=== PATIENT | male | born 1935 | race Caucasian/White ===

== ENCOUNTER → 2016-05-18 | Outpatient (CLI) | payer OTHER ==
[~2016-05-18] MED LIST: AMLO-110 PO; AMLO5TAB2 PO; ASPI81TA28 PO; ATOR-26 PO; CHOL100010 PO; CHOL100027 PO; CIPR-255 PO; CLOP1TAB15 PO; CRD4 PO; DOXA4TAB2 PO; EZET10TA63 PO; FINA5TAB PO; FURO-85 PO; ISOS60TA25 PO; METF-384 PO; MISCCAP80 PO; NTRGSL/4 UT; OMEG10007 PO; PANT40TA PO; PLV75 PO; SENNTAB23 PO; SILO8CAP PO; TPRSR/25 PO
--- NOTE | 2016-05-18 13:56 | DIAGNOSTIC IMAGING REPORT ---
ULTRASOUND LEFT VENOUS DOPP LOWER EXT UNILAT CLINICAL HISTORY: Left leg edema COMPARISON STUDY: No previous studies for comparison. FINDINGS: Real-time and color flow Doppler imaging were performed. Flow was seen within the femoral, popliteal and calf veins with no intraluminal thrombus demonstrated. The saphenous vein is patent. IMPRESSION: No evidence of left lower extremity DVT. Electronically signed by: Russell Ellis M.D. 05/18/2016 1:54 PM
== END | disposition home or self-care (01) ==
LOC: C.ULTRBC 13:09
PROVIDERS: ATTEND Internal Medicine Geriatric Medicine
DX: R60.0 Localized edema (principal)

== ENCOUNTER → 2016-07-15 | Outpatient (CLI) | payer OTHER ==
--- NOTE | 2016-07-15 16:07 | DIAGNOSTIC IMAGING REPORT ---
KUB CLINICAL HISTORY: Hematuria. COMPARISON STUDY: CT of the abdomen and pelvis May 10, 2016. FINDINGS: Bowel gas pattern is normal. Pelvic calcifications are unchanged and represent phleboliths. Calcifications projecting over each renal shadow are similar to prior exam and likely reflect vascular calcifications. Small renal calculi would be difficult to exclude. IMPRESSION: Calcifications projecting over each renal shadow which likely reflect vascular calcifications. Renal calcifications would be difficult to exclude. No ureteral calculi identified. Electronically signed by: Kieran Melo M.D. 07/15/2016 4:05 PM Dictated Date/Time: 07/15/2016 4:02 PM
== END | disposition home or self-care (01) ==
LOC: C.RAD 15:25
PROVIDERS: ATTEND Nurse Practitioner Adult Health
DX: R31.9 Hematuria, unspecified (principal)

== ENCOUNTER → 2016-08-10 | Outpatient (CLI) | payer OTHER ==
[2016-08-10 13:18] LABS: BASO % 0.8 %; BASO ABS # 0.05 K/uL (0-0.2); COMPLETE YES; EOS % 3.3 %; HEMATOCRIT 40.9 % (42-52); IG% 0.2 %; LYMPH % 25.8 %; LYMPH ABS # 1.63 K/uL (1.2-3.4); MEAN CELL VOLUME 94.2 fL (80-100); MEAN CORPUSCULAR HEMOGLOBIN 32.3 pg (25-34); MEAN CORPUSCULAR HGB CONC 34.2 g/dl (32-36); MEAN PLATELET VOLUME 11.4 fL (7.4-10.4); MONO % 9.8 %; NEUT % 60.1 %; PLATELET COUNT 150 K/uL (130-400); RED BLOOD COUNT 4.34 M/uL (4.7-6.1); WHITE BLOOD COUNT 6.31 K/uL (4.8-10.8)
[2016-08-10 13:49] LABS: ALT/SGPT 31 U/L (12-78); AST/SGOT 16 U/L (15-37); BLOOD UREA NITROGEN 19 mg/dl (7-18); BUN/CREATININE RATIO 16.9 (10-20); CALCIUM 10.1 mg/dl (8.5-10.1); CARBON DIOXIDE 28 mmol/L (21-32); CHLORIDE 108 mmol/L (98-107); GLUCOSE 108 mg/dl (70-99); POTASSIUM 4.3 mmol/L (3.5-5.1); SODIUM 142 mmol/L (136-145)
[2016-08-10 13:52] LABS: ALB/GLOB RATIO 1.5 (0.9-2); ALKALINE PHOSPHATASE 46 U/L (45-117); CHOLESTEROL 107 mg/dl (0-200); CHOLESTEROL/HDL RATIO 2.1; HDL CHOLESTEROL 52 mg/dl; LDL CHOLESTEROL CALCULATED 35 mg/dl; TRIGLYCERIDES 100 mg/dl (0-150); VERY LOW DENSITY LIPOPROT CALC 20 mg/dl
[2016-08-10 14:05] LABS: ESTIMATED AVERAGE GLUCOSE 157 mg/dl; HA1C FLAG Normal (Normal)
== END | disposition home or self-care (01) ==
LOC: C.LABBC 12:06
PROVIDERS: ATTEND Internal Medicine Geriatric Medicine
DX: E11.9 Type 2 diabetes mellitus without complications (principal); I10 Essential (primary) hypertension; K76.0 Fatty (change of) liver, not elsewhere classified; E21.3 Hyperparathyroidism, unspecified; R10.9 Unspecified abdominal pain; E55.9 Vitamin D deficiency, unspecified

== ENCOUNTER 2016-08-28 01:43 | Emergency (ER) | payer OTHER ==
[~2016-08-28] VITALS: Ht 177.8 cm; Wt 94.0 kg
[~2016-08-28 01:43] MED LIST changes: -AMLO-110 PO; -CHOL100027 PO; -CIPR-255 PO; -CLOP1TAB15 PO; -DOXA4TAB2 PO; -FURO-85 PO; -SENNTAB23 PO
[2016-08-28 01:53] VITALS: TEMP 36.8; O2SAT 98; Ht 177.8 cm; Wt 94.0 kg
[2016-08-28 02:11] LABS: BASO % 0.2 %; BASO ABS # 0.01 K/uL (0-0.2); COMPLETE YES; EOS % 4.9 %; HEMATOCRIT 40.6 % (42-52); IG% 0.2 %; LYMPH % 36.9 %; LYMPH ABS # 2.41 K/uL (1.2-3.4); MEAN CELL VOLUME 94.6 fL (80-100); MEAN CORPUSCULAR HEMOGLOBIN 31.9 pg (25-34); MEAN CORPUSCULAR HGB CONC 33.7 g/dl (32-36); MEAN PLATELET VOLUME 11.1 fL (7.4-10.4); MONO % 9.8 %; PLATELET COUNT 140 K/uL (130-400); RED BLOOD COUNT 4.29 M/uL (4.7-6.1); WHITE BLOOD COUNT 6.54 K/uL (4.8-10.8)
[2016-08-28] MEDS ORDERED: NITROGLYCERIN OINT 2% 1GM PACKET EXT ONE (02:15)
--- NOTE | 2016-08-28 02:19 | EMERGENCY ROOM VISIT NOTE ---
History Report prepared by Archana: Lincoln Victor Under the Supervision of: Dr. Dana Joel M.D. First contact with patient: 02:00 Chief Complaint: CHEST PAIN Stated Complaint: CHEST PAIN Nursing Triage Summary: Patient arrived via EMS. EMS reports patient at home awoken by 4/10 chest pressure. Patient took adult aspirin at home. Patient reports reduced chest pain at this time. History of Present Illness The patient is a 81 year old male who presents to the Emergency Room via EMS with complaints of chest pressure starting about an hour and a half ago. He was asleep but kept waking up every 5 minutes from his alarm. He had been dealing with the situation for about 20 minutes, was angry, and had the onset of his symptoms. He took 1 nitro at home with some relief. He took 1 aspirin at home and was giving 3 more aspirin in route to the Emergency Room. He reports the pain has improved since its initial onset. The patient denies fevers, chills, shortness of breath, bilateral lower extremity pain/swelling, or any other complaints. He has a history of 4-way bypass occurring about 15 years ago. His last cardiac catheterization was many years ago. Source of History: patient Onset: about an hour and a half ago Position: chest Quality: pressure Timing: other (improved) Modifying Factors (Relieving): other (1 nitro at home with some relief) Associated Symptoms: No SOB, No chills, No fevers Review of Systems See HPI for pertinent positives & negatives. A total of 10 systems reviewed and were otherwise negative. Past Medical & Surgical Medical Problems: (1) Abdom Aortic Aneurysm (2) Abdominal pain (3) Benign hypertension (4) C. difficile diarrhea (5) Chest pain (6) Congestive Heart Failure Nos (7) Diabetes mellitus (8) Enteritis (9) Heart disease (10) Hyperlipidemia (11) Hyperparathyroidism, Unspecified (12) Kidney stone (13) Thrombocytopenia Nos Surgical Problems: (1) cardiac bypass (2) Cardiac catheterization (3) cardiac stent placement (4) History of herniorrhaphy (5) Hx of shoulder surgery Family History Diabetes mellitus FHx: cancer FHx: heart disease FHx: lung disease Hypertension Social History Smoking Status: Former Smoker Alcohol Use: none Drug Use: none Marital Status: Housing Status: lives with significant other Occupation Status: retired Current/Historical Medications Scheduled Amlodipine Besylate (Norvasc), 1 TAB PO DAILY Aspirin (Aspirin Ec), 81 MG PO DAILY Atorvastatin (Lipitor), 80 MG PO HS Cholecalciferol (Vitamin D 1000 Unit), 2,000 INTER.UNIT PO DAILY Clopidogrel (Plavix), 75 MG PO DAILY Clopidogrel Bisulfate (Clopidogrel), 75 MG PO DAILY Doxazosin Mesylate (Cardura), 4 MG PO DAILY Ezetimibe (Zetia), 10 MG PO QPM Finasteride (Proscar), 5 MG PO DAILY Fish Oil ([place]-3), 300 MG PO QAM Isosorbide Mononitrate Ext Rel (Imdur Ext Rel), 60 MG PO QAM Metformin Hcl (Glucophage), 1,500 MG PO DAILY Metoprolol Succinate (Metoprolol Succinate ER), 25 MG PO QPM Nitroglycerin (Nitrostat), 0.4 MG UT UD Pantoprazole (Protonix), 40 MG PO QAM Probiotic Product (Probiotic), 1 CAP PO DAILY Silodosin (Rapaflo), 1 CAP PO Q2D Scheduled PRN Furosemide (Lasix), 20 MG PO DAILY PRN for fluid Allergies Coded Allergies: Cinnamon Flavor (Unverified Allergy, Severe, THROAT SWELLING, 08/28/16) Linaclotide (Verified Adverse Reaction, Unknown, DIARRHEA, 08/28/16) Lisinopril (Unverified Adverse Reaction, Unknown, DIZZINESS, 08/28/16) Physical Exam Vital Signs Date Time Temp Pulse Resp B/P Pulse Ox O2 Delivery O2 Flow Rate FiO2 08/28/16 05:02 60 16 174/86 98 Room Air 08/28/16 03:05 52 18 154/69 90 Room Air 08/28/16 01:56 55 08/28/16 01:53 96 Room Air 08/28/16 01:53 36.8 68 18 174/68 94 Room Air 08/28/16 01:53 98 Room Air Physical Exam Vital signs reviewed. General: Elderly, well-appearing, in no significant distress. HEENT: No scleral icterus, PERRLA, neck supple. Atraumatic. Cardiovascular: Regular rate and rhythm, occasional ectopy, no extra sounds. Pulmonary: Clear to auscultation bilaterally, normal work of breathing. Abdomen: Soft, nontender, nondistended, positive bowel sounds. Musculoskeletal: Atraumatic, no significant peripheral edema. Neurologic: Patient awake alert and oriented x 3, full strength in all 4 extremities. Cranial nerves 2 through 12 grossly intact. Skin: Warm, dry, no rash Medical Decision & Procedures ER Provider Diagnostic Interpretation: X-ray results as stated below per interpretation by me: CHEST X-RAY Post op changes, mild cardiomegaly, no acute failure or lung consolidation appreciated. Laboratory Results 08/28/16 01:29 Red Blood Count 4.29, Mean Corpuscular Volume 94.6, Mean Corpuscular Hemoglobin 31.9, Mean Corpuscular Hemoglobin Concent 33.7, Mean Platelet Volume 11.1, Neutrophils (%) (Auto) 48.0, Lymphocytes (%) (Auto) 36.9, Monocytes (%) (Auto) 9.8, Eosinophils (%) (Auto) 4.9, Basophils (%) (Auto) 0.2, Neutrophils # (Auto) 3.15, Lymphocytes # (Auto) 2.41, Monocytes # (Auto) 0.64, Eosinophils # (Auto) 0.32, Basophils # (Auto) 0.01 08/28/16 01:29 Test 08/28/16 01:29 08/28/16 04:26 White Blood Count 6.54 K/uL (4.8-10.8) Red Blood Count 4.29 M/uL (4.7-6.1) Hemoglobin 13.7 g/dL (14.0-18.0) Hematocrit 40.6 % (42-52) Mean Corpuscular Volume 94.6 fL (80-100) Mean Corpuscular Hemoglobin 31.9 pg (25-34) Mean Corpuscular Hemoglobin Concent 33.7 g/dl (32-36) Platelet Count 140 K/uL (130-400) Mean Platelet Volume 11.1 fL (7.4-10.4) Neutrophils (%) (Auto) 48.0 % Lymphocytes (%) (Auto) 36.9 % Monocytes (%) (Auto) 9.8 % Eosinophils (%) (Auto) 4.9 % Basophils (%) (Auto) 0.2 % Neutrophils # (Auto) 3.15 K/uL (1.4-6.5) Lymphocytes # (Auto) 2.41 K/uL (1.2-3.4) Monocytes # (Auto) 0.64 K/uL (0.11-0.59) Eosinophils # (Auto) 0.32 K/uL (0-0.5) Basophils # (Auto) 0.01 K/uL (0-0.2) RDW Standard Deviation 46.6 fL (36.4-46.3) RDW Coefficient of Variation 13.5 % (11.5-14.5) Immature Granulocyte % (Auto) 0.2 % Immature Granulocyte # (Auto) 0.01 K/uL (0.00-0.02) Prothrombin Time 11.4 SECONDS (9.0-12.0) Prothromb Time International Ratio 1.1 (0.9-1.1) Activated Partial Thromboplast Time 26.1 SECONDS (21.0-31.0) Partial Thromboplastin Ratio 1.0 Anion Gap 7.0 mmol/L (3-11) Est Creatinine Clear Calc Drug Dose 61.7 ml/min Estimated GFR () 73.1 Estimated GFR (Non- 63.1 BUN/Creatinine Ratio 18.9 (10-20) Calcium Level 9.8 mg/dl (8.5-10.1) Magnesium Level 1.9 mg/dl (1.8-2.4) Total Bilirubin 1.3 mg/dl (0.2-1) Direct Bilirubin 0.3 mg/dl (0-0.2) Aspartate Amino Transf (AST/SGOT) 22 U/L (15-37) Alanine Aminotransferase (ALT/SGPT) 34 U/L (12-78) Alkaline Phosphatase 48 U/L (45-117) Total Creatine Kinase 226 U/L (39-308) Creatine Kinase MB 4.2 ng/ml (0.5-3.6) Creatine Kinase MB Ratio 1.9 (0-3.0) Total Protein 6.6 gm/dl (6.4-8.2) Albumin 3.9 gm/dl (3.4-5.0) Bedside Troponin I 0.000 ng/ml (0-0.045) Laboratory results per my review. Medications Administered Medications (Trade) Dose Ordered Sig/Joan Route Start Time Stop Time Status Last Admin Dose Admin Nitroglycerin (Nitroglycerin 2% Oint) 1 inch NOW ONCE EXT 08/28/16 02:15 08/28/16 02:16 DC 4/14/17 02:13 1 INCH ECG Indication: chest pain Rate (beats per minute): 56 Rhythm: sinus bradycardia Findings: PVC (occasional), RBBB, no acute ischemic change, other (previous inferior infarct, repolarization abnormality in inferior and anterior leads) ED Course 0200: Past medical records reviewed. The patient was evaluated in room A11B. A complete history and physical examination was performed. 0215: Nitroglycerin 1 inch EXT 0445: Upon reevaluation, the patient appeared to have improvement of his symptoms. I discussed findings with him. He verbalized agreement of the treatment plan. He was discharged home. Medical Decision Chest pain: Acute coronary syndrome, pulmonary embolus, aortic dissection, musculoskeletal pain, pneumonia, pleural effusion, pneumothorax This patient was evaluated and appeared to be in no significant distress. The patient's chest pain had significant resolution after the nitroglycerin that was administered. The patient complained of a mild discomfort and was given topical nitroglycerin. EKG reveals no evidence of acute ischemic change. He does have a right bundle-branch block and PVC. Cardiac enzymes are negative 2. Chest x-ray reveals chronic changes without evidence of acute focal lung consolidation or failure. I suspect the patient had a bit of an anxiety reaction related to his cell phone and his alarm. 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 He will return to the ER for worsening of symptoms or any medical concerns. Impression Primary Impression: Precordial chest pain Scribe Attestation The scribe's documentation has been prepared under my direction and personally reviewed by me in its entirety. I confirm that the note above accurately reflects all work, treatment, procedures, and medical decision making performed by me. Departure Information Dispostion Home / Self-Care Referrals Nestor Moss M.D. (PCP) Forms HOME CARE DOCUMENTATION FORM, IMPORTANT VISIT INFORMATION Patient Instructions My [facility] Additional Instructions Diagnosis: Precordial chest pain Continue your medications as prescribed. Follow-up with your physician this week for reevaluation and consideration of further cardiac testing. Return to the ER for worsening of symptoms or any medical concerns.
[2016-08-28 02:21] LABS: BUN/CREATININE RATIO 18.9 (10-20); CALCIUM 9.8 mg/dl (8.5-10.1); CREATININE 1.1 mg/dl (0.60-1.40); MAGNESIUM 1.9 mg/dl (1.8-2.4)
[2016-08-28 02:24] LABS: INR 1.1 (0.9-1.1); PROTHROMBIN TIME (PATIENT) 11.4 SECONDS (9.0-12.0)
[2016-08-28 02:26] LABS: CKMB/CK RATIO 1.9 (0-3.0)
[2016-08-28] MEDS ORDERED: CLOP1TAB15 PO (02:39)
[2016-08-28] MEDS ORDERED: DOXA4TAB2 PO (02:40)
[2016-08-28] MEDS ORDERED: FURO-85 PO (02:41)
[2016-08-28] MEDS ORDERED: CHOL100027 PO (02:42)
[2016-08-28 05:02] VITALS: BP 174/86; PULSE 60; O2SAT 98
--- NOTE | 2016-08-28 07:15 | DIAGNOSTIC IMAGING REPORT ---
CHEST ONE VIEW PORTABLE CLINICAL HISTORY: chest pain dyspnea COMPARISON STUDY: 05/10/2016 FINDINGS: Mild stable cardiomegaly. Prior median sternotomy. Prominent bronchovascular markings unchanged. Mid and upper lungs are clear. IMPRESSION: Mild cardia megaly. Mild chronic prominence of basilar parenchymal markings. Electronically signed by: Julius Alegria M.D. 08/28/2016 7:13 AM Dictated Date/Time: 08/28/2016 7:12 AM
== END 2016-08-28 05:28 | disposition home or self-care (01) ==
LOC: EDBD 01:43 → C.EDA 01:44
DX: R07.2 Precordial pain (principal); I71.4 Abdominal aortic aneurysm, without rupture; I45.10 Unspecified right bundle-branch block; I49.3 Ventricular premature depolarization; I10 Essential (primary) hypertension; I50.9 Heart failure, unspecified; E11.9 Type 2 diabetes mellitus without complications; E78.5 Hyperlipidemia, unspecified; E21.3 Hyperparathyroidism, unspecified; D69.6 Thrombocytopenia, unspecified; Z95.1 Presence of aortocoronary bypass graft; Z87.891 Personal history of nicotine dependence; Z79.82 Long term (current) use of aspirin; Z79.84 Long term (current) use of oral hypoglycemic drugs; Z83.3 Family history of diabetes mellitus; Z82.49 Family history of ischemic heart disease and other diseases of the circulatory system

== ENCOUNTER 2016-09-09 20:32 | Emergency (ER) | payer OTHER ==
[~2016-09-09] VITALS: Ht 177.8 cm; Wt 91.0 kg
[~2016-09-09 20:32] MED LIST changes: -CHOL100010 PO; +CHOL100027 PO; +CLOP1TAB15 PO; -CRD4 PO; +DOXA4TAB2 PO; +FURO-85 PO
[2016-09-09 20:37] VITALS: TEMP 36.7; O2SAT 96; Ht 177.8 cm; Wt 91.0 kg
[2016-09-09] MEDS ORDERED: AMLO-110 PO (21:15)
--- NOTE | 2016-09-09 21:41 | EMERGENCY ROOM VISIT NOTE ---
History Report prepared by Robertibneptali: Delfino Cooper Under the Supervision of: Dr. Jose Gardiner D.O. First contact with patient: 21:31 Chief Complaint: BRADYCARDIA Stated Complaint: LOW HEART RATE Nursing Triage Summary: Patient states "I've been keeping track of my heart rate and last wednesday they cut my metoprolol medicine. It's been running in the 50's. Tonight I sat down to watch TV and it was 40. I called the doctor and they sent me here." Patient reports shaking and nausea. History of Present Illness The patient is an 81 year old male who presents to the Emergency Room with complaints of persistent bradycardia for the past five days. The patient has been bradycardic since his Metoprolol dose was decreased from 25 mg to 12.5 mg. The patient's heart rate dipped into the 40s tonight. He sometimes feels lightheaded but denies any chest pain, shortness of breath, or abnormal abdominal pain. The patient was referred to the ED by his PCP's office. Source of History: patient Onset: five days ago Position: other (heart) Symptom Intensity: HR 40s Quality: other (bradycardic) Timing: other (persistent) Associated Symptoms: No SOB, No abdominal pain, No chest pain Review of Systems See HPI for pertinent positives and negatives. A total of ten systems were reviewed and were otherwise negative. Past Medical & Surgical Medical Problems: (1) Abdom Aortic Aneurysm (2) Abdominal pain (3) Benign hypertension (4) C. difficile diarrhea (5) Chest pain (6) Congestive Heart Failure Nos (7) Diabetes mellitus (8) Enteritis (9) Heart disease (10) Hyperlipidemia (11) Hyperparathyroidism, Unspecified (12) Kidney stone (13) Thrombocytopenia Nos Surgical Problems: (1) cardiac bypass (2) Cardiac catheterization (3) cardiac stent placement (4) History of herniorrhaphy (5) Hx of shoulder surgery Family History Diabetes mellitus FHx: cancer FHx: heart disease FHx: lung disease Hypertension Social History Smoking Status: Never Smoker Alcohol Use: none Drug Use: none Marital Status: Housing Status: lives with significant other Occupation Status: retired Current/Historical Medications Scheduled Amlodipine (Norvasc), 5 MG PO DAILY Aspirin (Aspirin Ec), 81 MG PO DAILY Atorvastatin (Lipitor), 80 MG PO HS Cholecalciferol (Vitamin D 1000 Unit), 2,000 INTER.UNIT PO DAILY Clopidogrel (Plavix), 75 MG PO DAILY Doxazosin Mesylate (Cardura), 4 MG PO DAILY Ezetimibe (Zetia), 10 MG PO QPM Finasteride (Proscar), 5 MG PO DAILY Fish Oil ([place]-3), 300 MG PO QAM Isosorbide Mononitrate Ext Rel (Imdur Ext Rel), 60 MG PO QAM Metformin Hcl (Glucophage), 1,500 MG PO DAILY Metoprolol Succinate (Metoprolol Succinate ER), 12.5 MG PO QPM Nitroglycerin (Nitrostat), 0.4 MG UT UD Pantoprazole (Protonix), 40 MG PO QAM Probiotic Product (Probiotic), 1 CAP PO DAILY Silodosin (Rapaflo), 1 CAP PO Q2D Scheduled PRN Furosemide (Lasix), 20 MG PO DAILY PRN for fluid Allergies Coded Allergies: Cinnamon Flavor (Verified Allergy, Severe, THROAT SWELLING, 09/09/16) Linaclotide (Verified Adverse Reaction, Unknown, DIARRHEA, 09/09/16) Lisinopril (Verified Adverse Reaction, Unknown, DIZZINESS, 09/09/16) Physical Exam Vital Signs Date Time Temp Pulse Resp B/P Pulse Ox O2 Delivery O2 Flow Rate FiO2 09/09/16 21:15 60 09/09/16 20:49 Room Air 09/09/16 20:37 36.7 62 24 172/77 96 Room Air Physical Exam GENERAL: Awake, alert, well-appearing, in no distress HENT: Normocephalic, atraumatic. Oropharynx unremarkable. EYES: Normal conjunctiva. Sclera non-icteric. NECK: Supple. No nuchal rigidity. FROM. No JVD. RESPIRATORY: Clear to auscultation. CARDIAC: Regular rate, normal rhythm. Extremities warm and well perfused. Pulses equal. ABDOMEN: Soft, non-distended. No tenderness to palpation. No rebound or guarding. No masses. RECTAL: Deferred. MUSCULOSKELETAL: Chest examination reveals no tenderness. The back is symmetrical on inspection without obvious abnormality. There is no CVA tenderness to palpation. No joint edema. LOWER EXTREMITIES: Calves are equal size bilaterally and non-tender. No edema. No discoloration. NEURO: Normal sensorium. No sensory or motor deficits noted. SKIN: No rash or jaundice noted. Medical Decision & Procedures ED Course 2129: The patient was evaluated in room A2. A complete history and physical exam was performed. Medical Decision Differential diagnosis includes sinus bradycardia, medication reaction, anxiety. Patient is resting in no distress patient has a heart rate greater than 60. Patient has been taking his heart rate after he takes metoprolol. Patient had his metoprolol cut in half by his primary care physician. Patient has no symptoms currently of bradycardia and is not hypotensive. Patient will need to continue to monitor his heart rate and there may be a need for continued changes in his metoprolol. Impression Primary Impression: Bradycardia Scribe Attestation The scribe's documentation has been prepared under my direction and personally reviewed by me in its entirety. I confirm that the note above accurately reflects all work, treatment, procedures, and medical decision making performed by me. Departure Information Dispostion Home / Self-Care Referrals Nestor Moss M.D. (PCP) Patient Instructions ED Bradycardia, My [facility] Additional Instructions Take your pulse prior to taking her metoprolol. Follow-up with her primary care physician for continued instructions on how to continue to take her metoprolol.
[2016-09-09 22:30] VITALS: BP 163/84; PULSE 57
== END 2016-09-09 22:30 | disposition home or self-care (01) ==
LOC: C.EDB 20:33 → C.EDA 22:30
DX: R00.1 Bradycardia, unspecified (principal); R42 Dizziness and giddiness; I71.4 Abdominal aortic aneurysm, without rupture; I10 Essential (primary) hypertension; I50.9 Heart failure, unspecified; E11.9 Type 2 diabetes mellitus without complications; E78.5 Hyperlipidemia, unspecified; E21.3 Hyperparathyroidism, unspecified; D69.6 Thrombocytopenia, unspecified; Z87.442 Personal history of urinary calculi; Z95.1 Presence of aortocoronary bypass graft; Z98.61 Coronary angioplasty status; Z79.82 Long term (current) use of aspirin; Z79.84 Long term (current) use of oral hypoglycemic drugs; Z83.3 Family history of diabetes mellitus; Z82.49 Family history of ischemic heart disease and other diseases of the circulatory system

== ENCOUNTER → 2016-09-23 | Day surgery (SDC) | payer OTHER ==
[2016-09-17 13:46] VITALS: BMI 27.0
[~2016-09-23] VITALS: Ht 180.3 cm; Wt 88.6 kg
[~2016-09-23] MED LIST changes: +AMLO-110 PO; -AMLO5TAB2 PO; +CIPR-255 PO; +LIDOCAINE HCL 2% 2 ML VIAL (20MG/ML) ONE; -PLV75 PO; +PROPOFOL IV EMULSION 10 MG/ML 20 ML VIAL IV ONE; +SENNTAB23 PO; -TPRSR/25 PO
[2016-09-23 13:37] VITALS: Ht 180.3 cm; Wt 88.6 kg
--- NOTE | 2016-09-23 14:15 | Endo History and Physical ---
History & Physical Date of Service: September 23, 2016. Chief Complaint: abd pain, reflux Referring Physician: Dr. Jacques Moss History of Present Illness 81 yo CM who presents for EGD secondary to abdominal pain and GERD. Past Medical History Diabetes, Angioplasty/Stent, Osteoporosis, Male Genitourinary Prob., Gastrointestinal Disorder, CABG, CHF, Kidney Disease Past Surgical History Hx Cardiac Surgery: Yes (CABG x4, HEART CATH-2 STENTS PLACED) Hx Internal Defibrillator: No Hx Pacemaker: No Hx Abdominal Surgery: Yes (AAA REPAIR, INGUINAL HERNIA REPAIR X 3) Hx of Implantable Prosthesis: No Hx Post-Op Nausea and Vomiting: No Hx Cancer Surgery: No Hx Thoracic Surgery: No Hx Orthopedic: Yes (LEFT RCR, LEFT PARTIAL KNEE REPLACEMENT) Hx Urinary Tract Surgery: No Family History Colon CA Social History Smoking Status: Former Smoker Hx Substance Use: No Hx Alcohol Use: No Allergies Coded Allergies: Cinnamon Flavor (Verified Allergy, Severe, THROAT SWELLING, 09/17/16) Linaclotide (Verified Adverse Reaction, Unknown, DIARRHEA, 09/17/16) Lisinopril (Verified Adverse Reaction, Unknown, DIZZINESS, 09/17/16) Current Medications Reported Home Medications Medications Dose Route/Sig Max Daily Dose Days Date Category Dose Instructions Norvasc (Amlodipine Besylate) 5 Mg Tab 5 Mg PO QAM 09/09/16 Reported Vitamin D 1000 Unit (Cholecalciferol) 1,000 Unit Cap 2,000 Inter.unit PO QAM 08/28/16 Reported Lasix (Furosemide) 20 Mg Tab 20 Mg PO DAILY PRN 08/28/16 Reported Cardura (Doxazosin Mesylate) 4 Mg Tab 4 Mg PO QAM 08/28/16 Reported Plavix (Clopidogrel Bisulfate) 75 Mg Tab 75 Mg PO QAM 08/28/16 Reported Lipitor (Atorvastatin Calcium) 80 Mg Tab 80 Mg PO HS 05/10/16 Reported Glucophage (Metformin Hcl) 1,000 Mg Tab 1 Dose PO BID 04/08/16 Reported TAKES 0.5TAB IN AM TAKES 1 TAB IN PM Proscar (Finasteride) 5 Mg Tab 5 Mg PO QAM 03/16/16 Reported Probiotic (Probiotic Product) 1 Cap Cap 1 Cap PO QAM 03/16/16 Reported Aspirin Ec (Aspirin) 81 Mg Tab 81 Mg PO QAM 03/16/16 Reported Rapaflo (Silodosin) 8 Mg Cap 1 Cap PO Q2D 02/21/15 Reported TAKE EVERY OTHER AM [place]-3 (Fish Oil) 1 Ea Cap 300 Mg PO QAM 08/07/11 Reported Nitrostat (Nitroglycerin) 0.4 Mg Tab 0.4 Mg UT UD 08/31/08 Reported NEEDED FOR CHEST PAIN : ONE TABLET UNDER THE TONGUE EVERY 5 MINUTES UP TO 3 DOSES. Imdur Ext Rel (Isosorbide Mononitrate) 60 Mg Ertab 60 Mg PO QAM 08/23/08 Reported Protonix (Pantoprazole Sodium) 40 Mg Tab 40 Mg PO QAM 08/23/08 Reported Zetia (Ezetimibe) 10 Mg Tab 10 Mg PO QPM 08/23/08 Reported Vital Signs Weight (Kilograms): 88.64 Height (Feet): 5 Height (Inches): 11 Date Time Temp Pulse Resp B/P Pulse Ox O2 Delivery O2 Flow Rate FiO2 09/23/16 13:42 36.6 54 20 172/78 95 Room Air Physical Exam General Appearance: WD/WN, no apparent distress Respiratory/Chest: Auscultation: breath sounds normal Cardiovascular: Heart Auscultation: RRR Abdomen: Bowel Sounds: normal Inspection & Palpation: soft, non-distended, no tenderness, guarding & rebound Assessment and Plan Assessment: 81 yo CM who presents for EGD secondary to abdominal pain and GERD. Plan: Proceed with EGD.
--- NOTE | 2016-09-23 14:34 | Discharge Instructions ---
Endoscopy Patient Instructions Date / Procedure(s) Performed September 23, 2016. EGD Allergy Information Coded Allergies: Cinnamon Flavor (Verified Allergy, Severe, THROAT SWELLING, 09/23/16) Linaclotide (Verified Adverse Reaction, Unknown, DIARRHEA, 09/23/16) Lisinopril (Verified Adverse Reaction, Unknown, DIZZINESS, 09/23/16) Discharge Date / Findings September 23, 2016. Gastritis s/p biopsies Hiatal hernia Medication Instructions Stopped Medication(s): PLavix for 5 days OK to resume all medications today as prescribed Reported Home Medications Medications Dose Route/Sig Max Daily Dose Days Date Category Dose Instructions Norvasc (Amlodipine Besylate) 5 Mg Tab 5 Mg PO QAM 09/09/16 Reported Vitamin D 1000 Unit (Cholecalciferol) 1,000 Unit Cap 2,000 Inter.unit PO QAM 08/28/16 Reported Lasix (Furosemide) 20 Mg Tab 20 Mg PO DAILY PRN 08/28/16 Reported Cardura (Doxazosin Mesylate) 4 Mg Tab 4 Mg PO QAM 08/28/16 Reported Plavix (Clopidogrel Bisulfate) 75 Mg Tab 75 Mg PO QAM 08/28/16 Reported Lipitor (Atorvastatin Calcium) 80 Mg Tab 80 Mg PO HS 05/10/16 Reported Glucophage (Metformin Hcl) 1,000 Mg Tab 1 Dose PO BID 04/08/16 Reported TAKES 0.5TAB IN AM TAKES 1 TAB IN PM Proscar (Finasteride) 5 Mg Tab 5 Mg PO QAM 03/16/16 Reported Probiotic (Probiotic Product) 1 Cap Cap 1 Cap PO QAM 03/16/16 Reported Aspirin Ec (Aspirin) 81 Mg Tab 81 Mg PO QAM 03/16/16 Reported Rapaflo (Silodosin) 8 Mg Cap 1 Cap PO Q2D 02/21/15 Reported TAKE EVERY OTHER AM [place]-3 (Fish Oil) 1 Ea Cap 300 Mg PO QAM 08/07/11 Reported Nitrostat (Nitroglycerin) 0.4 Mg Tab 0.4 Mg UT UD 08/31/08 Reported NEEDED FOR CHEST PAIN : ONE TABLET UNDER THE TONGUE EVERY 5 MINUTES UP TO 3 DOSES. Imdur Ext Rel (Isosorbide Mononitrate) 60 Mg Ertab 60 Mg PO QAM 08/23/08 Reported Protonix (Pantoprazole Sodium) 40 Mg Tab 40 Mg PO QAM 08/23/08 Reported Zetia (Ezetimibe) 10 Mg Tab 10 Mg PO QPM 08/23/08 Reported Provider Instructions Activity Restrictions - No exercising or heavy lifting for 24 hours. - Do not drink alcohol the day of the procedure. - Do not drive a car or operate machinery until the day after the procedure. - Do not make any important decisions or sign important papers in 24 hours after the procedure. Following Day: - Return to full activity which may include returning to work/school. Diet Start your diet with liquids and light foods (jello, soup, juice, toast). Then eat your usual diet if not nauseated. Treatment For Common After Affects For mild abdominal pain, bloating, or excessive gas: - Rest - Eat lightly - Lie on right side Follow-Up Information Follow-up with Dr. Jacques Moss as scheduled Anesthesia Information What You Should Know You have had a procedure that required some medicine to reduce anxiety and discomfort. This treatment is called moderate sedation. After receiving the treatment, you may be sleepy, but you will be able to breathe on your own. The effects of the treatment may last for several hours. Follow these instructions along with Activity/Diet recommendations noted above: * Do NOT do anything where dizziness or clumsiness would be dangerous. * Rest quietly at home today, then you can be up and about tomorrow. * Have a responsible person stay with you the rest of today. * You may have had an I.V. today. If so, you may take the dressing off later today. Recommendations Call your doctor if: * Trouble breathing * Continuous vomiting for more than 24 hours * Temperature above 101 degrees * Severe abdominal pain or bloating * Pain not relieved by pain medicine ordered * There is increased drainage or redness from any incision * A large amount of rectal bleeding greater than 2-3 tablespoons. (If you had a polyp/s removed or have hemorrhoids, a small amount of blood - from the rectum is to be expected.) * You have any unanswered questions or concerns. IN THE EVENT OF A SERIOUS EMERGENCY, GO TO THE NEAREST EMERGENCY ROOM Your discharge instructions were prepared by provider Fracisco Ramirez. Patient Instructions Signature Page [facility] [place] Patient (or Guardian) Signature/Date: I have read and understand the instructions given to me by my caregivers. Caregiver/RN/Doctor Signature/Date: The above-named patient and/or guardian has received patient instructions on this date. + Original Patient Signature Page (only) stays with chart. Please make copy for patient.
--- NOTE | 2016-09-23 14:48 | GI REPORT ---
Procedure Date: 09/23/2016 2:12 PM Procedure: Upper GI endoscopy Indications: Epigastric abdominal pain, Gastro-esophageal reflux disease Medicines: Monitored Anesthesia Care Complications: No immediate complications. Estimated Blood Loss: Estimated blood loss: none. Procedure: Pre-Anesthesia Assessment: - Prior to the procedure, a History and Physical was performed, and patient medications and allergies were reviewed. The patient's tolerance of previous anesthesia was also reviewed. The risks and benefits of the procedure and the sedation options and risks were discussed with the patient. All questions were answered, and informed consent was obtained. Prior Anticoagulants: The patient last took Plavix (clopidogrel) 6 days prior to the procedure and last took aspirin on the day of the procedure. ASA Grade Assessment: III - A patient with severe systemic disease. After reviewing the risks and benefits, the patient was deemed in satisfactory condition to undergo the procedure. After obtaining informed consent, the endoscope was passed under direct vision. Throughout the procedure, the patient's blood pressure, pulse, and oxygen saturations were monitored continuously. The scope was introduced through the mouth, and advanced to the second part of duodenum. The upper GI endoscopy was accomplished without difficulty. The patient tolerated the procedure well. Findings: The esophagus was normal. A small hiatus hernia was present. Localized moderate inflammation characterized by erythema was found in the gastric antrum. Biopsies were taken with a cold forceps for histology. The examined duodenum was normal. Impression: - Normal esophagus. - Small hiatus hernia. - Gastritis. Biopsied. - Normal examined duodenum. Recommendation: - Resume previous diet. - Continue present medications. - Await pathology results. - Return to GI office as previously scheduled. Fracisco Ramirez DO 09/23/2016 2:47:21 PM This report has been signed electronically. Note Initiated On: 09/23/2016 2:12 PM I attest to the content of the Intraoperative Record and orders documented therein, exceptions below
[2016-09-23 15:05] VITALS: BP 162/77; PULSE 50; O2SAT 95
--- NOTE | 2016-09-23 15:41 | Anesthesiology Progress Note ---
Anesthesia Post Op Note Date & Time September 23, 2016 at 15:41 Vital Signs Pain Intensity: 0 Vital Signs Past 12 Hours Date Time Temp Pulse Resp B/P Pulse Ox O2 Delivery O2 Flow Rate FiO2 09/23/16 15:05 50 20 162/77 95 Room Air 09/23/16 14:49 52 20 150/72 95 Room Air 09/23/16 14:32 48 20 133/73 95 Room Air 09/23/16 13:42 36.6 54 20 172/78 95 Room Air Notes Mental Status: alert / awake / arousable, participated in evaluation Pt Amnestic to Procedure: Yes Nausea / Vomiting: adequately controlled Pain: adequately controlled Airway Patency, RR, SpO2: stable & adequate BP & HR: stable & adequate Hydration State: stable & adequate Anesthetic Complications: no major complications apparent
== END | disposition home or self-care (01) ==
LOC: C.GI 13:15
PROVIDERS: ATTEND Internal Medicine
DX: K29.60 Other gastritis without bleeding (principal); K44.9 Diaphragmatic hernia without obstruction or gangrene; K21.9 Gastro-esophageal reflux disease without esophagitis; E11.9 Type 2 diabetes mellitus without complications; Z87.891 Personal history of nicotine dependence; Z98.61 Coronary angioplasty status; Z79.82 Long term (current) use of aspirin; Z96.652 Presence of left artificial knee joint; Z95.1 Presence of aortocoronary bypass graft; Z80.0 Family history of malignant neoplasm of digestive organs; M81.0 Age-related osteoporosis without current pathological fracture

== ENCOUNTER → 2017-01-27 | Outpatient (CLI) | payer OTHER ==
[~2017-01-27] MED LIST changes: -LIDOCAINE HCL 2% 2 ML VIAL (20MG/ML) ONE; -PROPOFOL IV EMULSION 10 MG/ML 20 ML VIAL IV ONE
== END | disposition home or self-care (01) ==
LOC: C.RDSM 13:15
PROVIDERS: ATTEND Orthopaedic Surgery Sports Medicine
DX: M25.561 Pain in right knee (principal); M25.562 Pain in left knee

== ENCOUNTER 2017-02-06 09:00 | Emergency (ER) | payer OTHER ==
[~2017-02-06] VITALS: Ht 180.3 cm; Wt 89.1 kg
[~2017-02-06 09:00] MED LIST changes: -CIPR-255 PO; -SENNTAB23 PO
[2017-02-06 09:10] VITALS: TEMP 36.7; Ht 180.3 cm; Wt 89.1 kg
[2017-02-06] MEDS ORDERED: SENNTAB23 PO (09:55)
[2017-02-06 10:16] LABS: MANUAL MICROSCOPIC REQUIRED? YES; URINE APPEARANCE CLOUDY (CLEAR); URINE COLOR AMBER; URINE NITRITE NEG (NEG); URINE SPECIFIC GRAVITY 1.025 (1.000-1.030); UROBILINOGEN NEG (NEG)
[2017-02-06 10:37] LABS: REVIEW REQ? NO; URINE BILIRUBIN NEG (NEG)
[2017-02-06 10:42] LABS: URINE RBC >30 /hpf (0-4); URINE WBC >30 /hpf (0-5)
[2017-02-06 10:43] LABS: URINE BACTERIA 2+ (NEG)
[2017-02-06 10:44] LABS: ZZURINE CULT IF INDIC CATH YES
[2017-02-06] MEDS ORDERED: CIPR-255 PO (11:10)
[2017-02-06 11:18] VITALS: BP 160/74; PULSE 68; O2SAT 99
--- NOTE | 2017-02-06 11:18 | EMERGENCY ROOM VISIT NOTE ---
History First contact with patient: 09:15 Chief Complaint: URINARY SYMPTOMS Stated Complaint: PEEING BLOOD Nursing Triage Summary: "Im peeing blood." Dark red. Has been self cathing due to trouble urinating. Has been following with a urologist. Able to void on own but also cathing 3 times a day. Pain when voiding. Pt takes Plavix. History of Present Illness The patient is a 81 year old male who presents to the Emergency Room with complaints of hematuria. The patient reports a history of BPH, and his urologist has him self catheterizing 3 times daily. The patient reports that when he noticed blood in his urine last night, he did not perform any additional caths overnight. He did have to go to the bathroom every hour because of pressure, and was able to get small amounts of urine out. The patient denies any nausea or vomiting, back pain or abdominal pain. He does report a prior history of UTI. Review of Systems 10 system review was performed and was negative except for pertinent positives and negatives as indicated in history of present illness Past Medical/Surgical History Medical Problems: (1) Abdom Aortic Aneurysm (2) Abdominal pain (3) Benign hypertension (4) C. difficile diarrhea (5) Chest pain (6) Congestive Heart Failure Nos (7) Diabetes mellitus (8) Enteritis (9) Heart disease (10) Hyperlipidemia (11) Hyperparathyroidism, Unspecified (12) Kidney stone (13) Thrombocytopenia Nos Surgical Problems: (1) cardiac bypass (2) Cardiac catheterization (3) cardiac stent placement (4) History of herniorrhaphy (5) Hx of shoulder surgery Family History Diabetes mellitus FHx: cancer FHx: heart disease FHx: lung disease Hypertension Social History Smoking Status: Former Smoker Alcohol Use: none Drug Use: none Marital Status: Housing Status: lives with significant other Occupation Status: retired Current/Historical Medications Scheduled Amlodipine (Norvasc), 5 MG PO QAM Aspirin (Aspirin Ec), 81 MG PO QAM Atorvastatin (Lipitor), 80 MG PO HS Cholecalciferol (Vitamin D 1000 Unit), 2,000 INTER.UNIT PO QAM Ciprofloxacin Hcl (Cipro), 500 MG PO BID Clopidogrel (Plavix), 75 MG PO QAM Doxazosin Mesylate (Cardura), 4 MG PO QAM Ezetimibe (Zetia), 10 MG PO QPM Finasteride (Proscar), 5 MG PO QAM Fish Oil ([place]-3), 300 MG PO QAM Isosorbide Mononitrate Ext Rel (Imdur Ext Rel), 60 MG PO QAM Metformin Hcl (Glucophage), 1 DOSE PO BID Nitroglycerin (Nitrostat), 0.4 MG UT UD Pantoprazole (Protonix), 40 MG PO QAM Probiotic Product (Probiotic), 1 CAP PO QAM Silodosin (Rapaflo), 1 CAP PO Q2D Scheduled PRN Furosemide (Lasix), 20 MG PO DAILY PRN for fluid Sennosides-Docusate Sodium (Stool Softener), 1 TAB PO DAILY PRN for Constipation Physical Exam Vital Signs Date Time Temp Pulse Resp B/P (MAP) Pulse Ox O2 Delivery O2 Flow Rate FiO2 02/06/17 09:10 36.7 58 16 157/75 98 Room Air Physical Exam CONSTITUTIONAL: Healthy and well nourished. Alert and oriented X 3 with positive affect. Patient does not appear in any acute distress. HEENT: Normocephalic, atraumatic. Pupils equal, round and reactive. NECK: Full active range of motion without discomfort. RESPIRATORY: Clear to auscultation bilaterally with no wheezing, crackles, rhonchi or stridor. CARDIOVASCULAR: Regular rate and rhythm with no murmurs, rubs or gallops. GASTROINTESTINAL: Bowel sounds present in all quadrants. Abdomen is soft and nontender to palpation. No suprapubic tenderness to palpation or obvious bladder distention. Negative CVA tenderness. GENITOURINARY: No urethral erythema or kathy urethral bleeding. MUSCULOSKELETAL: Full range of motion of all joints without discomfort. INTEGUMENTARY: No rash or other significant dermatologic conditions noted. NEUROLOGIC: No focal neurologic deficits noted. Medical Decision & Procedures Laboratory Results Test 02/06/17 09:50 Urine Color MAIK Urine Appearance CLOUDY (CLEAR) Urine pH 5.0 (4.5-7.5) Urine Specific [place] 1.025 (1.000-1.030) Urine Protein 2+ (NEG) Urine Glucose (UA) NEG (NEG) Urine Ketones TRACE (NEG) Urine Occult Blood 3+ (NEG) Urine Nitrite NEG (NEG) Urine Bilirubin NEG (NEG) Urine Urobilinogen NEG (NEG) Urine Leukocyte Esterase MODERATE (NEG) Urine RBC >30 /hpf (0-4) Urine WBC >30 /hpf (0-5) Urine Epithelial Cells >30 /lpf (0-5) Urine Bacteria 2+ (NEG) Urinalysis shows hematuria, leukocyte esterase and white cells. Unfortunately, the sample was contaminated. Urine culture is pending. Procedure A Gonzalez catheter was inserted with minimal output. Bladder scan was performed to show no residual volume. ED Course Patient history and physical exam were performed. Nurse's notes were reviewed. Vital signs were reviewed and were normal. Because the patient has hematuria and history of urinary obstruction, I did elect to order a Gonzalez catheter insertion. Minimal urine output was achieved. Bladder scan was performed to show no residual volume. Urinalysis is suggestive of infection. The case was further discussed with Dr. Richards, ED attending physician, who suggested antibiotic treatment and Gonzalez catheter removal, and continue with home self-catheterization as needed. The patient was provided a prescription for Cipro 500 mg twice a day 10 days. He was instructed to follow-up with his urologist in the next 2-3 days for reassessment. Return to the emergency department over the weekend for any progressively worsening symptoms, fever, nausea/vomiting or back pain. The patient was happy with plan of care, voiced understanding of all discharge instructions, and denied any significant discomfort at the time of discharge. Medical Decision Medication Reconcilliation Current Medication List: was personally reviewed by me Blood Pressure Screening Patient's blood pressure: Normal blood pressure Impression Primary Impression: Urinary tract infection Additional Impression: Self-catheterizes urinary bladder Departure Information Dispostion Home / Self-Care Prescriptions Ciprofloxacin Hcl (CIPRO) 500 Mg Tab 500 MG PO BID for 10 Days, #20 TAB Prov: Amrik Bond PA 02/06/17 Forms HOME CARE DOCUMENTATION FORM, IMPORTANT VISIT INFORMATION Patient Instructions CAUTI Catheter Associated, My [facility] Additional Instructions Complete all Cipro antibiotics as prescribed. Follow-up with your family doctor early next week for reevaluation. Return to the emergency department for any inability to urinate, developing fever, neck pain, nausea or vomiting. Problem Qualifiers Primary Impression: Urinary tract infection Urinary tract infection type: acute cystitis Hematuria presence: with hematuria Qualified Codes: N30.01 - Acute cystitis with hematuria
--- NOTE | 2017-02-08 11:14 | Pharmacy Progress Note ---
ED Pharmacist Culture FollowUp Date of Service: Feb 08, 2017. Patient was sent home with a prescription for ciprofloxacin, which should cover the E.Coli growing from the patient's urine culture.
== END 2017-02-06 11:21 | disposition home or self-care (01) ==
LOC: C.EDB 09:04
DX: N30.01 Acute cystitis with hematuria (principal); I10 Essential (primary) hypertension; E11.9 Type 2 diabetes mellitus without complications; E78.5 Hyperlipidemia, unspecified; N40.0 Benign prostatic hyperplasia without lower urinary tract symptoms; Z87.440 Personal history of urinary (tract) infections; Z87.442 Personal history of urinary calculi; Z87.891 Personal history of nicotine dependence; Z95.1 Presence of aortocoronary bypass graft; Z98.61 Coronary angioplasty status; Z98.890 Other specified postprocedural states; Z83.3 Family history of diabetes mellitus; Z82.49 Family history of ischemic heart disease and other diseases of the circulatory system; Z79.02 Long term (current) use of antithrombotics/antiplatelets; Z79.82 Long term (current) use of aspirin; Z79.84 Long term (current) use of oral hypoglycemic drugs; Z79.899 Other long term (current) drug therapy

== ENCOUNTER 2017-02-12 08:21 | Emergency (ER) | payer OTHER ==
[~2017-02-12] VITALS: Ht 177.8 cm; Wt 89.0 kg
[~2017-02-12 08:21] MED LIST changes: +CIPR-255 PO; +SENNTAB23 PO
[2017-02-12 08:26] VITALS: TEMP 36.4; Ht 177.8 cm; Wt 89.0 kg
[2017-02-12 08:34] VITALS: O2SAT 99
[2017-02-12] MEDS ORDERED: ASPIRIN 81 MG CHEW PO STA (08:44)
[2017-02-12] MEDS ORDERED: NITROGLYCERIN 0.4 MG SL PER TAB CHARGE SL PRN (08:45)
[2017-02-12 09:14] LABS: BASO % 0.6 %; BASO ABS # 0.04 K/uL (0-0.2); COMPLETE YES; EOS % 3.9 %; HEMATOCRIT 42.5 % (42-52); IG% 0.2 %; MEAN CELL VOLUME 94.4 fL (80-100); MEAN CORPUSCULAR HEMOGLOBIN 31.6 pg (25-34); MEAN CORPUSCULAR HGB CONC 33.4 g/dl (32-36); MEAN PLATELET VOLUME 10.6 fL (7.4-10.4); MONO % 9.4 %; NEUT % 63.9 %; PLATELET COUNT 174 K/uL (130-400); WHITE BLOOD COUNT 6.35 K/uL (4.8-10.8)
[2017-02-12 09:30] LABS: BUN/CREATININE RATIO 13.7 (10-20); CALCIUM 10.2 mg/dl (8.5-10.1); CREATININE 1.1 mg/dl (0.60-1.40)
--- NOTE | 2017-02-12 09:34 | DIAGNOSTIC IMAGING REPORT ---
CHEST ONE VIEW PORTABLE CLINICAL HISTORY: Atypical chest pain COMPARISON STUDY: 08/28/2016 FINDINGS: The heart is mildly enlarged. There are postsurgical changes of a midline sternotomy. There is no failure. There is no focal pulmonary consolidation. No pleural effusions are visualized.[ IMPRESSION: No active disease in the chest. Electronically signed by: Russell Ellis M.D. 02/12/2017 9:33 AM Dictated Date/Time: 02/12/2017 9:33 AM
--- NOTE | 2017-02-12 10:00 | EMERGENCY ROOM VISIT NOTE ---
History First contact with patient: 08:32 Chief Complaint: TACHYCARDIA Stated Complaint: RAPID HEART BEAT Nursing Triage Summary: pt reports for past 3 days intermittent feeling of "heart beating hard" today awoke with pressure in center of chest , denies radiation , reports feeling tired and weak pt reports taking asa 81mg and nitro X 1 with no relief History of Present Illness The patient is a 81 year old male who presents to the Emergency Room with complaints of chest pressure that began this morning at about 6:30 AM. Patient states that for the past 3 days he has been feeling a heavy heartbeat at night, states it feels like his heart is "thumping." He denies any feelings of palpitations, racing or rapid heartbeat. He has not had any chest discomfort with this until this morning. He has had some associated feelings of lightheadedness, he denies any shortness of breath, nausea or vomiting, diaphoresis. He did take 1 baby aspirin and 1 nitroglycerin when his symptoms started with no improvement. He has a history of heart disease with a previous MO and a CABG [address] 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 He denies any recent illness, fevers or chills, cough, congestion, abdominal pain, back pain, change in bowels. He does report that he was started on treatment for UTI about 1 week ago, being treated with ciprofloxacin. Review of Systems A complete 10 point review of systems was reviewed with the patient with pertinent positives and negatives as per history of present illness. All else were negative. Past Medical/Surgical History Medical Problems: (1) Abdom Aortic Aneurysm (2) Abdominal pain (3) Benign hypertension (4) C. difficile diarrhea (5) Chest pain (6) Congestive Heart Failure Nos (7) Diabetes mellitus (8) Enteritis (9) Heart disease (10) Hyperlipidemia (11) Hyperparathyroidism, Unspecified (12) Kidney stone (13) Thrombocytopenia Nos Surgical Problems: (1) cardiac bypass (2) Cardiac catheterization (3) cardiac stent placement (4) History of herniorrhaphy (5) Hx of shoulder surgery Family History Diabetes mellitus FHx: cancer FHx: heart disease FHx: lung disease Hypertension Social History Smoking Status: Former Smoker Alcohol Use: none Drug Use: none Marital Status: Housing Status: lives with significant other Occupation Status: retired Current/Historical Medications Scheduled Amlodipine (Norvasc), 5 MG PO QAM Aspirin (Aspirin Ec), 81 MG PO QAM Atorvastatin (Lipitor), 80 MG PO HS Cholecalciferol (Vitamin D 1000 Unit), 2,000 INTER.UNIT PO QAM Clopidogrel (Plavix), 75 MG PO QAM Doxazosin Mesylate (Cardura), 4 MG PO QAM Ezetimibe (Zetia), 10 MG PO QPM Finasteride (Proscar), 5 MG PO QAM Fish Oil ([place]-3), 300 MG PO QAM Isosorbide Mononitrate Ext Rel (Imdur Ext Rel), 60 MG PO QAM Metformin Hcl (Glucophage), 1,500 MG PO BID Nitroglycerin (Nitrostat), 0.4 MG UT UD Pantoprazole (Protonix), 40 MG PO QAM Probiotic Product (Probiotic), 1 CAP PO QAM Silodosin (Rapaflo), 1 CAP PO Q2D Scheduled PRN Furosemide (Lasix), 20 MG PO DAILY PRN for fluid Sennosides-Docusate Sodium (Stool Softener), 1 TAB PO DAILY PRN for Constipation Physical Exam Vital Signs Date Time Temp Pulse Resp B/P (MAP) Pulse Ox O2 Delivery O2 Flow Rate FiO2 02/12/17 14:34 49 20 160/78 98 02/12/17 14:03 49 20 170/77 97 Room Air 02/12/17 12:52 53 20 158/76 96 Room Air 02/12/17 12:13 48 02/12/17 11:09 48 20 166/72 97 Room Air 02/12/17 09:22 48 16 151/80 96 Room Air 02/12/17 08:40 52 02/12/17 08:34 99 Room Air 02/12/17 08:26 36.4 51 20 183/72 97 Room Air Physical Exam CONSTITUTIONAL: No acute distress. Well appearing and well nourished. Alert and oriented X 4 with normal affect. HEENT: Normocephalic, atraumatic. Pupils equal, round and reactive to light, EOMI. TMs normal. Pharynx normal. Moist membranes. NECK: Supple, full active range of motion without discomfort. RESPIRATORY: Clear to auscultation bilaterally with no wheezing, crackles, rhonchi or stridor. Equal expansion bilaterally. CARDIOVASCULAR: Bradycardia. Regularly irregular rhythm with no murmurs, rubs or gallops. Normal peripheral perfusion. No edema. GASTROINTESTINAL: Soft, nontender, nondistended. Bowel sounds present in all quadrants. MUSCULOSKELETAL: Full range of motion of all joints without discomfort. INTEGUMENTARY: No rash or other significant dermatologic conditions noted. NEUROLOGIC: Cranial nerves II-XII grossly intact. No focal neurologic deficits noted. Medical Decision & Procedures ER Provider Diagnostic Interpretation: CHEST ONE VIEW PORTABLE CLINICAL HISTORY: Atypical chest pain COMPARISON STUDY: 08/28/2016 FINDINGS: The heart is mildly enlarged. There are postsurgical changes of a midline sternotomy. There is no failure. There is no focal pulmonary consolidation. No pleural effusions are visualized. IMPRESSION: No active disease in the chest. Laboratory Results 02/12/17 08:57 Red Blood Count 4.50, Mean Corpuscular Volume 94.4, Mean Corpuscular Hemoglobin 31.6, Mean Corpuscular Hemoglobin Concent 33.4, Mean Platelet Volume 10.6, Neutrophils (%) (Auto) 63.9, Lymphocytes (%) (Auto) 22.0, Monocytes (%) (Auto) 9.4, Eosinophils (%) (Auto) 3.9, Basophils (%) (Auto) 0.6, Neutrophils # (Auto) 4.05, Lymphocytes # (Auto) 1.40, Monocytes # (Auto) 0.60, Eosinophils # (Auto) 0.25, Basophils # (Auto) 0.04 02/12/17 08:57 Test 02/12/17 08:53 02/12/17 08:57 02/12/17 13:16 Bedside Glucose 114 mg/dl (70-99) White Blood Count 6.35 K/uL (4.8-10.8) Red Blood Count 4.50 M/uL (4.7-6.1) Hemoglobin 14.2 g/dL (14.0-18.0) Hematocrit 42.5 % (42-52) Mean Corpuscular Volume 94.4 fL (80-100) Mean Corpuscular Hemoglobin 31.6 pg (25-34) Mean Corpuscular Hemoglobin Concent 33.4 g/dl (32-36) Platelet Count 174 K/uL (130-400) Mean Platelet Volume 10.6 fL (7.4-10.4) Neutrophils (%) (Auto) 63.9 % Lymphocytes (%) (Auto) 22.0 % Monocytes (%) (Auto) 9.4 % Eosinophils (%) (Auto) 3.9 % Basophils (%) (Auto) 0.6 % Neutrophils # (Auto) 4.05 K/uL (1.4-6.5) Lymphocytes # (Auto) 1.40 K/uL (1.2-3.4) Monocytes # (Auto) 0.60 K/uL (0.11-0.59) Eosinophils # (Auto) 0.25 K/uL (0-0.5) Basophils # (Auto) 0.04 K/uL (0-0.2) RDW Standard Deviation 45.9 fL (36.4-46.3) RDW Coefficient of Variation 13.3 % (11.5-14.5) Immature Granulocyte % (Auto) 0.2 % Immature Granulocyte # (Auto) 0.01 K/uL (0.00-0.02) Prothrombin Time 11.0 SECONDS (9.0-12.0) Prothromb Time International Ratio 1.0 (0.9-1.1) Activated Partial Thromboplast Time 25.7 SECONDS (21.0-31.0) Partial Thromboplastin Ratio 1.0 Anion Gap 8.0 mmol/L (3-11) Est Creatinine Clear Calc Drug Dose 60.2 ml/min Estimated GFR () 73.1 Estimated GFR (Non- 63.1 BUN/Creatinine Ratio 13.7 (10-20) Calcium Level 10.2 mg/dl (8.5-10.1) Total Bilirubin 0.8 mg/dl (0.2-1) Direct Bilirubin 0.2 mg/dl (0-0.2) Aspartate Amino Transf (AST/SGOT) 18 U/L (15-37) Alanine Aminotransferase (ALT/SGPT) 23 U/L (12-78) Alkaline Phosphatase 47 U/L (45-117) Total Protein 6.7 gm/dl (6.4-8.2) Albumin 3.6 gm/dl (3.4-5.0) Lipase 212 U/L (73-393) Bedside Troponin I < 0.030 ng/ml (0-0.045) Medications Administered Medications (Trade) Dose Ordered Sig/Joan Route Start Time Stop Time Status Last Admin Dose Admin Aspirin (Aspirin Chew) 243 mg NOW STAT PO 02/12/17 08:44 02/12/17 08:48 DC 02/12/17 09:04 243 MG ECG Indication: chest pain, palpitations Rhythm: sinus bradycardia Findings: PVC, no acute ischemic change Medical Decision CC: Patient presenting with complaint of palpitations and chest pain/pressure Interpretation of Labs: No leukocytosis, no anemia, no significant electrolyte abnormalities, normal renal function, normal liver enzymes and lipase, negative troponin 3. Differential Diagnosis: Includes, but not limited to ACS, arrhythmia, symptomatic hypertension, palpitations related to PVCs, pericarditis, anxiety, musculoskeletal pain, GERD, pneumonia, among others. Medication Reconciliation: I attest that I have personally reviewed the patient' s current medication list. Vital signs review: I reviewed the patient's vital signs and interpret them as follows: T: Afebrile; BP: Hypertensive; HR: Bradycardic; RR: Within normal limits; Pulse Ox: Within normal limits on room air. Blood pressure screening: The patient was found to have an elevated blood pressure and was referred to their primary doctor for recheck and further treatment. Summary: Patient was evaluated at bedside, history of physical exam performed. Patient is alert and oriented, in no acute distress, resting calmly in the stretcher. He complains of midsternal chest pressure that does not radiate, associated with a heavy heartbeat. He is noted to be quite hypertensive on initial evaluation. Bradycardia and frequent PVCs noted on monitor. Orders were placed at bedside for labs, POC troponin, UA, chest x-ray, EKG to evaluate for ACS. Patient discussed with Dr. Jorge, who agrees with my assessment and plan. Labs reviewed as above, no significant abnormalities. Troponin monitored over greater than 6 hours from onset of chest pain, these are all negative. On reassessment of the patient, he reports that his chest pressure is completely resolved without any interventions. He did not receive any nitroglycerin or pain medication. Discussed over the phone with Dr. Pena, stripper cutter machine, he feels that the patient's palpitations may be related to his PVCs, and feels that if his chest pain has resolved and he has a negative troponin 6 hours after onset of pain, he can safely be discharged and they will follow up with him in clinic early next week. I did also discuss this plan with Dr. Jorge, who was comfortable with this plan. I discussed all results with the patient and his family, he continues to deny any return of his chest discomfort and states that his palpitations have improved. He was given a lunch tray to eat, and generally appears in better spirits and less anxious. I discussed plan for discharge home with close follow-up with his stripper cutter machine, the patient states that he is comfortable with this plan and is ready to go home. The patient was of course instructed on return precautions should his symptoms return or worsen, he verbalized understanding. Patient was discharged home in stable condition and ambulatory. Medication Reconcilliation Current Medication List: was personally reviewed by me Blood Pressure Screening Patient's blood pressure: Elevated blood pressure Impression Primary Impression: Heart palpitations Additional Impression: Chest pressure Departure Information Dispostion Home / Self-Care Condition GOOD Referrals Nestor Moss M.D. (PCP) Patient Instructions ED Palpitations, My [facility] Additional Instructions You have been treated in the Emergency Department your heart palpitations and chest pressure. Laboratory results and imaging studies have ruled out any emergent causes for your symptoms which would warrant admission or surgery. Your blood pressure was elevated today. You should have this rechecked by your PCP in the next week. You should also follow-up with your stripper cutter machine early next week on Wednesday or Wednesday. Call for an appointment. Please return to the emergency department for any worsening symptoms, or for symptoms of chest pain, shortness of breath, dizziness or passing out, breaking out in a sweat, nausea or vomiting, fevers or chills, or any other concerns. Problem Qualifiers
[2017-02-12 14:34] VITALS: BP 160/78; PULSE 49; O2SAT 98
--- NOTE | 2017-02-12 15:33 | EMERGENCY ROOM VISIT NOTE ---
ED Visit Note First contact with patient: 08:32 81-year-old male with "thumping" in his chest this morning. The patient was fully evaluated by Fawn Meek NP. Please see her note. I also independently evaluated the patient. The patient was here for several hours and had multiple troponins performed. EKG does not reveal an acute changes. Consultation was obtained with cardiology. The patient was ultimately felt safe to return home but will require follow-up.
== END 2017-02-12 14:36 | disposition home or self-care (01) ==
LOC: C.EDB 08:22
DX: R00.2 Palpitations (principal); R07.9 Chest pain, unspecified; I10 Essential (primary) hypertension; E11.9 Type 2 diabetes mellitus without complications; E78.5 Hyperlipidemia, unspecified; E21.3 Hyperparathyroidism, unspecified; I50.9 Heart failure, unspecified; Z87.19 Personal history of other diseases of the digestive system; Z87.442 Personal history of urinary calculi; Z95.1 Presence of aortocoronary bypass graft; Z98.61 Coronary angioplasty status; Z98.890 Other specified postprocedural states; Z87.891 Personal history of nicotine dependence; Z79.82 Long term (current) use of aspirin; Z79.84 Long term (current) use of oral hypoglycemic drugs; Z79.899 Other long term (current) drug therapy; Z83.3 Family history of diabetes mellitus; Z80.9 Family history of malignant neoplasm, unspecified; Z82.49 Family history of ischemic heart disease and other diseases of the circulatory system

== ENCOUNTER 2017-02-15 13:10 | Observation (INO) | payer OTHER ==
[~2017-02-15] VITALS: Ht 177.8 cm; Wt 87.2 kg
[~2017-02-15 13:10] MED LIST changes: -CIPR-255 PO
[2017-02-15] MEDS ORDERED: NITROGLYCERIN 0.4 MG SL PER TAB CHARGE SL PRN ×2 (13:45→16:00)
[2017-02-15] MEDS ORDERED: ONDANSETRON INJ 2 MG/ML 2 ML VIAL IV STA (13:45)
[2017-02-15] MEDS ORDERED: ASPIRIN 81 MG CHEW PO STA (13:45)
--- NOTE | 2017-02-15 14:15 | EMERGENCY ROOM VISIT NOTE ---
History Report prepared by Archana: Michelle Gonzalez Under the Supervision of: Dr. Sylvester Burch M.D. First contact with patient: 13:39 Chief Complaint: CARDIAC ASSESSMENT Stated Complaint: HEART PALPITATIONS History of Present Illness The patient is an 81 year old male who presents to the Emergency Room with complaints of intermittent heart palpitations that began this morning around 0900. He currently rates his discomfort as a 2/10 in severity. The patient states that he began feeling ill around 0900 this morning. He states that he has noticed slight chest pressure. The patient states that he has noticed slight nausea. He states that he was recently evaluated in the emergency department for similar symptoms, but states that today is much worse. The patient states that he has been feeling chilled, but denies any fever, cough, or congestion. He states that his chest pressure feels slightly similar to his previous [place]. The patient says yes-and-no regarding shortness of breath. He denies any diarrhea. Source of History: patient Onset: this morning around 0900 Position: other (heart) Symptom Intensity: 2/10 Quality: other (palpitations) Timing: intermittent Associated Symptoms: + chills, + chest pain, + nausea, No fevers, No cough, No SOB, No diarrhea Review of Systems See HPI for pertinent positives and negatives. A total of ten systems were reviewed and were otherwise negative. Past Medical & Surgical Medical Problems: (1) Abdom Aortic Aneurysm (2) Abdominal pain (3) Benign hypertension (4) C. difficile diarrhea (5) Chest pain (6) Congestive Heart Failure Nos (7) Diabetes mellitus (8) Enteritis (9) Heart disease (10) Hyperlipidemia (11) Hyperparathyroidism, Unspecified (12) Kidney stone (13) Thrombocytopenia Nos Surgical Problems: (1) cardiac bypass (2) Cardiac catheterization (3) cardiac stent placement (4) History of herniorrhaphy (5) Hx of shoulder surgery Family History Diabetes mellitus FHx: cancer FHx: heart disease FHx: lung disease Hypertension Social History Smoking Status: Former Smoker Alcohol Use: none Drug Use: none Marital Status: Housing Status: lives with significant other Occupation Status: retired Current/Historical Medications Scheduled Amlodipine (Norvasc), 5 MG PO QAM Aspirin (Aspirin Ec), 81 MG PO QAM Atorvastatin (Lipitor), 80 MG PO HS Cholecalciferol (Vitamin D 1000 Unit), 2,000 INTER.UNIT PO QAM Clopidogrel (Plavix), 75 MG PO QAM Doxazosin Mesylate (Cardura), 4 MG PO QAM Ezetimibe (Zetia), 10 MG PO QPM Finasteride (Proscar), 5 MG PO QAM Fish Oil ([place]-3), 300 MG PO QAM Isosorbide Mononitrate Ext Rel (Imdur Ext Rel), 60 MG PO QAM Metformin Hcl (Glucophage), 1,500 MG PO BID Nitroglycerin (Nitrostat), 0.4 MG UT UD Pantoprazole (Protonix), 40 MG PO QAM Probiotic Product (Probiotic), 1 CAP PO QAM Silodosin (Rapaflo), 1 CAP PO Q2D Scheduled PRN Furosemide (Lasix), 20 MG PO DAILY PRN for fluid Sennosides-Docusate Sodium (Stool Softener), 1 TAB PO DAILY PRN for Constipation Allergies Coded Allergies: Cinnamon Flavor (Verified Allergy, Severe, THROAT SWELLING, 02/15/17) Linaclotide (Verified Adverse Reaction, Unknown, DIARRHEA, 02/15/17) Lisinopril (Verified Adverse Reaction, Unknown, DIZZINESS, 02/15/17) Physical Exam Vital Signs Date Time Temp Pulse Resp B/P (MAP) Pulse Ox O2 Delivery O2 Flow Rate FiO2 02/15/17 13:52 50 18 145/71 97 Room Air 02/15/17 13:32 53 02/15/17 13:31 Room Air 02/15/17 13:30 Room Air 02/15/17 13:20 36.4 56 16 143/83 96 Room Air Physical Exam GENERAL: Awake, alert, uncomfortable-appearing, in no distress HENT: Normocephalic, atraumatic. Dry mucous membranes . EYES: Normal conjunctiva. Sclera non-icteric. NECK: Supple. No nuchal rigidity. FROM. No JVD. RESPIRATORY: Diminished breath sounds at the bases. CARDIAC: Regular rate, normal rhythm. Extremities warm and well perfused. Pulses equal. ABDOMEN: Soft, non-distended. Mild epigastric tenderness to palpation. No rebound or guarding. No masses. No peritoneal signs. RECTAL: Deferred. MUSCULOSKELETAL: Chest examination reveals no tenderness. The back is symmetrical on inspection without obvious abnormality. There is no CVA tenderness to palpation. No joint edema. LOWER EXTREMITIES: Calves are equal size bilaterally and non-tender. Scant lower extremity edema. No discoloration. NEURO: Normal sensorium. No sensory or motor deficits noted. SKIN: No rash or jaundice noted. Medical Decision & Procedures ER Provider Diagnostic Interpretation: Radiology results as stated below per my review and radiologist interpretation: CHEST ONE VIEW PORTABLE HISTORY: 81 years-old Male CHEST PAIN acute atypical chest pain COMPARISON: Chest radiograph 02/12/2017 TECHNIQUE: Portable upright AP view of the chest FINDINGS: Cardiac silhouette is mildly enlarged. Prior median sternotomy. There is atherosclerosis of the aorta. No pneumothorax, pleural effusion or focal airspace consolidation. No overt pulmonary edema. Bones of the chest appear grossly intact. Degenerative changes are seen about the shoulders and spine. IMPRESSION: No acute cardiopulmonary process. The above report was generated using voice recognition software. It may contain grammatical, syntax or spelling errors. Electronically signed by: Aries Beltran M.D. 02/15/2017 2:13 PM Dictated Date/Time: 02/15/2017 2:12 PM Laboratory Results 02/15/17 13:33 Red Blood Count 4.64, Mean Corpuscular Volume 94.8, Mean Corpuscular Hemoglobin 30.6, Mean Corpuscular Hemoglobin Concent 32.3, Mean Platelet Volume 11.0, Neutrophils (%) (Auto) 72.4, Lymphocytes (%) (Auto) 18.8, Monocytes (%) (Auto) 6.3, Eosinophils (%) (Auto) 1.7, Basophils (%) (Auto) 0.4, Neutrophils # (Auto) 5.40, Lymphocytes # (Auto) 1.40, Monocytes # (Auto) 0.47, Eosinophils # (Auto) 0.13, Basophils # (Auto) 0.03 02/15/17 13:33 Test 02/15/17 13:33 White Blood Count 7.46 K/uL (4.8-10.8) Red Blood Count 4.64 M/uL (4.7-6.1) Hemoglobin 14.2 g/dL (14.0-18.0) Hematocrit 44.0 % (42-52) Mean Corpuscular Volume 94.8 fL (80-100) Mean Corpuscular Hemoglobin 30.6 pg (25-34) Mean Corpuscular Hemoglobin Concent 32.3 g/dl (32-36) Platelet Count 193 K/uL (130-400) Mean Platelet Volume 11.0 fL (7.4-10.4) Neutrophils (%) (Auto) 72.4 % Lymphocytes (%) (Auto) 18.8 % Monocytes (%) (Auto) 6.3 % Eosinophils (%) (Auto) 1.7 % Basophils (%) (Auto) 0.4 % Neutrophils # (Auto) 5.40 K/uL (1.4-6.5) Lymphocytes # (Auto) 1.40 K/uL (1.2-3.4) Monocytes # (Auto) 0.47 K/uL (0.11-0.59) Eosinophils # (Auto) 0.13 K/uL (0-0.5) Basophils # (Auto) 0.03 K/uL (0-0.2) RDW Standard Deviation 45.6 fL (36.4-46.3) RDW Coefficient of Variation 13.3 % (11.5-14.5) Immature Granulocyte % (Auto) 0.4 % Immature Granulocyte # (Auto) 0.03 K/uL (0.00-0.02) Anion Gap 11.0 mmol/L (3-11) Est Creatinine Clear Calc Drug Dose 47.2 ml/min Estimated GFR () 54.6 Estimated GFR (Non- 47.1 BUN/Creatinine Ratio 11.3 (10-20) Calcium Level 11.2 mg/dl (8.5-10.1) Total Bilirubin 1.0 mg/dl (0.2-1) Direct Bilirubin 0.2 mg/dl (0-0.2) Aspartate Amino Transf (AST/SGOT) 20 U/L (15-37) Alanine Aminotransferase (ALT/SGPT) 22 U/L (12-78) Alkaline Phosphatase 51 U/L (45-117) Pro-B-Type Natriuretic Peptide 1134 pg/ml (0-1800) Total Protein 6.9 gm/dl (6.4-8.2) Albumin 3.8 gm/dl (3.4-5.0) Lipase 222 U/L (73-393) Laboratory results reviewed by me Medications Administered Medications (Trade) Dose Ordered Sig/Joan Route Start Time Stop Time Status Last Admin Dose Admin Ondansetron HCl (Zofran Inj) 4 mg NOW STAT IV 02/15/17 13:45 02/15/17 13:47 DC 02/15/17 14:04 4 MG Nitroglycerin (Nitrostat Tab) 0.4 mg Q5M PRN SL 02/15/17 13:45 02/15/17 18:39 DC 02/15/17 14:05 0.4 MG Aspirin (Aspirin Chew) 324 mg NOW STAT PO 02/15/17 13:45 02/15/17 13:47 DC 02/15/17 14:04 324 MG Famotidine (Pepcid 20mg/100 ml) 20 mg ONE STAT IV 02/15/17 15:21 02/15/17 15:23 DC 02/15/17 15:21 20 MG Miscellaneous Medication (Gi Cocktail) 24 ml NOW STAT PO 02/15/17 15:21 02/15/17 15:23 DC 02/15/17 15:21 24 ML ECG Indication: chest pain, palpitations Rate (beats per minute): 53 Rhythm: sinus bradycardia Findings: RBBB, other (normal axis) Comparison ECG Date: 02/12/17 Change: no significant change ED Course 1340: The patient was evaluated in room C8. A complete history and physical exam was performed. 1345: Ordered Aspirin 324 mg PO, Nitroglycerin 0.4 mg SL, Zofran Inj 4 mg IV. 1516: I reevaluated the patient and he is resting comfortably. I discussed the exam findings with him and I discussed the treatment plan. He verbalized complete understanding and agreement. He is going to be evaluated for further treatment. 1521: Ordered GI Cocktail 24 ml PO, Famotidine 20 mg IV. 1526: I discussed the patients case with Dr. Lane [facility] [place]. He is going to evaluate the patient for further treatment. Medical Decision The patient's presentation and history were concerning for Pneumonia, bronchitis , CHF, ACS, PE, arrhythmia, dehydration, electrolyte abnormality, UTI. I reviewed the patient's past medical history, medications, and the nursing notes as described above. The patient is an 81-year-old gentleman with a past medical history HTN, HLD, CAD on plavix, CHF on lasix presents to the emergency department with palpitations, chest pain, nausea, equivocal shortness of breath since this morning after being seen 2 days ago in the emergency Department for similar with negative workup but now reports sx are worse per history of present illness. Daughter at bedside also reports that patient looks worse than he did last ED visit. The patient appears uncomfortable but in no acute distress. Afebrile with stable vital signs. EKG unremarkable from prior. Given nitroglycerin on arrival, initially with no improvement. Chest x-ray with cardiomegaly but no overt venous congestion. BNP 1000s. Patient reassessed and while feeling marginally improved still with mild substernal epigastric pressure and nausea. Has mild epigastric discomfort to palpation as well suggesting possible gastritis. However, given the patient's repeat ED visit with similar symptoms in the setting of his numerous comorbidities will admit for ACS rule out with likely provocative testing. Case d/w NI Lyles hospitalist who will admit the patient for further management. Medication Reconcilliation Current Medication List: was personally reviewed by me Blood Pressure Screening Patient's blood pressure: Elevated blood pressure patient was referred to the hospitalist for his high blood pressure Consults Time Called: 1520 Consulting Physician: NI Lyles Returned Call: 1526 I discussed the patients case with NI Lyles. He is going to evaluate the patient for further treatment. Impression Primary Impression: Substernal chest pain Scribe Attestation The scribe's documentation has been prepared under my direction and personally reviewed by me in its entirety. I confirm that the note above accurately reflects all work, treatment, procedures, and medical decision making performed by me. Departure Information Dispostion Being Evaluated By Hospitalist Referrals Nestor Moss M.D. (PCP)
[2017-02-15 14:27] LABS: BASO % 0.4 %; BASO ABS # 0.03 K/uL (0-0.2); COMPLETE YES; EOS % 1.7 %; IG% 0.4 %; LYMPH % 18.8 %; MEAN CELL VOLUME 94.8 fL (80-100); MEAN CORPUSCULAR HEMOGLOBIN 30.6 pg (25-34); MEAN CORPUSCULAR HGB CONC 32.3 g/dl (32-36); MONO % 6.3 %; NEUT % 72.4 %; PLATELET COUNT 193 K/uL (130-400); RED BLOOD COUNT 4.64 M/uL (4.7-6.1); WHITE BLOOD COUNT 7.46 K/uL (4.8-10.8)
[2017-02-15 14:48] LABS: ALT/SGPT 22 U/L (12-78); BLOOD UREA NITROGEN 16 mg/dl (7-18); BUN/CREATININE RATIO 11.3 (10-20); CALCIUM 11.2 mg/dl (8.5-10.1); CARBON DIOXIDE 24 mmol/L (21-32); CHLORIDE 105 mmol/L (98-107); GLUCOSE 126 mg/dl (70-99); POTASSIUM 4.5 mmol/L (3.5-5.1); SODIUM 140 mmol/L (136-145)
[2017-02-15 14:53] LABS: ALKALINE PHOSPHATASE 51 U/L (45-117); AST/SGOT 20 U/L (15-37)
[2017-02-15] MEDS ORDERED: FAMOTIDINE 20MG/102 ML D5W IV STA (15:21)
[2017-02-15] MEDS ORDERED: GI COCKTAIL PO STA (15:21)
[2017-02-15] MEDS ORDERED: ALUMINUM/MAGNESIUM/SIMETH (MAALOX MAX) 30 ML UDC PO PRN (16:00)
[2017-02-15] MEDS ORDERED: NITROGLYCERIN 0.4 MG SL PER TAB CHARGE UT PRN (16:00)
[2017-02-15] MEDS ORDERED: POLYETHYLENE (MIRALAX) 17 GM PACK PO PRN (16:00)
[2017-02-15] MEDS ORDERED: ONDANSETRON INJ 2 MG/ML 2 ML VIAL IV PRN (16:00)
[2017-02-15] MEDS ORDERED: DOCUSATE SODIUM/SENNA 50/8.6MG TAB PO PRN (16:00)
[2017-02-15] MEDS: INSULIN ASPART 100 UNITS/ML 3 ML PEN SC SCH ×2 (16:00→20:40)
[2017-02-15] MEDS ORDERED: MAGNESIUM HYDROXIDE SUSP 30 ML UDC PO PRN (16:00)
[2017-02-15] MEDS ORDERED: ACETAMINOPHEN 325 MG TAB PO PRN (16:00)
[2017-02-15] MEDS ORDERED: FUROSEMIDE 20 MG TAB PO PRN (16:00)
[2017-02-15] MEDS ORDERED: LIDOCAINE HCL 2% VISC SOLN 20 ML UDC ONE (16:08)
[2017-02-15] MEDS ORDERED: ALUMINUM/MAGNESIUM SUSP 30 ML UDC ONE (16:08)
[2017-02-15] MEDS ORDERED: IV FLUIDS COMPLETED PRN (16:15)
--- NOTE | 2017-02-15 16:18 | History and Physical ---
History & Physical Date & Time of Service: Feb 15, 2017 at 16:02 Chief Complaint: Heart Palpitations Primary Care Physician: Nestor Moss M.D. History of Present Illness Source: patient, family, clinic records, hospital records Patient is a pleasant 81 y/o male, with PMHx of CAD s/p CABG and stent placement , HTN, hyperlipidemia, T2DM, BPH, h/o c.diff, and GERD, who presented to the ED because of recurrent chest palpitations/discomfort. Patient presented to the ED on 02/12 due to occurring chest palpitations and pressure during the night. Workup was unremarkable and he was discharged home. He presented to ED today because symptoms have not improved and are now occurring during the daytime. He notes associated chills. Symptoms are nonradiating. He denies alleviating/ aggravating factors. He was treated w/ GI cocktail and ASA + Nitro in the ED- he notes symptoms are still present. Symptoms are similar to past presentation of acute cardiac issues. He follows w/ Dr. Russell. Patient had an EGD in September 2016 w/ Dr. Ramirez- small hiatus hernia, otherwise unremarkable. +lightheadedness/ dizziness. Patient denies any fever, sweats, vision changes, CP, palpitations, edema, SOB, wheezing, cough, abdominal pain, nausea, vomiting, diarrhea, urinary symptoms, melena, numbness/tingling, weakness, muscle/joint pain, anxiety/depression, active bleeding, or new skin discoloration/changes. Past Medical/Surgical History Medical Problems: CAD s/p CABG and stent placement HTN hyperlipidemia T2DM BPH h/o c.diff GERD Surgical Problems: (1) cardiac bypass Status: Resolved (2) Cardiac catheterization Status: Resolved (3) cardiac stent placement Status: Resolved (4) History of herniorrhaphy Status: Resolved (5) Hx of shoulder surgery Status: Resolved Family History Diabetes mellitus FHx: cancer FHx: heart disease FHx: lung disease Hypertension Social History Smoking Status: Former Smoker Drug Use: none Marital Status: Housing status: lives with family Occupational Status: retired Immunizations History of Influenza Vaccine: No Influenza Vaccine Date: Jan 19, 2011 History of Tetanus Vaccine?: Unknown History of Pneumococcal: Yes Pneumococcal Date: Jan 19, 2011 History of Hepatitis B Vaccine: Unknown Multi-Drug Resistant Organisms History of MDRO: No Allergies Coded Allergies: Cinnamon Flavor (Verified Allergy, Severe, THROAT SWELLING, 02/15/17) Linaclotide (Verified Adverse Reaction, Unknown, DIARRHEA, 02/15/17) Lisinopril (Verified Adverse Reaction, Unknown, DIZZINESS, 02/15/17) Home Medications Scheduled Amlodipine (Norvasc), 5 MG PO QAM Aspirin (Aspirin Ec), 81 MG PO QAM Atorvastatin (Lipitor), 80 MG PO HS Cholecalciferol (Vitamin D 1000 Unit), 2,000 INTER.UNIT PO QAM Clopidogrel (Plavix), 75 MG PO QAM Doxazosin Mesylate (Cardura), 4 MG PO QAM Ezetimibe (Zetia), 10 MG PO QPM Finasteride (Proscar), 5 MG PO QAM Fish Oil ([place]-3), 300 MG PO QAM Isosorbide Mononitrate Ext Rel (Imdur Ext Rel), 60 MG PO QAM Metformin Hcl (Glucophage), 1,500 MG PO BID Nitroglycerin (Nitrostat), 0.4 MG UT UD Pantoprazole (Protonix), 40 MG PO QAM Probiotic Product (Probiotic), 1 CAP PO QAM Silodosin (Rapaflo), 1 CAP PO Q2D Scheduled PRN Furosemide (Lasix), 20 MG PO DAILY PRN for fluid Sennosides-Docusate Sodium (Stool Softener), 1 TAB PO DAILY PRN for Constipation Physical Exam Vital Signs Date Time Temp Pulse Resp B/P (MAP) Pulse Ox O2 Delivery O2 Flow Rate FiO2 02/15/17 13:52 50 18 145/71 97 Room Air 02/15/17 13:32 53 02/15/17 13:31 Room Air 02/15/17 13:30 Room Air 02/15/17 13:20 36.4 56 16 143/83 96 Room Air General Appearance: no apparent distress Head: normocephalic, atraumatic Eyes: PERRL ENT: hearing grossly normal Neck: supple Respiratory/Chest: lungs clear, no respiratory distress, no accessory muscle use Cardiovascular: regular rate, rhythm Abdomen/GI: normal bowel sounds, non tender, soft Back: normal inspection Extremities/Musculoskelatal: no calf tenderness, no pedal edema Neurologic/Psych: alert, normal mood/affect, oriented x 3 Skin: normal color, warm/dry, no rash Diagnostics Laboratory Results Results Past 24 Hours Test 02/15/17 13:33 Range/Units White Blood Count 7.46 4.8-10.8 K/uL Red Blood Count 4.64 4.7-6.1 M/uL Hemoglobin 14.2 14.0-18.0 g/dL Hematocrit 44.0 42-52 % Mean Corpuscular Volume 94.8 80-100 fL Mean Corpuscular Hemoglobin 30.6 25-34 pg Mean Corpuscular Hemoglobin Concent 32.3 32-36 g/dl Platelet Count 193 130-400 K/uL Mean Platelet Volume 11.0 7.4-10.4 fL Neutrophils (%) (Auto) 72.4 % Lymphocytes (%) (Auto) 18.8 % Monocytes (%) (Auto) 6.3 % Eosinophils (%) (Auto) 1.7 % Basophils (%) (Auto) 0.4 % Neutrophils # (Auto) 5.40 1.4-6.5 K/uL Lymphocytes # (Auto) 1.40 1.2-3.4 K/uL Monocytes # (Auto) 0.47 0.11-0.59 K/uL Eosinophils # (Auto) 0.13 0-0.5 K/uL Basophils # (Auto) 0.03 0-0.2 K/uL RDW Standard Deviation 45.6 36.4-46.3 fL RDW Coefficient of Variation 13.3 11.5-14.5 % Immature Granulocyte % (Auto) 0.4 % Immature Granulocyte # (Auto) 0.03 0.00-0.02 K/uL Sodium Level 140 136-145 mmol/L Potassium Level 4.5 3.5-5.1 mmol/L Chloride Level 105 98-107 mmol/L Carbon Dioxide Level 24 21-32 mmol/L Anion Gap 11.0 3-11 mmol/L Blood Urea Nitrogen 16 7-18 mg/dl Creatinine 1.40 0.60-1.40 mg/dl Est Creatinine Clear Calc Drug Dose 47.2 ml/min Estimated GFR () 54.6 Estimated GFR (Non- 47.1 BUN/Creatinine Ratio 11.3 10-20 Random Glucose 126 70-99 mg/dl Calcium Level 11.2 8.5-10.1 mg/dl Total Bilirubin 1.0 0.2-1 mg/dl Direct Bilirubin 0.2 0-0.2 mg/dl Aspartate Amino Transf (AST/SGOT) 20 15-37 U/L Alanine Aminotransferase (ALT/SGPT) 22 12-78 U/L Alkaline Phosphatase 51 45-117 U/L Troponin I < 0.015 0-0.045 ng/ml Pro-B-Type Natriuretic Peptide 1134 0-1800 pg/ml Total Protein 6.9 6.4-8.2 gm/dl Albumin 3.8 3.4-5.0 gm/dl Lipase 222 73-393 U/L Diagnostic Radiology CHEST ONE VIEW PORTABLE HISTORY: 81 years-old Male CHEST PAIN acute atypical chest pain COMPARISON: Chest radiograph 02/12/2017 TECHNIQUE: Portable upright AP view of the chest FINDINGS: Cardiac silhouette is mildly enlarged. Prior median sternotomy. There is atherosclerosis of the aorta. No pneumothorax, pleural effusion or focal airspace consolidation. No overt pulmonary edema. Bones of the chest appear grossly intact. Degenerative changes are seen about the shoulders and spine. IMPRESSION: No acute cardiopulmonary process. The above report was generated using voice recognition software. It may contain grammatical, syntax or spelling errors. Electronically signed by: Aries Beltran M.D. 02/15/2017 2:13 PM Dictated Date/Time: 02/15/2017 2:12 PM The status of this report is Signed. Draft = Not yet reviewed or approved by Radiologist. Signed = Reviewed and approved by Radiologist. EKG EFREN HARVEY ID:[id number] 15-FEB-2017 13:27:00 [facility] Sinus bradycardia Right bundle branch block Nonspecific T wave abnormality Abnormal ECG When compared with ECG of 12-FEB-2017 08:34, Premature ventricular complexes are no longer Present Confirmed by CYRIL RUSSELL MD ([id number]) on 02/15/2017 1:59:17 PM 25mm/s 10mm/mV 150Hz 8.0 SP2 12SL 241 HD NATY: 12 Referred by: Confirmed By: MD YVONNE NAM Vent. rate 53 BPM IN interval 164 ms QRS duration 148 ms QT/QTc 490/459 ms P-R-T axes 13 42 1 1935 (81 yr) Male 1lb Room: Loc:15 [place]:CHANDRAKANT Mendez ind: Impression Assessment and Plan Patient is a pleasant 81 y/o male, with PMHx of CAD s/p CABG and stent placement , HTN, hyperlipidemia, T2DM, BPH, h/o c.diff, and GERD, who presented to the ED because of recurrent chest palpitations/discomfort. Chest palpitations/discomfort, r/o ACS: - Admit to tele for cardiac monitoring - Trend cardiac enzymes- initial enzymes negative - O2 protocol, wean as tolerated - Nitro PRN - EKG- no acute ischemic changes; EKGs QAM and PRN for chest pain - Will make NPO after midnight incase cardiology wishes to purse additional workup - Consult cardiology, appreciate recommendations Ongoing lightheadedness/dizziness: Check orthostatic BPs CAD s/p CAGB and stent placement, hyperlipidemia- follows w/ Dr. Russell: - Continue ASA 81 mg daily, Plavix 75 mg daily, Lasix 20 mg PRN, Imdur 60 mg QAM , Lipitor 80 mg HS, Zetia 10 mg HS - Check lipid panel - Dobutamine stress ECHO in 2015- LVEF 50%, mild LVH, L and R ventricular mild dilation, stress unremarkable T2DM: - Hold Metformin 1000 mg QAM and 500 mg QPM - BSG ACHS and sliding insulin scale - Check HgbA1C HTN- STABLE: Continue Norvasc 5 mg daily BPH- follows w/ Dr. Hoang: Proscar 5 mg daily, Cardura 4 mg daily GERD: - Continue Protonix - EGD in September [address] Ramirez- small hiatal hernia, otherwise unremarkable DVT prophylaxis: Heparin SQ BID Code Status: LEVEL I, FULL Dispo: From home- PT/OT and social sciences instructor consulted PA Physician Supervision Note: I interviewed and examined the patient. Discussed with Irene PEREZ and agree with findings and plan as documented in the note. Any exceptions or clarifications are listed here: None This is a return ER visit for this patient has had some issues with palpitations associated with diaphoresis. He has known coronary history and he feels some of the symptoms are reminiscent of chest pain which she's had in the past. His initial evaluation has been unremarkable and he currently is in sinus bradycardia rate of 52 with stable blood pressure and no symptoms. His heart is bradycardic regular without murmurs his lungs are clear without wheezes or crackles extremities are without edema he has no dyspepsia or epigastric distress 69 palpitations reminiscent of chest pain the patient is a history of coronary disease, the patient was brought into telemetry have serial enzymes will see cardiology in the morning if he has any arrhythmia or abnormal enzyme levels otherwise looks stress testing will continue GI treatment at this time and PCP follow-up if needed Documented By: Maximiliano Lane Level of Care Telemetry Resuscitation Status FULL RESUSCITATION VTE Prophylaxis VTE Risk Assessment Done? Y/N: Yes Risk Level: Moderate Given or contraindicated: Unfractionated heparin SQ, T.E.D. Stockings, SCD's
[2017-02-15] MEDS ORDERED: GLUCAGON FOR INJ 1 MG VIAL SQ PRN (16:45)
[2017-02-15] MEDS ORDERED: GLUCOSE 40% GEL 15 GM TUBE PO PRN (16:45)
[2017-02-15] MEDS ORDERED: DEXTROSE 50% 50 ML SYR IV PRN (16:45)
[2017-02-15] MEDS ORDERED: GLUCOSE 10 TABS/TUBE PO PRN (16:45)
[2017-02-15 17:42] VITALS: BP 174/83; PULSE 51; TEMP 36.4; O2SAT 94; Ht 177.8 cm; Wt 87.2 kg
[2017-02-15] MEDS ORDERED: INFLUENZA VACCINE HIGH DOSE 65+ 0.5 ML SYR IM. ONE (20:15)
[2017-02-15] MEDS ORDERED: INFLUENZA ADMINISTRATION CHARGE ONE (20:15)
[2017-02-15] MEDS: HEPARIN SOD 5000 UNIT/0.5 ML CARP SQ SCH (20:44)
[2017-02-15] MEDS ORDERED: EZETIMIBE 10MG TAB PO SCH (21:00)
[2017-02-15] MEDS ORDERED: ATORVASTATIN 40 MG TAB PO SCH (21:00)
[2017-02-15 23:46] VITALS: BP 183/85; PULSE 50; TEMP 36.6; O2SAT 93
[2017-02-16] VITALS: O2SAT 96
[2017-02-16 03:53] VITALS: O2SAT 96
[2017-02-16 04:00] VITALS: BP_SYST 125; BP_SYST 133; BP_DIAS 71; BP_DIAS 72; BP_DIAS 74; PULSE 52; PULSE 59; PULSE 60; TEMP 36.4; O2SAT 93
[2017-02-16 05:00] VITALS: BP 141/66; PULSE 47; O2SAT 93
[2017-02-16 05:21] LABS: CHOLESTEROL 98 mg/dl (0-200); CHOLESTEROL/HDL RATIO 2.3; HDL CHOLESTEROL 42 mg/dl; LDL CHOLESTEROL CALCULATED 31 mg/dl; TRIGLYCERIDES 123 mg/dl (0-150); VERY LOW DENSITY LIPOPROT CALC 25 mg/dl
[2017-02-16] MEDS: INSULIN ASPART 100 UNITS/ML 3 ML PEN SC SCH (06:30)
[2017-02-16 07:02] VITALS: BP 133/72; PULSE 47; TEMP 36.6; O2SAT 92
[2017-02-16] MEDS: HEPARIN SOD 5000 UNIT/0.5 ML CARP SQ SCH (08:08)
[2017-02-16] MEDS: DOXAZosin MESYLATE TAB 4 MG TAB PO SCH ×2 (08:52→09:46)
[2017-02-16] MEDS: ASPIRIN 81 MG ECTAB PO SCH ×2 (08:52→09:45)
[2017-02-16] MEDS: CLOPIDOGREL BISULFATE 75 MG TAB PO SCH ×2 (08:53→09:46)
[2017-02-16] MEDS: CHOLECALCIFEROL 1000 INTER.UNIT TAB PO SCH ×2 (08:53→09:45)
[2017-02-16] MEDS: LACTOBACILLUS ACIDOPHILUS (FLORANEX) TAB PO SCH ×2 (08:53→09:44)
[2017-02-16] MEDS: OMEGA-3 (PURIFIED FISH OIL) 1 GM CAP PO SCH ×2 (08:53→09:46)
[2017-02-16] MEDS: FINASTERIDE 5 MG TAB PO SCH ×2 (08:53→09:45)
[2017-02-16] MEDS: AMLODIPINE BESYLATE 5 MG TAB PO SCH ×2 (08:53→09:44)
[2017-02-16] MEDS: PANTOprazole SOD 40 MG TAB PO SCH ×2 (08:53→09:44)
[2017-02-16] MEDS: ISOSORBIDE MONONITRATE 60 MG TABCR PO SCH ×2 (08:53→09:46)
[2017-02-16] MEDS ORDERED: ASPIRIN 81 MG ECTAB PO SCH (09:00)
--- NOTE | 2017-02-16 10:22 | Discharge Instructions ---
Discharge Instructions Date of Service Feb 16, 2017. Admission Reason for Admission: Heart Palpitations, Substernal Chest Pain Discharge Discharge Diagnosis / Problem: Chest pain rule out acute coronary syndrome Discharge Goals Goal(s): Decrease discomfort, Improve function, Increase independence, Improve disease control, Diagnostic testing, Therapeutic intervention, Prevent Disease Progression Activity Recommendations Activity Limitations: resume your previous activity Exercise/Sports Limitations: as tolerated . Instructions / Follow-Up Instructions / Follow-Up Patient to be discharged home Please stop taking the antibiotic cipro for the infection No other changes in medications If worsening chest pain, please report to ER Please keep your appointment with Dr Sanchez as scheduled Follow up with Dr Nestor Moss in 1-2 weeks Current Hospital Diet Patient's current hospital diet: AHA Diet (Heart Healthy), Diabetes Type 2 Diet Discharge Diet Recommended Diet: Diabetes Type 2 Diet Pending Studies Studies pending at discharge: no Laboratory Results Hemoglobin A1c Test 02/16/17 04:34 Range/Units Estimated Average Glucose 160 mg/dl Hemoglobin A1c 7.2 H 4.5-5.6 % Lipid Panel Test 02/16/17 04:34 Range/Units Triglycerides Level 123 0-150 mg/dl Cholesterol Level 98 0-200 mg/dl HDL Cholesterol 42 mg/dl Cholesterol/HDL Ratio 2.3 LDL Cholesterol, Calculated 31 mg/dl Medical Emergencies . Who to Call and When: Medical Emergencies: If at any time you feel your situation is an emergency, please call 911 immediately. . Non-Emergent Contact Non-Emergency issues call your: Primary Care Provider Call Non-Emergent contact if: your pain is worsening, you have any medication questions . . "Provider Documentation" section prepared by Arsalan Newell. . VTE Core Measure Inpt VTE Proph given/why not?: Unfractionated heparin SQ, T.E.D. Stockings, SCD 's
[2017-02-16 10:35] VITALS: BP 133/72; PULSE 47; TEMP 36.6; O2SAT 92
--- NOTE | 2017-02-16 11:26 | CARDIOLOGY CONSULTATION ---
DATE OF CONSULTATION: 02/16/2017 REFERRING PHYSICIAN: Maximiliano Lane MD ATTENDING PHYSICIAN: Arsalan Newell DO CONSULTATION: Teodoro Sanchez MD PRIMARY PHYSICIAN: Nestor Moss M.D. HISTORY OF PRESENT ILLNESS: The patient is an 81-year-old white male well known to me. History of coronary artery disease. Status post CABG x4 2004 (FIGUEROA - LAD, SVG - left circumflex marginal, SVG - LAD diagonal, SVG - right posterior descending artery). Recurrent angina 2006. Cardiac catheterization at that time revealed occlusion of all 3 vein grafts. Patent internal mammary artery graft to LAD. He underwent deployment of drug-eluting stents in his proximal left circumflex and left circumflex marginal. Procedure performed at the [facility]. Admission to [facility] 05/10/2007 for unstable angina. Catheterization at that time revealed patent stents in the left circumflex and left circumflex marginal. Subtotal mid RCA occlusion. Collateral flow from proximal RCA to distal RCA. Left internal mammary artery remained patent. LV ejection fraction 50%. LV angiography with inferior hypokinesis. Dobutamine stress echocardiogram 04/08/2016 with LV ejection fraction of 50%. Anteroseptal and inferoseptal dyskinesis at rest and with stress. Hypokinesis at rest in the inferolateral and lateral stephenson. With dobutamine stress improved wall motion in the anterior, anterolateral, and inferior stephenson. The patient has a longstanding history of bradycardia and symptomatic premature ventricular beats. In the past, he was treated with metoprolol. Because of bradycardia and worsening of his palpitations, the metoprolol dose was decreased and then subsequently it was completely discontinued. The patient last saw me in the office in August. At that time, he was feeling relatively well. He experiences no palpitations during the day. In August, he stated that he would have occasional cardiac awareness lying in bed at night. This was very tolerable to him. No lightheadedness or syncope. The patient was seen in the Emergency Department on February 06 with complaints consistent with urinary tract infection. He was started on ciprofloxacin 500 mg b.i.d. The patient states that in the 3 days prior to yesterday's admission, he has been experiencing increased palpitations at night. He senses these as a forceful heartbeat. No sustained palpitations. He would feel them everytime woke up. During the day, no palpitations. With the palpitations sensation of possible lightheadedness. This is a very brief duration. He is really not sure that this is lightheadedness. He does feels "strange." No syncope. He denies any chest pain or other anginal type pains. His exercise tolerance and stamina have been stable. He denies any dyspnea at rest or with his normal activities. No orthopnea or PND. Occasional peripheral edema for which he takes as-needed furosemide. He takes furosemide approximately every 4 days. PAST MEDICAL HISTORY: 1. Coronary artery disease as above. 2. Right iliac artery aneurysm. 3. Dyslipidemia. 4. Hypertension. 5. History of nephrolithiasis. 6. Diverticulosis. 7. Osteoarthritis. 8. History of Clostridium difficile infection. 9. History of premature ventricular beats and palpitations secondary to them. 10. Vitamin D deficiency. 11. Chronic leg edema. 12. Remote history of possible supraventricular tachycardia. PAST SURGICAL HISTORY: 1. Status post CABG surgery. 2. Status post abdominal aortic aneurysm repair. 3. Status post cataract surgery. 4. Status post inguinal hernia repair. 5. Status post knee surgery. 6. Status post wrist and shoulder surgery. FAMILY HISTORY: Positive for coronary artery disease. SOCIAL HISTORY: The patient is . He lives with his . He is retired. Former smoker. He drinks alcohol. ALLERGIES AND ADVERSE DRUG REACTIONS: LISINOPRIL, METOPROLOL, AND LINZESS. REVIEW OF SYSTEMS: 1. As above. 2. Chronic epigastric burning discomfort. 3. Constipation. 4. No current urinary complaints. 5. No cerebrovascular complaints. 6. No vascular complaints. 7. No HEENT complaints. 8. No fevers or chills. 9. Good appetite. No abdominal pain or nausea. 10. No pulmonary complaints. CURRENT MEDICATIONS: Amlodipine 5 mg daily, aspirin 81 mg daily, vitamin D 2000 units daily, clopidogrel 75 mg daily, doxazosin 4 mg q.a.m., finasteride 5 mg daily, fish oil 1 gram q.a.m., isosorbide mononitrate 60 mg daily, pantoprazole 40 mg daily, Floranex 1 tab daily, atorvastatin 80 mg at bedtime, Zetia 10 mg q.p.m., furosemide 20 mg p.r.n. peripheral edema, NovoLog sliding scale insulin, sublingual nitroglycerin p.r.n., and several other p.r.n. medications. Monitor history since admission reviewed by me. Sinus bradycardia. Occasional premature ventricular beats. Episode of ventricular trigeminy. PHYSICAL EXAMINATION: GENERAL: The patient is sitting up in his bed. No distress. VITAL SIGNS: This morning with oral temperature 36.6, pulse 47, blood pressure 133/72. Pulse oximetry room air 92%. HEAD: Normal. EYES: Pupils equal and round. Anicteric. Conjunctivae normal. NECK: No jugular venous distension. Carotids 2/2 bilaterally. Normal upstroke. No bruits. LUNGS: Normal respiratory effort. Clear. No rales or wheezes. HEART: PMI normal. No lifts or heaves. Distant heart sounds. Regular rhythm. Decreased rate. S1, S2 normal. No S3 or S4. 1/6 systolic murmur, left sternal border. No diastolic murmur or rub. ABDOMEN: Mild epigastric tenderness. No palpable masses or organomegaly. No bruits. Normal bowel sounds. EXTREMITIES: No pretibial edema. No cyanosis or clubbing. NEUROLOGIC: Alert and oriented x3. Motor grossly intact. PSYCHIATRIC: Affect is normal. DATA: Electrocardiogram yesterday reviewed by me showed sinus bradycardia at a rate of 53 beats per minute. Corrected QT interval 459 milliseconds. Right bundle branch block, possible left atrial enlargement. Nonspecific T-wave abnormalities. Electrocardiogram this morning reviewed by me shows sinus bradycardia, rate of 46 beats per minute. Corrected QT interval 418 milliseconds. Resolution of right bundle branch block compared to yesterday's electrocardiogram. Hemoglobin yesterday 14.2 with a platelet count of 193. WBC was 7.46. Troponin I is less than 0.015 and then 0.017. CK/MB is 2.4 and 2.6. Metabolic profile - sodium 140, potassium 4.5, chloride 105, carbon dioxide 24, BUN 16, creatinine 1.40, random glucose 126. Magnesium 2.0. ProB natriuretic peptide yesterday was 1134. Lipid profile with triglycerides 123, total cholesterol 98, calculated LDL 31, HDL 42. AST 20 and ALT 22. ASSESSMENT: 1. Symptomatic premature ventricular beats. The patient had done better with these after his metoprolol was completely discontinued. However, worsening of palpitations and cardiac awareness over the 3 days prior to this admission. Of note, is that the patient was started on ciprofloxacin 500 mg b.i.d. on February 06. Although, his QT interval was normal yesterday, cannot exclude that the ciprofloxacin exacerbated his ventricular ectopy. Of note, is the patient's last dose of ciprofloxacin was yesterday morning. He states that since admission, his cardiac awareness and palpitations have significantly decreased compared to 3 days prior to this admission. 2. Coronary artery disease. No anginal symptoms. Electrocardiogram without ischemic changes. Cardiac enzymes negative for myocardial injury. 3. No evidence of heart failure on exam. 4. Blood pressure under good control with current medical regimen. 5. Chronic sinus bradycardia. He is not on any negative chronotropes. 6. Dyslipidemia. Excellent lipid profile on current medical regimen. No symptom of adverse reactions to maximum dose of atorvastatin. RECOMMENDATIONS: 1. No further ciprofloxacin. Would not use this antibiotic in the future. Would label this as an adverse reaction to ciprofloxacin. Would avoid any antibiotics in the future, which could prolong the QT interval. These type of medications are contraindicated in patients with baseline bradycardia. 2. Continue his usual cardiac medications. 3. Discharge patient home. 4. Outpatient cardiology follow up with me. 5. The patient was advised to seek medical attention immediately for any sustained palpitations, syncope, or prolonged lightheadedness. The above assessment and recommendations were discussed with the patient and with Dr. Newell.
--- NOTE | 2017-02-16 13:16 | Discharge Summary ---
Discharge Summary Date of Service Feb 16, 2017. Discharge Summary Admission Date: Feb 15, 2017 at 16:01 Discharge Date: Feb 16, 2017 Discharge Disposition: Home Principal Diagnosis: Chest pain rule out ACS Immunizations: Have You Had Influenza Vaccine: No Influenza Vaccine Date: Jan 19, 2011 History of Tetanus Vaccine?: Unknown History of Pneumococcal: Yes Pneumococcal Date: Jan 19, 2011 History of Hepatitis B Vaccine: Unknown Procedures: ECHO Consultations: Cardiology Medication Reconciliation Continued Medications: Amlodipine (Norvasc) 5 Mg Tab 5 MG PO QAM, TAB Aspirin (Aspirin Ec) 81 Mg Tab 81 MG PO QAM Atorvastatin (Lipitor) 80 Mg Tab 80 MG PO HS, #90 Cholecalciferol (Vitamin D 1000 Unit) 1,000 Unit Cap 2000 INTER.UNIT PO QAM, CAP Clopidogrel (Plavix) 75 Mg Tab 75 MG PO QAM, TAB Doxazosin Mesylate (Cardura) 4 Mg Tab 4 MG PO QAM, TAB Ezetimibe (Zetia) 10 Mg Tab 10 MG PO QPM Finasteride (Proscar) 5 Mg Tab 5 MG PO QAM, TAB Fish Oil ([place]-3) 1 Ea Cap 300 MG PO QAM, 0 Refills Furosemide (Lasix) 20 Mg Tab 20 MG PO DAILY PRN for fluid, TAB Isosorbide Mononitrate Ext Rel (Imdur Ext Rel) 60 Mg Ertab 60 MG PO QAM, 0 Refills Metformin Hcl (Glucophage) 1,000 Mg Tab 1500 MG PO BID 1 1/2 tablet daily. Nitroglycerin (Nitrostat) 0.4 Mg Tab 0.4 MG UT UD NEEDED FOR CHEST PAIN : ONE TABLET UNDER THE TONGUE EVERY 5 MINUTES UP TO 3 DOSES. Pantoprazole (Protonix) 40 Mg Tab 40 MG PO QAM, 0 Refills Probiotic Product (Probiotic) 1 Cap Cap 1 CAP PO QAM Sennosides-Docusate Sodium (Stool Softener) 1 Tab Tab 1 TAB PO DAILY PRN for Constipation Silodosin (Rapaflo) 8 Mg Cap 1 CAP PO Q2D TAKE EVERY OTHER AM Discharge Exam Review of Systems: Constitutional: No fever, No chills, No sweats, No weight loss, No weakness Respiratory: No cough, No sputum, No wheezing, No shortness of breath, No dyspnea on exertion Cardiovascular: No chest pain, No orthopnea, No PND, No edema Abdomen: No pain, No nausea, No vomiting, No diarrhea Musculoskeletal: No joint pain, No muscle pain, No swelling, No calf pain Genitourinary - Male: No hematuria, No dysuria, No urinary frequency, No urinary urgency Neurologic: No memory loss, No paralysis, No weakness, No numbness/tingling Psychiatric: No depression symptoms, No anhedonism, No anxiety, No insomnia Endocrine: No fatigue, No excessive thirst Integumentary: No rash, No itch Physical Exam: General Appearance: WD/WN, no apparent distress Eyes: normal inspection, PERRL, EOMI, sclerae normal ENT: normal ENT inspection, hearing grossly normal, TMs normal, pharynx normal Neck: supple, no adenopathy, thyroid normal, no JVD Cardiovascular: regular rate, rhythm, no edema, no gallop, no JVD Abdomen / GI: normal bowel sounds, non tender, soft, no organomegaly Extremities: normal inspection, no calf tenderness, normal capillary refill , no pedal edema Neurologic/Psychiatric: no motor/sensory deficits, alert, normal mood/affect , oriented x 3 Skin: normal color, warm/dry, no rash Lymphatic: no adenopathy Hospital Course Patient is a pleasant 81 y/o male, with PMHx of CAD s/p CABG and stent placement , HTN, hyperlipidemia, T2DM, BPH, h/o c.diff, and GERD, who presented to the ED because of recurrent chest palpitations/discomfort. Chest palpitations/discomfort, r/o ACS: - Admit to tele for cardiac monitoring - Cardiac enzymes x 3 sets negative - Nitro PRN - EKG- no acute ischemic changes; EKGs QAM and PRN for chest pain - Consult cardiology, appreciate recommendations, recommend to hold cipro as can worsen QT prolongation CAD s/p CAGB and stent placement, hyperlipidemia- follows w/ Dr. Sanchez: - Continue ASA 81 mg daily, Plavix 75 mg daily, Lasix 20 mg PRN, Imdur 60 mg QAM , Lipitor 80 mg HS, Zetia 10 mg HS - Dobutamine stress ECHO in 2016- LVEF 50%, mild LVH, L and R ventricular mild dilation, stress unremarkable T2DM: - Hold Metformin 1000 mg QAM and 500 mg QPM, and continue on discharge - BSG ACHS and sliding insulin scale - HgbA1C 7.2 HTN- STABLE: Continue Norvasc 5 mg daily BPH- follows w/ Dr. Hoang: Proscar 5 mg daily, Cardura 4 mg daily GERD: - Continue Protonix - EGD in September [address] Ramirez- small hiatal hernia, otherwise unremarkable DVT prophylaxis: Heparin SQ BID Code Status: LEVEL I, FULL Total Time Spent: Greater than 30 minutes This includes examination of the patient, discharge planning, medication reconciliation, and communication with other providers. Discharge Instructions Please refer to the electronic Patient Visit Report (Discharge Instructions) for additional information.
== END 2017-02-16 11:06 | disposition home or self-care (01) ==
LOC: C.EDB 13:11 → C.MED 16:01 → ENRESERV 16:59
PROVIDERS: ADMIT Internal Medicine; ATTEND Hospitalist
DX: I49.3 Ventricular premature depolarization (principal); I11.0 Hypertensive heart disease with heart failure; I50.9 Heart failure, unspecified; I71.4 Abdominal aortic aneurysm, without rupture; E78.5 Hyperlipidemia, unspecified; E11.9 Type 2 diabetes mellitus without complications; E21.3 Hyperparathyroidism, unspecified; D69.6 Thrombocytopenia, unspecified; Z95.1 Presence of aortocoronary bypass graft; Z95.5 Presence of coronary angioplasty implant and graft; Z79.02 Long term (current) use of antithrombotics/antiplatelets; Z79.82 Long term (current) use of aspirin; Z79.84 Long term (current) use of oral hypoglycemic drugs; Z79.899 Other long term (current) drug therapy; Z87.891 Personal history of nicotine dependence; I25.10 Atherosclerotic heart disease of native coronary artery without angina pectoris; K21.9 Gastro-esophageal reflux disease without esophagitis; N40.0 Benign prostatic hyperplasia without lower urinary tract symptoms

== ENCOUNTER → 2017-03-02 | Outpatient (CLI) | payer OTHER ==
[2017-03-02 09:55] LABS: BLOOD UREA NITROGEN 17 mg/dl (7-18); BUN/CREATININE RATIO 15.8 (10-20); CALCIUM 10.1 mg/dl (8.5-10.1); CARBON DIOXIDE 27 mmol/L (21-32); CHLORIDE 107 mmol/L (98-107); CREATININE 1.08 mg/dl (0.60-1.40); GLUCOSE 198 mg/dl (70-99); POTASSIUM 3.9 mmol/L (3.5-5.1); SODIUM 140 mmol/L (136-145)
== END | disposition home or self-care (01) ==
LOC: C.LAB1850 07:49
PROVIDERS: ATTEND Internal Medicine Geriatric Medicine
DX: I10 Essential (primary) hypertension (principal); E21.3 Hyperparathyroidism, unspecified

== ENCOUNTER 2017-04-01 05:40 | Emergency (ER) | payer OTHER ==
[~2017-04-01] VITALS: Ht 180.3 cm; Wt 91.7 kg
[2017-04-01 05:45] VITALS: TEMP 36.8; Ht 180.3 cm; Wt 91.7 kg
[2017-04-01] MEDS ORDERED: ONDANSETRON INJ 2 MG/ML 2 ML VIAL IV STA (06:12)
[2017-04-01] MEDS ORDERED: FENTANYL CITRATE INJ 50 MCG/1 ML 2 ML VIAL IV STA (06:12)
[2017-04-01] MEDS ORDERED: SODIUM CHLORIDE 0.9% 1000ML 1,000 ML IV STA (06:12)
--- NOTE | 2017-04-01 06:25 | EMERGENCY ROOM VISIT NOTE ---
History Report prepared by Archana: Sally Rudolph Under the Supervision of: Dr. Dana Joel M.D. First contact with patient: 05:53 Chief Complaint: ABDOMINAL PAIN Stated Complaint: RT. SIDE ABDOMINAL PAIN Nursing Triage Summary: Acute onset RLQ abdominal / inguinal pain at 1800 last night. Some straining to void, but no pain with urination. No radiation. Sharp and steady. Denies nausea , dizziness, dyspnea, diarrhea, vomiting. Has not taken anything. History of Present Illness The patient is a 81 year old male who presents to the Emergency Room with complaints of sudden right inguinal area pain beginning yesterday at 1800. The patient states that he was lifting heavy flower pots yesterday full of dirt when he experienced this pain. He states that when he went to urinate at 0400 this morning, his pain worsened. He rates the pain at a 7/10. He denies vomiting, fevers, chest pain, and shortness of breath. The patient reports a cardiac history and states that he takes Plavix for his heart, but is not on other blood thinners. Source of History: patient Onset: yesterday at 1800 Position: other (right inguinal area) Symptom Intensity: rated at a 7/10 Timing: other (sudden ) Associated Symptoms: No fevers, No chest pain, No SOB, No vomiting Review of Systems See HPI for pertinent positives & negatives. A total of 10 systems reviewed and were otherwise negative. Past Medical & Surgical Medical Problems: (1) Abdom Aortic Aneurysm (2) Abdominal pain (3) Benign hypertension (4) C. difficile diarrhea (5) Chest pain (6) Congestive Heart Failure Nos (7) Diabetes mellitus (8) Enteritis (9) Heart disease (10) Hyperlipidemia (11) Hyperparathyroidism, Unspecified (12) Kidney stone (13) Thrombocytopenia Nos Surgical Problems: (1) cardiac bypass (2) Cardiac catheterization (3) cardiac stent placement (4) History of herniorrhaphy (5) Hx of shoulder surgery Family History Diabetes mellitus FHx: cancer FHx: heart disease FHx: lung disease Hypertension Social History Smoking Status: Former Smoker Alcohol Use: none Drug Use: none Marital Status: Housing Status: lives with significant other Occupation Status: retired Current/Historical Medications Scheduled Amlodipine (Norvasc), 5 MG PO QAM Aspirin (Aspirin Ec), 81 MG PO QAM Atorvastatin (Lipitor), 80 MG PO HS Cholecalciferol (Vitamin D 1000 Unit), 2,000 INTER.UNIT PO QAM Clopidogrel (Plavix), 75 MG PO QAM Doxazosin Mesylate (Cardura), 4 MG PO QAM Ezetimibe (Zetia), 10 MG PO QPM Finasteride (Proscar), 5 MG PO QAM Fish Oil ([place]-3), 300 MG PO QAM Isosorbide Mononitrate Ext Rel (Imdur Ext Rel), 60 MG PO QAM Metformin Hcl (Glucophage), 1,500 MG PO BID Nitroglycerin (Nitrostat), 0.4 MG UT UD Pantoprazole (Protonix), 40 MG PO QAM Probiotic Product (Probiotic), 1 CAP PO QAM Silodosin (Rapaflo), 1 CAP PO Q2D Scheduled PRN Furosemide (Lasix), 20 MG PO DAILY PRN for fluid Sennosides-Docusate Sodium (Stool Softener), 1 TAB PO DAILY PRN for Constipation Allergies Coded Allergies: Cinnamon Flavor (Verified Allergy, Severe, THROAT SWELLING, 02/15/17) Linaclotide (Verified Adverse Reaction, Unknown, DIARRHEA, 02/15/17) Lisinopril (Verified Adverse Reaction, Unknown, DIZZINESS, 02/15/17) Physical Exam Vital Signs Date Time Temp Pulse Resp B/P (MAP) Pulse Ox O2 Delivery O2 Flow Rate FiO2 04/01/17 08:00 50 15 187/74 93 04/01/17 06:56 56 95 04/01/17 06:43 177/73 04/01/17 06:26 50 17 96 04/01/17 06:21 52 15 94 04/01/17 06:06 56 04/01/17 06:06 54 13 95 04/01/17 06:01 188/82 04/01/17 05:52 176/73 04/01/17 05:51 55 15 96 04/01/17 05:46 54 15 174/73 96 Room Air 04/01/17 05:45 36.8 55 12 174/73 95 Room Air Physical Exam Vital signs reviewed. General: Well-appearing male, in no significant distress. HEENT: No scleral icterus, PERRLA, neck supple. Atraumatic. Cardiovascular: Regular rate and rhythm, no extra sounds. Pulmonary: Clear to auscultation bilaterally, normal work of breathing. Abdomen: Soft, mild tenderness to the right lower quadrant/inguinal area, nondistended, positive bowel sounds. Significant suprapubic fat pad but no palpable defect. Musculoskeletal: Atraumatic, no peripheral edema. Neurologic: Patient awake alert and oriented x 3 Skin: Warm, dry, no rash Genital: Question small fat containing inguinal hernia. No scrotal swelling. Normal external genitals otherwise. Medical Decision & Procedures Laboratory Results 04/01/17 05:50 Red Blood Count 4.70, Mean Corpuscular Volume 94.5, Mean Corpuscular Hemoglobin 30.9, Mean Corpuscular Hemoglobin Concent 32.7, Mean Platelet Volume 10.9, Neutrophils (%) (Auto) 55.9, Lymphocytes (%) (Auto) 27.6, Monocytes (%) (Auto) 10.4, Eosinophils (%) (Auto) 5.5, Basophils (%) (Auto) 0.6, Neutrophils # (Auto ) 4.03, Lymphocytes # (Auto) 1.99, Monocytes # (Auto) 0.75, Eosinophils # (Auto ) 0.40, Basophils # (Auto) 0.04 04/01/17 05:50 Test 04/01/17 00:00 04/01/17 05:50 Urine Color YELLOW Urine Appearance CLEAR (CLEAR) Urine pH 7.0 (4.5-7.5) Urine Specific Rodman 1.017 (1.000-1.030) Urine Protein NEG (NEG) Urine Glucose (UA) NEG (NEG) Urine Ketones NEG (NEG) Urine Occult Blood NEG (NEG) Urine Nitrite NEG (NEG) Urine Bilirubin NEG (NEG) Urine Urobilinogen NEG (NEG) Urine Leukocyte Esterase NEG (NEG) White Blood Count 7.21 K/uL (4.8-10.8) Red Blood Count 4.70 M/uL (4.7-6.1) Hemoglobin 14.5 g/dL (14.0-18.0) Hematocrit 44.4 % (42-52) Mean Corpuscular Volume 94.5 fL (80-100) Mean Corpuscular Hemoglobin 30.9 pg (25-34) Mean Corpuscular Hemoglobin Concent 32.7 g/dl (32-36) Platelet Count 150 K/uL (130-400) Mean Platelet Volume 10.9 fL (7.4-10.4) Neutrophils (%) (Auto) 55.9 % Lymphocytes (%) (Auto) 27.6 % Monocytes (%) (Auto) 10.4 % Eosinophils (%) (Auto) 5.5 % Basophils (%) (Auto) 0.6 % Neutrophils # (Auto) 4.03 K/uL (1.4-6.5) Lymphocytes # (Auto) 1.99 K/uL (1.2-3.4) Monocytes # (Auto) 0.75 K/uL (0.11-0.59) Eosinophils # (Auto) 0.40 K/uL (0-0.5) Basophils # (Auto) 0.04 K/uL (0-0.2) RDW Standard Deviation 45.6 fL (36.4-46.3) RDW Coefficient of Variation 13.1 % (11.5-14.5) Immature Granulocyte % (Auto) 0.0 % Immature Granulocyte # (Auto) 0.00 K/uL (0.00-0.02) Anion Gap 5.0 mmol/L (3-11) Est Creatinine Clear Calc Drug Dose 60.4 ml/min Estimated GFR () 70.8 Estimated GFR (Non- 61.1 BUN/Creatinine Ratio 15.6 (10-20) Calcium Level 10.2 mg/dl (8.5-10.1) Total Bilirubin 1.1 mg/dl (0.2-1) Direct Bilirubin 0.2 mg/dl (0-0.2) Aspartate Amino Transf (AST/SGOT) 22 U/L (15-37) Alanine Aminotransferase (ALT/SGPT) 31 U/L (12-78) Alkaline Phosphatase 57 U/L (45-117) Total Protein 7.0 gm/dl (6.4-8.2) Albumin 4.0 gm/dl (3.4-5.0) Laboratory results per my review. Medications Administered Medications (Trade) Dose Ordered Sig/Joan Route Start Time Stop Time Status Last Admin Dose Admin Fentanyl Citrate (Fentanyl Inj) 50 mcg NOW STAT IV 04/01/17 06:12 04/01/17 06:14 DC 04/01/17 06:22 50 MCG Ondansetron HCl (Zofran Inj) 4 mg NOW STAT IV 04/01/17 06:12 04/01/17 06:14 DC 04/01/17 06:26 4 MG Sodium Chloride 1,000 ml @ 150 mls/hr Q6H40M STAT IV 04/01/17 06:12 04/01/17 08:41 DC 04/01/17 06:21 150 MLS/HR ED Course 0610: Past medical records reviewed. The patient was evaluated in room B9. A complete history and physical examination was performed. 0612: Ordered Sodium Chloride 1,000 ml @ 150 mls/hr IV, Ondansetron HCl 4 mg IV , Fentanyl Citrate 50 mcg IV. Medical Decision Differential diagnosis: Etiologies such as appendicitis, diverticulitis, PUD, biliary pathology, UTI, pancreatitis, obstruction, mesenteric ischemia, aortic pathology, infections, inflammatory bowel disease, renal colic, as well as others were entertained. This pt was evaluated and appeared to be in no distress. IV access was obtained and lab work was drawn. Pt was hydrated with NSS, given IV fentanyl and zofran. CT abd pelvis was performed to r/o kidney stone. This study is largely negative but a small fat containing right inguinal hernia is noted. Lab work is unrevealing. UA is negative. Pt was informed of the findings. He was d/c to f/u with PCP if symptoms continue. He will return to the ED for worsening of symptoms or any medical concerns. Impression Primary Impression: Abdominal wall strain Additional Impression: Right inguinal hernia Scribe Attestation The scribe's documentation has been prepared under my direction and personally reviewed by me in its entirety. I confirm that the note above accurately reflects all work, treatment, procedures, and medical decision making performed by me. Departure Information Referrals Nestor Moss M.D. (PCP) Patient Instructions My [facility] Problem Qualifiers
[2017-04-01 06:39] LABS: BASO % 0.6 %; BASO ABS # 0.04 K/uL (0-0.2); COMPLETE YES; EOS % 5.5 %; HEMATOCRIT 44.4 % (42-52); LYMPH % 27.6 %; LYMPH ABS # 1.99 K/uL (1.2-3.4); MEAN CELL VOLUME 94.5 fL (80-100); MEAN CORPUSCULAR HEMOGLOBIN 30.9 pg (25-34); MEAN CORPUSCULAR HGB CONC 32.7 g/dl (32-36); MEAN PLATELET VOLUME 10.9 fL (7.4-10.4); MONO % 10.4 %; NEUT % 55.9 %; PLATELET COUNT 150 K/uL (130-400); WHITE BLOOD COUNT 7.21 K/uL (4.8-10.8)
--- NOTE | 2017-04-01 06:58 | DIAGNOSTIC IMAGING REPORT ---
ABD/PELVIS NO IV OR ORAL CONT CLINICAL HISTORY: 81 years-old Male presenting with R inguinal pain, stone. TECHNIQUE: Multidetector CT of the abdomen and pelvis was performed without the use of intravenous contrast. IV contrast: None. A dose lowering technique was used consistent with the principles of ALARA (as low as reasonably achievable). COMPARISON: 05/10/2016. CT DOSE (mGy.cm): The estimated cumulative dose is 566.82 mGy.cm. FINDINGS: [employer] topogram: Median sternotomy wires. Lung bases: Extensive groundglass dependent opacities, possibly atelectasis. Trace emphysematous changes visualized. Multichamber enlargement of the heart. Coronary artery calcification. Likely focal punctate papillary muscle calcification. No pericardial or pleural effusion. Liver: Normal morphology. Normal density. Biliary: No gross biliary ductal dilatation allowing for noncontrast technique. Normal gallbladder. Pancreas: Mild parenchymal atrophy. Spleen: Normal noncontrast appearance. Adrenal glands: Normal noncontrast appearance. Kidneys and ureters: Normal noncontrast appearance. No nephrolithiasis. No hydronephrosis. Focal exophytic hypodensity arising from the lower pole the left kidney, indeterminate but likely cyst. Renal vascular calcification noted. Normal ureters. Bladder: Normal. Pelvic organs: Prostate enlargement likely secondary to benign prostatic hyperplasia. Bowel: Diverticulosis of the proximal sigmoid colon. Normal appendix. No bowel obstruction. Small hiatal hernia. Peritoneal cavity: No free fluid or intraperitoneal gas. Mesenteric infiltration with an encapsulated appearance, likely mesenteric panniculitis, unchanged. Lymph nodes: Few prominent mesenteric lymph nodes associated with mesenteric infiltration. No pathologically enlarged lymph nodes by CT size criteria. Vasculature: Atherosclerosis of the normal caliber abdominal aorta. Focal displacement of intimal calcifications in the left common iliac artery unchanged in appearance from prior exam likely indicating short segment dissection (series 3 image 252). Abdominal wall: Focal soft tissue density in the region of the left inguinal canal may represent posttreatment changes from hernia repair. Small fat-containing right inguinal hernia. Postsurgical changes of the midline ventral abdominal wall. Musculoskeletal: Degenerative changes of the spine. Osteopenia. IMPRESSION: 1. No acute intra-abdominal pathology. Specifically, no evidence of renal calculi. 2. Small fat-containing right inguinal hernia. 3. Diverticulosis without evidence of diverticulitis. 4. Hiatal hernia. 5. Extensive dependent groundglass opacities, possibly atelectasis. Electronically signed by: Giovanni Singh M.D. 04/01/2017 6:56 AM Dictated Date/Time: 04/01/2017 6:48 AM
[2017-04-01 07:07] LABS: BUN/CREATININE RATIO 15.6 (10-20); CALCIUM 10.2 mg/dl (8.5-10.1); CREATININE 1.13 mg/dl (0.60-1.40); POTASSIUM 4.1 mmol/L (3.5-5.1)
[2017-04-01 07:42] LABS: URINE APPEARANCE CLEAR (CLEAR); URINE BILIRUBIN NEG (NEG); URINE COLOR YELLOW; URINE NITRITE NEG (NEG); URINE SPECIFIC GRAVITY 1.017 (1.000-1.030); UROBILINOGEN NEG (NEG); ZZUR CULT IF INDIC CLEAN CATCH NO
[2017-04-01 07:47] LABS: MANUAL MICROSCOPIC REQUIRED? NO; REVIEW REQ? NO
[2017-04-01 08:00] VITALS: BP 187/74; PULSE 50; O2SAT 93
== END 2017-04-01 08:03 | disposition home or self-care (01) ==
LOC: EDBD 05:40 → C.EDB 05:42
DX: S39.011A Strain of muscle, fascia and tendon of abdomen, initial encounter (principal); K40.90 Unilateral inguinal hernia, without obstruction or gangrene, not specified as recurrent; X50.0XXA Overexertion from strenuous movement or load, initial encounter; Y93.89 Activity, other specified; Y99.8 Other external cause status; E78.5 Hyperlipidemia, unspecified; I10 Essential (primary) hypertension; E11.9 Type 2 diabetes mellitus without complications; Z87.442 Personal history of urinary calculi; Z87.891 Personal history of nicotine dependence; Z95.1 Presence of aortocoronary bypass graft; Z98.61 Coronary angioplasty status; Z98.890 Other specified postprocedural states; Z83.3 Family history of diabetes mellitus; Z82.49 Family history of ischemic heart disease and other diseases of the circulatory system; Z79.02 Long term (current) use of antithrombotics/antiplatelets; Z79.82 Long term (current) use of aspirin; Z79.84 Long term (current) use of oral hypoglycemic drugs; Z79.899 Other long term (current) drug therapy

== ENCOUNTER → 2017-04-29 | Outpatient (CLI) | payer OTHER ==
[2017-04-29 17:02] LABS: BASO % 0.4 %; BASO ABS # 0.03 K/uL (0-0.2); COMPLETE YES; EOS % 3.2 %; HEMATOCRIT 41.2 % (42-52); IG% 0.2 %; LYMPH % 20.4 %; LYMPH ABS # 1.65 K/uL (1.2-3.4); MEAN CELL VOLUME 97.2 fL (80-100); MEAN CORPUSCULAR HEMOGLOBIN 31.6 pg (25-34); MEAN CORPUSCULAR HGB CONC 32.5 g/dl (32-36); MEAN PLATELET VOLUME 11.4 fL (7.4-10.4); MONO % 10.1 %; NEUT % 65.7 %; PLATELET COUNT 155 K/uL (130-400); RED BLOOD COUNT 4.24 M/uL (4.7-6.1)
[2017-04-29 17:12] LABS: MANUAL MICROSCOPIC REQUIRED? NO; REVIEW REQ? NO; URINE APPEARANCE CLEAR (CLEAR); URINE BILIRUBIN NEG (NEG); URINE COLOR YELLOW; URINE NITRITE NEG (NEG); UROBILINOGEN NEG (NEG)
== END | disposition home or self-care (01) ==
LOC: C.LABBC 12:28
PROVIDERS: ATTEND Physician Assistant Medical
DX: R10.9 Unspecified abdominal pain (principal)

== ENCOUNTER 2017-06-10 13:13 | Emergency (ER) | payer OTHER ==
[~2017-06-10] VITALS: Ht 177.8 cm; Wt 91.7 kg
[2017-06-10 13:22] VITALS: TEMP 36.3; Ht 177.8 cm; Wt 91.7 kg
[2017-06-10 13:45] VITALS: O2SAT 93
[2017-06-10 14:02] LABS: BASO % 0.6 %; BASO ABS # 0.03 K/uL (0-0.2); EOS % 5.3 %; EOS ABS # 0.27 K/uL (0-0.5); HEMATOCRIT 40.3 % (42-52); HEMOGLOBIN 13.2 g/dL (14.0-18.0); IG# 0.01 K/uL (0.00-0.02); LYMPH % 28.8 %; LYMPH ABS # 1.48 K/uL (1.2-3.4); MEAN CELL VOLUME 94.4 fL (80-100); MEAN CORPUSCULAR HEMOGLOBIN 30.9 pg (25-34); MEAN CORPUSCULAR HGB CONC 32.8 g/dl (32-36); MEAN PLATELET VOLUME 10.9 fL (7.4-10.4); MONO ABS # 0.41 K/uL (0.11-0.59); NEUT % 57.1 %; NEUT ABS # 2.94 K/uL (1.4-6.5); PLATELET COUNT 154 K/uL (130-400); RED CELL DISTRIBUTION WIDTH CV 13.5 % (11.5-14.5); RED CELL DISTRIBUTION WIDTH SD 46.2 fL (36.4-46.3); WHITE BLOOD COUNT 5.14 K/uL (4.8-10.8)
--- NOTE | 2017-06-10 14:03 | DIAGNOSTIC IMAGING REPORT ---
CHEST ONE VIEW PORTABLE CLINICAL HISTORY: Weakness. COMPARISON STUDY: Chest radiograph February 15, 2017. FINDINGS: Lung volumes are at the lower limits of normal. There is no pneumothorax or pleural effusion. There is no consolidation to suggest pneumonia. Moderate cardiomegaly is noted. There is pulmonary vascular congestion with possible mild pulmonary edema. IMPRESSION: 1. Pulmonary vascular congestion with possible mild pulmonary edema. 2. Stable cardiomegaly. Electronically signed by: Kieran Melo M.D. 06/10/2017 2:02 PM Dictated Date/Time: 06/10/2017 2:01 PM
[2017-06-10 14:13] LABS: PTT PATIENT 23.1 SECONDS (21.0-31.0)
[2017-06-10 14:20] LABS: ALBUMIN 3.5 gm/dl (3.4-5.0); ALT/SGPT 23 U/L (12-78); AST/SGOT 12 U/L (15-37); BLOOD UREA NITROGEN 20 mg/dl (7-18); CALCIUM 9.7 mg/dl (8.5-10.1); CARBON DIOXIDE 28 mmol/L (21-32); CREATININE 1.11 mg/dl (0.60-1.40); GLUCOSE 219 mg/dl (70-99); LIPASE 238 U/L (73-393); SODIUM 140 mmol/L (136-145)
[2017-06-10 14:28] LABS: ALKALINE PHOSPHATASE 52 U/L (45-117); CKMB 2.2 ng/ml (0.5-3.6); TOTAL PROTEIN 6.6 gm/dl (6.4-8.2)
[2017-06-10] MEDS ORDERED: SILO8CAP PO (15:00)
--- NOTE | 2017-06-10 15:00 | DIAGNOSTIC IMAGING REPORT ---
CT OF THE ABDOMEN AND PELVIS WITHOUT CONTRAST CLINICAL HISTORY: Upper abdominal pain. COMPARISON STUDY: CT of the abdomen and pelvis April 01, 2017. TECHNIQUE: Axial images of the abdomen and pelvis were obtained without IV contrast. Images were reviewed in the axial, sagittal, and coronal planes. A dose lowering technique was utilized adhering to the principles of ALARA. FINDINGS: The heart is moderately enlarged. There is a small hiatal hernia. Evaluation of the abdomen and pelvis is suboptimal on this unenhanced examination. Unenhanced images of liver, spleen, adrenal glands and pancreas are unremarkable. Mild mesenteric infiltration is noted. There are small associated lymph nodes. No pathologically enlarged abdominal or pelvic lymph nodes are present. No ascites, pneumatosis or portal venous gas is present. The appendix is normal. There is no evidence for a bowel obstruction. This colonic diverticulosis without evidence for acute diverticulitis. A water attenuation left renal lesion was shown to reflect a cyst on prior contrast enhanced CT. IMPRESSION: 1. No acute process within the abdomen or pelvis. 2. Mild mesenteric infiltration. 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 3. Colonic diverticulosis without evidence for acute diverticulitis. 4. No bowel obstruction. Electronically signed by: Kieran Melo M.D. 06/10/2017 2:58 PM Dictated Date/Time: 06/10/2017 2:48 PM
[2017-06-10 17:30] VITALS: BP 182/87; PULSE 53; O2SAT 97
--- NOTE | 2017-06-10 21:20 | EMERGENCY ROOM VISIT NOTE ---
History Report prepared by Archana: Rigo Augustin Under the Supervision of: Dr. Rudy Ponce M.D. First contact with patient: 13:37 Chief Complaint: HYPERTENSION Stated Complaint: HIGH BP LIGHT HEADED, SENT FROM History of Present Illness The patient is an 82 year old male who presents to the Emergency Room with complaints of "feeling his heart beat in his ears and eyes." The patient states that when he laid in bed last night he could feel his heart beating. He denies any associated chest pain, shortness of breath, cough, or headache. The patient did have a "bad cold" two weeks ago, which is now resolved. He is having worsening difficulty with normal BM, but is on stool softeners and MiraLAX. On examination the patient did have abdominal pain in the left upper quadrant and notes that he commonly gets bloated when he eats. He denies any further LOC, fevers, chills, diaphoresis, visual changes, neck pain, nausea, vomiting, back pain, melena, hematochezia, urinary symptoms, numbness, weakness, lymphadenopathy, rash, or other complaints. Source of History: patient Onset: Last night Position: head, neck Quality: other (feels heart beat) Associated Symptoms: + abdominal pain, No chest pain, No SOB Review of Systems See HPI for pertinent positives and negatives. A total of ten systems were reviewed and were otherwise negative. Past Medical & Surgical Medical Problems: (1) Abdom Aortic Aneurysm (2) Abdominal pain (3) Benign hypertension (4) C. difficile diarrhea (5) Chest pain (6) Congestive Heart Failure Nos (7) Diabetes mellitus (8) Enteritis (9) Heart disease (10) Hyperlipidemia (11) Hyperparathyroidism, Unspecified (12) Kidney stone (13) Thrombocytopenia Nos Surgical Problems: (1) cardiac bypass (2) Cardiac catheterization (3) cardiac stent placement (4) History of herniorrhaphy (5) Hx of shoulder surgery Family History Diabetes mellitus FHx: cancer FHx: heart disease FHx: lung disease Hypertension Social History Smoking Status: Former Smoker Alcohol Use: none Drug Use: none Marital Status: Housing Status: lives with significant other Occupation Status: retired Current/Historical Medications Scheduled Amlodipine (Norvasc), 5 MG PO QAM Aspirin (Aspirin Ec), 81 MG PO QAM Atorvastatin (Lipitor), 80 MG PO HS Cholecalciferol (Vitamin D 1000 Unit), 2,000 INTER.UNIT PO QAM Clopidogrel (Plavix), 75 MG PO QAM Doxazosin Mesylate (Cardura), 4 MG PO QAM Ezetimibe (Zetia), 10 MG PO QPM Finasteride (Proscar), 5 MG PO QAM Fish Oil ([place]-3), 300 MG PO QAM Isosorbide Mononitrate Ext Rel (Imdur Ext Rel), 60 MG PO QAM Metformin Hcl (Glucophage), 1,500 MG PO BID Nitroglycerin (Nitrostat), 0.4 MG UT UD Pantoprazole (Protonix), 40 MG PO QAM Probiotic Product (Probiotic), 1 CAP PO QAM Silodosin (Rapaflo), 8 MG PO Q2D Scheduled PRN Furosemide (Lasix), 20 MG PO DAILY PRN for fluid Allergies Coded Allergies: Cinnamon Flavor (Verified Allergy, Severe, THROAT SWELLING, 02/15/17) Linaclotide (Verified Adverse Reaction, Unknown, DIARRHEA, 02/15/17) Lisinopril (Verified Adverse Reaction, Unknown, DIZZINESS, 02/15/17) Physical Exam Vital Signs Date Time Temp Pulse Resp B/P (MAP) Pulse Ox O2 Delivery O2 Flow Rate FiO2 06/10/17 17:30 53 18 182/87 97 Room Air 06/10/17 16:09 53 18 147/70 97 Room Air 06/10/17 14:34 52 18 138/65 92 Room Air 06/10/17 13:56 60 06/10/17 13:52 55 18 158/71 95 60 142/79 65 145/66 06/10/17 13:45 93 Room Air 06/10/17 13:45 64 18 155/76 96 Room Air 06/10/17 13:22 36.3 65 20 188/79 96 Room Air Physical Exam GENERAL: Awake, alert, well-appearing, in no distress HENT: Normocephalic, atraumatic. Oropharynx unremarkable. EYES: Normal conjunctiva. Sclera non-icteric. NECK: Supple. No nuchal rigidity. FROM. No JVD. RESPIRATORY: Clear to auscultation. CARDIAC: Bradycardic rate, normal rhythm. Extremities warm and well perfused. Pulses equal. ABDOMEN: Soft, non-distended. Tenderness to palpation in the right upper quadrant. No rebound or guarding. No masses. RECTAL: Deferred. MUSCULOSKELETAL: Chest examination reveals no tenderness. The back is symmetrical on inspection without obvious abnormality. There is no CVA tenderness to palpation. No joint edema. LOWER EXTREMITIES: Calves are equal size bilaterally and non-tender. No edema. No discoloration. NEURO: Normal sensorium. No sensory or motor deficits noted. SKIN: No rash or jaundice noted. Medical Decision & Procedures ER Provider Diagnostic Interpretation: Radiology results as stated below per my review and radiologist interpretation: CHEST ONE VIEW PORTABLE CLINICAL HISTORY: Weakness. COMPARISON STUDY: Chest radiograph February 15, 2017. FINDINGS: Lung volumes are at the lower limits of normal. There is no pneumothorax or pleural effusion. There is no consolidation to suggest pneumonia. Moderate cardiomegaly is noted. There is pulmonary vascular congestion with possible mild pulmonary edema. IMPRESSION: 1. Pulmonary vascular congestion with possible mild pulmonary edema. 2. Stable cardiomegaly. Electronically signed by: Kieran Melo M.D. 06/10/2017 2:02 PM Dictated Date/Time: 06/10/2017 2:[address] OF THE ABDOMEN AND PELVIS WITHOUT CONTRAST CLINICAL HISTORY: Upper abdominal pain. COMPARISON STUDY: CT of the abdomen and pelvis April 01, 2017. TECHNIQUE: Axial images of the abdomen and pelvis were obtained without IV contrast. Images were reviewed in the axial, sagittal, and coronal planes. A dose lowering technique was utilized adhering to the principles of ALARA. FINDINGS: The heart is moderately enlarged. There is a small hiatal hernia. Evaluation of the abdomen and pelvis is suboptimal on this unenhanced examination. Unenhanced images of liver, spleen, adrenal glands and pancreas are unremarkable. Mild mesenteric infiltration is noted. There are small associated lymph nodes. No pathologically enlarged abdominal or pelvic lymph nodes are present. No ascites, pneumatosis or portal venous gas is present. The appendix is normal. There is no evidence for a bowel obstruction. This colonic diverticulosis without evidence for acute diverticulitis. A water attenuation left renal lesion was shown to reflect a cyst on prior contrast enhanced CT. IMPRESSION: 1. No acute process within the abdomen or pelvis. 2. Mild mesenteric infiltration. 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 3. Colonic diverticulosis without evidence for acute diverticulitis. 4. No bowel obstruction. Electronically signed by: Kieran Melo M.D. 06/10/2017 2:58 PM Dictated Date/Time: 06/10/2017 2:48 PM Laboratory Results 06/10/17 13:43 Red Blood Count 4.27, Mean Corpuscular Volume 94.4, Mean Corpuscular Hemoglobin 30.9, Mean Corpuscular Hemoglobin Concent 32.8, Mean Platelet Volume 10.9, Neutrophils (%) (Auto) 57.1, Lymphocytes (%) (Auto) 28.8, Monocytes (%) (Auto) 8.0, Eosinophils (%) (Auto) 5.3, Basophils (%) (Auto) 0.6, Neutrophils # (Auto) 2.94, Lymphocytes # (Auto) 1.48, Monocytes # (Auto) 0.41, Eosinophils # (Auto) 0.27, Basophils # (Auto) 0.03 06/10/17 13:43 Test 06/10/17 13:43 White Blood Count 5.14 K/uL (4.8-10.8) Red Blood Count 4.27 M/uL (4.7-6.1) Hemoglobin 13.2 g/dL (14.0-18.0) Hematocrit 40.3 % (42-52) Mean Corpuscular Volume 94.4 fL (80-100) Mean Corpuscular Hemoglobin 30.9 pg (25-34) Mean Corpuscular Hemoglobin Concent 32.8 g/dl (32-36) Platelet Count 154 K/uL (130-400) Mean Platelet Volume 10.9 fL (7.4-10.4) Neutrophils (%) (Auto) 57.1 % Lymphocytes (%) (Auto) 28.8 % Monocytes (%) (Auto) 8.0 % Eosinophils (%) (Auto) 5.3 % Basophils (%) (Auto) 0.6 % Neutrophils # (Auto) 2.94 K/uL (1.4-6.5) Lymphocytes # (Auto) 1.48 K/uL (1.2-3.4) Monocytes # (Auto) 0.41 K/uL (0.11-0.59) Eosinophils # (Auto) 0.27 K/uL (0-0.5) Basophils # (Auto) 0.03 K/uL (0-0.2) RDW Standard Deviation 46.2 fL (36.4-46.3) RDW Coefficient of Variation 13.5 % (11.5-14.5) Immature Granulocyte % (Auto) 0.2 % Immature Granulocyte # (Auto) 0.01 K/uL (0.00-0.02) Prothrombin Time 10.5 SECONDS (9.0-12.0) Prothromb Time International Ratio 1.0 (0.9-1.1) Activated Partial Thromboplast Time 23.1 SECONDS (21.0-31.0) Partial Thromboplastin Ratio 0.9 Anion Gap 3.0 mmol/L (3-11) Est Creatinine Clear Calc Drug Dose 59.4 ml/min Estimated GFR () 71.8 Estimated GFR (Non- 61.9 BUN/Creatinine Ratio 18.1 (10-20) Calcium Level 9.7 mg/dl (8.5-10.1) Magnesium Level 1.9 mg/dl (1.8-2.4) Total Bilirubin 0.7 mg/dl (0.2-1) Direct Bilirubin 0.1 mg/dl (0-0.2) Aspartate Amino Transf (AST/SGOT) 12 U/L (15-37) Alanine Aminotransferase (ALT/SGPT) 23 U/L (12-78) Alkaline Phosphatase 52 U/L (45-117) Total Creatine Kinase 99 U/L (39-308) Creatine Kinase MB 2.2 ng/ml (0.5-3.6) Creatine Kinase MB Ratio 2.2 (0-3.0) Troponin I < 0.015 ng/ml (0-0.045) Total Protein 6.6 gm/dl (6.4-8.2) Albumin 3.5 gm/dl (3.4-5.0) Lipase 238 U/L (73-393) Thyroid Stimulating Hormone (TSH) 2.370 uIu/ml (0.300-4.500) Laboratory results reviewed by me ECG Indication: abdominal pain Rate (beats per minute): 60 Rhythm: normal sinus Findings: RBBB, T-wave inversion (Inferior), no ectopy Comparison ECG Date: see below Change: When compared to 02/15/2017 there is no significant change. When compared to 02/16/2017: RBBB is new, t-wave inversions are more prominent. Patient's electrocardiogram was interpreted by me. ED Course 1409: After review of patient's EMR, Orthostatic testing is normal. 1413: The patient was evaluated in room A4B. A complete history and physical exam was performed. 1658: I reevaluated the patient. Discussed results and discharge instructions: He verbalized understanding and agreement. The patient is ready for discharge. Medical Decision Prior records/ancillary studies reviewed and summarized above. Nursing notes reviewed and agree them. Additional history obtained from his . The patient's history was concerning for malaise and possible palpitations. The patient also noted having GI upset with bloating and discomfort for many months. He states he has had an outpatient workup that has not revealed any findings to date. Differential diagnosis: Etiologies such as metabolic, infection, hypo/hyperglycemia, electrolyte abnormalities, biliary pathology, pancreatitis, peptic ulcer disease, colitis, cardiac sources, intracerebral event, toxicologic, neurologic, as well as others were entertained. Physical examination: As above. Tender in the upper abdomen. Mild. No peritoneal findings. ER treatment provided: IV Lock No medication given. On reassessment the patient felt better. Diagnostics interpretation by me: ECG: The right bundle branch block is now present again. No ischemia when compared to the previous ECG with right bundle-branch block. Last ECG did not reveal right bundle branch block. T wave morphology has changed. brewing director revealed sinus rhythm. The labs revealed an unremarkable CBC and chemistry panel. LFTs unremarkable. Cardiac markers negative. Imaging studies: CT scan as above The patient is doing well. 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 The patient's ECG showed his right bundle-branch block which was present on the ECG prior to last. The morphology appeared similar. The patient does not have any chest pain or shortness of breath. His symptoms have been present since last night and his troponin is negative. This finding on CT is rare but could explain some of his vague abdominal symptoms that have not been identified on his outpatient workup. This will need further evaluation. I discussed this with the patient and his . As far as his other symptoms go, his testing is unremarkable at this time. His vital signs are stable. I discussed conservative management with close follow-up in the primary office. The patient will contact his primary's office tomorrow. By the evaluation outlined above emergent etiologies such as infection, other abnormalities, cardiac sources, intracerebral event, neurologic, abnormalities blood glucose, metabolic, as well as others were deemed relatively unlikely. The patient and were informed about the findings as listed above. All questions were answered and they were pleased with the treatment. Return instructions were outlined and the patient was discharged in stable condition. Referral: The patient was referred back to his primary care physician for follow-up for a recheck of the current condition. Blood Pressure Screening Patient's blood pressure: Elevated blood pressure Blood pressure disposition: Referred to PCP Impression Primary Impression: Malaise Additional Impressions: Bloating Sclerosing mesenteritis Scribe Attestation The scribe's documentation has been prepared under my direction and personally reviewed by me in its entirety. I confirm that the note above accurately reflects all work, treatment, procedures, and medical decision making performed by me. Departure Information Dispostion Home / Self-Care Referrals Nestor Moss M.D. (PCP) Patient Instructions My [facility] Additional Instructions Diagnosis: 1. Malaise 2. 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 Use 1000mg every six hours as needed. Avoid using more than 4000mg in a 24 hour period. Rest and drink plenty of fluids as tolerated. Slow sips of water or sports drinks are recommended instead of large amounts all at once. Continue current medications. Once your stomach is settled start with a clear liquid diet (jello, soup broth, etc.) and then advance as tolerated. You should avoid full, heavy meals for about 24 hrs from the time your symptoms resolved. Return to the ER immediately for worsening or persistent abdominal pain, chest pain, vomiting, fevers, chest pains, difficulty breathing, black or bloody stools, worsening of your condition, or as needed. Follow up with your primary physician tomorrow to schedule an appointment for a recheck of your current condition and further testing. Problem Qualifiers
== END 2017-06-10 17:53 | disposition home or self-care (01) ==
LOC: C.EDB 13:14 → C.EDA 17:53
DX: R53.81 Other malaise (principal); R14.0 Abdominal distension (gaseous); K65.4 Sclerosing mesenteritis; I71.4 Abdominal aortic aneurysm, without rupture; I11.0 Hypertensive heart disease with heart failure; I50.9 Heart failure, unspecified; E11.9 Type 2 diabetes mellitus without complications; E78.5 Hyperlipidemia, unspecified; E21.3 Hyperparathyroidism, unspecified; D69.6 Thrombocytopenia, unspecified; Z87.442 Personal history of urinary calculi; Z95.1 Presence of aortocoronary bypass graft; Z95.5 Presence of coronary angioplasty implant and graft; Z79.82 Long term (current) use of aspirin; Z79.84 Long term (current) use of oral hypoglycemic drugs; Z83.3 Family history of diabetes mellitus; Z82.49 Family history of ischemic heart disease and other diseases of the circulatory system; Z87.891 Personal history of nicotine dependence

== ENCOUNTER → 2017-06-21 | Outpatient (CLI) | payer OTHER ==
[~2017-06-21] MED LIST changes: -SENNTAB23 PO
[2017-06-21 14:05] LABS: BLOOD UREA NITROGEN 22 mg/dl (7-18); CALCIUM 10.4 mg/dl (8.5-10.1); CARBON DIOXIDE 30 mmol/L (21-32); CREATININE 1.09 mg/dl (0.60-1.40); GLUCOSE 106 mg/dl (70-99); POTASSIUM 4.3 mmol/L (3.5-5.1); SODIUM 140 mmol/L (136-145)
== END | disposition home or self-care (01) ==
LOC: C.LAB1850 10:25
PROVIDERS: ATTEND Internal Medicine Geriatric Medicine
DX: I10 Essential (primary) hypertension (principal)

== ENCOUNTER 2017-07-02 09:43 | Inpatient (IN) | payer OTHER ==
[~2017-07-02] VITALS: Ht 177.8 cm; Wt 87.1 kg
[2017-07-02] MEDS ORDERED: NITROGLYCERIN 2% OINTMENT 30GM TUBE EXT STA (10:59)
[2017-07-02] MEDS ORDERED: ASPIRIN 81 MG CHEW PO STA (10:59)
[2017-07-02] MEDS ORDERED: LORAZEPAM 2 MG/ML 1 ML VIAL IV STA (10:59)
--- NOTE | 2017-07-02 11:21 | DIAGNOSTIC IMAGING REPORT ---
CHEST ONE VIEW PORTABLE HISTORY: 82 years-old Male CHEST PAIN acute atypical chest pain with elevated blood pressure COMPARISON: Chest radiograph 06/10/2017 TECHNIQUE: Portable AP view of the chest FINDINGS: Cardiac silhouette is again enlarged. Prior median sternotomy. Atherosclerosis of the aorta. Mild pulmonary vascular congestion without overt pulmonary edema. Minimal interstitial coarsening is noted bilaterally. No pneumothorax, pleural effusion or focal airspace consolidation. Bones of the chest appear grossly intact. Bones of the chest appear grossly intact. IMPRESSION: 1. No acute process. 2. Cardiomegaly with pulmonary vascular congestion. The above report was generated using voice recognition software. It may contain grammatical, syntax or spelling errors. Electronically signed by: Aries Beltran M.D. 07/02/2017 11:20 AM Dictated Date/Time: 07/02/2017 11:16 AM
[2017-07-02 11:25] LABS: BASO % 0.5 %; BASO ABS # 0.03 K/uL (0-0.2); EOS % 2.8 %; EOS ABS # 0.17 K/uL (0-0.5); HEMOGLOBIN 14.2 g/dL (14.0-18.0); IG# 0.01 K/uL (0.00-0.02); LYMPH % 17.9 %; MEAN CELL VOLUME 91.9 fL (80-100); MEAN CORPUSCULAR HEMOGLOBIN 31.1 pg (25-34); MEAN CORPUSCULAR HGB CONC 33.8 g/dl (32-36); MEAN PLATELET VOLUME 10.8 fL (7.4-10.4); MONO % 10.1 %; MONO ABS # 0.62 K/uL (0.11-0.59); NEUT % 68.5 %; NEUT ABS # 4.22 K/uL (1.4-6.5); PLATELET COUNT 152 K/uL (130-400); RED CELL DISTRIBUTION WIDTH CV 13.5 % (11.5-14.5); RED CELL DISTRIBUTION WIDTH SD 45.3 fL (36.4-46.3); WHITE BLOOD COUNT 6.15 K/uL (4.8-10.8)
--- NOTE | 2017-07-02 11:31 | EMERGENCY ROOM VISIT NOTE ---
History Report prepared by Archana: Colin Yeung Under the Supervision of: Dr. Terrell Giron M.D. First contact with patient: 10:50 Chief Complaint: HYPERTENSION Stated Complaint: HIGH BLOOD PRESSURE History of Present Illness The patient is a 82 year old male who presents to the Emergency Room with complaints of persistent hypertension that began one day ago. The patient states that the last time he checked his blood pressure today it was 168/104, noting it was around 200 before he took 2 Nitro Tabs. He reports that he feels some chest tightness. The patient states that he took his Aspirin today. He notes that he has been very stressed recently because he has been taking care of his who was cancer. The patient states that he had bypass surgery about 10 years ago, noting he had 2 stents placed about a year later. Source of History: patient Onset: one day ago Position: other (global) Quality: other (hypertension) Note: Associated symptoms include: chest tightness. Review of Systems See HPI for pertinent positives & negatives. A total of 10 systems reviewed and were otherwise negative. Past Medical & Surgical Medical Problems: (1) Abdom Aortic Aneurysm (2) Abdominal pain (3) Benign hypertension (4) C. difficile diarrhea (5) Chest pain (6) Congestive Heart Failure Nos (7) Diabetes mellitus (8) Enteritis (9) Heart disease (10) Hyperlipidemia (11) Hyperparathyroidism, Unspecified (12) Kidney stone (13) Thrombocytopenia Nos Surgical Problems: (1) cardiac bypass (2) Cardiac catheterization (3) cardiac stent placement (4) History of herniorrhaphy (5) Hx of shoulder surgery Family History Diabetes mellitus FHx: cancer FHx: heart disease FHx: lung disease Hypertension Social History Smoking Status: Former Smoker Alcohol Use: none Drug Use: none Marital Status: Housing Status: lives with significant other Occupation Status: retired Current/Historical Medications Scheduled Amlodipine (Norvasc), 5 MG PO QAM Aspirin (Aspirin Ec), 81 MG PO QAM Atorvastatin (Lipitor), 80 MG PO HS Cholecalciferol (Vitamin D 1000 Unit), 2,000 INTER.UNIT PO QAM Clopidogrel (Plavix), 75 MG PO QAM Doxazosin Mesylate (Cardura), 4 MG PO QAM Ezetimibe (Zetia), 10 MG PO QPM Finasteride (Proscar), 5 MG PO QAM Fish Oil ([place]-3), 300 MG PO QAM Isosorbide Mononitrate Ext Rel (Imdur Ext Rel), 60 MG PO QAM Losartan Potassium (Losartan Potassium), 50 MG PO QAM Metformin Hcl (Glucophage), 1,500 MG PO BID Nitroglycerin (Nitrostat), 0.4 MG UT UD Pantoprazole (Protonix), 40 MG PO QAM Scheduled PRN Furosemide (Lasix), 20 MG PO DAILY PRN for fluid Allergies Coded Allergies: Cinnamon Flavor (Verified Allergy, Severe, THROAT SWELLING, 07/02/17) Linaclotide (Verified Adverse Reaction, Unknown, DIARRHEA, 07/02/17) Lisinopril (Verified Adverse Reaction, Unknown, DIZZINESS, 07/02/17) Physical Exam Vital Signs Date Time Temp Pulse Resp B/P (MAP) Pulse Ox O2 Delivery O2 Flow Rate FiO2 07/02/17 12:10 58 07/02/17 12:00 60 14 128/62 93 Nasal Cannula 2.0 07/02/17 11:47 56 16 95 Nasal Cannula 2.0 07/02/17 11:47 94 Nasal Cannula 07/02/17 11:05 96 Room Air 07/02/17 11:05 53 20 152/72 96 Room Air 07/02/17 11:05 96 Room Air 07/02/17 09:51 36.4 66 20 155/81 95 Room Air Physical Exam GENERAL: Patient is a healthy-appearing well-nourished male. Hyperventilating on exam. HEAD: Normocephalic atraumatic EYES: Ocular movements intact pupils equal and react to light OROPHARYNX mucous membranes are moist no exudates present no erythema or edema present NECK: Supple no nuchal rigidity CHEST: Good equal expansion LUNGS: Clear and equal to auscultation CARDIAC: Normal S1 and S2 ABDOMEN: Soft nontender no guarding BACK: No CVA tenderness EXTREMITIES: No pain upon palpation normal muscle strength in all groups no clubbing cyanosis or edema NEURO: Patient is following commands and answering questions appropriately. Alert and oriented x3 Cranial Nerves 2-12 grossly intact Medical Decision & Procedures ER Provider Diagnostic Interpretation: Radiology results as stated below per my review and radiologist interpretation: CHEST ONE VIEW PORTABLE HISTORY: 82 years-old Male CHEST PAIN acute atypical chest pain with elevated blood pressure COMPARISON: Chest radiograph 06/10/2017 TECHNIQUE: Portable AP view of the chest FINDINGS: Cardiac silhouette is again enlarged. Prior median sternotomy. Atherosclerosis of the aorta. Mild pulmonary vascular congestion without overt pulmonary edema. Minimal interstitial coarsening is noted bilaterally. No pneumothorax, pleural effusion or focal airspace consolidation. Bones of the chest appear grossly intact. Bones of the chest appear grossly intact. IMPRESSION: 1. No acute process. 2. Cardiomegaly with pulmonary vascular congestion. The above report was generated using voice recognition software. It may contain grammatical, syntax or spelling errors. Electronically signed by: Aries Beltran M.D. 07/02/2017 11:20 AM Dictated Date/Time: 07/02/2017 11:16 AM Laboratory Results 07/02/17 11:05 Red Blood Count 4.57, Mean Corpuscular Volume 91.9, Mean Corpuscular Hemoglobin 31.1, Mean Corpuscular Hemoglobin Concent 33.8, Mean Platelet Volume 10.8, Neutrophils (%) (Auto) 68.5, Lymphocytes (%) (Auto) 17.9, Monocytes (%) (Auto) 10.1, Eosinophils (%) (Auto) 2.8, Basophils (%) (Auto) 0.5, Neutrophils # (Auto ) 4.22, Lymphocytes # (Auto) 1.10, Monocytes # (Auto) 0.62, Eosinophils # (Auto ) 0.17, Basophils # (Auto) 0.03 07/02/17 11:05 Test 07/02/17 11:05 White Blood Count 6.15 K/uL (4.8-10.8) Red Blood Count 4.57 M/uL (4.7-6.1) Hemoglobin 14.2 g/dL (14.0-18.0) Hematocrit 42.0 % (42-52) Mean Corpuscular Volume 91.9 fL (80-100) Mean Corpuscular Hemoglobin 31.1 pg (25-34) Mean Corpuscular Hemoglobin Concent 33.8 g/dl (32-36) Platelet Count 152 K/uL (130-400) Mean Platelet Volume 10.8 fL (7.4-10.4) Neutrophils (%) (Auto) 68.5 % Lymphocytes (%) (Auto) 17.9 % Monocytes (%) (Auto) 10.1 % Eosinophils (%) (Auto) 2.8 % Basophils (%) (Auto) 0.5 % Neutrophils # (Auto) 4.22 K/uL (1.4-6.5) Lymphocytes # (Auto) 1.10 K/uL (1.2-3.4) Monocytes # (Auto) 0.62 K/uL (0.11-0.59) Eosinophils # (Auto) 0.17 K/uL (0-0.5) Basophils # (Auto) 0.03 K/uL (0-0.2) RDW Standard Deviation 45.3 fL (36.4-46.3) RDW Coefficient of Variation 13.5 % (11.5-14.5) Immature Granulocyte % (Auto) 0.2 % Immature Granulocyte # (Auto) 0.01 K/uL (0.00-0.02) Anion Gap 8.0 mmol/L (3-11) Est Creatinine Clear Calc Drug Dose 57.8 ml/min Estimated GFR () 70.3 Estimated GFR (Non- 60.6 BUN/Creatinine Ratio 16.1 (10-20) Calcium Level 10.4 mg/dl (8.5-10.1) Total Bilirubin 1.1 mg/dl (0.2-1) Direct Bilirubin 0.2 mg/dl (0-0.2) Aspartate Amino Transf (AST/SGOT) 19 U/L (15-37) Alanine Aminotransferase (ALT/SGPT) 26 U/L (12-78) Alkaline Phosphatase 50 U/L (45-117) Total Creatine Kinase 127 U/L (39-308) Creatine Kinase MB 2.2 ng/ml (0.5-3.6) Creatine Kinase MB Ratio 1.7 (0-3.0) Troponin I < 0.015 ng/ml (0-0.045) Total Protein 7.2 gm/dl (6.4-8.2) Albumin 4.1 gm/dl (3.4-5.0) Lipase 211 U/L (73-393) Labs reviewed by ED physician. Medications Administered Medications (Trade) Dose Ordered Sig/Joan Route Start Time Stop Time Status Last Admin Dose Admin Nitroglycerin (Nitroglycerin 2% Oint) 1 inch NOW STAT EXT 07/02/17 10:59 07/02/17 11:01 DC 07/02/17 11:19 1 INCH Aspirin (Aspirin Chew) 162 mg NOW STAT PO 07/02/17 10:59 07/02/17 11:01 DC 07/02/17 11:19 162 MG Lorazepam (Ativan Inj) 0.5 mg NOW STAT IV 07/02/17 10:59 07/02/17 11:01 DC 07/02/17 11:19 0.5 MG ECG Per My Interpretation Indication: other (hypertension) Rate (beats per minute): 63 Rhythm: sinus rhythm Findings: PVC (frequent), RBBB, other (No ST elevation or depression) Change: Patients electrocardiogram as interpreted by me. ED Course 1053: Past medical records reviewed. The patient was evaluated in room C1. A complete history and physical examination was performed. 1059: Ordered Ativan Inj 0.5mg IV, Aspirin 162mg PO, and Nitroglycerin 1inch. 1211: I discussed the patient's case with NI Jacinto. He has agreed to evaluate the patient for further management and care. 1215: I reevaluated the patient, who was resting. I discussed test findings and the treatment plan with him. He verbalized complete understanding and agreement. Medical Decision Differential diagnosis: Etiologies such as benign hypertension, hypertensive emergency, cardiovascular pathology, pheochromocytoma, electrolyte abnormality, renal disease, endorgan damage, as well as others were entertained. This is an 82-year-old male who presents emergency department complaining of chest pain. The patient admits to being under a lot of stress with his and taking care of her at home. He had been taking nitroglycerin this morning which resulted in cessation of the chest pain. The patient appears to be hyperventilating on examination and I suspect there is an anxiety component to his chest pain however he was given nitro paste here in the emergency department which resulted in improvement in his pain. He was given aspirin here in the emergency department. I did discuss the case with the hospitalist service due to the patient's past medical history of stents. Medication Reconcilliation Current Medication List: was personally reviewed by me Blood Pressure Screening Patient's blood pressure: Normal blood pressure Blood pressure disposition: Did not require urgent referral Consults Time Called: 1211 Consulting Physician: NI Jacinto Returned Call: 1211 I discussed the patient's case with NI Jacinto. He has agreed to evaluate the patient for further management and care. Impression Primary Impression: Precordial chest pain Scribe Attestation The scribe's documentation has been prepared under my direction and personally reviewed by me in its entirety. I confirm that the note above accurately reflects all work, treatment, procedures, and medical decision making performed by me. Departure Information Dispostion Being Evaluated By Hospitalist Referrals Nestor Moss M.D. (PCP) Forms HOME CARE DOCUMENTATION FORM, IMPORTANT VISIT INFORMATION, WORK / SCHOOL INSTRUCTIONS Patient Instructions My [facility]
[2017-07-02] MEDS ORDERED: CZR50 PO (11:33)
[2017-07-02 11:34] LABS: ALBUMIN 4.1 gm/dl (3.4-5.0); ALT/SGPT 26 U/L (12-78); BLOOD UREA NITROGEN 18 mg/dl (7-18); CALCIUM 10.4 mg/dl (8.5-10.1); CARBON DIOXIDE 26 mmol/L (21-32); CREATININE 1.13 mg/dl (0.60-1.40); GLUCOSE 118 mg/dl (70-99); LIPASE 211 U/L (73-393); POTASSIUM 4.1 mmol/L (3.5-5.1); SODIUM 139 mmol/L (136-145)
[2017-07-02 11:39] LABS: ALKALINE PHOSPHATASE 50 U/L (45-117); AST/SGOT 19 U/L (15-37); CKMB 2.2 ng/ml (0.5-3.6); TOTAL PROTEIN 7.2 gm/dl (6.4-8.2)
[2017-07-02] MEDS ORDERED: ONDANSETRON INJ 2 MG/ML 2 ML VIAL IV PRN (15:00)
[2017-07-02] MEDS ORDERED: DC ALL PREVIOUSLY ORDERED DIABETES MEDS ONE (15:00)
[2017-07-02] MEDS ORDERED: GLUCAGON FOR INJ 1 MG VIAL SQ PRN (15:00)
[2017-07-02] MEDS ORDERED: NITROGLYCERIN 0.4 MG SL PER TAB CHARGE SL PRN (15:00)
[2017-07-02] MEDS ORDERED: DEXTROSE 50% 50 ML SYR IV PRN (15:00)
[2017-07-02] MEDS ORDERED: MAGNESIUM HYDROXIDE SUSP 30 ML UDC PO PRN (15:00)
[2017-07-02] MEDS ORDERED: GLUCOSE 10 TABS/TUBE PO PRN (15:00)
[2017-07-02] MEDS ORDERED: NITROGLYCERIN 0.4 MG SL PER TAB CHARGE UT SCH (15:00)
[2017-07-02] MEDS ORDERED: ACETAMINOPHEN 325 MG TAB PO PRN (15:00)
[2017-07-02] MEDS ORDERED: ZOLPIDEM TARTRATE 5 MG TAB PO PRN ×2 (15:00)
[2017-07-02] MEDS ORDERED: GLUCOSE 40% GEL 15 GM TUBE PO PRN (15:00)
[2017-07-02] MEDS ORDERED: ALUMINUM/MAGNESIUM/SIMETH (MAALOX MAX) 30 ML UDC PO PRN (15:00)
[2017-07-02] MEDS ORDERED: MoRPHine SULFATE 2 MG/ML CARP IV PRN (15:00)
[2017-07-02] MEDS: INSULIN ASPART 100 UNITS/ML 3 ML PEN SC SCH ×2 (16:00→21:00)
--- NOTE | 2017-07-02 16:43 | History and Physical ---
History & Physical Date & Time of Service: Jul 02, 2017 at 16:27 Chief Complaint: High Blood Pressure Primary Care Physician: Nestor Moss M.D. History of Present Illness Source: patient, hospital records 82 years old man with PMHx with past medical history of CAD status post CABG, right iliac artery aneurysm, dyslipidemia, hypertension, diabetes mellitus on oral hypoglycemic, and BPH. Patient said that yesterday his blood pressure was very high 200/100. He took his blood pressure medications with no help. He slept at night. Woke up this morning with substernal chest tightness, he describes it as heaviness in the middle of his chest. Localized did not go to left shoulder or left jaw or back. 4/10 in intensity. He checked his blood pressure and systolic blood pressure was again more than 180. Presented to the ED and received nitroglycerin under his tongue and nitroglycerin patch. He feels that the pain slightly improved became 1-2 out of 10 after the nitroglycerin. He does have history of CABG x4 2004 (FIGUEROA - LAD, SVG - left circumflex marginal, SVG - LAD diagonal, SVG - right posterior descending artery). S/P stents in the left circumflex and left circumflex marginal. Recurrent angina 2007 s/p YOKASTA in his proximal left circumflex and left circumflex marginal. Previous stent were patent and there was Subtotal mid RCA occlusion. Collateral flow from proximal RCA to distal RCA. Left internal mammary artery remained patent. LV ejection fraction 50%. LV angiography with inferior hypokinesis. Dobutamine stress echocardiogram 04/08/2016 with LV ejection fraction of 50%. Anteroseptal and inferoseptal dyskinesis at rest and with stress. He has been compliant with his medications. Denies any dizziness diaphoresis or shortness of breath Past Medical/Surgical History Medical Problems: (1) Abdom Aortic Aneurysm Status: Resolved (2) Benign hypertension Status: Chronic (3) Chest pain Status: Resolved (4) Congestive Heart Failure Nos Status: Chronic (5) Diabetes mellitus Status: Chronic (6) Heart disease Status: Chronic (7) Hyperlipidemia Status: Chronic (8) Hyperparathyroidism, Unspecified Status: Chronic (9) Kidney stone Status: Resolved (10) Thrombocytopenia Nos Status: Chronic Surgical Problems: (1) cardiac bypass Status: Resolved (2) Cardiac catheterization Status: Resolved (3) cardiac stent placement Status: Resolved (4) History of herniorrhaphy Status: Resolved (5) Hx of shoulder surgery Status: Resolved Family History Diabetes mellitus FHx: cancer FHx: heart disease FHx: lung disease Hypertension Social History Smoking Status: Former Smoker Drug Use: none Marital Status: Housing status: lives with family Occupational Status: retired Immunizations History of Influenza Vaccine: No Influenza Vaccine Date: Jan 19, 2011 History of Tetanus Vaccine?: Unknown History of Pneumococcal: Yes Pneumococcal Date: Jan 19, 2011 History of Hepatitis B Vaccine: Unknown Multi-Drug Resistant Organisms History of MDRO: No Allergies Coded Allergies: Cinnamon Flavor (Verified Allergy, Severe, THROAT SWELLING, 07/02/17) Linaclotide (Verified Adverse Reaction, Unknown, DIARRHEA, 07/02/17) Lisinopril (Verified Adverse Reaction, Unknown, DIZZINESS, 07/02/17) Home Medications Scheduled Amlodipine (Norvasc), 5 MG PO QAM Aspirin (Aspirin Ec), 81 MG PO QAM Atorvastatin (Lipitor), 80 MG PO HS Cholecalciferol (Vitamin D 1000 Unit), 2,000 INTER.UNIT PO QAM Clopidogrel (Plavix), 75 MG PO QAM Doxazosin Mesylate (Cardura), 4 MG PO QAM Ezetimibe (Zetia), 10 MG PO QPM Finasteride (Proscar), 5 MG PO QAM Fish Oil ([place]-3), 300 MG PO QAM Isosorbide Mononitrate Ext Rel (Imdur Ext Rel), 60 MG PO QAM Losartan Potassium (Losartan Potassium), 50 MG PO QAM Metformin Hcl (Glucophage), 1,500 MG PO BID Nitroglycerin (Nitrostat), 0.4 MG UT UD Pantoprazole (Protonix), 40 MG PO QAM Scheduled PRN Furosemide (Lasix), 20 MG PO DAILY PRN for fluid Review of Systems Review of system Constitutional: No fever / no chills / no sweats / no weakness / no fatigue Eyes: no blurring of vision / no eye pain / no discharge / no redness ENT: no hearing loss / no epistaxis /no swallowing problems Respiratory: no cough / no wheezing / no SOB / no hemoptysis Cardiovascular: Chest pain as mentioned in HPI Abdomen: no pain / no nausea / no vomiting / no constipation Musculoskeletal: no joint pain / no muscle pain / no joint swelling Genitourinary: no dysuria / no incontinence / no urinary retention Neurologic: no focal weakness / no numbness/tingling / no ataxia Psychiatric: no depression symptoms / no anxiety / no insomnia Endocrine: no excessive thirst / no excessive urination Hematologic: no abnormal bleeding / no bruising / no LN swelling Skin: No rash / no pallor Physical Exam Vital Signs Date Time Temp Pulse Resp B/P (MAP) Pulse Ox O2 Delivery O2 Flow Rate FiO2 07/02/17 15:58 53 16 163/78 95 Nasal Cannula 2.0 07/02/17 15:01 159/78 07/02/17 15:00 53 15 97 Nasal Cannula 2.0 07/02/17 14:30 56 19 136/80 93 Nasal Cannula 2.0 07/02/17 14:01 52 16 134/70 96 Nasal Cannula 2.0 07/02/17 13:30 58 18 160/77 100 Nasal Cannula 2.0 07/02/17 13:11 54 18 137/68 93 Nasal Cannula 2.0 07/02/17 12:10 58 07/02/17 12:00 60 14 128/62 93 Nasal Cannula 2.0 07/02/17 11:47 56 16 95 Nasal Cannula 2.0 07/02/17 11:47 94 Nasal Cannula 07/02/17 11:05 96 Room Air 07/02/17 11:05 53 20 152/72 96 Room Air 07/02/17 11:05 96 Room Air 07/02/17 09:51 36.4 66 20 155/81 95 Room Air Physical examination General patient appears to be comfortable, not in acute distress HEENT: Atraumatic , normocephalic /no jaundice /no pallor /anicteric /no dry mucous membrane /normal external ear inspection Neck: Supple /no swelling /central trach Heart: S1/S2 normal/regular rate and rhythm/no gallop /no rub /no murmur, large scar in the anterior chest wall extending to the umbilical area Lungs: Clear to auscultation bilaterally/normal chest with expansion/no rhonchi/ no rales/no wheezing/no use of accessory muscles of respiration Abdomen: Soft/nontender/no guarding/no rebound/no organomegaly/no pulsatile mass Musculoskeletal: No swelling/no edema/no tenderness/normal range of motion Neuro exam: Awake alert oriented 3/cranial nerves II through XII appear to be intact/sensation intact/moves all extremities/no abnormal movements Psychiatric evaluation: No depressed mood/normal affect Skin: No rash on exposed skin area/no erythema Extremity: Normal pulse/no pitting edema/no clubbing or cyanosis Endocrine/lymphatic: No obvious lymphadenopathy /no lymphedema Diagnostics Laboratory Results Results Past 24 Hours Test 07/02/17 11:05 Range/Units White Blood Count 6.15 4.8-10.8 K/uL Red Blood Count 4.57 4.7-6.1 M/uL Hemoglobin 14.2 14.0-18.0 g/dL Hematocrit 42.0 42-52 % Mean Corpuscular Volume 91.9 80-100 fL Mean Corpuscular Hemoglobin 31.1 25-34 pg Mean Corpuscular Hemoglobin Concent 33.8 32-36 g/dl Platelet Count 152 130-400 K/uL Mean Platelet Volume 10.8 7.4-10.4 fL Neutrophils (%) (Auto) 68.5 % Lymphocytes (%) (Auto) 17.9 % Monocytes (%) (Auto) 10.1 % Eosinophils (%) (Auto) 2.8 % Basophils (%) (Auto) 0.5 % Neutrophils # (Auto) 4.22 1.4-6.5 K/uL Lymphocytes # (Auto) 1.10 1.2-3.4 K/uL Monocytes # (Auto) 0.62 0.11-0.59 K/uL Eosinophils # (Auto) 0.17 0-0.5 K/uL Basophils # (Auto) 0.03 0-0.2 K/uL RDW Standard Deviation 45.3 36.4-46.3 fL RDW Coefficient of Variation 13.5 11.5-14.5 % Immature Granulocyte % (Auto) 0.2 % Immature Granulocyte # (Auto) 0.01 0.00-0.02 K/uL Sodium Level 139 136-145 mmol/L Potassium Level 4.1 3.5-5.1 mmol/L Chloride Level 105 98-107 mmol/L Carbon Dioxide Level 26 21-32 mmol/L Anion Gap 8.0 3-11 mmol/L Blood Urea Nitrogen 18 7-18 mg/dl Creatinine 1.13 0.60-1.40 mg/dl Est Creatinine Clear Calc Drug Dose 57.8 ml/min Estimated GFR () 70.3 Estimated GFR (Non- 60.6 BUN/Creatinine Ratio 16.1 10-20 Random Glucose 118 70-99 mg/dl Calcium Level 10.4 8.5-10.1 mg/dl Total Bilirubin 1.1 0.2-1 mg/dl Direct Bilirubin 0.2 0-0.2 mg/dl Aspartate Amino Transf (AST/SGOT) 19 15-37 U/L Alanine Aminotransferase (ALT/SGPT) 26 12-78 U/L Alkaline Phosphatase 50 45-117 U/L Total Creatine Kinase 127 39-308 U/L Creatine Kinase MB 2.2 0.5-3.6 ng/ml Creatine Kinase MB Ratio 1.7 0-3.0 Troponin I < 0.015 0-0.045 ng/ml Total Protein 7.2 6.4-8.2 gm/dl Albumin 4.1 3.4-5.0 gm/dl Lipase 211 73-393 U/L Impression Assessment and Plan 82-year-old man with past medical history of CAD status post CABG and multiple stents after that, hypertension, dyslipidemia, right iliac aneurysm, diabetes mellitus and oral hypoglycemic and BPH presented to the ED with elevated blood pressure and substernal chest pain. Assessment Chest pain rule out ACS Hypertensive urgency, could be causing the chest pain or could be as a result of his pain CAD status post CABG/multiple stents Dyslipidemia Diabetes mellitus on oral hypoglycemic BPH Plan admit to telemetry obtain serial cardiac enz NTG SL/topical prn CP consult bible reader, giving the seriousness of his previous medical history pain management Check hemoglobin A1c/lipids to stratify patient risk factors repeat EKG prn chest pain Start oral blood pressure medications that he takes at home, adjust dosages accordingly Currently blood pressure is acceptable Hold metformin and start him on sliding scale insulin VTE Prophylaxis VTE Risk Assessment Done? Y/N: Yes Risk Level: Moderate
[2017-07-02] MEDS: SODIUM CHLORIDE 0.9% 1000ML 1,000 ML IV SCH (16:45)
[2017-07-02 16:52] VITALS: BP 172/75; PULSE 56; TEMP 36.3; O2SAT 97; Ht 177.8 cm; Wt 87.1 kg
[2017-07-02] MEDS: NITROGLYCERIN 2% OINTMENT 30GM TUBE EXT SCH (17:40)
[2017-07-02 19:49] VITALS: BP 167/83; PULSE 51; TEMP 36.4; O2SAT 93
[2017-07-02 20:06] VITALS: O2SAT 93
[2017-07-02] MEDS: ATORVASTATIN 40 MG TAB PO SCH (21:59)
[2017-07-02] MEDS: EZETIMIBE 10MG TAB PO SCH (21:59)
[2017-07-02] MEDS: POLYETHYLENE (MIRALAX) 17 GM PACK PO PRN (21:59)
[2017-07-02] MEDS: HEPARIN SOD 5000 UNIT/0.5 ML CARP SQ SCH (22:01)
[2017-07-02 23:58] VITALS: BP 192/78; PULSE 51; TEMP 36.3; O2SAT 93
[2017-07-03] VITALS (9 sets, daily range): BP systolic 140–198; BP diastolic 65–82; PULSE 50–62; TEMP 36.3–36.5; O2SAT 92–95
[2017-07-03] MEDS: NITROGLYCERIN 2% OINTMENT 30GM TUBE EXT SCH ×5 (00:19→23:55)
[2017-07-03] MEDS: HydrALAZINE HCL 20 MG/ML VIAL IV. PRN ×2 (01:21→23:48)
[2017-07-03 03:04] LABS: BASO % 0.8 %; BASO ABS # 0.05 K/uL (0-0.2); EOS % 4.4 %; EOS ABS # 0.27 K/uL (0-0.5); HEMATOCRIT 42.8 % (42-52); HEMOGLOBIN 14.6 g/dL (14.0-18.0); IG# 0.01 K/uL (0.00-0.02); LYMPH % 29.7 %; LYMPH ABS # 1.84 K/uL (1.2-3.4); MEAN CELL VOLUME 90.9 fL (80-100); MEAN CORPUSCULAR HGB CONC 34.1 g/dl (32-36); MEAN PLATELET VOLUME 10.7 fL (7.4-10.4); MONO ABS # 0.62 K/uL (0.11-0.59); NEUT % 54.9 %; PLATELET COUNT 156 K/uL (130-400); RED CELL DISTRIBUTION WIDTH CV 13.3 % (11.5-14.5); RED CELL DISTRIBUTION WIDTH SD 44.2 fL (36.4-46.3); WHITE BLOOD COUNT 6.19 K/uL (4.8-10.8)
[2017-07-03 03:23] LABS: ALBUMIN 3.9 gm/dl (3.4-5.0); ALT/SGPT 26 U/L (12-78); AST/SGOT 18 U/L (15-37); BLOOD UREA NITROGEN 19 mg/dl (7-18); CALCIUM 10.3 mg/dl (8.5-10.1); CARBON DIOXIDE 26 mmol/L (21-32); CREATININE 1.16 mg/dl (0.60-1.40); GLUCOSE 91 mg/dl (70-99); POTASSIUM 3.9 mmol/L (3.5-5.1); SODIUM 141 mmol/L (136-145)
[2017-07-03 03:26] LABS: ALKALINE PHOSPHATASE 55 U/L (45-117); CHOLESTEROL 119 mg/dl (0-200); LDL CHOLESTEROL CALCULATED 34 mg/dl
[2017-07-03] MEDS: HEPARIN SOD 5000 UNIT/0.5 ML CARP SQ SCH ×3 (05:50→20:47)
[2017-07-03] MEDS: INSULIN ASPART 100 UNITS/ML 3 ML PEN SC SCH ×4 (07:12→20:44)
[2017-07-03] MEDS: LOSARTAN POTASSIUM 50 MG TAB PO SCH (07:51)
[2017-07-03] MEDS: DOXAZosin MESYLATE TAB 4 MG TAB PO SCH (07:51)
[2017-07-03] MEDS: PANTOprazole SOD 40 MG TAB PO SCH (07:51)
[2017-07-03] MEDS: CLOPIDOGREL BISULFATE 75 MG TAB PO SCH (07:51)
[2017-07-03] MEDS: ASPIRIN 81 MG ECTAB PO SCH (07:51)
[2017-07-03] MEDS: FINASTERIDE 5 MG TAB PO SCH (07:51)
[2017-07-03] MEDS: OMEGA-3 (PURIFIED FISH OIL) 1 GM CAP PO SCH (07:52)
[2017-07-03] MEDS ORDERED: ISOSORBIDE MONONITRATE 60 MG TABCR PO SCH (09:00)
[2017-07-03] MEDS ORDERED: AMLODIPINE BESYLATE 5 MG TAB PO SCH (09:00)
--- NOTE | 2017-07-03 12:06 | Cardiology Consultation ---
Cardiology Consultation Date of Consultation: Jul 03, 2017. Requesting Physician: Dr. Briones Reason for Consultation: Chest discomfort Pt evaluation today including: conversation w/ patient, physical exam, lab review, review of studies, review of inpatient medication list History of Present Illness This is an 82-year-old male who has a history of hypertension, hyperlipidemia and coronary disease including bypass surgery 4 in 2004, recurrent chest discomfort in 2006 were all vein grafts were found to be occluded. He did have intervention of his proximal circumflex and obtuse marginal. He has a history of an ischemic cardiomyopathy and is followed in the office by Dr. Sanchez. He presented to the emergency room on July 02, 2017 with symptoms of chest discomfort. He notes that the day before his blood pressure was very high, in the 200 systolic range, he woke up that morning with chest discomfort which he describes as a substernal chest tightness in the middle of his chest. He did not have radiation. In the emergency room he received nitroglycerin with slight improvement in his discomfort. Initial evaluation in the emergency room included cardiac enzymes which were unremarkable (and now 3 sets are negative for injury) and electrocardiography which showed a right bundle branch block pattern but no acute changes. He did have PVCs but has had them in the past as well. Chest x-ray suggested mild pulmonary vascular congestion but no clear congestive heart failure. Today he feels better, he may still have some discomfort but he says it is improving. He is aware of a thumping sensation in his ears from time to time, this probably is his premature beats. It is not very bothersome to him. Past Medical/Surgical History (1) Hyperparathyroidism, Unspecified (2) Thrombocytopenia Nos (3) PVCs (premature ventricular contractions) (4) C. difficile diarrhea (5) Heart palpitations (6) Diabetes mellitus (7) Kidney stone (8) Hyperlipidemia (9) History of herniorrhaphy (10) Hx of shoulder surgery (11) Cardiac catheterization (12) cardiac bypass (13) cardiac stent placement Family History Diabetes mellitus FHx: cancer FHx: heart disease FHx: lung disease Hypertension Social History Smoking Status: Former Smoker History of Alcohol Use: No Review of Systems Constitutional: No fever, No weight loss, No weakness Respiratory: No cough, No wheezing, No shortness of breath, No dyspnea on exertion Cardiac: + see HPI, + chest pain, No orthopnea, No PND, No edema, No palpitations Abdomen: No pain, No nausea, No vomiting, No diarrhea, No GI bleeding Male : No urinary frequency, No nocturia more than once/night, No slowing stream, No sexual dysfunction Neurologic: No paralysis, No weakness, No numbness/tingling, No balance problems Heme: No abnormal bleeding/bruising, No clotting problems Endo: No fatigue Skin: No problem reported All Other Systems: Reviewed and Negative Allergies Coded Allergies: Cinnamon Flavor (Verified Allergy, Severe, THROAT SWELLING, 07/02/17) Linaclotide (Verified Adverse Reaction, Unknown, DIARRHEA, 07/02/17) Lisinopril (Verified Adverse Reaction, Unknown, DIZZINESS, 07/02/17) Medications Current Inpatient Medications Medications (Trade) Dose Ordered Sig/Joan Route Start Time Stop Time Status Last Admin Dose Admin Amlodipine Besylate (Norvasc Tab) 5 mg QAM PO 07/03/17 09:00 08/02/17 08:59 07/03/17 07:51 5 MG Aspirin (Ecotrin Tab) 81 mg QAM PO 07/03/17 09:00 08/02/17 08:59 07/03/17 07:51 81 MG Atorvastatin Calcium (Lipitor Tab) 80 mg HS PO 07/02/17 21:00 08/01/17 20:59 07/02/17 21:59 80 MG Clopidogrel Bisulfate (plAVix TAB) 75 mg QAM PO 07/03/17 09:00 08/02/17 08:59 07/03/17 07:51 75 MG Doxazosin Mesylate (Cardura Tab) 4 mg QAM PO 07/03/17 09:00 08/02/17 08:59 07/03/17 07:51 4 MG EZETIMIBE (Zetia Tab) 10 mg QPM PO 07/02/17 21:00 08/01/17 20:59 07/02/17 21:59 10 MG Finasteride (Proscar Tab) 5 mg QAM PO 07/03/17 09:00 08/02/17 08:59 07/03/17 07:51 5 MG Fish Oil ([place]-3 (Purified Fish Oil) Cap) 1 gm QAM PO 07/03/17 09:00 08/02/17 08:59 07/03/17 07:52 1 GM Isosorbide Mononitrate (Imdur Ext Rel Tab) 60 mg QAM PO 07/03/17 09:00 08/02/17 08:59 07/03/17 07:51 60 MG Losartan Potassium (coZAAR TAB) 50 mg QAM PO 07/03/17 09:00 08/02/17 08:59 07/03/17 07:51 50 MG Pantoprazole Sodium (Protonix Tab) 40 mg QAM PO 07/03/17 09:00 08/02/17 08:59 07/03/17 07:51 40 MG Heparin Sodium (Porcine) (Heparin Sq 5000 Unit/0.5ml) 5,000 unit Q8 SQ 07/02/17 22:00 08/01/17 21:59 07/03/17 05:50 5,000 UNIT Sodium Chloride 1,000 ml @ 35 mls/hr Q24H IV 07/02/17 15:30 08/01/17 15:29 07/02/17 16:45 35 MLS/HR Acetaminophen (Tylenol Tab) 650 mg Q4H PRN PO 07/02/17 15:00 08/01/17 14:59 Al Hydrox/Mg Hydrox/Simethicone (Maalox Max Susp) 15 ml Q4H PRN PO 07/02/17 15:00 08/01/17 14:59 Magnesium Hydroxide (Milk Of Magnesia Susp) 30 ml Q12H PRN PO 07/02/17 15:00 08/01/17 14:59 Zolpidem Tartrate (Ambien Tab) 5 mg HSZ PRN PO 07/02/17 15:00 08/01/17 14:59 Zolpidem Tartrate (Ambien Tab) 5 mg HSZ PRN PO 07/02/17 15:00 08/01/17 14:59 Ondansetron HCl (Zofran Inj) 4 mg Q6H PRN IV 07/02/17 15:00 08/01/17 14:59 Nitroglycerin (Nitrostat Tab) 0.4 mg UD PRN SL 07/02/17 15:00 08/01/17 14:59 Nitroglycerin (Nitroglycerin 2% Oint) 1 inch Q6H EXT 07/02/17 18:00 08/01/17 17:59 07/03/17 05:49 1 INCH Morphine Sulfate (MoRPHine SULFATE INJ) 2 mg Q30M PRN IV 07/02/17 15:00 07/16/17 14:59 Polyethylene (Miralax Powder Packet) 17 gm DAILY PRN PO 07/02/17 15:00 08/01/17 14:59 07/02/17 21:59 17 GM Insulin Aspart (novoLOG ASPART) SLIDING SCALE If C... ACHS SC 07/02/17 16:00 08/01/17 15:59 Glucose (Glucose 40% Gel) 15-30 GRAMS 15 GRAMS... UD PRN PO 07/02/17 15:00 08/01/17 14:59 Glucose (Glucose Chew Tab) 4-8 Tablets 4 Tabl... UD PRN PO 07/02/17 15:00 08/01/17 14:59 Dextrose (Dextrose 50% 50ML Syringe) 25-50ML OF 50% DW IV FOR... UD PRN IV 07/02/17 15:00 08/01/17 14:59 Glucagon (Glucagon Inj) 1 mg UD PRN SQ 07/02/17 15:00 08/01/17 14:59 Hydralazine HCl (HydrALAZINE INJ) 20 mg Q4H PRN IV. 07/03/17 00:45 08/02/17 00:44 07/03/17 01:21 20 MG Physical Exam Vital Signs Past 12 Hours Date Time Temp Pulse Resp B/P (MAP) Pulse Ox O2 Delivery O2 Flow Rate FiO2 07/03/17 09:05 58 154/73 (100) 07/03/17 08:00 Room Air 07/03/17 07:41 36.4 58 22 190/78 (115) 93 Room Air 198/77 (117) 07/03/17 04:00 Room Air 07/03/17 03:48 36.4 52 16 169/73 (105) 94 Room Air 07/03/17 00:21 55 172/79 (110) 07/03/17 00:00 Room Air 07/02/17 23:58 36.3 51 18 192/78 (116) 93 Room Air Constitutional: General Apperance: heathly-appearing Level of Distress: NAD Psychiatric: Mental Status: active & alert Head: normocephalic Eyes: EOM: EOMI ENMT: normal ENT inspection, hearing grossly normal Neck: supple, no masses Lungs: Respiratory effort: no dyspnea, good air movement Auscultation: breath sounds normal, no wheezing Cardiovascular: Heart Auscultation: RRR, no murmurs, no rubs, no gallops Peripheral Pulses: Bruits: none appreciated Abdomen: Bowel Sounds: normal Inspection & Palpation: soft, no tenderness, guarding & rebound, no masses Musculoskeletal: normal strength (5/5 throughout) Extremities: no edema Neurologic: Cranial Nerves: grossly intact Sensation: grossly intact Data Laboratory Results: Last 24 Hours Test 07/02/17 16:37 07/02/17 20:42 07/02/17 21:14 07/03/17 02:41 Bedside Glucose 94 mg/dl 96 mg/dl Troponin I < 0.015 ng/ml < 0.015 ng/ml White Blood Count 6.19 K/uL Red Blood Count 4.71 M/uL Hemoglobin 14.6 g/dL Hematocrit 42.8 % Mean Corpuscular Volume 90.9 fL Mean Corpuscular Hemoglobin 31.0 pg Mean Corpuscular Hemoglobin Concent 34.1 g/dl Platelet Count 156 K/uL Mean Platelet Volume 10.7 fL Neutrophils (%) (Auto) 54.9 % Lymphocytes (%) (Auto) 29.7 % Monocytes (%) (Auto) 10.0 % Eosinophils (%) (Auto) 4.4 % Basophils (%) (Auto) 0.8 % Neutrophils # (Auto) 3.40 K/uL Lymphocytes # (Auto) 1.84 K/uL Monocytes # (Auto) 0.62 K/uL Eosinophils # (Auto) 0.27 K/uL Basophils # (Auto) 0.05 K/uL RDW Standard Deviation 44.2 fL RDW Coefficient of Variation 13.3 % Immature Granulocyte % (Auto) 0.2 % Immature Granulocyte # (Auto) 0.01 K/uL Sodium Level 141 mmol/L Potassium Level 3.9 mmol/L Chloride Level 108 mmol/L Carbon Dioxide Level 26 mmol/L Anion Gap 7.0 mmol/L Blood Urea Nitrogen 19 mg/dl Creatinine 1.16 mg/dl Est Creatinine Clear Calc Drug Dose 56.3 ml/min Estimated GFR () 68.1 Estimated GFR (Non- 58.7 BUN/Creatinine Ratio 16.7 Random Glucose 91 mg/dl Estimated Average Glucose 154 mg/dl Hemoglobin A1c 7.0 % Calcium Level 10.3 mg/dl Magnesium Level 2.1 mg/dl Total Bilirubin 1.3 mg/dl Aspartate Amino Transf (AST/SGOT) 18 U/L Alanine Aminotransferase (ALT/SGPT) 26 U/L Alkaline Phosphatase 55 U/L Total Protein 7.0 gm/dl Albumin 3.9 gm/dl Globulin 3.1 gm/dl Albumin/Globulin Ratio 1.3 Triglycerides Level 189 mg/dl Cholesterol Level 119 mg/dl HDL Cholesterol 47 mg/dl LDL Cholesterol, Calculated 34 mg/dl VLDL Cholesterol, Calculated 38 mg/dl Cholesterol/HDL Ratio 2.5 Test 07/03/17 07:19 07/03/17 08:33 Bedside Glucose 90 mg/dl Troponin I < 0.015 ng/ml Imaging: Chest x-ray shows possible mild pulmonary vascular congestion, no pulmonary edema EKG: His electrocardiogram on arrival shows sinus rhythm at 60 bpm, frequent premature ventricular beats, right bundle branch block. No acute changes and similar to prior EKGs. Telemetry reviewed: Sinus rhythm, PVCs, no significant abnormality Assessment & Plan 1. Chest discomfort: He describes chest tightness, however he was feeling poorly in general and he relates this to having a very high blood pressure. With negative cardiac enzymes, prolonged discomfort and no electric radiographic changes would not pursue coronary evaluation. We know he has coronary artery disease but does not appear to have significant demand ischemia on presentation despite his high blood pressure. 2. Hypertension: He had severe hypertension on arrival, his blood pressure has improved substantially here. It is still elevated however. We probably should have him under good blood pressure control given his known coronary artery disease. I am going to increase his amlodipine, he is on low doses of amlodipine and losartan. I prefer to do that then use hydralazine. I believe he is not on a beta-adrian due to bradycardia. 3. Congestive heart failure: He may have mild congestive heart failure, probably on the basis of severe hypertension. I would continue to follow this and see if his symptoms resolve with control of his blood pressure. Thank you for allowing me to participate in his care.
[2017-07-03] MEDS ORDERED: AMLODIPINE BESYLATE 5 MG TAB PO ONE (12:15)
[2017-07-03] MEDS: SODIUM CHLORIDE 0.9% 1000ML 1,000 ML IV SCH (15:30)
[2017-07-03] MEDS: POLYETHYLENE (MIRALAX) 17 GM PACK PO PRN (16:24)
[2017-07-03] MEDS ORDERED: NURSING VERBAL MED ORDER ONE (16:30)
--- NOTE | 2017-07-03 19:40 | PROGRESS NOTE ---
DATE: 07/03/2017 HISTORY OF PRESENT ILLNESS: Mr. Parker is a very pleasant 82-year-old white male with a history of longstanding CAD status post CABG x4 vessels in 2004, occluded vein grafts in 2006 status post PCI to proximal circumflex and obtuse marginal, ischemic cardiomyopathy, hypertension, hyperlipidemia, peripheral vascular disease, right iliac aneurysm, type 2 diabetes mellitus, symptomatic PVCs, and a history of hyperparathyroidism; who was admitted acutely yesterday with hypertensive urgency. Since being admitted, his blood pressure has improved. He was evaluated by cardiology earlier today, and his Amlodipine dose was doubled from 5 mg daily to 10 mg daily. His current blood pressure is 140/65, and his heart rate has been in the 60's. The patient has not experienced any further chest discomfort , and his cardiac enzymes are negative. The patient offers no other complaints. MEDICATIONS: 1. Amlodipine 10 mg daily. 2. Aspirin 81 mg daily. 3. Plavix 75 mg daily. 4. Doxazosin 4 mg q. day. 5. Proscar 5 mg daily. 6. Fish oil capsules 1 gram q.a.m. 7. Isosorbide mononitrate 60 mg q.a.m. 8. Cozaar 50 mg q.a.m. 9. Protonix 40 mg p.o. q.a.m. 10. Hydralazine 20 mg IV q. 4 hours p.r.n. for elevated blood pressure. 11. Heparin 5000 units subcutaneous injection q. 8 hours. 12. Lipitor 80 mg at bedtime. 13. Zetia 10 mg daily. 14. Nitroglycerin ointment 1 inch to exterior chest wall q. 6 hours. 15. NovoLog sliding scale insulin. 16. Tylenol p.r.n. 17. Maalox Max p.r.n. 18. Milk of Magnesia p.r.n. 19. Ambien 5 mg p.o. at bedtime p.r.n. for sleep. 20. Zofran 4 mg IV q. 6 hours p.r.n. for nausea. 21. Sublingual nitroglycerin as needed. 22. Morphine sulfate 2 mg IV q. 30 minutes p.r.n. for chest pain. 23. MiraLax 17 grams daily as needed for constipation. ALLERGIES:. 1. LISINOPRIL. 2. CINNAMON. PHYSICAL EXAMINATION: VITAL SIGNS: Temperature is 36.3 degree Celsius, pulse 60 and regular, respiratory rate 18 and unlabored, blood pressure is 140/65, SpO2 is 95% on room air. GENERAL: The patient is in no acute distress. HEENT: Head is atraumatic, normocephalic. EOMs intact. Sclerae are anicteric. Facies symmetric. No perioral cyanosis. NECK: Without JVD. Carotid upstrokes +2 bilaterally without bruits. CHEST AND LUNGS: Clear to auscultation throughout all lung figueroa. No wheezes, rales or rhonchi. CARDIOVASCULAR: S1 and S2 are regular without obvious murmur, gallop or rub. No abdominal aortic or renal bruits. ABDOMEN: Bowel sounds present. No masses, organomegaly, tenderness. No pulsatile masses. EXTREMITIES: No clubbing, cyanosis or edema. Intact radial and posterior tibial pulses bilaterally. Femoral pulsations are normal bilaterally. NEUROLOGIC: The patient is awake, alert and oriented. Pleasant and cooperative. Answers questions appropriately. Speech is clear. Normal movement in all 4 extremities. Gait pattern not assessed. LABORATORY DATA: White blood cell count is 6.19, hemoglobin 14.6 g/dL, hematocrit 42.8%, platelet count 156,000. Sodium is 141 mmol/L, potassium is 3.9 mmol/L, BUN is 19 mg/dL, creatinine 1.16 mg/dL. Random glucose is 91 mg/dL. Hemoglobin A1c is elevated at 7.0. Magnesium level normal at 2.1 mg/dL. Troponin I level less than 0.015 ng/mL x5. Total cholesterol is 119 mg/dL with HDL 47 mg/dL, and LDL 34 mg/dL. ASSESSMENT: 1. Hypertensive urgency -- blood pressures are improved. 2. Coronary artery disease status post coronary artery bypass graft x4 vessels in 2004. 3. History of occluded vein grafts as documented on cardiac catheterization in 2006. 4. History of percutaneous coronary intervention left circumflex and obtuse marginal. 5. Peripheral vascular disease. 6. Symptomatic premature ventricular contractions. 7. Type 2 diabetes mellitus. 8. Diagnoses as mentioned above. PLAN: 1. The patient's blood pressure has improved. 2. Discontinue topical nitrates as of tomorrow morning, and titrate isosorbide mononitrate. 3. Continue amlodipine 10 mg daily. 4. Continue dual antiplatelet therapy long-term. 5. Continue Cardura 4 mg daily. If blood pressure remains elevated, we could always increase his Cardura dose. 6. Continue Cozaar 50 mg daily. 7. Continue p.r.n. hydralazine 20 mg q. 4 hours p.r.n. 8. Continue Lipitor and Zetia at the current doses. 9. Continue aggressive management of underlying diabetes mellitus. 10. Continue to follow daily laboratories and serial blood pressures. 11. We will continue to follow closely. [facility]
[2017-07-03] MEDS: ATORVASTATIN 40 MG TAB PO SCH (20:44)
[2017-07-03] MEDS: EZETIMIBE 10MG TAB PO SCH (20:45)
[2017-07-04] VITALS (7 sets, daily range): BP systolic 107–181; BP diastolic 62–82; PULSE 55–78; TEMP 36.3–36.9; O2SAT 93–96
[2017-07-04] MEDS ORDERED: HydrALAZINE HCL 20 MG/ML VIAL IV. PRN (01:58)
[2017-07-04] MEDS ORDERED: LABETALOL HCL IV 5 MG/ML 20ML IV PRN (02:00)
[2017-07-04 02:29] LABS: HEMATOCRIT 42.7 % (42-52); HEMOGLOBIN 14.6 g/dL (14.0-18.0); MEAN CELL VOLUME 90.7 fL (80-100); MEAN CORPUSCULAR HGB CONC 34.2 g/dl (32-36); MEAN PLATELET VOLUME 10.3 fL (7.4-10.4); PLATELET COUNT 140 K/uL (130-400); RED CELL DISTRIBUTION WIDTH CV 13.4 % (11.5-14.5); WHITE BLOOD COUNT 6.79 K/uL (4.8-10.8)
[2017-07-04 02:48] LABS: CALCIUM 10.2 mg/dl (8.5-10.1); CREATININE 1.03 mg/dl (0.60-1.40); POTASSIUM 3.7 mmol/L (3.5-5.1)
[2017-07-04] MEDS: NITROGLYCERIN 2% OINTMENT 30GM TUBE EXT SCH (06:00)
[2017-07-04] MEDS: HEPARIN SOD 5000 UNIT/0.5 ML CARP SQ SCH ×3 (06:22→21:17)
[2017-07-04] MEDS: INSULIN ASPART 100 UNITS/ML 3 ML PEN SC SCH ×4 (06:30→21:00)
[2017-07-04] MEDS: ISOSORBIDE MONONITRATE 30 MG TABCR PO SCH (09:12)
[2017-07-04] MEDS: CLOPIDOGREL BISULFATE 75 MG TAB PO SCH (09:13)
[2017-07-04] MEDS: AMLODIPINE BESYLATE 5 MG TAB PO SCH (09:13)
[2017-07-04] MEDS: ASPIRIN 81 MG ECTAB PO SCH (09:13)
[2017-07-04] MEDS: LOSARTAN POTASSIUM 50 MG TAB PO SCH (09:13)
[2017-07-04] MEDS: OMEGA-3 (PURIFIED FISH OIL) 1 GM CAP PO SCH (09:13)
[2017-07-04] MEDS: PANTOprazole SOD 40 MG TAB PO SCH (09:13)
[2017-07-04] MEDS: FINASTERIDE 5 MG TAB PO SCH (09:13)
[2017-07-04] MEDS: DOXAZosin MESYLATE TAB 4 MG TAB PO SCH (10:08)
--- NOTE | 2017-07-04 11:44 | Cardiology Follow-Up ---
Subjective Date of Service: Jul 04, 2017. Pt evaluation today including: conversation w/ patient, physical exam, lab review, review of studies, review of inpatient medication list History of Present Illness This is an 82-year-old male who has a history of hypertension, hyperlipidemia and coronary disease including bypass surgery 4 in 2004, recurrent chest discomfort in 2006 were all vein grafts were found to be occluded. He did have intervention of his proximal circumflex and obtuse marginal. He has a history of an ischemic cardiomyopathy and is followed in the office by Dr. Sanchez. He presented to the emergency room on July 02, 2017 with symptoms of chest discomfort. He notes that the day before his blood pressure was very high, in the 200 systolic range, he woke up that morning with chest discomfort which he describes as a substernal chest tightness in the middle of his chest. He did not have radiation. In the emergency room he received nitroglycerin with slight improvement in his discomfort. Initial evaluation in the emergency room included cardiac enzymes which were unremarkable (and now 3 sets are negative for injury) and electrocardiography which showed a right bundle branch block pattern but no acute changes. He did have PVCs but has had them in the past as well. Chest x-ray suggested mild pulmonary vascular congestion but no clear congestive heart failure. Today he feels relatively well. He is still having a thumping sensation in his ears, this may be premature beats or even his hypertension. It is not very bothersome to him. Social History Smoking Status: Former Smoker History of Alcohol Use: No Review of Systems Respiratory: No cough, No wheezing, No shortness of breath, No dyspnea on exertion Cardiac: + see HPI, + chest pain, No orthopnea, No PND, No edema, No palpitations Medications Cardiovascular: Item Value Date Time Amlodipine 10 mg 07/04/17 0900 Besylate QAM/PO 07/04/17 0913 (Norvasc Tab) Isosorbide 90 mg 07/04/17 0900 Mononitrate QAM/PO 07/04/17 0912 (Imdur Ext Rel Tab) Labetalol HCl 5 mg 07/04/17 0200 (Normodyne IV) Q4H PRN/IV 07/04/17 0250 Hydralazine HCl 10 mg 07/04/17 0158 (HydrALAZINE INJ) Q4H PRN/IV. Aspirin 81 mg 07/03/17 09 (Ecotrin Tab) QAM/PO 07/04/17912 Clopidogrel 75 mg 07/03/17899 Bisulfate QAM/PO 07/04/17912 (plAVix TAB) Doxazosin Mesylate 4 mg 07/03/17 09 (Cardura Tab) QAM/PO 07/04/17 1008 Losartan Potassium 50 mg 07/03/17899 (coZAAR TAB) QAM/PO 07/04/17 0913 Atorvastatin 80 mg 07/02/172099 Calcium HS/PO 07/03/172043 (Lipitor Tab) EZETIMIBE 10 mg 07/02/172099 (Zetia Tab) QPM/PO 07/03/172044 Objective Vital Signs Past 12 Hours Date Time Temp Pulse Resp B/P (MAP) Pulse Ox O2 Delivery O2 Flow Rate FiO2 07/04/17 08:03 36.5 70 22 167/82 (110) 94 Room Air 07/04/17 08:00 Room Air 07/04/17 04:03 36.9 62 18 164/76 (105) 93 Room Air 07/04/17 04:00 Room Air 07/04/17 01:42 78 181/81 (114) 07/04/17 00:00 Room Air 07/03/17 23:37 36.4 54 16 161/82 (108) 92 Room Air Last Recorded Weight-Kilograms: 86.700 Physical Exam Constitutional: General Apperance: heathly-appearing Level of Distress: NAD Lungs: Respiratory effort: no dyspnea, good air movement Auscultation: breath sounds normal, no wheezing Cardiovascular: Heart Auscultation: RRR, no murmurs, no rubs, no gallops Peripheral Pulses: Bruits: none appreciated Extremities: no edema Data Laboratory Results: Last 24 Hours Test 07/03/17 14:31 07/03/17 16:28 07/03/17 20:37 07/04/17 02:10 Troponin I < 0.015 ng/ml Bedside Glucose 141 mg/dl 109 mg/dl White Blood Count 6.79 K/uL Red Blood Count 4.71 M/uL Hemoglobin 14.6 g/dL Hematocrit 42.7 % Mean Corpuscular Volume 90.7 fL Mean Corpuscular Hemoglobin 31.0 pg Mean Corpuscular Hemoglobin Concent 34.2 g/dl RDW Standard Deviation 44.0 fL RDW Coefficient of Variation 13.4 % Platelet Count 140 K/uL Mean Platelet Volume 10.3 fL Sodium Level 139 mmol/L Potassium Level 3.7 mmol/L Chloride Level 108 mmol/L Carbon Dioxide Level 21 mmol/L Anion Gap 10.0 mmol/L Blood Urea Nitrogen 19 mg/dl Creatinine 1.03 mg/dl Est Creatinine Clear Calc Drug Dose 58.1 ml/min Estimated GFR () 78.6 Estimated GFR (Non- 67.8 BUN/Creatinine Ratio 18.1 Random Glucose 121 mg/dl Calcium Level 10.2 mg/dl Magnesium Level 2.0 mg/dl Test 07/04/17 07:56 Bedside Glucose 114 mg/dl Telemetry reviewed: Sinus rhythm with PVCs, no significant arrhythmia Assessment and Plan 1. Chest discomfort: He describes chest tightness on admission, however he was feeling poorly in general and he relates this to having a very high blood pressure. With negative cardiac enzymes, prolonged discomfort and no electrocardiographic changes I would not pursue coronary evaluation. We know he has coronary artery disease but does not appear to have demand ischemia on presentation despite his high blood pressure. 2. Hypertension: He had severe hypertension on arrival, his blood pressure has improved substantially here. It is still elevated however on the increased amlodipine. We probably should have him under good blood pressure control given his known coronary artery disease. I am going to increase his losartan today. I believe he is not on a beta-adrian due to bradycardia, we can consider adding Bystolic which may not lower heart rate very much, at least in low doses. 3. Congestive heart failure: He may have mild congestive heart failure, probably on the basis of severe hypertension. I would continue to follow this and see if his symptoms resolve with control of his blood pressure. Thank you for allowing me to participate in his care.
[2017-07-04] MEDS ORDERED: LOSARTAN POTASSIUM 50 MG TAB PO ONE (11:45)
[2017-07-04] MEDS ORDERED: CHLORTHALIDONE 25 MG TAB PO ONE (12:22)
--- NOTE | 2017-07-04 13:13 | PROGRESS NOTE ---
DATE: 07/04/2017 HISTORY OF PRESENT ILLNESS: Mr. Parker is a very pleasant 82-year-old white male with a history of longstanding CAD, status post CABG x4 vessels in 2004, occluded vein grafts in 2006, status post PCI to proximal circumflex and obtuse marginal, ischemic cardiomyopathy, hypertension, dyslipidemia, peripheral arterial disease, right iliac artery aneurysm, type 2 diabetes mellitus, symptomatic PVCs and hyperparathyroidism, who was admitted acutely on 07/02/2017 with hypertensive urgency. Thus far, we have maintained his usual antihypertensive regimen with the exception of amlodipine dosage being increased from 5 mg daily to 10 mg daily and the addition of IV hydralazine 20 mg q. 4 hours p.r.n. for elevated blood pressure. Additionally, we discontinued nitroglycerin ointment and converted him to a higher dose of Imdur than his maintenance dose. Since making these medication changes, his blood pressure is improved but it is still not adequately controlled. Dr. Pizano saw the patient earlier today and increased his Cozaar to 100 mg daily and we are going to add a diuretic in the form of chlorthalidone 25 mg daily as of today. Could consider beta blockers in the future, however, has had bradycardia with beta blockers in the past. Additionally, we are doing a radial arterial duplex Doppler to evaluate for renal artery stenosis (CT scan of the abdomen and pelvis in 05/2017 showed calcification of bilateral renal arteries and also calcification of the descending and abdominal aorta). Overall, the patient is feeling well. He has not had any chest pain, heaviness, tightness, pressure or angina pectoris. No shortness of breath. He still has an occasional "thumping" sensation in his head which may be related to his blood pressure or more likely is related to his PVCs. The patient offers no other complaints or concerns. PHYSICAL EXAMINATION: VITAL SIGNS: Temperature is 36.3 degrees Celsius, pulse 58 and regular, respiratory rate is 16 and unlabored, blood pressure is 136/71, SpO2 is 96% on room air. GENERAL: The patient is in no acute distress. HEENT: Head is atraumatic, normocephalic. EOMs intact. Sclerae anicteric. Facies symmetric. No perioral cyanosis. Mucous membranes moist. NECK: Without thyromegaly, adenopathy or JVD. CHEST AND LUNGS: Clear to auscultation throughout all lung figueroa. No wheezes, rales or rhonchi. CARDIOVASCULAR: S1 and S2 are regular without obvious murmur, gallop or rub. No abdominal aortic or renal bruits. ABDOMEN: Bowel sounds present. No masses, organomegaly or tenderness. No pulsatile masses. EXTREMITIES: No clubbing, cyanosis or edema. Intact radial and posterior tibial pulses bilaterally. Femoral pulsations are +2 bilaterally. NEUROLOGIC: The patient is awake, alert and oriented. Pleasant and cooperative. Answers questions appropriately. Speech is clear. Normal movement in all 4 extremities. LABORATORY DATA: White blood cell count is 6.79 with hemoglobin 14.6 g/dL, hematocrit 42.7%, platelet count 140,000. Sodium is 139 mmol/L, potassium 3.7 mmol/L, BUN 19 mg/dL, creatinine 1.03 mg/dL. Random glucose 137 mg/dL. Serum magnesium level 2.0 mg/dL. Telemetry monitoring reveals normal sinus rhythm throughout, occasional PVCs. Renal arterial duplex/Doppler is pending. ASSESSMENT: 1. Hypertensive Urgency. 2. Multivessel CAD s/p CABG x 4 vessels in 2004 (occluded vein grafts in 2006, s/p PCI to proximal circumflex and obtuse marginal). 3. Ischemic Cardiomyopathy -- compensated. 4. Dyslipidemia. 5. Peripheral arterial disease. 6. Right iliac aneurysm. 7. Type 2 diabetes mellitus. 8. Symptomatic premature ventricular contractions. 9. History of hyperparathyroidism. 10. Chest pain on admission, cardiac enzymes negative. PLAN: 1. The patient's blood pressure is improved, although it is not controlled. 2. Continue Amlodipine 10 mg daily. 3. Agree with increasing Cozaar to 100 mg daily. 4. Continue Imdur 90 mg daily. 5. Continue Aspirin 81 mg daily. 6. Continue Plavix 75 mg daily. 7. Continue Cardura 4 mg q.a.m. 8. Continue fish oil capsules. 9. Continue Protonix 40 mg daily. 10. Continue high-dose statin therapy in the form of Lipitor 80 mg daily. 11. Continue Zetia 10 mg daily. 12. Add Chlorthalidone 25 mg daily for additional blood pressure control. 13. Could consider low-dose Bystolic, although would do so with caution based on his history of bradycardia. 14. Continue to monitor daily PRP and serum magnesium levels. 15. We will continue to follow closely while hospitalized. MTDD
[2017-07-04] MEDS: POLYETHYLENE (MIRALAX) 17 GM PACK PO PRN (14:10)
--- NOTE | 2017-07-04 14:25 | DIAGNOSTIC IMAGING REPORT ---
DOPPLER ULTRASOUND OF THE RENAL ARTERIES CLINICAL HISTORY: Hypertension COMPARISON STUDY: CT of the abdomen and pelvis June 10, 2017. FINDINGS: The peak systolic velocity within the abdominal aorta was 145 cm/s. The bilateral renal arteries and veins were patent. The peak systolic velocity within the right renal artery was 82 cm/s and the peak systolic velocity within the left renal artery was 57 cm/s. Segmental waveforms within each kidney were within normal limits. There was a 2.3 cm left renal cyst. Moderate renal cortical thinning was noted. IMPRESSION: No sonographic evidence of renal artery stenosis. Electronically signed by: Kieran Melo M.D. 07/04/2017 2:24 PM Dictated Date/Time: 07/04/2017 2:21 PM
[2017-07-04] MEDS: ATORVASTATIN 40 MG TAB PO SCH (21:16)
[2017-07-04] MEDS: EZETIMIBE 10MG TAB PO SCH (21:16)
[2017-07-05 03:56] VITALS: BP 128/70; PULSE 68; TEMP 36.6; O2SAT 95
[2017-07-05] MEDS: HEPARIN SOD 5000 UNIT/0.5 ML CARP SQ SCH (06:00)
[2017-07-05 06:38] LABS: CALCIUM 9.9 mg/dl (8.5-10.1); CREATININE 1.24 mg/dl (0.60-1.40); POTASSIUM 3.8 mmol/L (3.5-5.1)
[2017-07-05 07:31] VITALS: BP 129/70; PULSE 64; TEMP 36.6; O2SAT 96
[2017-07-05] MEDS: ASPIRIN 81 MG ECTAB PO SCH (07:55)
[2017-07-05] MEDS: DOXAZosin MESYLATE TAB 4 MG TAB PO SCH (07:55)
[2017-07-05] MEDS: OMEGA-3 (PURIFIED FISH OIL) 1 GM CAP PO SCH (07:55)
[2017-07-05] MEDS: ISOSORBIDE MONONITRATE 30 MG TABCR PO SCH (07:55)
[2017-07-05] MEDS: FINASTERIDE 5 MG TAB PO SCH (07:56)
[2017-07-05] MEDS: CLOPIDOGREL BISULFATE 75 MG TAB PO SCH (07:56)
[2017-07-05] MEDS: PANTOprazole SOD 40 MG TAB PO SCH (07:56)
[2017-07-05] MEDS: AMLODIPINE BESYLATE 5 MG TAB PO SCH (07:56)
[2017-07-05 08:00] VITALS: O2SAT 96
[2017-07-05] MEDS ORDERED: LOSARTAN POTASSIUM 50 MG TAB PO SCH (09:00)
[2017-07-05] MEDS ORDERED: CHLORTHALIDONE 25 MG TAB PO SCH (09:00)
[2017-07-05] MEDS: INSULIN ASPART 100 UNITS/ML 3 ML PEN SC SCH ×2 (09:04→12:22)
[2017-07-05] MEDS ORDERED: HYG25 PO (12:10)
[2017-07-05] MEDS ORDERED: LOSA100T65 PO (12:10)
[2017-07-05] MEDS ORDERED: NRV/10 PO (12:10)
[2017-07-05] MEDS ORDERED: IMDSR30 PO (12:10)
--- NOTE | 2017-07-05 12:14 | Discharge Instructions ---
Discharge Instructions Date of Service Jul 05, 2017. Admission Reason for Admission: Hypertensive Urgency Discharge Discharge Diagnosis / Problem: Hypertensive urgency Discharge Goals Goal(s): Improve function, Improve disease control Activity Recommendations Activity Limitations: resume your previous activity . Instructions / Follow-Up Instructions / Follow-Up Medications: please note the following medication changes - NORVASC: dose increased to 10mg from 5mg - COZAAR: dose increased from 50mg to 100mg - IMDUR: dose increased from 60mg to 90mg daily - CHLORTHALIDONE: new medication for blood pressure, 25mg daily Hypertensive urgency: blood pressure much better controlled on the above medication changes please continue these medications, follow a low sodium diet, get routine exercise FOLLOW UP - Dr. Nestor Moss in one week, call his office for an appointment Current Hospital Diet Patient's current hospital diet: Diabetes Type 2 Diet Discharge Diet Recommended Diet: Low Sodium Diet (2gm Na), Diabetes Type 2 Diet Pending Studies Studies pending at discharge: no Laboratory Results Hemoglobin A1c Test 07/03/17 02:41 Range/Units Estimated Average Glucose 154 mg/dl Hemoglobin A1c 7.0 H 4.5-5.6 % Lipid Panel Test 07/03/17 02:41 Range/Units Triglycerides Level 189 H 0-150 mg/dl Cholesterol Level 119 0-200 mg/dl HDL Cholesterol 47 mg/dl Cholesterol/HDL Ratio 2.5 LDL Cholesterol, Calculated 34 mg/dl Medical Emergencies . Who to Call and When: Medical Emergencies: If at any time you feel your situation is an emergency, please call 911 immediately. . Non-Emergent Contact Non-Emergency issues call your: Primary Care Provider Call Non-Emergent contact if: you have any medication questions . . "Provider Documentation" section prepared by Aris Viera. . VTE Core Measure Inpt VTE Proph given/why not?: Unfractionated heparin SQ [place] Drug Monitoring Program Search Results: no issues identified
[2017-07-05 12:27] VITALS: BP 129/70; PULSE 64; TEMP 36.6; O2SAT 96
--- NOTE | 2017-07-05 12:58 | CARDIOLOGY PROGRESS NOTE ---
DATE: 07/05/2017 SUBJECTIVE: The patient was seen by me this morning in his medical/telemetry room. He states that he slept well overnight. No headache. No throbbing sensation in his head. He has had no lightheadedness today. No orthopnea or PND overnight. No chest pain or other anginal type pains. No abdominal pain or nausea. No leg pain. No peripheral edema. He has no focal neurologic type complaints. He does have a general sensation of fatigue and weakness. ALLERGIES AND ADVERSE DRUG REACTIONS: LISINOPRIL AND LINACLOTIDE. CURRENT MEDICATIONS: Losartan 100 mg daily a.m., chlorthalidone 25 mg daily, amlodipine 10 mg daily, isosorbide mononitrate 90 mg daily, p.r.n. labetalol IV, p.r.n. hydralazine IV, aspirin 81 mg daily, doxazosin 4 mg daily, finasteride 5 mg daily, fish oil 1 gram daily, pantoprazole 40 mg daily, subQ heparin 5000 units q. 8 hours, atorvastatin 80 mg at bedtime, Zetia 10 mg daily, NovoLog sliding scale insulin, and several p.r.n. medications. At the time of my visit, the patient was on clopidogrel. This was discontinued by me following my visit with the patient. PHYSICAL EXAMINATION: VITAL SIGNS: This morning with oral temperature 36.6, pulse 64, blood pressure 129/70, and pulse oximetry on room air 96%. GENERAL APPEARANCE: Shows him to be sitting in a chair by his bedside. No distress. EYES: Pupils equal and round. Anicteric. NECK: No jugular venous distension. Carotids are 2/2 bilaterally. Normal upstroke. No bruits. LUNGS: Normal respiratory effort. Clear. No rales or wheezes. HEART: Regular rate and rhythm. S1 and S2 normal. No S3 or S4. No murmur or rub. ABDOMEN: Soft. Nontender. No palpable masses or organomegaly. EXTREMITIES: No pretibial edema. NEUROLOGIC: Alert and oriented x3. Motor grossly intact. PSYCHIATRIC: Affect normal. LABORATORY DATA: From yesterday with hemoglobin 14.6 and hematocrit 42.7. Platelet count 140. Labs today with sodium 141, potassium 3.8, chloride 108, carbon dioxide 25, BUN 22, creatinine 1.24, random glucose 107, and magnesium 2.1. ASSESSMENT: 1. Longstanding history of coronary artery disease. CABG surgery x4 in 2004. FIGUEROA--LAD. Saphenous vein graft to a left circumflex marginal, LAD diagonal, and the right PDA. Recurrent angina in 2006. Catheterization at that time revealed occlusion of all vein grafts. Patent left internal mammary artery graft to LAD. Deployment of drug-eluting stent in proximal left circumflex to the left circumflex marginal. Unstable anginal symptoms in April 2007. Cardiac catheterization at that time with patent stent sites in the left circumflex and left circumflex marginal. Subtotal mid RCA occlusion. Collateral flow from proximal RCA to distal RCA. LV angiography with inferior hypokinesis. The patient is without any anginal complaints at this time. 2. Admission with hypertensive urgency. Highest blood pressure recorded during admission thus far has been 198/78. The patient's presenting complaint was throbbing sensation in his head. This has since resolved. Blood pressure under good control today. Normal creatinine and potassium on labs today. Troponin I on this admission is less than 0.015 on 5 determinations. 3. The patient is on dual antiplatelet therapy. His stent was in 2006. Thus, there is no absolute indication for dual antiplatelet therapy at this time. Dual antiplatelet therapy would be of increased risk in him secondary to his age as well as his elevated blood pressure. Dual antiplatelet therapy could increase the risk of bleeding. RECOMMENDATIONS: 1. Discontinue clopidogrel. This was done by me. 2. Continue other medications as they are. 3. The patient should be on aspirin therapy indefinitely. 4. From a cardiac standpoint, no additional recommendations at this time. 5. Increase activity.
--- NOTE | 2017-07-07 09:00 | Discharge Summary ---
Discharge Summary Date of Service Jul 05, 2017. Discharge Summary Admission Date: Jul 02, 2017 at 14:55 Discharge Date: Jul 05, 2017 Discharge Disposition: Home Principal Diagnosis: Hypertensive urgency Problems/Secondary Diagnoses: CAD s/p CABG Peripheral artery disease Chest pain, enzymes negative DM Dyslipidemia Immunizations: Have You Had Influenza Vaccine: No Influenza Vaccine Date: Jan 19, 2011 History of Tetanus Vaccine?: Unknown History of Pneumococcal: Yes Pneumococcal Date: Jan 19, 2011 History of Hepatitis B Vaccine: Unknown Procedures: none Consultations: Cardiology Medication Reconciliation New Medications: Amlodipine Besylate (Amlodipine Besylate) 10 Mg Tab 10 MG PO DAILY for 30 Days, #30 TABS 1 Refill Chlorthalidone (Chlorthalidone) 25 Mg Tab 25 MG PO QAM, #30 TAB 3 Refills Isosorbide Mononitrate (Isosorbide Mononitrate ER) 30 Mg Tabcr 90 MG PO QAM, #90 TABS 3 Refills Losartan Potassium (Cozaar) 100 Mg Tab 1 TAB PO DAILY for 30 Days, #30 TAB 5 Refills Continued Medications: Aspirin (Aspirin Ec) 81 Mg Tab 81 MG PO QAM Atorvastatin (Lipitor) 80 Mg Tab 80 MG PO HS Cholecalciferol (Vitamin D 1000 Unit) 1,000 Unit Cap 2000 INTER.UNIT PO QAM Doxazosin Mesylate (Cardura) 4 Mg Tab 4 MG PO QAM Ezetimibe (Zetia) 10 Mg Tab 10 MG PO QPM Finasteride (Proscar) 5 Mg Tab 5 MG PO QAM Fish Oil (Trenary-3) 1 Ea Cap 300 MG PO QAM Furosemide (Lasix) 20 Mg Tab 20 MG PO DAILY PRN for fluid Metformin Hcl (Glucophage) 1,000 Mg Tab 1500 MG PO BID 1 1/2 tablet daily. Nitroglycerin (Nitrostat) 0.4 Mg Tab 0.4 MG UT UD NEEDED FOR CHEST PAIN : ONE TABLET UNDER THE TONGUE EVERY 5 MINUTES UP TO 3 DOSES. Pantoprazole (Protonix) 40 Mg Tab 40 MG PO QAM Discontinued Medications: Amlodipine (Norvasc) 5 Mg Tab 5 MG PO QAM Clopidogrel (Plavix) 75 Mg Tab 75 MG PO QAM Isosorbide Mononitrate Ext Rel (Imdur Ext Rel) 60 Mg Ertab 60 MG PO QAM Losartan Potassium (Losartan Potassium) 50 Mg Tab 50 MG PO QAM Discharge Exam Patient feeling great, no pain, eating well, breathing well. Cleared to go home by cardiology Review of Systems: Constitutional: No fever, No chills, No sweats, No weight loss, No weakness , No fatigue, No problem reported Eyes: No worsening of vision, No eye pain, No redness, No discharge, No diplopia, No problem reported ENT: No hearing loss, No unusual epistaxis, No nasal symptoms, No sore throat, No tinnitus, No dental problems, No trouble swallowing, No problem reported Respiratory: No cough, No sputum, No wheezing, No shortness of breath, No dyspnea on exertion, No dyspnea at rest, No hemoptysis, No problem reported Cardiovascular: No chest pain, No orthopnea, No PND, No edema, No claudication, No palpitations, No problem reported Abdomen: No pain, No nausea, No vomiting, No diarrhea, No constipation, No GI bleeding, No problem reported Musculoskeletal: No joint pain, No muscle pain, No swelling, No calf pain, No problem reported Genitourinary - Male: No hematuria, No dysuria, No urinary frequency, No urinary urgency Neurologic: No memory loss, No paralysis, No weakness, No numbness/tingling , No vertigo, No balance problems, No problem reported Psychiatric: No depression symptoms, No anhedonism, No anxiety, No insomnia , No substance abuse, No problem reported Endocrine: No fatigue, No excessive thirst, No excessive urination, No problem reported Hematologic / Lymphatic: No abnormal bleeding/bruising, No clotting problems , No swollen lymph nodes, No night sweats, No problem reported Integumentary: No rash, No itch, No new/changing skin lesions, No color change, No bleeding, No problem reported Physical Exam: General Appearance: WD/WN, no apparent distress Eyes: normal inspection, EOMI, sclerae normal ENT: normal ENT inspection, hearing grossly normal, pharynx normal Neck: supple, no adenopathy, no JVD, trachea midline Respiratory/Chest: chest non-tender, lungs clear, normal breath sounds, no respiratory distress, no accessory muscle use Cardiovascular: regular rate, rhythm, no edema, no gallop, no JVD, no murmur , normal peripheral pulses Abdomen / GI: normal bowel sounds, non tender, soft, no organomegaly Extremities: normal inspection, no calf tenderness, normal capillary refill , no pedal edema, normal range of motion, pelvis stable Neurologic/Psychiatric: lock 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 Hypertensive Urgency resolved, Norvasc increased to 10mg, Cozaar increased to 100mg, Imdur increased to 90mg and Chlorthalidone 25mg added BP stable for over 24 hours will follow up with PCP, cardiology 2. Multivessel CAD s/p CABG x 4 vessels in 2004 (occluded vein grafts in 2006, s/p PCI to proximal circumflex and obtuse marginal). cardiology recommends stopping Plavix, aspirin only 3. Ischemic Cardiomyopathy -- compensated, euvolemic 4. Dyslipidemia. continue statin 5. Peripheral arterial disease aspirin and statin 6. Right iliac aneurysm. 7. Type 2 diabetes mellitus. 8. Symptomatic premature ventricular contractions. 9. History of hyperparathyroidism. 10. Chest pain on admission, cardiac enzymes negative. Total Time Spent: Greater than 30 minutes This includes examination of the patient, discharge planning, medication reconciliation, and communication with other providers. Discharge Instructions Please refer to the electronic Patient Visit Report (Discharge Instructions) for additional information. Follow-Up Dr. Moss in one week Dr. Sanchez in one month Additional Copies To Nestor Moss M.D.; Teodoro Sanchez M.D.
== END 2017-07-05 12:48 | disposition home or self-care (01) | DRG 305 ==
LOC: C.EDB 09:46 → UNDOADMIN 14:55 → C.MED 14:55 → ENRESERV 15:55
PROVIDERS: ADMIT Internal Medicine; ATTEND Internal Medicine
DX: I16.0 Hypertensive urgency (principal); I10 Essential (primary) hypertension; I25.10 Atherosclerotic heart disease of native coronary artery without angina pectoris; Z95.1 Presence of aortocoronary bypass graft; E78.5 Hyperlipidemia, unspecified; E11.9 Type 2 diabetes mellitus without complications; N40.0 Benign prostatic hyperplasia without lower urinary tract symptoms; R07.89 Other chest pain; I25.5 Ischemic cardiomyopathy; I73.9 Peripheral vascular disease, unspecified; Z83.3 Family history of diabetes mellitus; Z87.891 Personal history of nicotine dependence; Z79.84 Long term (current) use of oral hypoglycemic drugs; Z79.82 Long term (current) use of aspirin; Z82.49 Family history of ischemic heart disease and other diseases of the circulatory system

== ENCOUNTER → 2017-07-13 | Outpatient (CLI) | payer OTHER ==
[~2017-07-13] MED LIST changes: -AMLO-110 PO; -CLOP1TAB15 PO; +HYG25 PO; +IMDSR30 PO; -ISOS60TA25 PO; +LOSA100T65 PO; -MISCCAP80 PO; +NRV/10 PO; -SILO8CAP PO
[2017-07-13 13:11] LABS: BASO % 0.5 %; BASO ABS # 0.03 K/uL (0-0.2); EOS % 3.9 %; EOS ABS # 0.25 K/uL (0-0.5); HEMATOCRIT 41.7 % (42-52); HEMOGLOBIN 13.9 g/dL (14.0-18.0); IG# 0.01 K/uL (0.00-0.02); LYMPH % 25.5 %; LYMPH ABS # 1.65 K/uL (1.2-3.4); MEAN CELL VOLUME 93.3 fL (80-100); MEAN CORPUSCULAR HEMOGLOBIN 31.1 pg (25-34); MEAN CORPUSCULAR HGB CONC 33.3 g/dl (32-36); MEAN PLATELET VOLUME 11.5 fL (7.4-10.4); MONO % 8.2 %; MONO ABS # 0.53 K/uL (0.11-0.59); NEUT % 61.7 %; NEUT ABS # 4.01 K/uL (1.4-6.5); PLATELET COUNT 158 K/uL (130-400); RED CELL DISTRIBUTION WIDTH CV 13.5 % (11.5-14.5); RED CELL DISTRIBUTION WIDTH SD 46.3 fL (36.4-46.3); WHITE BLOOD COUNT 6.48 K/uL (4.8-10.8)
[2017-07-13 13:42] LABS: ALBUMIN 3.7 gm/dl (3.4-5.0); ALT/SGPT 26 U/L (12-78); AST/SGOT 15 U/L (15-37); BLOOD UREA NITROGEN 33 mg/dl (7-18); CALCIUM 10.5 mg/dl (8.5-10.1); CARBON DIOXIDE 27 mmol/L (21-32); CREATININE 1.37 mg/dl (0.60-1.40); GLUCOSE 101 mg/dl (70-99); SODIUM 137 mmol/L (136-145)
[2017-07-13 13:53] LABS: ALKALINE PHOSPHATASE 53 U/L (45-117); CHOLESTEROL 112 mg/dl (0-200); LDL CHOLESTEROL CALCULATED 33 mg/dl; TOTAL PROTEIN 6.7 gm/dl (6.4-8.2)
[2017-07-13 13:59] LABS: HEMOGLOBIN A1C 7.1 % (4.5-5.6)
== END | disposition home or self-care (01) ==
LOC: C.LABBC 11:30
PROVIDERS: ATTEND Internal Medicine Geriatric Medicine
DX: E11.9 Type 2 diabetes mellitus without complications (principal); I10 Essential (primary) hypertension; E21.3 Hyperparathyroidism, unspecified; E78.5 Hyperlipidemia, unspecified; E55.9 Vitamin D deficiency, unspecified; K76.0 Fatty (change of) liver, not elsewhere classified

== ENCOUNTER → 2017-09-08 | Outpatient (CLI) | payer OTHER ==
[2017-09-08 12:38] LABS: BLOOD UREA NITROGEN 23 mg/dl (7-18); CALCIUM 10.1 mg/dl (8.5-10.1); CARBON DIOXIDE 27 mmol/L (21-32); CREATININE 1.21 mg/dl (0.60-1.40); GLUCOSE 119 mg/dl (70-99); POTASSIUM 4.4 mmol/L (3.5-5.1); SODIUM 140 mmol/L (136-145)
== END | disposition home or self-care (01) ==
LOC: C.LAB1850 11:13
PROVIDERS: ATTEND Internal Medicine Cardiovascular Disease
DX: I25.10 Atherosclerotic heart disease of native coronary artery without angina pectoris (principal)

== ENCOUNTER 2017-12-16 17:22 | Emergency (ER) | payer OTHER ==
[~2017-12-16] VITALS: Ht 177.8 cm; Wt 89.5 kg
[~2017-12-16 17:22] MED LIST changes: -ATOR-26 PO; -HYG25 PO; +POLY335019 PO; +PROB1TAB16 PO; +SENNTAB23 PO
[2017-12-16 17:29] VITALS: TEMP 36.6; Ht 177.8 cm; Wt 89.5 kg
[2017-12-16 17:50] VITALS: O2SAT 95
[2017-12-16] MEDS ORDERED: OPTIRAY 320 IV PRN (18:00)
[2017-12-16 18:10] LABS: BASO % 0.8 %; BASO ABS # 0.04 K/uL (0-0.2); EOS % 3.4 %; EOS ABS # 0.18 K/uL (0-0.5); HEMATOCRIT 38.8 % (42-52); IG# 0.01 K/uL (0.00-0.02); LYMPH % 25.3 %; LYMPH ABS # 1.34 K/uL (1.2-3.4); MEAN CELL VOLUME 94.4 fL (80-100); MEAN CORPUSCULAR HEMOGLOBIN 31.6 pg (25-34); MEAN CORPUSCULAR HGB CONC 33.5 g/dl (32-36); MONO % 9.1 %; MONO ABS # 0.48 K/uL (0.11-0.59); NEUT % 61.2 %; NEUT ABS # 3.25 K/uL (1.4-6.5); PLATELET COUNT 150 K/uL (130-400); RED CELL DISTRIBUTION WIDTH CV 13.6 % (11.5-14.5); RED CELL DISTRIBUTION WIDTH SD 46.9 fL (36.4-46.3)
--- NOTE | 2017-12-16 18:12 | DIAGNOSTIC IMAGING REPORT ---
SINGLE VIEW CHEST CLINICAL HISTORY: Generalized abdominal pain. FINDINGS: An AP, portable, upright chest radiograph is compared to study dated 10/11/2017. The examination is degraded by portable technique and patient rotation. The patient is status post midline sternotomy. The heart is enlarged and there is atherosclerotic calcification of the thoracic aorta. The pulmonary vasculature is noncongested. Bibasilar airspace opacities likely represent atelectasis. No pneumothorax is seen. The skeletal structures are osteopenic. The bony thorax is grossly intact. Calcific tendinopathy is noted in the left shoulder. IMPRESSION: 1. Cardiomegaly without radiographic evidence of congestive failure. 2. Bibasilar dependent opacities likely represent atelectasis. Correlate clinically for evidence of superimposed pneumonia. Electronically signed by: Mukul Kerr M.D. 12/16/2017 6:11 PM Dictated Date/Time: 12/16/2017 6:09 PM
[2017-12-16] MEDS ORDERED: LOSA1TAB38 PO (18:33)
[2017-12-16] MEDS ORDERED: AMLO10TA3 PO (18:33)
[2017-12-16] MEDS ORDERED: ISOS30TA35 PO (18:33)
[2017-12-16 18:35] LABS: ALBUMIN 3.7 gm/dl (3.4-5.0); ALKALINE PHOSPHATASE 48 U/L (45-117); ALT/SGPT 25 U/L (12-78); AST/SGOT 16 U/L (15-37); BLOOD UREA NITROGEN 30 mg/dl (7-18); CALCIUM 9.5 mg/dl (8.5-10.1); CARBON DIOXIDE 22 mmol/L (21-32); CKMB 2.5 ng/ml (0.5-3.6); CREATININE 1.54 mg/dl (0.60-1.40); GLUCOSE 164 mg/dl (70-99); LIPASE 226 U/L (73-393); POTASSIUM 4.3 mmol/L (3.5-5.1); SODIUM 139 mmol/L (136-145); TOTAL PROTEIN 6.5 gm/dl (6.4-8.2)
[2017-12-16] MEDS ORDERED: ATOR-26 PO (19:14)
--- NOTE | 2017-12-16 19:20 | DIAGNOSTIC IMAGING REPORT ---
ADDENDUM Please refer to below summary of Fleischner criteria recommendations for follow-up of incidental CT nodules (Jaret Valdez, Guidelines for management of small pulmonary nodules detected on CT scans: A statement from the Fleischner Society, Radiology 237: [phone].) SOLID NODULES Solitary nodule size: <6 mm * low risk patients: no follow-up needed * high risk patients: optional CT at 12 months Solitary nodule size: 6-8 mm * low risk patients: follow-up at 6-12 months, then consider further follow-up at 18-24 months * high risk patients: initial follow-up CT at 6-12 months and then at 18-24 months if no change Solitary nodule size: >8 mm * either low or high risk patients - consider follow-up CT at 3 months, and/or CT-PET, and/or biopsy Multiple nodules size: <6 mm * low risk patients: no routine follow-up * high risk patients: optional CT at 12 months Multiple nodules size: 6-8 mm * low risk patients: follow-up at 3-6 months, then consider further follow-up at 18-24 months * high risk patients: follow-up at 3-6 months, then at 18-24 months if no change Multiple nodules size: >8 mm * low risk patients: follow-up at 3-6 months, then consider further follow-up at 18-24 months * high risk patients: follow-up at 3-6 months, then at 18-24 months if no change Note: newly detected indeterminate nodule in persons 35 years of age or older. * low risk patients: minimal or absent history of smoking and/or other known risk factors * high risk patients: history of smoking or of other known risk factors (e.g. first degree relative with lung cancer, or exposure to asbestos, radon, uranium) * if a nodule up to 8 mm is partly solid or is ground glass further follow-up is required after 24 months to exclude possible slow growing adenocarcinoma (ROB) SUBSOLID NODULES Solitary pure ground-glass nodule * nodule size <6 mm - no CT follow-up required * nodule size >=6 mm - follow-up CT at 6-12 months, then every 2 years until 5 years Solitary part-solid nodule * nodule size <6 mm - no CT follow-up required * nodule size >=6 mm - follow-up CT at 3-6 months. If unchanged, and solid component remains <6 mm, then annual follow-up for 5 years Multiple subsolid nodules * nodule size <6 mm - follow-up CT at 3-6 months, consider further follow-up at 2 and 4 years if stable * nodule size >=6 mm - follow-up CT at 3-6 months, subsequent management based on the most suspicious nodule(s) Electronically signed by: Mukul Kerr M.D. 12/16/2017 10:37 PM Dictated Date/Time: 12/16/2017 10:[address] ANGIOGRAM OF THE CHEST; CT SCAN OF THE ABDOMEN AND PELVIS WITH IV CONTRAST CLINICAL HISTORY: Atypical chest pain. Upper abdominal pain. COMPARISON STUDY: Chest x-ray dated 12/16/2017. Abdominal CT dated 06/10/2017. TECHNIQUE: Following the IV administration of 115 of Optiray 320, CT angiogram of the chest is performed from the upper abdomen to the thoracic inlet utilizing the pulmonary embolus protocol. CT scan of the abdomen and pelvis was then performed from the lower chest to the proximal femora. 3-D MIPS images of the chest are created and assessed. Images are reviewed in the axial, sagittal, and coronal planes. IV contrast was administered without complication. Automated dose control exposure was utilized. A dose lowering technique was utilized adhering to the principles of ALARA. CT DOSE: 978.83 mGy.cm FINDINGS: CHEST: Thyroid: Imaged portions of the thyroid gland are normal in size and attenuation. Low-attenuation thyroid nodules measure up to 11 mm. Thoracic aorta: There is atherosclerotic calcification of the thoracic aorta, which is normal in caliber and demonstrates standard 3-vessel arch anatomy. No dissection is seen. Pulmonary vasculature: The pulmonary trunk is normal in caliber. There are no filling defects identified in the main, lobar, or segmental pulmonary arteries to indicate pulmonary embolus. Heart: The patient is status post midline sternotomy. The Heart is enlarged and without pericardial effusion. The coronary arteries are densely calcified. Lungs and pleural spaces: Evaluation of the lung parenchyma is degraded by motion artifact. Emphysematous change is observed. Mild diffuse peribronchial thickening is noted. There is no airspace consolidation or pleural effusion. Dependent atelectasis is observed. An 8 mm nodule in the lingula is seen on image #140. A 3 mm left upper lobe pulmonary nodule is seen on image #184. Tiny calcified granulomas are noted. The trachea and central airways appear clear. Mediastinum: There is no mediastinal lymphadenopathy. Adelaida: Clear. Axillae: There is no axillary lymphadenopathy. Bony thorax: The skeletal structures are osteopenic. Degenerative change is noted in the shoulders and thoracic spine. No lytic or blastic lesions are identified. ABDOMEN AND PELVIS: Liver: The contrast-enhanced liver is normal in size, contour, and attenuation. There is no intrahepatic or ductal dilatation. The hepatic veins and portal veins are patent. Gallbladder: Unremarkable. Spleen: Normal in size and attenuation. Pancreas: Unremarkable. Adrenal glands: Unremarkable. Kidneys: The contrast enhanced kidneys are atrophic and without hydronephrosis. The kidneys enhance symmetrically. A 2.2 cm simple cyst is identified in the left lower pole. A retroaortic left renal vein is incidentally noted. Abdominal vasculature: There is advanced atherosclerotic calcification and mild ectasia of the abdominal aorta. There is mild aneurysmal dilatation of the left common iliac artery which measures up to 2.2 cm. Stomach and bowel: There is a small hiatal hernia. The duodenum is normal in configuration. There is moderate diverticulosis of the left colon without CT evidence of acute diverticulitis. No bowel obstruction is seen. The appendix is well-visualized and normal. Peritoneum: There is no intraperitoneal free air or abdominal ascites. There is a small fat-containing umbilical hernia, as well as tiny fat-containing supra umbilical hernias. Lymphadenopathy: None. Pelvic viscera: The prostate gland is mildly enlarged and heterogeneous. The bladder is normal as imaged. Surgical clips are noted in the right groin. There is evidence of previous left inguinal herniorrhaphy. Skeletal structures: The skeletal structures are osteopenic. There is mild to moderate lumbosacral spondylosis. No lytic or blastic lesions are seen. IMPRESSION: 1. There is no evidence of pulmonary embolus in the main, lobar, or segmental pulmonary arteries. 2. Cardiomegaly and emphysema. 3. There is no airspace consolidation or pleural effusion. Mild diffuse peribronchial thickening suggests reactive airway disease. Clinical correlation will be required. 4. There is a pathologically indeterminant 8mm pulmonary nodule identified in the lingula. This should be followed as per the Fleischner criteria. 5. There are no acute infectious or inflammatory findings in the abdomen or pelvis. 6. There is moderate diverticulosis of the left colon without CT evidence of acute diverticulitis. 7. 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 8. Additional findings as above. Electronically signed by: Mukul Kerr M.D. 12/16/2017 7:19 PM Dictated Date/Time: 12/16/2017 7:06 PM
[2017-12-16] MEDS ORDERED: CALC500C3 PO (19:47)
--- NOTE | 2017-12-16 20:43 | EMERGENCY ROOM VISIT NOTE ---
ED Visit Note First contact with patient: 17:34 This Patient was discussed with the physician transport assistant, Amrik Bond PA-C. The pertinent historical and physical exam findings were confirmed. I agree with the studies ordered and with the interpretations of these studies. I agree with the disposition and care plan.
[2017-12-16 21:15] VITALS: BP 155/77; PULSE 53; O2SAT 94
--- NOTE | 2017-12-17 00:36 | EMERGENCY ROOM VISIT NOTE ---
History First contact with patient: 17:32 Chief Complaint: ABDOMINAL PAIN Stated Complaint: STOMACH PAINS History of Present Illness The patient is a 82 year old male who presents to the Emergency Room with complaints of upper abdominal pain after eating. The patient reports that he has had this discomfort now for the past 3 days. He reports that the pain comes on about 30 minutes after eating, and lasts approximately 3-4 hours before it subsides. He has not noticed any difference with different types of foods. The patient relates that he has also had some shortness of breath over the past 3 weeks. He currently denies any pain extending into the chest, shoulder or neck. The patient does have a prior history of four-vessel CABG and AAA repair. He denies any tearing sensation, describing it as a pressure and burning sensation. He denies any current nausea, and has had no vomiting with these episodes. He denies any hematemesis, dark stools, constipation or diarrhea. The patient does take a baby aspirin daily. He denies history of peptic ulcers, gallbladder disease, pancreatitis or liver disease. He denies any history of congestive heart failure or other pulmonary conditions. He currently rates his discomfort a 4 out of 10. The patient reports that he is due for another colonoscopy. He does report a prior history of colonic polyps. He denies any known history of diverticulosis. Review of Systems HEENT: Denies dizziness, visual problems, hearing loss, tinnitus. Denies difficulty swallowing or oral lesions. PULMONARY: Denies cough, sputum production or hemoptysis, otherwise see HPI for recent shortness of breath. CARDIOVASCULAR: Denies chest pain, palpitations, orthopnea or peripheral edema. GASTROINTESTINAL: Denies diarrhea, constipation, nausea or vomiting, otherwise see HPI. GENITOURINARY: Denies dysuria, frequency, urgency or nocturia. NEUROLOGIC: Denies history of epilepsy, CVA, TIA or chronic headaches. MUSCULOSKELETAL: Denies history of joint tenderness/swelling. SKIN: Denies rashes or lesions. PSYCHIATRIC: Denies history of depression or mental illness. ENDOCRINE: Denies history of diabetes or thyroid disorders. Past Medical/Surgical History Medical Problems: (1) Abdom Aortic Aneurysm (2) Abdominal pain (3) Benign hypertension (4) C. difficile diarrhea (5) Chest pain (6) Congestive Heart Failure Nos (7) Diabetes mellitus (8) Enteritis (9) Heart disease (10) Heart palpitations (11) Hyperlipidemia (12) Hyperparathyroidism, Unspecified (13) Hypertensive urgency (14) Kidney stone (15) PVCs (premature ventricular contractions) (16) Thrombocytopenia Nos Surgical Problems: (1) cardiac bypass (2) Cardiac catheterization (3) cardiac stent placement (4) History of herniorrhaphy (5) Hx of shoulder surgery Family History Diabetes mellitus FHx: cancer FHx: heart disease FHx: lung disease Hypertension Social History Smoking Status: Former Smoker Alcohol Use: none Drug Use: none Marital Status: Housing Status: lives with significant other Occupation Status: retired Current/Historical Medications Scheduled Amlodipine (Norvasc), 10 MG PO DAILY Aspirin (Aspirin Ec), 81 MG PO QAM Atorvastatin (Lipitor), 80 MG PO HS Calcium Carbonate (Tums), 1,000 MG PO PRN Cholecalciferol (Vitamin D 1000 Unit), 2,000 INTER.UNIT PO QPM Doxazosin Mesylate (Cardura), 4 MG PO QAM Ezetimibe (Zetia), 10 MG PO QPM Finasteride (Proscar), 5 MG PO QAM Fish Oil ([place]-3), 300 MG PO QAM Losartan Potassium (Cozaar), 100 MG PO DAILY Metformin Hcl (Glucophage), 1,500 MG PO DAILY Nitroglycerin (Nitrostat), 0.4 MG UT UD Pantoprazole (Protonix), 40 MG PO QAM Probiotic Product (Probiotic), 1 TAB PO Q2D Scheduled PRN Furosemide (Lasix), 20 MG PO DAILY PRN for fluid Polyethylene Glycol 3350 (Miralax), 17 GM PO DAILY PRN for Constipation Sennosides-Docusate Sodium (Stool Softener), 1-2 TABS PO DAILY PRN for Constipation Miscellaneous Medications Isosorbide Mononitrate Ext Rel (Imdur Ext Rel), 90 MG PO Physical Exam Vital Signs Date Time Temp Pulse Resp B/P (MAP) Pulse Ox O2 Delivery O2 Flow Rate FiO2 12/16/17 21:15 53 18 155/77 94 12/16/17 20:15 53 18 155/77 94 Room Air 12/16/17 18:32 53 12/16/17 18:27 58 18 123/68 96 Room Air 12/16/17 17:50 95 Room Air 12/16/17 17:29 36.6 59 18 125/66 95 Room Air Physical Exam CONSTITUTIONAL: Healthy and well nourished. Alert and oriented X 3 with positive affect. Patient appears in moderate discomfort from pain. HEENT: Normocephalic, atraumatic. Pupils equal, round and reactive. No scleral icterus or conjunctival injection/pallor. NECK: Full active range of motion without discomfort. No JVD or carotid bruits. RESPIRATORY: Clear to auscultation bilaterally with no wheezing, crackles, rhonchi or stridor. The breathing does not worsen his discomfort. CARDIOVASCULAR: Regular rate and rhythm with no murmurs, rubs or gallops. GASTROINTESTINAL: Bowel sounds present in all quadrants. Patient has generalized upper abdominal tenderness to palpation. Negative Ayala sign. No palpable pulsatile masses. No obvious hepatosplenomegaly. Negative CVA tenderness. No left lower quadrant tenderness to palpation. Negative Rovsing sign and negative McBurney's point tenderness. MUSCULOSKELETAL: Full range of motion of all joints without discomfort. INTEGUMENTARY: No rash or other significant dermatologic conditions noted. HEMATOLOGIC: No ecchymosis or petechiae noted. NEUROLOGIC: No focal neurologic deficits noted. Medical Decision & Procedures ER Provider Diagnostic Interpretation: My interpretation of an ECG shows a sinus bradycardia of 52 bpm with a right bundle branch block. No ST elevation noted. Comparison with a prior ECG dated My interpretation of a portable chest x-ray does not show any pneumothorax. Cardiomegaly is noted with no evidence of failure. Radiologist questions bibasilar atelectasis versus superimposed pneumonia. Radiologist report is as follows: SINGLE VIEW CHEST CLINICAL HISTORY: Generalized abdominal pain. FINDINGS: An AP, portable, upright chest radiograph is compared to study dated 10/11/2017. The examination is degraded by portable technique and patient rotation. The patient is status post midline sternotomy. The heart is enlarged and there is atherosclerotic calcification of the thoracic aorta. The pulmonary vasculature is noncongested. Bibasilar airspace opacities likely represent atelectasis. No pneumothorax is seen. The skeletal structures are osteopenic. The bony thorax is grossly intact. Calcific tendinopathy is noted in the left shoulder. IMPRESSION: 1. Cardiomegaly without radiographic evidence of congestive failure. 2. Bibasilar dependent opacities likely represent atelectasis. Correlate clinically for evidence of superimposed pneumonia. CT chest angiography, as well as CT of the abdomen and pelvis with IV contrast does not show any evidence for pulmonary emboli, consolidations, pericardial effusion or other acute findings. No bowel obstruction or obvious gallstones are noted. An 8 mm lingular nodule is noted. Radiologist report is as follows: CT ANGIOGRAM OF THE CHEST; CT SCAN OF THE ABDOMEN AND PELVIS WITH IV CONTRAST CLINICAL HISTORY: Atypical chest pain. Upper abdominal pain. COMPARISON STUDY: Chest x-ray dated 12/16/2017. Abdominal CT dated 06/10/2017. TECHNIQUE: Following the IV administration of 115 of Optiray 320, CT angiogram of the chest is performed from the upper abdomen to the thoracic inlet utilizing the pulmonary embolus protocol. CT scan of the abdomen and pelvis was then performed from the lower chest to the proximal femora. 3-D MIPS images of the chest are created and assessed. Images are reviewed in the axial, sagittal, and coronal planes. IV contrast was administered without complication. Automated dose control exposure was utilized. A dose lowering technique was utilized adhering to the principles of ALARA. CT DOSE: 978.83 mGy.cm FINDINGS: CHEST: Thyroid: Imaged portions of the thyroid gland are normal in size and attenuation. Low-attenuation thyroid nodules measure up to 11 mm. Thoracic aorta: There is atherosclerotic calcification of the thoracic aorta, which is normal in caliber and demonstrates standard 3-vessel arch anatomy. No dissection is seen. Pulmonary vasculature: The pulmonary trunk is normal in caliber. There are no filling defects identified in the main, lobar, or segmental pulmonary arteries to indicate pulmonary embolus. Heart: The patient is status post midline sternotomy. The Heart is enlarged and without pericardial effusion. The coronary arteries are densely calcified. Lungs and pleural spaces: Evaluation of the lung parenchyma is degraded by motion artifact. Emphysematous change is observed. Mild diffuse peribronchial thickening is noted. There is no airspace consolidation or pleural effusion. Dependent atelectasis is observed. An 8 mm nodule in the lingula is seen on image #140. A 3 mm left upper lobe pulmonary nodule is seen on image #184. Tiny calcified granulomas are noted. The trachea and central airways appear clear. Mediastinum: There is no mediastinal lymphadenopathy. Adelaida: Clear. Axillae: There is no axillary lymphadenopathy. Bony thorax: The skeletal structures are osteopenic. Degenerative change is noted in the shoulders and thoracic spine. No lytic or blastic lesions are identified. ABDOMEN AND PELVIS: Liver: The contrast-enhanced liver is normal in size, contour, and attenuation. There is no intrahepatic or ductal dilatation. The hepatic veins and portal veins are patent. Gallbladder: Unremarkable. Spleen: Normal in size and attenuation. Pancreas: Unremarkable. Adrenal glands: Unremarkable. Kidneys: The contrast enhanced kidneys are atrophic and without hydronephrosis. The kidneys enhance symmetrically. A 2.2 cm simple cyst is identified in the left lower pole. A retroaortic left renal vein is incidentally noted. Abdominal vasculature: There is advanced atherosclerotic calcification and mild ectasia of the abdominal aorta. There is mild aneurysmal dilatation of the left common iliac artery which measures up to 2.2 cm. Stomach and bowel: There is a small hiatal hernia. The duodenum is normal in configuration. There is moderate diverticulosis of the left colon without CT evidence of acute diverticulitis. No bowel obstruction is seen. The appendix is well-visualized and normal. Peritoneum: There is no intraperitoneal free air or abdominal ascites. There is a small fat-containing umbilical hernia, as well as tiny fat-containing supra umbilical hernias. Lymphadenopathy: None. Pelvic viscera: The prostate gland is mildly enlarged and heterogeneous. The bladder is normal as imaged. Surgical clips are noted in the right groin. There is evidence of previous left inguinal herniorrhaphy. Skeletal structures: The skeletal structures are osteopenic. There is mild to moderate lumbosacral spondylosis. No lytic or blastic lesions are seen. IMPRESSION: 1. There is no evidence of pulmonary embolus in the main, lobar, or segmental pulmonary arteries. 2. Cardiomegaly and emphysema. 3. There is no airspace consolidation or pleural effusion. Mild diffuse peribronchial thickening suggests reactive airway disease. Clinical correlation will be required. 4. There is a pathologically indeterminant 8mm pulmonary nodule identified in the lingula. This should be followed as per the Fleischner criteria. 5. There are no acute infectious or inflammatory findings in the abdomen or pelvis. 6. There is moderate diverticulosis of the left colon without CT evidence of acute diverticulitis. 7. 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 8. Additional findings as above. Laboratory Results 12/16/17 17:50 Red Blood Count 4.11, Mean Corpuscular Volume 94.4, Mean Corpuscular Hemoglobin 31.6, Mean Corpuscular Hemoglobin Concent 33.5, Mean Platelet Volume 11.0, Neutrophils (%) (Auto) 61.2, Lymphocytes (%) (Auto) 25.3, Monocytes (%) (Auto) 9.1, Eosinophils (%) (Auto) 3.4, Basophils (%) (Auto) 0.8, Neutrophils # (Auto) 3.25, Lymphocytes # (Auto) 1.34, Monocytes # (Auto) 0.48, Eosinophils # (Auto) 0.18, Basophils # (Auto) 0.04 12/16/17 17:50 Test 12/16/17 17:50 12/16/17 19:15 White Blood Count 5.30 K/uL (4.8-10.8) Red Blood Count 4.11 M/uL (4.7-6.1) Hemoglobin 13.0 g/dL (14.0-18.0) Hematocrit 38.8 % (42-52) Mean Corpuscular Volume 94.4 fL (80-100) Mean Corpuscular Hemoglobin 31.6 pg (25-34) Mean Corpuscular Hemoglobin Concent 33.5 g/dl (32-36) Platelet Count 150 K/uL (130-400) Mean Platelet Volume 11.0 fL (7.4-10.4) Neutrophils (%) (Auto) 61.2 % Lymphocytes (%) (Auto) 25.3 % Monocytes (%) (Auto) 9.1 % Eosinophils (%) (Auto) 3.4 % Basophils (%) (Auto) 0.8 % Neutrophils # (Auto) 3.25 K/uL (1.4-6.5) Lymphocytes # (Auto) 1.34 K/uL (1.2-3.4) Monocytes # (Auto) 0.48 K/uL (0.11-0.59) Eosinophils # (Auto) 0.18 K/uL (0-0.5) Basophils # (Auto) 0.04 K/uL (0-0.2) RDW Standard Deviation 46.9 fL (36.4-46.3) RDW Coefficient of Variation 13.6 % (11.5-14.5) Immature Granulocyte % (Auto) 0.2 % Immature Granulocyte # (Auto) 0.01 K/uL (0.00-0.02) Prothrombin Time 10.5 SECONDS (9.0-12.0) Prothromb Time International Ratio 1.0 (0.9-1.1) Activated Partial Thromboplast Time 22.0 SECONDS (21.0-31.0) Partial Thromboplastin Ratio 0.8 D-Dimer 740 ug/L FEU (0-500) Anion Gap 8.0 mmol/L (3-11) Est Creatinine Clear Calc Drug Dose 42.4 ml/min Estimated GFR () 48.3 Estimated GFR (Non- 41.7 BUN/Creatinine Ratio 19.6 (10-20) Calcium Level 9.5 mg/dl (8.5-10.1) Total Bilirubin 0.4 mg/dl (0.2-1) Direct Bilirubin 0.1 mg/dl (0-0.2) Aspartate Amino Transf (AST/SGOT) 16 U/L (15-37) Alanine Aminotransferase (ALT/SGPT) 25 U/L (12-78) Alkaline Phosphatase 48 U/L (45-117) Total Creatine Kinase 140 U/L (39-308) Creatine Kinase MB 2.5 ng/ml (0.5-3.6) Creatine Kinase MB Ratio 1.8 (0-3.0) Troponin I < 0.015 ng/ml (0-0.045) Pro-B-Type Natriuretic Peptide 1042 pg/ml (0-1800) Total Protein 6.5 gm/dl (6.4-8.2) Albumin 3.7 gm/dl (3.4-5.0) Lipase 226 U/L (73-393) Urine Color YELLOW Urine Appearance CLEAR (CLEAR) Urine pH 5.0 (4.5-7.5) Urine Specific [place] 1.041 (1.000-1.030) Urine Protein NEG (NEG) Urine Glucose (UA) NEG (NEG) Urine Ketones TRACE (NEG) Urine Occult Blood NEG (NEG) Urine Nitrite NEG (NEG) Urine Bilirubin NEG (NEG) Urine Urobilinogen NEG (NEG) Urine Leukocyte Esterase NEG (NEG) The above labs were reviewed. BUN and creatinine are 30 and 1.54, respectively. LFTs, lipase, troponin, BNP and urinalysis are normal. D-dimer is mildly elevated. ED Course Patient history and physical exam were performed. Nurse's notes were reviewed. Vital signs were reviewed and were normal. Patient does not have a widened pressure. He does not appear in any significant respiratory distress. O2 saturation is 95% on room air. His pulse rate was 59 in triage. An ECG shows a sinus bradycardia 52 bpm with a right bundle branch block. Comparison with a prior ECG shows no other acute changes. Labs were reviewed, showing a mildly elevated d-dimer, otherwise remaining labs, including troponin, BNP, CBC, partial renal profile, LFTs and lipase are normal. A portable chest x-ray is suggestive of bibasilar atelectasis versus superimposed pneumonia. At this point, a chest CT angiography was also ordered, along with CT of the abdomen and pelvis with IV contrast. CT was unremarkable for any acute intrathoracic or intra-abdominal findings. A lingular nodule is noted. Upon reevaluation, the patient reports that his pain and nausea have completely resolved. The case was further discussed with Dr. Selby, ED attending physician, who also evaluated the patient and agrees with workup and outpatient plan of care. The patient was advised that his postprandial pain that resolves is highly suggestive of biliary colic. I also discussed the possibility of peptic ulcer disease, but do not feel that this is likely. The patient denies any significant caffeine use. He denies alcohol or NSAIDs use because of his aspirin use. The patient was given instructions on a clear liquid/bland diet, including low-fat and low protein foods. He was encouraged to also take Zantac 150 mg twice daily. He was instructed to follow-up with his PCP for recheck within the next 2-3 days, returning to the emergency department for any progressively worsening pain, persistent vomiting or developing fever. I also advised the patient of the pulmonary nodule and need for follow-up with his PCP. The patient was happy with plan of care, and voiced understanding of all discharge instructions. Medical Decision As indicated in the previous section, biliary colic is highly suspected given his postprandial pain. Laboratory and imaging studies at this time are not suggestive of cholecystitis. No gallstones are seen on CT. Laboratory studies are also not suggestive of pancreatitis or cholecystitis. Patient has had some recent shortness of breath, but CT scan does not show any evidence for pulmonary embolus, pneumonia, pneumothorax, pericarditis or other acute intrathoracic etiologies. An ECG is unchanged from previous studies. [place] Drug Monitoring Program Search Results: patient reviewed within database, no issues identified Medication Reconcilliation Current Medication List: was personally reviewed by me Blood Pressure Screening Patient's blood pressure: Normal blood pressure Impression Primary Impression: Right upper quadrant abdominal pain Additional Impression: Pulmonary nodule Departure Information Referrals Nestor Moss M.D. (PCP) Patient Instructions My [facility] Problem Qualifiers
== END 2017-12-16 21:15 | disposition home or self-care (01) ==
LOC: C.EDB 17:23 → C.EDA 21:15
DX: R10.11 Right upper quadrant pain (principal); R91.1 Solitary pulmonary nodule; R94.31 Abnormal electrocardiogram [ECG] [EKG]; R79.1 Abnormal coagulation profile; R06.02 Shortness of breath; I50.9 Heart failure, unspecified; I11.0 Hypertensive heart disease with heart failure; E11.9 Type 2 diabetes mellitus without complications; E78.5 Hyperlipidemia, unspecified; Z86.010 Personal history of colon polyps; Z87.891 Personal history of nicotine dependence; Z79.82 Long term (current) use of aspirin; Z79.84 Long term (current) use of oral hypoglycemic drugs; Z79.899 Other long term (current) drug therapy; Z83.6 Family history of other diseases of the respiratory system

== ENCOUNTER → 2017-12-24 | Day surgery (SDC) | payer OTHER ==
[2017-12-14 11:03] VITALS: Ht 179.1 cm; Wt 88.6 kg
[~2017-12-24] VITALS: Ht 179.1 cm; Wt 88.6 kg
[~2017-12-24] MED LIST changes: +AMLO10TA3 PO; +ATOR-26 PO; +CALC500C3 PO; +EpHEDrine SULFATE INJ 50 MG/ML AMP ONE; +GLYCOPYRROLATE INJ 0.2 MG/ML VIAL ONE; +ISOS30TA35 PO; +LIDOCAINE HCL 2% 2 ML VIAL (20MG/ML) ONE; -LOSA100T65 PO; +LOSA1TAB38 PO; -NRV/10 PO; +PROPOFOL IV EMULSION 10 MG/ML 20 ML VIAL ONE; +SODIUM CHLORIDE 0.9% 500ML 500 ML IV ONE
--- NOTE | 2017-12-24 11:06 | Endo History and Physical ---
History & Physical Date of Service: Dec 24, 2017. Chief Complaint: Change in bowel habits, constipation Referring Physician: Nestor Moss History of Present Illness 82 yo CM who presents for colonoscopy secondary to change in bowel habits with constipation. Past Medical History Diabetes, Angioplasty/Stent, Osteoporosis, Male Genitourinary Prob., Gastrointestinal Disorder, CABG, CHF, Kidney Disease Past Surgical History Hx Cardiac Surgery: Yes (CABG x4, HEART CATH-2 STENTS PLACED) Hx Internal Defibrillator: No Hx Pacemaker: No Hx Abdominal Surgery: Yes (AAA REPAIR, INGUINAL HERNIA REPAIR X 3) Hx of Implantable Prosthesis: No Hx Post-Op Nausea and Vomiting: No Hx Cancer Surgery: No Hx Thoracic Surgery: No Hx Orthopedic: Yes (LEFT RCR, LEFT PARTIAL KNEE REPLACEMENT) Hx Urinary Tract Surgery: No Family History Colon CA Social History Smoking Status: Former Smoker Hx Substance Use: No Hx Alcohol Use: No Allergies Coded Allergies: Cinnamon Flavor (Verified Allergy, Severe, THROAT SWELLING, 12/24/17) Linaclotide (Verified Adverse Reaction, Unknown, DIARRHEA, 12/24/17) Lisinopril (Verified Adverse Reaction, Unknown, DIZZINESS, 12/24/17) Current Medications Reported Home Medications Medications Dose Route/Sig Max Daily Dose Days Date Category Dose Instructions Tums (Calcium Carbonate) 500 Mg Chew 1,000 Mg PO PRN 12/16/17 Reported Norvasc (Amlodipine Besylate) 10 Mg Tab 10 Mg PO DAILY 12/16/17 Reported Imdur Ext Rel (Isosorbide Mononitrate) 30 Mg Tabcr 90 Mg PO 12/16/17 Reported Cozaar (Losartan Potassium) 100 Mg Tab 100 Mg PO DAILY 12/16/17 Reported Stool Softener (Sennosides-Docusate Sodium) 1 Tab Tab 1-2 Tabs PO DAILY PRN 12/14/17 Reported Probiotic (Probiotic Product) 1 Tab Tab 1 Tab PO Q2D 12/14/17 Reported Miralax (Polyethylene Glycol 3350) 1 Pow Pow 17 Gm PO DAILY PRN 10/11/17 Reported Vitamin D 1000 Unit (Cholecalciferol) 1,000 Unit Cap 2,000 Inter.unit PO QPM 08/28/16 Reported Lasix (Furosemide) 20 Mg Tab 20 Mg PO DAILY PRN 08/28/16 Reported Cardura (Doxazosin Mesylate) 4 Mg Tab 4 Mg PO QAM 08/28/16 Reported Lipitor (Atorvastatin Calcium) 80 Mg Tab 80 Mg PO HS 05/10/16 Reported Glucophage (Metformin Hcl) 1,000 Mg Tab 1,500 Mg PO DAILY 04/08/16 Reported 1 1/2 tablet daily. Proscar (Finasteride) 5 Mg Tab 5 Mg PO QAM 03/16/16 Reported Aspirin Ec (Aspirin) 81 Mg Tab 81 Mg PO QAM 03/16/16 Reported [place]-3 (Fish Oil) 1 Ea Cap 300 Mg PO QAM 08/07/11 Reported Nitrostat (Nitroglycerin) 0.4 Mg Tab 0.4 Mg UT UD 08/31/08 Reported NEEDED FOR CHEST PAIN : ONE TABLET UNDER THE TONGUE EVERY 5 MINUTES UP TO 3 DOSES. Protonix (Pantoprazole Sodium) 40 Mg Tab 40 Mg PO QAM 08/23/08 Reported Zetia (Ezetimibe) 10 Mg Tab 10 Mg PO QPM 08/23/08 Reported Vital Signs Weight (Kilograms): 88.64 Height (Feet): 5 Height (Inches): 10.5 Physical Exam General Appearance: WD/WN, no apparent distress Respiratory/Chest: Auscultation: breath sounds normal Cardiovascular: Heart Auscultation: RRR Abdomen: Bowel Sounds: normal Inspection & Palpation: soft, non-distended, no tenderness, guarding & rebound Assessment and Plan Assessment: 82 yo CM who presents for colonoscopy secondary to change in bowel habits with constipation. Plan: Proceed with colonoscopy.
--- NOTE | 2017-12-24 12:12 | Discharge Instructions ---
Endoscopy Patient Instructions Date / Procedure(s) Performed Dec 24, 2017. Colonoscopy Allergy Information Coded Allergies: Cinnamon Flavor (Verified Allergy, Severe, THROAT SWELLING, 12/24/17) Linaclotide (Verified Adverse Reaction, Unknown, DIARRHEA, 12/24/17) Lisinopril (Verified Adverse Reaction, Unknown, DIZZINESS, 12/24/17) Discharge Date / Findings Dec 24, 2017. Colon polyps Internal hemorrhoids Medication Instructions Stopped Medication(s): Aspirin last dose 12/23/17. OK to resume all medications today as prescribed Reported Home Medications Medications Dose Route/Sig Max Daily Dose Days Date Category Dose Instructions Tums (Calcium Carbonate) 500 Mg Chew 1,000 Mg PO PRN 12/16/17 Reported Norvasc (Amlodipine Besylate) 10 Mg Tab 10 Mg PO DAILY 12/16/17 Reported Imdur Ext Rel (Isosorbide Mononitrate) 30 Mg Tabcr 90 Mg PO 12/16/17 Reported Cozaar (Losartan Potassium) 100 Mg Tab 100 Mg PO DAILY 12/16/17 Reported Stool Softener (Sennosides-Docusate Sodium) 1 Tab Tab 1-2 Tabs PO DAILY PRN 12/14/17 Reported Probiotic (Probiotic Product) 1 Tab Tab 1 Tab PO Q2D 12/14/17 Reported Miralax (Polyethylene Glycol 3350) 1 Pow Pow 17 Gm PO DAILY PRN 10/11/17 Reported Vitamin D 1000 Unit (Cholecalciferol) 1,000 Unit Cap 2,000 Inter.unit PO QPM 08/28/16 Reported Lasix (Furosemide) 20 Mg Tab 20 Mg PO DAILY PRN 08/28/16 Reported Cardura (Doxazosin Mesylate) 4 Mg Tab 4 Mg PO QAM 08/28/16 Reported Lipitor (Atorvastatin Calcium) 80 Mg Tab 80 Mg PO HS 05/10/16 Reported Glucophage (Metformin Hcl) 1,000 Mg Tab 1,500 Mg PO DAILY 04/08/16 Reported 1 1/2 tablet daily. Proscar (Finasteride) 5 Mg Tab 5 Mg PO QAM 03/16/16 Reported Aspirin Ec (Aspirin) 81 Mg Tab 81 Mg PO QAM 03/16/16 Reported [place]-3 (Fish Oil) 1 Ea Cap 300 Mg PO QAM 08/07/11 Reported Nitrostat (Nitroglycerin) 0.4 Mg Tab 0.4 Mg UT UD 08/31/08 Reported NEEDED FOR CHEST PAIN : ONE TABLET UNDER THE TONGUE EVERY 5 MINUTES UP TO 3 DOSES. Protonix (Pantoprazole Sodium) 40 Mg Tab 40 Mg PO QAM 08/23/08 Reported Zetia (Ezetimibe) 10 Mg Tab 10 Mg PO QPM 08/23/08 Reported Provider Instructions Activity Restrictions - No exercising or heavy lifting for 24 hours. - Do not drink alcohol the day of the procedure. - Do not drive a car or operate machinery until the day after the procedure. - Do not make any important decisions or sign important papers in 24 hours after the procedure. Following Day: - Return to full activity which may include returning to work/school. Diet Start your diet with liquids and light foods (jello, soup, juice, toast). Then eat your usual diet if not nauseated. Treatment For Common After Affects For mild abdominal pain, bloating, or excessive gas: - Rest - Eat lightly - Lie on right side Follow-Up Information Follow-up with Dr. Nestor Moss as scheduled Anesthesia Information What You Should Know You have had a procedure that required some medicine to reduce anxiety and discomfort. This treatment is called moderate sedation. After receiving the treatment, you may be sleepy, but you will be able to breathe on your own. The effects of the treatment may last for several hours. Follow these instructions along with Activity/Diet recommendations noted above: * Do NOT do anything where dizziness or clumsiness would be dangerous. * Rest quietly at home today, then you can be up and about tomorrow. * Have a responsible person stay with you the rest of today. * You may have had an I.V. today. If so, you may take the dressing off later today. Recommendations Call your doctor if: * Trouble breathing * Continuous vomiting for more than 24 hours * Temperature above 101 degrees * Severe abdominal pain or bloating * Pain not relieved by pain medicine ordered * There is increased drainage or redness from any incision * A large amount of rectal bleeding greater than 2-3 tablespoons. (If you had a polyp/s removed or have hemorrhoids, a small amount of blood - from the rectum is to be expected.) * You have any unanswered questions or concerns. IN THE EVENT OF A SERIOUS EMERGENCY, GO TO THE NEAREST EMERGENCY ROOM Your discharge instructions were prepared by provider Fracisco Ramirez. Patient Instructions Signature Page Jose Daniel Parker Patient (or Guardian) Signature/Date: I have read and understand the instructions given to me by my caregivers. Caregiver/RN/Doctor Signature/Date: The above-named patient and/or guardian has received patient instructions on this date. + Original Patient Signature Page (only) stays with chart. Please make copy for patient.
--- NOTE | 2017-12-24 12:21 | Anesthesiology Progress Note ---
Anesthesia Post Op Note Date & Time Dec 24, 2017 at 12:21 Vital Signs Pain Intensity: 0 Vital Signs Past 12 Hours Date Time Temp Pulse Resp B/P (MAP) Pulse Ox O2 Delivery O2 Flow Rate FiO2 12/24/17 11:09 36.3 59 18 145/65 (91) 97 Room Air Notes Mental Status: alert / awake / arousable, participated in evaluation Pt Amnestic to Procedure: Yes Nausea / Vomiting: adequately controlled Pain: adequately controlled Airway Patency, RR, SpO2: stable & adequate BP & HR: stable & adequate Hydration State: stable & adequate Anesthetic Complications: no major complications apparent
[2017-12-24 12:41] VITALS: BP 127/68; PULSE 55; O2SAT 97
== END | disposition home or self-care (01) ==
LOC: C.GI 10:33
PROVIDERS: ATTEND Internal Medicine
DX: R19.4 Change in bowel habit (principal); D12.5 Benign neoplasm of sigmoid colon; D12.2 Benign neoplasm of ascending colon; K64.8 Other hemorrhoids; Z95.1 Presence of aortocoronary bypass graft; E11.9 Type 2 diabetes mellitus without complications; M19.90 Unspecified osteoarthritis, unspecified site; F17.200 Nicotine dependence, unspecified, uncomplicated; Z79.899 Other long term (current) drug therapy; Z79.82 Long term (current) use of aspirin

== ENCOUNTER 2017-12-27 12:05 | Observation (INO) | payer OTHER ==
[~2017-12-27] VITALS: Ht 177.8 cm; Wt 85.8 kg
[~2017-12-27 12:05] MED LIST changes: -IMDSR30 PO; -SINCALIDE INJ 1.7 MCG in SODIUM CHLORIDE 0.9% 100ML 100 ML IV ONE
[2017-12-27] MEDS ORDERED: NITROGLYCERIN 0.4 MG SL PER TAB CHARGE SL PRN ×2 (13:15→16:15)
[2017-12-27] MEDS ORDERED: ASPIRIN 81 MG CHEW PO STA (13:15)
[2017-12-27 13:22] LABS: BASO % 0.7 %; BASO ABS # 0.04 K/uL (0-0.2); EOS % 4.3 %; EOS ABS # 0.24 K/uL (0-0.5); HEMATOCRIT 40.6 % (42-52); HEMOGLOBIN 13.7 g/dL (14.0-18.0); LYMPH % 29.7 %; LYMPH ABS # 1.64 K/uL (1.2-3.4); MEAN CELL VOLUME 94.6 fL (80-100); MEAN CORPUSCULAR HEMOGLOBIN 31.9 pg (25-34); MEAN CORPUSCULAR HGB CONC 33.7 g/dl (32-36); MEAN PLATELET VOLUME 11.4 fL (7.4-10.4); MONO % 7.6 %; MONO ABS # 0.42 K/uL (0.11-0.59); NEUT % 57.7 %; NEUT ABS # 3.19 K/uL (1.4-6.5); PLATELET COUNT 140 K/uL (130-400); RED CELL DISTRIBUTION WIDTH CV 13.5 % (11.5-14.5); RED CELL DISTRIBUTION WIDTH SD 46.5 fL (36.4-46.3); WHITE BLOOD COUNT 5.53 K/uL (4.8-10.8)
[2017-12-27 13:37] LABS: ALBUMIN 4.1 gm/dl (3.4-5.0); ALKALINE PHOSPHATASE 50 U/L (45-117); ALT/SGPT 33 U/L (12-78); AST/SGOT 25 U/L (15-37); BLOOD UREA NITROGEN 14 mg/dl (7-18); CALCIUM 10.2 mg/dl (8.5-10.1); CARBON DIOXIDE 24 mmol/L (21-32); CKMB 2.3 ng/ml (0.5-3.6); CREATININE 1.12 mg/dl (0.60-1.40); GLUCOSE 115 mg/dl (70-99); LIPASE 182 U/L (73-393); POTASSIUM 4.4 mmol/L (3.5-5.1); SODIUM 141 mmol/L (136-145); TOTAL PROTEIN 7.2 gm/dl (6.4-8.2)
--- NOTE | 2017-12-27 13:54 | DIAGNOSTIC IMAGING REPORT ---
CHEST ONE VIEW PORTABLE CLINICAL HISTORY: 82 years-old Male presenting with Chest Pain. TECHNIQUE: Portable upright AP view of the chest was obtained. COMPARISON: 12/16/2017. FINDINGS: Median sternotomy wires and mediastinal surgical clips again noted. Atherosclerosis of aortic arch. Cardiac silhouette normal in size. The lungs are hyperinflated. Mild prominence of pulmonary vasculature. No focal lung opacity. No large effusion or pneumothorax. Chronic separation of the left acromioclavicular joint. IMPRESSION: 1. Mild pulmonary vessel prominence suggest volume overload. No kathy evidence of pulmonary edema. 2. Hyperinflation suggests underlying emphysema. No focal infiltrate to suggest pneumonia. Electronically signed by: Giovanni Singh M.D. 12/27/2017 1:52 PM Dictated Date/Time: 12/27/2017 1:51 PM
[2017-12-27 15:36] VITALS: O2SAT 96; Ht 177.8 cm; Wt 85.8 kg
[2017-12-27 16:00] VITALS: O2SAT 96
[2017-12-27] MEDS ORDERED: ONDANSETRON INJ 2 MG/ML 2 ML VIAL IV PRN (16:15)
[2017-12-27] MEDS ORDERED: MAGNESIUM HYDROXIDE SUSP 30 ML UDC PO PRN (16:15)
[2017-12-27] MEDS ORDERED: POLYETHYLENE (MIRALAX) 17 GM PACK PO PRN (16:15)
[2017-12-27] MEDS ORDERED: MoRPHine SULFATE 2 MG/ML CARP IV PRN (16:15)
[2017-12-27] MEDS ORDERED: ACETAMINOPHEN 325 MG TAB PO PRN (16:15)
[2017-12-27] MEDS ORDERED: CALCIUM CARBONATE 500 MG CHEWABLE PO PRN (16:15)
[2017-12-27] MEDS ORDERED: ALUMINUM/MAGNESIUM/SIMETH (MAALOX MAX) 30 ML UDC PO PRN (16:15)
--- NOTE | 2017-12-27 16:41 | History and Physical ---
History & Physical Date & Time of Service: Dec 27, 2017 at 16:25 Chief Complaint: Chest Pain And Left Arm Pain Primary Care Physician: Nestor Moss M.D. History of Present Illness Source: patient, hospital records, other 82 y/o M Hx HTN, HPL, DM II, CAD. Presents with CP. The pt had been having RUQ pain and underwent a HIDA scan today. The scan was read as normal. During the test he developed some central CP radiating to his L axilla, accompanied by diaphoresis. He denies SOB, nausea/vomiting. He states that the symptoms are similar to the symptoms he had when he suffered an ND in 2006. Initial troponin and EKG do not support acute ischemia. The pt is admitted due to high risk. The pt was last admitted 06/2017 with chest tightness related to HTN urgency. 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 Smoking Status: Former Smoker Drug Use: none Marital Status: Housing status: lives with family Occupational Status: retired Immunizations History of Influenza Vaccine: No Influenza Vaccine Date: Jan 19, 2011 History of Tetanus Vaccine?: Unknown History of Pneumococcal: Yes Pneumococcal Date: Jan 19, 2011 History of Hepatitis B Vaccine: Unknown Allergies Coded Allergies: Cinnamon Flavor (Verified Allergy, Severe, THROAT SWELLING, 12/27/17) Linaclotide (Verified Adverse Reaction, Unknown, DIARRHEA, 12/27/17) Lisinopril (Verified Adverse Reaction, Unknown, DIZZINESS, 12/27/17) Home Medications Scheduled Amlodipine (Norvasc), 10 MG PO DAILY Aspirin (Aspirin Ec), 81 MG PO QAM Atorvastatin (Lipitor), 80 MG PO HS Calcium Carbonate (Tums), 1,000 MG PO PRN Cholecalciferol (Vitamin D 1000 Unit), 2,000 INTER.UNIT PO QPM Doxazosin Mesylate (Cardura), 4 MG PO QAM Ezetimibe (Zetia), 10 MG PO QPM Finasteride (Proscar), 5 MG PO QAM Fish Oil ([place]-3), 300 MG PO QAM Losartan Potassium (Cozaar), 100 MG PO DAILY Metformin Hcl (Glucophage), 1,500 MG PO DAILY Nitroglycerin (Nitrostat), 0.4 MG UT UD Pantoprazole (Protonix), 40 MG PO QAM Probiotic Product (Probiotic), 1 TAB PO Q2D Scheduled PRN Furosemide (Lasix), 20 MG PO DAILY PRN for fluid Polyethylene Glycol 3350 (Miralax), 17 GM PO DAILY PRN for Constipation Sennosides-Docusate Sodium (Stool Softener), 1-2 TABS PO DAILY PRN for Constipation Miscellaneous Medications Isosorbide Mononitrate Ext Rel (Imdur Ext Rel), 90 MG PO Review of Systems Constitutional: + sweats, No fever, No chills Eyes: No worsening of vision ENT: No hearing loss, No unusual epistaxis, No nasal symptoms Respiratory: No cough, No sputum, No wheezing Cardiovascular: + chest pain, No orthopnea, No PND Abdomen: + pain (chronic RUQ pain under evaluation), No nausea, No vomiting Musculoskeletal: No joint pain Genitourinary - Male: No hematuria, No dysuria Neurologic: No memory loss, No paralysis, No weakness Psychiatric: No depression symptoms Endocrine: No fatigue Hematologic / Lymphatic: No abnormal bleeding/bruising Integumentary: No rash Allergic / Immunologic: No environmental allergies Physical Exam Vital Signs Date Time Temp Pulse Resp B/P (MAP) Pulse Ox O2 Delivery O2 Flow Rate FiO2 12/27/17 16:00 53 18 186/75 96 Room Air 12/27/17 15:36 96 Room Air 12/27/17 14:09 47 18 171/80 96 Room Air 12/27/17 13:30 55 16 131/73 92 Room Air 12/27/17 13:26 54 16 142/74 96 Room Air 12/27/17 13:22 52 18 186/86 92 Room Air 12/27/17 13:06 96 Room Air 12/27/17 12:21 60 12/27/17 12:07 36.3 58 26 186/104 98 Room Air General Appearance: WD/WN, no apparent distress Head: normocephalic Eyes: normal inspection ENT: normal ENT inspection, pharynx normal Neck: supple, no JVD Respiratory/Chest: chest non-tender, lungs clear, normal breath sounds Cardiovascular: regular rate, rhythm, no edema, no gallop Abdomen/GI: normal bowel sounds, non tender, soft Back: normal inspection Extremities/Musculoskelatal: normal inspection, no calf tenderness Neurologic/Psych: venetian blind assembler II-XII nml as tested, no motor/sensory deficits, alert, oriented x 3 Skin: normal color Diagnostics Laboratory Results Results Past 24 Hours Test 12/27/17 12:28 Range/Units White Blood Count 5.53 4.8-10.8 K/uL Red Blood Count 4.29 4.7-6.1 M/uL Hemoglobin 13.7 14.0-18.0 g/dL Hematocrit 40.6 42-52 % Mean Corpuscular Volume 94.6 80-100 fL Mean Corpuscular Hemoglobin 31.9 25-34 pg Mean Corpuscular Hemoglobin Concent 33.7 32-36 g/dl Platelet Count 140 130-400 K/uL Mean Platelet Volume 11.4 7.4-10.4 fL Neutrophils (%) (Auto) 57.7 % Lymphocytes (%) (Auto) 29.7 % Monocytes (%) (Auto) 7.6 % Eosinophils (%) (Auto) 4.3 % Basophils (%) (Auto) 0.7 % Neutrophils # (Auto) 3.19 1.4-6.5 K/uL Lymphocytes # (Auto) 1.64 1.2-3.4 K/uL Monocytes # (Auto) 0.42 0.11-0.59 K/uL Eosinophils # (Auto) 0.24 0-0.5 K/uL Basophils # (Auto) 0.04 0-0.2 K/uL RDW Standard Deviation 46.5 36.4-46.3 fL RDW Coefficient of Variation 13.5 11.5-14.5 % Immature Granulocyte % (Auto) 0.0 % Immature Granulocyte # (Auto) 0.00 0.00-0.02 K/uL Sodium Level 141 136-145 mmol/L Potassium Level 4.4 3.5-5.1 mmol/L Chloride Level 108 98-107 mmol/L Carbon Dioxide Level 24 21-32 mmol/L Anion Gap 9.0 3-11 mmol/L Blood Urea Nitrogen 14 7-18 mg/dl Creatinine 1.12 0.60-1.40 mg/dl Estimated GFR () 71.0 Estimated GFR (Non- 61.3 BUN/Creatinine Ratio 12.9 10-20 Random Glucose 115 70-99 mg/dl Calcium Level 10.2 8.5-10.1 mg/dl Total Bilirubin 0.8 0.2-1 mg/dl Direct Bilirubin 0.2 0-0.2 mg/dl Aspartate Amino Transf (AST/SGOT) 25 15-37 U/L Alanine Aminotransferase (ALT/SGPT) 33 12-78 U/L Alkaline Phosphatase 50 45-117 U/L Total Creatine Kinase 129 39-308 U/L Creatine Kinase MB 2.3 0.5-3.6 ng/ml Creatine Kinase MB Ratio 1.8 0-3.0 Troponin I < 0.015 0-0.045 ng/ml Total Protein 7.2 6.4-8.2 gm/dl Albumin 4.1 3.4-5.0 gm/dl Lipase 182 73-393 U/L EKG Sinus, RBBB - no acute ischemic changes Impression Assessment and Plan 82 y/o M Hx HTN, HPL, DM II, CAD. Presents with CP. The pt had been having RUQ pain and underwent a HIDA scan today. The scan was read as normal. During the test he developed some central CP radiating to his L axilla, accompanied by diaphoresis. He denies SOB, nausea/vomiting. He states that the symptoms are similar to the symptoms he had when he suffered an ND in 2006. Initial troponin and EKG do not support acute ischemia. The pt is admitted due to high risk. 1) CP - Assigned to telemetry - NTG or morphine PRN for CP. ASA, statin provided - did not previously tolerate a B adrian. Serial enzymes requested. 2) HTN - poorly controlled - previous admission with CP related to HTN is noted although SBP was above 200 at the time. Cont Norvasc, NTG patch and PRN Hydralazine provided. 3) DM II - placed on SS 4) HPL - cont Lipitor Full code - Heparin prophylaxis Total time for this admit including review of labs, meds, imaging, records - discussion with pt and ER attending - 35 min Advanced Directives Existing Living Will: Yes Existing Power of Federal Law Clerk: Yes () Resuscitation Status VTE Prophylaxis Will order VTE Prophylaxis: Yes
[2017-12-27] MEDS ORDERED: GLUCOSE 40% GEL 15 GM TUBE PO PRN (16:45)
[2017-12-27] MEDS ORDERED: CARBOHYDRATES FOR HYPOGLYCEMIA PO PRN (16:45)
[2017-12-27] MEDS ORDERED: GLUCAGON FOR INJ 1 MG VIAL IM PRN (16:45)
[2017-12-27] MEDS ORDERED: GLUCOSE 10 TABS/TUBE PO PRN (16:45)
[2017-12-27] MEDS ORDERED: HydrALAZINE HCL 20 MG/ML VIAL IV. PRN (16:45)
[2017-12-27] MEDS ORDERED: DEXTROSE 50% 50 ML SYR IV PRN (16:45)
[2017-12-27 16:59] LABS: PTT PATIENT 26.1 SECONDS (21.0-31.0)
--- NOTE | 2017-12-27 17:07 | EMERGENCY ROOM VISIT NOTE ---
History Report prepared by Archana: Ramo Wei Under the Supervision of: Dr. Julio Richards D.O. First contact with patient: 13:06 Chief Complaint: CHEST PAIN Stated Complaint: CHEST PAIN AND LEFT ARM PAIN Nursing Triage Summary: Pt from [facility]. Was having a HIDA scan with Kinevac Injection. After test was done, pt had onset of chills, diaphoresis, CP radiating into left arm. HR was in the 40s, per pt he does usually run low. Denies SOB. pt shivering in triage, reports CP under left arm History of Present Illness The patient is a 82 year old male who presents to the Emergency Room with complaints of constant chest pain beginning at 11:30 this morning. The patient states that he was given injections during a HIDA scan today with normal results , and afterward he developed a sensation of pressure in his chest and left arm pain. He reports a history of heart attack, and states that his current symptoms feel very similar. He states that he had stents placed around 10 years ago. The patient denies jaw pain or shortness of breath. The patient also notes that he had pain on the right side of the abdomen that is now resolved, but believes that it is separate from the chest pain. He notes he currently still has some chest pain, and states that he did not receive nitroglycerin. The patient reports problems with his gallbladder for the past 1.5 months, and notes the pain is worsened with fatty foods. The patient reports that his PCP is Dr. Moss. Source of History: patient Onset: 11:30 this morning Position: chest Quality: pressure Timing: constant Associated Symptoms: + abdominal pain, No SOB Note: denies jaw pain Review of Systems See HPI for pertinent positives & negatives. A total of 10 systems reviewed and were otherwise negative. Past Medical & Surgical Medical Problems: (1) Abdom Aortic Aneurysm (2) Abdominal pain (3) Benign hypertension (4) C. difficile diarrhea (5) Chest pain (6) Chest pain in adult (7) Congestive Heart Failure Nos (8) Diabetes mellitus (9) Enteritis (10) Heart disease (11) Heart palpitations (12) Hyperlipidemia (13) Hyperparathyroidism, Unspecified (14) Hypertensive urgency (15) Kidney stone (16) PVCs (premature ventricular contractions) (17) Thrombocytopenia Nos Surgical Problems: (1) cardiac bypass (2) Cardiac catheterization (3) cardiac stent placement (4) History of herniorrhaphy (5) Hx of shoulder surgery Family History Diabetes mellitus FHx: cancer FHx: heart disease FHx: lung disease Hypertension Social History Smoking Status: Former Smoker Alcohol Use: none Drug Use: none Marital Status: Housing Status: lives with significant other Occupation Status: retired Current/Historical Medications Scheduled Amlodipine (Norvasc), 10 MG PO DAILY Aspirin (Aspirin Ec), 81 MG PO QAM Atorvastatin (Lipitor), 80 MG PO HS Calcium Carbonate (Tums), 1,000 MG PO PRN Cholecalciferol (Vitamin D 1000 Unit), 2,000 INTER.UNIT PO QPM Doxazosin Mesylate (Cardura), 4 MG PO QAM Ezetimibe (Zetia), 10 MG PO QPM Finasteride (Proscar), 5 MG PO QAM Fish Oil (Maybell-3), 300 MG PO QAM Losartan Potassium (Cozaar), 100 MG PO DAILY Metformin Hcl (Glucophage), 1,500 MG PO DAILY Nitroglycerin (Nitrostat), 0.4 MG UT UD Pantoprazole (Protonix), 40 MG PO QAM Probiotic Product (Probiotic), 1 TAB PO Q2D Scheduled PRN Furosemide (Lasix), 20 MG PO DAILY PRN for fluid Polyethylene Glycol 3350 (Miralax), 17 GM PO DAILY PRN for Constipation Sennosides-Docusate Sodium (Stool Softener), 1-2 TABS PO DAILY PRN for Constipation Miscellaneous Medications Isosorbide Mononitrate Ext Rel (Imdur Ext Rel), 90 MG PO Allergies Coded Allergies: Cinnamon Flavor (Verified Allergy, Severe, THROAT SWELLING, 12/27/17) Linaclotide (Verified Adverse Reaction, Unknown, DIARRHEA, 12/27/17) Lisinopril (Verified Adverse Reaction, Unknown, DIZZINESS, 12/27/17) Physical Exam Vital Signs Date Time Temp Pulse Resp B/P (MAP) Pulse Ox O2 Delivery O2 Flow Rate FiO2 12/27/17 16:08 58 12/27/17 16:00 53 18 186/75 96 Room Air 12/27/17 15:36 96 Room Air 12/27/17 14:09 47 18 171/80 96 Room Air 12/27/17 13:30 55 16 131/73 92 Room Air 12/27/17 13:26 54 16 142/74 96 Room Air 12/27/17 13:22 52 18 186/86 92 Room Air 12/27/17 13:06 96 Room Air 12/27/17 12:21 60 12/27/17 12:07 36.3 58 26 186/104 98 Room Air Physical Exam GENERAL: Sitting up in bed, disheveled but well appearing for her age, non- toxic EYE EXAM: normal conjunctiva. OROPHARYNX: no exudate, no erythema, lips, buccal mucosa, and tongue normal and mucous membranes are moist NECK: supple, no nuchal rigidity, no adenopathy, non-tender LUNGS: Clear to auscultation. Normal chest wall mechanics HEART: no murmurs, S1 normal and S2 normal CHEST: Old midline incision present ABDOMEN: abdomen soft, non-tender, normo-active bowel sounds, no masses, no rebound or guarding. BACK: Back is symmetrical on inspection and there is no deformity, no midline tenderness, no CVA tenderness. SKIN: no rashes and no bruising UPPER EXTREMITIES: upper extremities are grossly normal. LOWER EXTREMITIES: No pitting edema. Calves are equal bilaterally. NEURO EXAM: Normal sensorium, cranial nerves II-XII grossly intact, normal speech, no gross weakness of arms, no gross weakness of legs. Medical Decision & Procedures ER Provider Diagnostic Interpretation: Radiology results as stated below per my review and the radiologist's interpretation: CHEST ONE VIEW PORTABLE CLINICAL HISTORY: 82 years-old Male presenting with Chest Pain. TECHNIQUE: Portable upright AP view of the chest was obtained. COMPARISON: 12/16/2017. FINDINGS: Median sternotomy wires and mediastinal surgical clips again noted. Atherosclerosis of aortic arch. Cardiac silhouette normal in size. The lungs are hyperinflated. Mild prominence of pulmonary vasculature. No focal lung opacity. No large effusion or pneumothorax. Chronic separation of the left acromioclavicular joint. IMPRESSION: 1. Mild pulmonary vessel prominence suggest volume overload. No kathy evidence of pulmonary edema. 2. Hyperinflation suggests underlying emphysema. No focal infiltrate to suggest pneumonia. Electronically signed by: Giovanni Singh M.D. 12/27/2017 1:52 PM Dictated Date/Time: 12/27/2017 1:51 PM Laboratory Results 12/27/17 12:28 Red Blood Count 4.29, Mean Corpuscular Volume 94.6, Mean Corpuscular Hemoglobin 31.9, Mean Corpuscular Hemoglobin Concent 33.7, Mean Platelet Volume 11.4, Neutrophils (%) (Auto) 57.7, Lymphocytes (%) (Auto) 29.7, Monocytes (%) (Auto) 7.6, Eosinophils (%) (Auto) 4.3, Basophils (%) (Auto) 0.7, Neutrophils # (Auto) 3.19, Lymphocytes # (Auto) 1.64, Monocytes # (Auto) 0.42, Eosinophils # (Auto) 0.24, Basophils # (Auto) 0.04 12/27/17 12:28 Test 12/27/17 12:28 White Blood Count 5.53 K/uL (4.8-10.8) Red Blood Count 4.29 M/uL (4.7-6.1) Hemoglobin 13.7 g/dL (14.0-18.0) Hematocrit 40.6 % (42-52) Mean Corpuscular Volume 94.6 fL (80-100) Mean Corpuscular Hemoglobin 31.9 pg (25-34) Mean Corpuscular Hemoglobin Concent 33.7 g/dl (32-36) Platelet Count 140 K/uL (130-400) Mean Platelet Volume 11.4 fL (7.4-10.4) Neutrophils (%) (Auto) 57.7 % Lymphocytes (%) (Auto) 29.7 % Monocytes (%) (Auto) 7.6 % Eosinophils (%) (Auto) 4.3 % Basophils (%) (Auto) 0.7 % Neutrophils # (Auto) 3.19 K/uL (1.4-6.5) Lymphocytes # (Auto) 1.64 K/uL (1.2-3.4) Monocytes # (Auto) 0.42 K/uL (0.11-0.59) Eosinophils # (Auto) 0.24 K/uL (0-0.5) Basophils # (Auto) 0.04 K/uL (0-0.2) RDW Standard Deviation 46.5 fL (36.4-46.3) RDW Coefficient of Variation 13.5 % (11.5-14.5) Immature Granulocyte % (Auto) 0.0 % Immature Granulocyte # (Auto) 0.00 K/uL (0.00-0.02) Prothrombin Time 10.6 SECONDS (9.0-12.0) Prothromb Time International Ratio 1.0 (0.9-1.1) Activated Partial Thromboplast Time 26.1 SECONDS (21.0-31.0) Partial Thromboplastin Ratio 1.0 Anion Gap 9.0 mmol/L (3-11) Estimated GFR () 71.0 Estimated GFR (Non- 61.3 BUN/Creatinine Ratio 12.9 (10-20) Calcium Level 10.2 mg/dl (8.5-10.1) Total Bilirubin 0.8 mg/dl (0.2-1) Direct Bilirubin 0.2 mg/dl (0-0.2) Aspartate Amino Transf (AST/SGOT) 25 U/L (15-37) Alanine Aminotransferase (ALT/SGPT) 33 U/L (12-78) Alkaline Phosphatase 50 U/L (45-117) Total Creatine Kinase 129 U/L (39-308) Creatine Kinase MB 2.3 ng/ml (0.5-3.6) Creatine Kinase MB Ratio 1.8 (0-3.0) Total Protein 7.2 gm/dl (6.4-8.2) Albumin 4.1 gm/dl (3.4-5.0) Lipase 182 U/L (73-393) Laboratory results per my review. Medications Administered Medications (Trade) Dose Ordered Sig/Joan Route Start Time Stop Time Status Last Admin Dose Admin Aspirin (Aspirin Chew) 324 mg NOW STAT PO 12/27/17 13:15 12/27/17 13:16 DC 12/27/17 13:20 324 MG Nitroglycerin (Nitrostat Tab) 0.4 mg Q5M PRN SL 12/27/17 13:15 12/27/17 17:31 DC 12/27/17 13:22 0.4 MG ECG Per My Interpretation Indication: chest pain Rate (beats per minute): 66 Rhythm: sinus rhythm Findings: T-wave inversion (Inferior, septal, and anterior), other (RBBB) Comparison ECG Date: 12/16/17 Change: no significant change ED Course ED COURSE: Vital signs were reviewed and showed unremarkable The patients medical record was reviewed The above diagnostic studies were performed and reviewed. ED treatments and interventions as stated above. 1308: The patient was evaluated in room A9B. A complete history and physical examination was performed. 1330: The patient feels that his pain is improved after being given 2 nitroglycerin. 1432: I spoke with Dr. Natasha Arce [facility] Hospitalist. He will reevaluate the patient for hospitalization. Based on the patients age, coexisting illnesses, exam and lab findings the decision to treat as an inpatient was made. The patient remained stable while under my care. The patient will be evaluated for further management. Medical Decision Differential diagnoses includes but is not limited to acute coronary syndrome, myocardial infarction, pericarditis, pulmonary embolus, aortic dissection, pneumonia, pneumothorax, musculoskeletal, shingles, esophageal. Pt w/ PMH of CABG and two stents who presents with CP which started while having a procedure/HIDA. Pain consistent with previous OH/CABG. relieved with nitro. Trop and EKG unremarkable along with CBC and BMP. Pt updated at bedside and given ASA as well. Discussed with IM and admitted for CP. Medication Reconcilliation Current Medication List: was personally reviewed by me Blood Pressure Screening Patient's blood pressure: Elevated blood pressure Blood pressure disposition: Elevated BP felt to be situational Consults Time Called: 1428 Consulting Physician: Dr. Natasha Arce [facility] Hospitalist Returned Call: [address] Natasha Arce [facility] Hospitalist. He will reevaluate the patient for hospitalization. Impression Primary Impression: Precordial chest pain Scribe Attestation The scribe's documentation has been prepared under my direction and personally reviewed by me in its entirety. I confirm that the note above accurately reflects all work, treatment, procedures, and medical decision making performed by me. Departure Information Dispostion Being Evaluated By Hospitalist Referrals Kathy oMss M.D. (PCP) Patient Instructions My [facility]
[2017-12-27 17:32] VITALS: BP 181/72; PULSE 50; TEMP 36.4; O2SAT 99
[2017-12-27] MEDS ORDERED: ASPIRIN 81 MG ECTAB PO SCH (18:00)
[2017-12-27] MEDS ORDERED: NITROGLYCERIN 2% OINTMENT 30GM TUBE EXT SCH (18:00)
[2017-12-27] MEDS: AMLODIPINE BESYLATE 5 MG TAB PO SCH (18:56)
[2017-12-27] MEDS: DOXAZosin MESYLATE TAB 4 MG TAB PO SCH (18:56)
[2017-12-27] MEDS: ISOSORBIDE MONONITRATE 30 MG TABCR PO SCH (18:57)
[2017-12-27] MEDS: FINASTERIDE 5 MG TAB PO SCH (18:57)
[2017-12-27] MEDS: PANTOprazole SOD 40 MG TAB PO SCH (18:58)
[2017-12-27] MEDS: LOSARTAN POTASSIUM 50 MG TAB PO SCH (18:58)
[2017-12-27 19:19] VITALS: BP 168/77; PULSE 59; TEMP 36.8; O2SAT 95
[2017-12-27] MEDS: INSULIN ASPART 100 UNITS/ML 3 ML PEN SC SCH (20:06)
[2017-12-27] MEDS: HEPARIN SOD 5000 UNIT/0.5 ML CARP SQ SCH (20:52)
[2017-12-27] MEDS ORDERED: EZETIMIBE 10MG TAB PO SCH (21:00)
[2017-12-27] MEDS ORDERED: ATORVASTATIN 40 MG TAB PO SCH (21:00)
[2017-12-27] MEDS ORDERED: IV FLUIDS COMPLETED PRN (21:30)
[2017-12-27 23:48] VITALS: BP 123/69; PULSE 57; TEMP 36.4; O2SAT 92
[2017-12-28 02:51] VITALS: BP 108/53; PULSE 54; TEMP 36.5; O2SAT 96
[2017-12-28] MEDS: HEPARIN SOD 5000 UNIT/0.5 ML CARP SQ SCH (06:30)
[2017-12-28] MEDS: INSULIN ASPART 100 UNITS/ML 3 ML PEN SC SCH ×2 (07:00→11:00)
[2017-12-28 07:49] VITALS: BP 121/71; PULSE 48; TEMP 36.4; O2SAT 96
[2017-12-28] MEDS: DOXAZosin MESYLATE TAB 4 MG TAB PO SCH (08:25)
[2017-12-28] MEDS: FINASTERIDE 5 MG TAB PO SCH (08:25)
[2017-12-28] MEDS: PANTOprazole SOD 40 MG TAB PO SCH (08:26)
[2017-12-28] MEDS: ISOSORBIDE MONONITRATE 30 MG TABCR PO SCH (08:26)
[2017-12-28] MEDS: LOSARTAN POTASSIUM 50 MG TAB PO SCH (08:26)
[2017-12-28] MEDS: AMLODIPINE BESYLATE 5 MG TAB PO SCH (08:27)
[2017-12-28] MEDS ORDERED: ASPIRIN 81 MG ECTAB PO SCH (09:00)
[2017-12-28 11:39] VITALS: BP 96/54; PULSE 54; TEMP 36.4; O2SAT 94
[2017-12-28] MEDS ORDERED: IMDSR30 PO (12:11)
--- NOTE | 2017-12-28 12:12 | Discharge Instructions ---
Discharge Instructions Date of Service Dec 28, 2017. Admission Reason for Admission: Chest Pain In Adult Discharge Discharge Diagnosis / Problem: Chest pain in adult Discharge Goals Goal(s): Decrease discomfort, Improve function Activity Recommendations Activity Limitations: resume your previous activity . Instructions / Follow-Up Instructions / Follow-Up Increase Imdur to 4 tabs once daily Followup with PCP in 1-2 weeks. Followup with Cardio in 1-2 months Current Hospital Diet Patient's current hospital diet: AHA Diet (Heart Healthy), Diabetes Type 2 Diet Discharge Diet Recommended Diet: Diabetes Type 2 Diet Pending Studies Studies pending at discharge: no Medical Emergencies . Who to Call and When: Medical Emergencies: If at any time you feel your situation is an emergency, please call 911 immediately. . Non-Emergent Contact Non-Emergency issues call your: Primary Care Provider, Comptroller Call Non-Emergent contact if: your pain is not controlled, your pain is worsening, you have any medication questions . . "Provider Documentation" section prepared by John Cooper. .
[2017-12-28 13:15] VITALS: BP 102/56; PULSE 62; TEMP 36.6; O2SAT 95
--- NOTE | 2017-12-28 14:25 | CARDIOLOGY CONSULTATION ---
DATE OF CONSULTATION: 12/28/2017 PRIMARY PHYSICIAN: Nestor Moss M.D. CONSULTATION: Teodoro Sanchez Jr., M.D. ATTENDING PHYSICIAN: John Cooper M.D. HISTORY: The patient is an 82-year-old white male well known to me. Longstanding history of coronary artery disease. Status post 4-vessel CABG surgery 2004. This consisted of left internal mammary artery graft to the LAD, saphenous vein graft to left circumflex marginal, saphenous vein graft to LAD diagonal, and saphenous vein graft to right posterior descending artery. Recurrent anginal symptoms 2006. The patient's typical anginal symptoms is a retrosternal chest tightness. Cardiac catheterization performed in 2006 revealed occlusion of the vein grafts. The internal mammary artery graft to the LAD was patent. At that time, he underwent deployment of drug-eluting stents in his proximal left circumflex and left circumflex marginal. These procedures were performed at the [facility]. Readmitted to [facility] 05/10/2007 for unstable angina. Catheterization at that time revealed patent stents in the circumflex and marginal. Subtotal mid RCA occlusion. Collateral flow from the proximal RCA to the distal RCA. Patent left internal mammary artery graft to the mid LAD. LV angiography with ejection fraction 50%. Inferior hypokinesis. [id number] proximal and mid LAD stenoses. Pharmacologic nuclear stress test in 03/2012 with basal and mid inferior MO. No ischemia. Admission to [facility] 01/24/2013 with right lateral chest pain. Worse with movement of upper body. Thought to be musculoskeletal in origin. A dobutamine stress echocardiogram was performed and was negative for evidence of myocardial ischemia. Admission to [facility] 08/31/2015 for C. difficile diarrhea. He presented with loose stools and epigastric pain. Cardiac enzymes are negative for myocardial injury. ED visit 08/28/2016 of chest pressure. No ischemic changes on electrocardiogram. Cardiac enzymes negative for injury. Admission to [facility] 06/2017 for hypertensive urgency. This required increases in the antihypertensive doses and regimen. Cardiac enzymes were negative for myocardial injury. The patient states that since his June admission, he had done well from a cardiac standpoint. He was not experiencing any exertionally precipitated chest pain. Stable exercise tolerance and stamina. No dyspnea at rest with normal activities. Yesterday, the patient was undergoing a HIDA scan for evaluation of recurrent right upper quadrant abdominal pain. While undergoing the scan, he had a worsening of the right upper quadrant pain. This was then followed by retrosternal chest tightness. He was sent to the Emergency Department. His blood pressure was elevated at 186/104. His pulse rate was 58. He was given sublingual nitroglycerin. It was reported that he received two sublingual nitroglycerin. The discomfort in his chest resolved. He states that it lasted approximately 1 hour. He himself denies that he was diaphoretic. He was told that he was diaphoretic. He denies any associated dyspnea or nausea with the chest discomfort yesterday. The chest discomfort was his typical anginal symptoms. As stated above, he had not been experiencing this chest discomfort over the past several months. The discomfort yesterday did radiate into his left axilla. The patient was admitted to the telemetry unit. He states that since admission, he has had no further complaints of any chest or left axillary discomfort. He feels that he is back to his baseline. He was made n.p.o. for any possible cardiac testing today. He denies having any right upper quadrant abdominal discomfort since admission. The patient states that his right upper quadrant abdominal discomfort is precipitated by meals. He also has decreased appetite. He feels that he has early satiety. He has frequent belching. This is prior to admission. He denies any retrosternal burning sensation today. No belching today. He states that he underwent a colonoscopy last week. This revealed several polyps. With the prep for the colonoscopy, he had no right upper quadrant abdominal discomfort. He states that the right upper quadrant abdominal discomfort is precipitated by meals. He denies any symptoms of GI bleeding. REVIEW OF SYSTEMS: 1. As above. 2. No HEENT complaints. 3. No pulmonary complaints. 4. No urinary complaints. 5. Occasional postural lightheadedness if he arises rapidly from a supine or sitting position. These episodes last 20 seconds. If he gets up slowly, no lightheadedness. No lightheadedness with exertion. 6. No palpitations. 7. No syncope. 8. No orthopnea, PND, or peripheral edema. 9. No urinary complaints. 10. No cerebrovascular complaints. 11. No headaches with isosorbide mononitrate 90 mg daily. 12. No claudication-type symptoms. 13. He states he was recently diagnosed with a right inguinal hernia. Mild discomfort in his right groin on occasion. 14. No fevers or chills. 15. No bleeding complaints. PAST MEDICAL HISTORY: 1. Coronary artery disease as above. 2. Status post 4-vessel CABG surgery 2004. 3. Status post left circumflex and left circumflex marginal drug-eluting stents 2006. 4. Dyslipidemia. 5. Diverticulosis. 6. History of colon polyps as documented above. 7. Gastroesophageal reflux disease. 8. Hepatic steatosis. 9. Hypertension. 10. Hyperparathyroidism. 11. Osteopenia. 12. History of premature ventricular beats. 13. Type 2 diabetes mellitus. 14. History of vitamin D deficiency. 15. History of nephrolithiasis. 16. BPH. 17. History of prostatitis. 18. History of urinary tract infection. 19. History of hypertensive urgency. 20. History of pseudogout. 21. History of supraventricular tachycardia. 22. History of small aneurysm left common iliac artery. PAST SURGICAL HISTORY: 1. Status post CABG surgery. 2. Status post abdominal aortic aneurysm repair. 3. Status post cath placement. 4. Status post left inguinal hernia repair. 5. History of knee surgery. 6. History of shoulder surgery. 7. History of wrist surgery. CURRENT MEDICATIONS: Aspirin 81 mg daily, subQ heparin 5000 units q. 8 hours., NovoLog sliding scale insulin, atorvastatin 80 mg at bedtime, Zetia 10 mg daily, amlodipine 10 mg daily, doxazosin 4 mg q.a.m., finasteride 5 mg daily, isosorbide mononitrate 90 mg daily, losartan 100 mg daily, pantoprazole 40 mg daily, and multiple p.r.n. medications. He is also receiving topical nitroglycerin ointment 1 inch. This was applied last evening. It has not as yet been taken off. ALLERGIES AND ADVERSE DRUG REACTIONS: CHLORTHALIDONE, CIPROFLOXACIN, LINZESS, LISINOPRIL. FAMILY HISTORY: Coronary artery disease, dyslipidemia, colon cancer. SOCIAL HISTORY: Former cigarette smoker. He is , lives with his . He is retired. He does not drink alcohol. PHYSICAL EXAMINATION: GENERAL: The patient is sitting up in his bed. No distress. HEAD: Normal. EYES: Pupils equal and round. Anicteric. Conjunctivae normal. NECK: No jugular venous distension. Carotids 2/2 bilaterally. Normal upstroke. No bruits. LUNGS: Normal respiratory effort. Clear. No rales or wheezes. HEART: PMI normal. No lifts or heaves. Regular rate and rhythm. Distant heart sounds. 1/6 systolic murmur left lower sternal border. S1, S2 normal. No S3 or S4. No rub. ABDOMEN: Soft. Nontender. No palpable masses or organomegaly. No bruits. Normal bowel sounds. EXTREMITIES: No pretibial edema. No cyanosis or clubbing. PULSES: Pulses in all extremities palpable. NEUROLOGIC: Alert and oriented x3. Motor grossly intact. PSYCHIATRIC: Affect is normal. VITAL SIGNS: This morning with oral temperature 36.4, pulse 48, blood pressure 121/71, pulse oximetry room air 96%. Monitor history since admission reviewed by me. Sinus rhythm, sinus bradycardia, occasional premature ventricular beat, occasional premature supraventricular beat. DATA: Electrocardiogram performed yesterday during complaint of chest discomfort with sinus rhythm with premature supraventricular beats, right bundle branch block, secondary ST and T wave abnormalities. No significant change in regards to the ST segments compared to prior electrocardiogram. Chest x-ray performed yesterday and reviewed by me reveals slight prominence of pulmonary vasculature. Labs reveal troponin I less than 0.015 on 3 determinations. Metabolic profile yesterday with sodium 141, potassium 4.4, chloride 108, carbon dioxide 24, BUN 14, creatinine 1.12, random glucose 115. Liver function tests were normal. CK total was 129 with MB of 2.3. INR yesterday 1.0. PTT 26.1. CBC yesterday with WBC 5.53, hemoglobin 13.7, hematocrit 40.6, platelet count 140. ASSESSMENT: 1. Longstanding history of coronary artery disease. Status post CABG surgery. Occlusion of three of his four bypass grafts on prior cardiac catheterization. Status post left circumflex marginal stenting procedures in 2006. Severe RCA stenosis with [id number] collateral flow. Prior to admission yesterday, the patient had recently been doing well from a cardiac standpoint. He had had stable exercise tolerance. No exertionally precipitated anginal symptoms. Yesterday, when he was undergoing his HIDA scan, he had increased right upper quadrant abdominal pain. This was then followed by his typical anginal retrosternal chest pressure. He was noted to have severely elevated blood pressure. With normalization of his blood pressure and sublingual nitroglycerin, the chest discomfort resolved. No acute changes on his electrocardiogram. Despite the chest discomfort lasting an hour by his account, cardiac enzymes negative for myocardial injury. Since admission, no anginal or anginal equivalent symptoms. It would not be unexpected for him to have anginal discomfort with increased myocardial oxygen demand from an elevated blood pressure. I do not suspect an acute coronary syndrome. The patient has known longstanding underlying severe coronary artery disease. 2. No evidence of heart failure by exam. No symptoms of heart failure. 3. Asymptomatic premature supraventricular and ventricular beats. 4. Heart rate well controlled. 5. Hypertensive yesterday. Blood pressure controlled this morning. 6. Dyslipidemia and vascular disease. He is on a maximum atorvastatin dose consistent with current guidelines. RECOMMENDATIONS: 1. Increase isosorbide mononitrate to 120 mg daily. 2. Continue other medications as above. 3. Allow the patient to eat lunch. 4. Allow the patient walk in the morgan. 5. If he is stable with walking in the morgan and after eating lunch, would discharge home. 6. Followup visit with me in one to two weeks. 7. There is no indication for an urgent or emergent cardiac catheterization procedure. 8. The patient was instructed to call 911 immediately for any episodes of chest discomfort not relieved after three sublingual nitroglycerin. Also, call 911 for any more severe chest discomfort. 9. Continue follow up with his primary care provider. Consider performing gastric emptying study, the patient could have gastroparesis. He complains of early satiety and inability to eat large meals. Thank you for asking me to see this patient in cardiology consultation.
--- NOTE | 2017-12-29 08:43 | Discharge Summary ---
Discharge Summary Date of Service Dec 28, 2017. Discharge Summary Admission Date: Dec 27, 2017 at 16:18 Discharge Date: Dec 28, 2017 Discharge Disposition: Home Principal Diagnosis: Chest paiN Longstanding history of coronary artery disease. S/P CABG Immunizations: Have You Had Influenza Vaccine: No Influenza Vaccine Date: Jan 19, 2011 History of Tetanus Vaccine?: Unknown History of Pneumococcal: Yes Pneumococcal Date: Jan 19, 2011 History of Hepatitis B Vaccine: Unknown Medication Reconciliation New Medications: Isosorbide Mononitrate (Isosorbide Mononitrate ER) 30 Mg Tabcr 120 MG PO DAILY for 30 Days, #120 TAB tAKE 4 TABLETS IN THE MORNING. Continued Medications: Amlodipine (Norvasc) 10 Mg Tab 10 MG PO DAILY, TAB Aspirin (Aspirin Ec) 81 Mg Tab 81 MG PO QAM Atorvastatin (Lipitor) 80 Mg Tab 80 MG PO HS Calcium Carbonate (Tums) 500 Mg Chew 1000 MG PO PRN Cholecalciferol (Vitamin D 1000 Unit) 1,000 Unit Cap 2000 INTER.UNIT PO QPM Doxazosin Mesylate (Cardura) 4 Mg Tab 4 MG PO QAM Ezetimibe (Zetia) 10 Mg Tab 10 MG PO QPM Finasteride (Proscar) 5 Mg Tab 5 MG PO QAM Fish Oil ([place]-3) 1 Ea Cap 300 MG PO QAM Furosemide (Lasix) 20 Mg Tab 20 MG PO DAILY PRN for fluid Losartan Potassium (Cozaar) 100 Mg Tab 100 MG PO DAILY, TAB Metformin Hcl (Glucophage) 1,000 Mg Tab 1500 MG PO DAILY 1 1/2 tablet daily. Nitroglycerin (Nitrostat) 0.4 Mg Tab 0.4 MG UT UD NEEDED FOR CHEST PAIN : ONE TABLET UNDER THE TONGUE EVERY 5 MINUTES UP TO 3 DOSES. Pantoprazole (Protonix) 40 Mg Tab 40 MG PO QAM Polyethylene Glycol 3350 (Miralax) 1 Pow Pow 17 GM PO DAILY PRN for Constipation, #255 GM Probiotic Product (Probiotic) 1 Tab Tab 1 TAB PO Q2D Sennosides-Docusate Sodium (Stool Softener) 1 Tab Tab 1-2 TABS PO DAILY PRN for Constipation Discontinued Medications: Isosorbide Mononitrate Ext Rel (Imdur Ext Rel) 30 Mg Tabcr 90 MG PO Discharge Exam Review of Systems Constitutional: + sweats, No fever, No chills Eyes: No worsening of vision ENT: No hearing loss, No unusual epistaxis, No nasal symptoms Respiratory: No cough, No sputum, No wheezing Cardiovascular: + chest pain, No orthopnea, No PND Abdomen: + pain (chronic RUQ pain under evaluation), No nausea, No vomiting Musculoskeletal: No joint pain Genitourinary - Male: No hematuria, No dysuria Neurologic: No memory loss, No paralysis, No weakness Psychiatric: No depression symptoms Endocrine: No fatigue Hematologic / Lymphatic: No abnormal bleeding/bruising Integumentary: No rash Allergic / Immunologic: No environmental allergies Physical Exam: General Appearance: WD/WN, no apparent distress Eyes: normal inspection ENT: normal ENT inspection Neck: supple, no adenopathy Respiratory/Chest: chest non-tender, lungs clear Cardiovascular: regular rate, rhythm, no edema Abdomen / GI: normal bowel sounds, non tender, soft Neurologic/Psychiatric: alert, oriented x 3 Skin: normal color Hospital Course 82 y/o M Hx HTN, HPL, DM II, CAD. Presents with CP. The pt had been having RUQ pain and underwent a HIDA scan today. The scan was read as normal. During the test he developed some central CP radiating to his L axilla, accompanied by diaphoresis. He denies SOB, nausea/vomiting. He states that the symptoms are similar to the symptoms he had when he suffered an TX in 2006. Initial troponin and EKG do not support acute ischemia. The pt is admitted due to high risk. 1) CP Longstanding history of coronary artery disease. Status post CABG surgery. Occlusion of three of his four bypass grafts on prior cardiac catheterization. Status post left circumflex marginal stenting procedures in 2006. Severe RCA stenosis with [id number] collateral flow - Assigned to telemetry - NTG or morphine PRN for CP. ASA, statin provided - did not previously tolerate a B adrian. Serial enzymes requested were negative. Cardiology consult requested. Patient was seen and deemed that it was not needed to do cath. Will increase imdur to 120 mg daily. Patient will followup with cardio and PCP as an outpatient. 2) HTN - poorly controlled - previous admission with CP related to HTN is noted although SBP was above 200 at the time. Cont Norvasc, NTG patch and PRN Hydralazine provided. 3) DM II - placed on SS 4) HPL - cont Lipitor Total Time Spent: Greater than 30 minutes This includes examination of the patient, discharge planning, medication reconciliation, and communication with other providers. Discharge Instructions Please refer to the electronic Patient Visit Report (Discharge Instructions) for additional information. Follow-Up As noted in discharge summary Additional Copies To Nestor Moss M.D.
== END 2017-12-28 13:30 | disposition home or self-care (01) ==
LOC: C.EDB 12:05 → C.2T 16:18 → ENRESERV 16:47
PROVIDERS: ADMIT Internal Medicine; ATTEND Internal Medicine Sports Medicine
DX: R07.9 Chest pain, unspecified (principal); I25.10 Atherosclerotic heart disease of native coronary artery without angina pectoris; Z79.82 Long term (current) use of aspirin; Z79.899 Other long term (current) drug therapy; Z79.84 Long term (current) use of oral hypoglycemic drugs; I10 Essential (primary) hypertension; E78.5 Hyperlipidemia, unspecified; E11.9 Type 2 diabetes mellitus without complications; I45.10 Unspecified right bundle-branch block; Z95.1 Presence of aortocoronary bypass graft; Z87.891 Personal history of nicotine dependence

== ENCOUNTER → 2017-12-27 | Outpatient (CLI) | payer OTHER ==
[~2017-12-27] MED LIST changes: -EpHEDrine SULFATE INJ 50 MG/ML AMP ONE; -GLYCOPYRROLATE INJ 0.2 MG/ML VIAL ONE; -LIDOCAINE HCL 2% 2 ML VIAL (20MG/ML) ONE; -PROPOFOL IV EMULSION 10 MG/ML 20 ML VIAL ONE; +SINCALIDE INJ 1.7 MCG in SODIUM CHLORIDE 0.9% 100ML 100 ML IV ONE; -SODIUM CHLORIDE 0.9% 500ML 500 ML IV ONE
--- NOTE | 2017-12-27 12:16 | DIAGNOSTIC IMAGING REPORT ---
HEPATOBILIARY EF IMAGING HISTORY: Pain. Nausea. R10.9 Abdominal pain COMPARISON: CT 12/16/2017 TECHNIQUE: Immediately following the intravenous administration of 5.5 mCi Tc-99m Choletec, dynamic anterior abdominal imaging pre/post 1.7 mcg of Kinevac was performed. FINDINGS: Uniform hepatic tracer accumulation is shown. Prompt intrahepatic biliary excretion is seen. The gallbladder, common bile duct, and small bowel are all visualized by 20 minutes. This appearance represents the normal sequence of biliary excretion. The gallbladder ejection fraction following administration of Kinevac was 80 % (normal >35%). IMPRESSION: 1. No evidence for cystic duct obstruction. 2. Gallbladder ejection fraction calculated to be 80 %. 3. Normal study overall. The above report was generated using voice recognition software. It may contain grammatical, syntax or spelling errors. Electronically signed by: Julius Alegria M.D. 12/27/2017 12:15 PM Dictated Date/Time: 12/27/2017 12:13 PM
== END | disposition home or self-care (01) ==
LOC: C.NUCL 09:47
PROVIDERS: ATTEND Family Medicine Adult Medicine
DX: R10.11 Right upper quadrant pain (principal)

== ENCOUNTER → 2018-01-05 | Outpatient (CLI) | payer OTHER ==
[~2018-01-05] MED LIST changes: +IMDSR30 PO; -ISOS30TA35 PO
--- NOTE | 2018-01-05 13:58 | DIAGNOSTIC IMAGING REPORT ---
NUCLEAR GASTRIC EMPTYING STUDY: CLINICAL HISTORY: R10.9 Abdominal [id number] COMPARISON STUDY: None TECHNIQUE: Following the oral administration of 1 mCi of technetium 99m sulfur colloid in egg sandwich and 8 ounces of water, static abdominal images are performed anteriorly and posteriorly at 0 minutes, 1 hour, 2 hours, and 4 hour time intervals. Gastric emptying was calculated utilizing the geometric mean method. FINDINGS: There is approximately 60 % gastric activity remaining at the 1 hour time interval, 46 % at the 2 hour time interval (normal is less than 60%), and 8 % remaining at the 4 hour time interval (normal is less than 10%). These findings are consistent with a normal study IMPRESSION: Findings are consistent with a normal study. Electronically signed by: Russell Ellis M.D. 01/05/2018 1:56 PM Dictated Date/Time: 01/05/2018 1:56 PM
== END | disposition home or self-care (01) ==
LOC: C.NUCL 08:27
PROVIDERS: ATTEND Family Medicine Adult Medicine
DX: R10.9 Unspecified abdominal pain (principal)

== ENCOUNTER 2019-02-14 10:37 | Observation (INO) ==
[2019-02-14] MEDS ORDERED: ASPIRIN CHEW 324 MG PO STA (10:57)
[2019-02-14] MEDS ORDERED: NITROGLYCERIN SL 0.4 MG/TAB TAB SL PRN (10:57)
--- NOTE | 2019-02-14 11:18 | XRay Report ---
XR chest 1V portable HISTORY: Atypical Chest Pain COMPARISON: Chest 01/07/2019. FINDINGS: Mild interstitial thickening at the lung bases which is likely chronic. This remains unchan ged. No new focal lung consolidations to suggest pneumonia. No evidence for pulmonary edema. There ar e poststernotomy changes. The heart remains top normal in size. No pleural effusions. No pneumothorax . IMPRESSION: No significant change compared to the prior study. No acute process. Stable mild bibasilar interstiti al thickening which is likely chronic. Electronically signed by: Matti Rincon M.D. 02/14/2019 11:16 AM
[2019-02-14 11:34] LABS: Basophils # (auto) 0.03 K/uL (0-0.2); Basophils % (auto) 0.6 %; Eosinophils # (auto) 0.11 K/uL (0-0.5); Eosinophils % (auto) 2.3 %; Hematocrit (blood only) 39.4 % (42-52); Hemoglobin 13.4 g/dL (14.0-18.0); Lymphocytes # (auto) 0.98 K/uL (1.2-3.4); Lymphocytes % (auto) 20.4 %; Mean Corpuscular Hemoglobin 32.8 pg (25-34); Mean Corpuscular Volume 96.6 fL (80-100); Mean Platelet Volume 10.3 fL (7.4-10.4); Monocytes # (auto) 0.51 K/uL (0.11-0.59); Monocytes % (auto) 10.6 %; Neutrophils # (auto) 3.18 K/uL (1.4-6.5); Neutrophils % (auto) 66.1 %; Platelet Count 144 K/uL (130-400); RDW Coefficient of Variation 12.8 % (11.5-14.5); Red Blood Count 4.08 M/uL (4.7-6.1); White Blood Count 4.81 K/uL (4.8-10.8)
[2019-02-14 11:44] LABS: INR 1.1 (0.9-1.1); Partial Thromboplastin Ratio 0.9; Partial Thromboplastin Time 23.8 Seconds (21.0-31.0); Prothrombin Time 10.9 Seconds (9.0-12.0)
[2019-02-14 11:51] LABS: Alanine Aminotransferase 23 U/L (12-78); Albumin Level 3.9 gm/dl (3.4-5.0); Aspartate Aminotransferase 16 U/L (15-37); BUN Creatinine Ratio 14.6 (10-20); Blood Urea Nitrogen 17 mg/dl (7-18); Calcium 10.4 mg/dl (8.5-10.1); Carbon Dioxide 26 mmol/L (21-32); Chloride 107 mmol/L (98-107); Creatinine Clr Calc Pharmacy 51.1 ml/min; Est GFR (African American) 68.3; Est GFR (Non-African American) 58.9; Glucose 161 mg/dl (70-99); Lipase 220 U/L (73-393); Potassium 4.1 mmol/L (3.5-5.1); Sodium 138 mmol/L (136-145)
[2019-02-14 11:56] LABS: Albumin Globulin Ratio 1.4 (0.9-2); Alkaline Phosphatase 42 U/L (45-117); Globulin 2.7 gm/dl (2.5-4.0); Total Protein 6.6 gm/dl (6.4-8.2); Troponin I < 0.015 ng/ml (0-0.045)
--- NOTE | 2019-02-14 12:12 | Emergency Department Note ---
Entered by Dale Doty acting as a scribe for History of Present Illness General Chief complaint: Cardiac Assessment Stated complaint: CHEST PAIN, PALPATATION,SOB Source: patient History of Present Illness Provider complaint: Palpitations Onset (ago): day(s) 2 Location: chest Pain Consistency: + intermittent Maximum Pain Intensity: 2 Current Pain Intensity: 2 Quality: + other (Pressure) Relieved By: + none Exacerbated By: + other (Lying flat) Associated symptoms: + chest pain and + shortness of breath; no nausea/vomiting The patient is an 83 year old male who presents to the Emergency Room with complaints of intermittent palpitations that he has experienced the last two nights. The patient states that he intermittently feels the palpitations throughout the day but they are the most prominent at night when he is lying flat. The patient notes that with the palpitations he experiences some chest tightness and mild shortness of breath as well. The patient has a history of coronary stents and describes today's symptoms as similar to when he had the stents placed. Additionally, the patient endorses intermittent tingling in his lower extremities. Currently the patient is stable and notes he feels "pressure" in his chest. The patient adds that prior to arrival he took an Aspirin and Nitro with no relief from either medication. The patient denies any nausea, vomiting, diarrhea, or lower extremity swelling. Home Medications Home Medications Medication Instructions Recorded Confirmed Type amlodipine 10 mg PO QAM 04/13/18 02/14/19 History aspirin 81 mg PO QAM 04/13/18 02/14/19 History doxazosin 4 mg PO QPM 04/13/18 02/14/19 History finasteride 5 mg PO QAM 04/13/18 02/14/19 History pantoprazole 40 mg PO QAM 04/13/18 02/14/19 History omega-3 fatty acids-fish oil 300 1 cap PO QAM 11/11/18 02/14/19 History mg-1,000 mg capsule ranitidine 150 mg tablet 150 mg PO DAILY tab 11/11/18 02/14/19 History cholecalciferol (vitamin D3) 2,000 2,000 unit PO QPM cap 12/01/18 02/14/19 History unit capsule furosemide 20 mg tablet 20 mg PO DAILY PRN #90 tab 12/01/18 02/14/19 History isosorbide mononitrate 120 mg PO QAM 01/07/19 02/14/19 History atorvastatin 80 mg tablet 80 mg PO QPM #90 tab 01/09/19 02/14/19 Rx ezetimibe 10 mg tablet 10 mg PO QPM #90 tab 01/09/19 02/14/19 Rx losartan 100 mg tablet 100 mg PO QAM #30 tab 01/09/19 02/14/19 Rx tamsulosin 0.4 mg capsule 0.4 mg PO DAILY #30 cap 01/23/19 02/14/19 Rx blood sugar diagnostic strips #100 ea 01/27/19 02/14/19 Rx lancets 33 gauge #100 ea 01/27/19 02/14/19 Rx Allergies Allergy/AdvReac Type Severity Reaction Status Date / Time cinnamon Allergy Severe THROAT Verified 02/14/19 11:28 SWELLING chlorthalidone Allergy Verified 02/14/19 11:28 ciprofloxacin Allergy Verified 02/14/19 11:28 linaclotide AdvReac Unknown DIARRHEA Verified 02/14/19 11:28 lisinopril AdvReac Unknown DIZZINESS Verified 02/14/19 11:28 Past Med/Surg History Medical History Myocardial infarction Sclerosing mesenteritis (Acute) Heart disease Heart palpitations Heartburn (01/11/14) Kidney stone PVCs (premature ventricular contractions) Pneumonia UTI (lower urinary tract infection) (04/27/14) Surgical History H/O knee surgery H/O shoulder surgery History of herniorrhaphy Hx of CABG S/P aneurysm repair Family History Unknown Coronary heart disease Brother Myocardial infarction Mother Colon cancer Social History Preferred Language: Salvadorean Communication Ability: Effective Visual Impairment: No Limitations Hearing Ability: Normal Nub Card Tender Required: No Beliefs That Will Affect Care: None marital status: Current Living Situation: Spouse current occupational status: retired Feels Safe at Home: Yes Smoking Status: Former smoker Second Hand Exposure: No ; Hx Alcohol Use: No Hx Substance Use: No Review of Systems See HPI for pertinent positives & negatives. and A total of 10 systems reviewed and were otherwise negative Physical Exam Vital Signs Vital Signs - 24 hr 02/14/19 10:41 02/14/19 11:29 02/14/19 12:55 Temperature 36.5 C Temperature Source Oral Sepsis Recent Fever Within 48 Hours No Sepsis New/Unexplained Change in Mental Status No Sepsis Action Taken by Nursing No Action Required Pulse Rate 60 Pulse Rate [Left] 52 L Pulse Rhythm [Left] Regular Pulse Strength [Left] Normal Respiratory Rate 20 18 Respiratory Effort / Characteristics Non-Labored Spontaneous Non-Labored Spontaneous Respiratory Depth Normal Normal Respiratory Pattern Regular Blood Pressure 163/73 H Blood Pressure [Left Arm] 146/75 H Blood Pressure Mean 103 Blood Pressure Mean [Left Arm] 98 Blood Pressure Position Sitting Blood Pressure Position [Left Arm] Lying Pulse Oximetry 99 96 98 Oxygen Delivery Method Room Air Room Air Room Air GENERAL: Patient is awake alert in no acute distress patient is resting comfortably and showing no signs of anxiety EYES: The conjunctivae are clear. The pupils are round and reactive. EARS, NOSE, MOUTH AND THROAT: The nose is without any evidence of any deformity. Mucous membranes are moist tongue is midline NECK: The neck is nontender and supple. RESPIRATORY: Normal respiratory effort is noted there is no evidence of wheezing rhonchi or rales CARDIOVASCULAR: Regular rate and rhythm noted there no murmurs rubs or gallops normal S1 normal S2 GASTROINTESTINAL: The abdomen is soft. Bowel sounds are present in all quadrants. Abdomen is nontender MUSCULOSKELETAL/EXTREMITIES: There is no evidence of gross deformity full range of motion is noted in the hips and shoulders SKIN: There is no obvious evidence of any rash. Trace pedal edema was noted bilaterally. NEUROLOGIC: Patient is awake alert and oriented x3. Course 1053: Past medical records reviewed. The patient was evaluated in room C04, and a complete history and physical examination were performed. 1232: I spoke to Dr. Dash [facility] Hospitalist about the patient's case. She is going to accept the patient for further evaluation. 1238: I reevaluated the patient and he was resting in bed. I updated him on results as well as discussed the treatment plan. He fully understands the plan. Consultations Consultation #1: I spoke to Dr. Ekta Arce [facility] Hospitalist about the patient's case. She is going to accept the patient for further evaluation. Time: 12:32 Administered Medications Atorvastatin Calcium (Lipitor) 80 mg PO QPM [facility] Stop: 03/16/19 20:59 Last Admin: 02/14/19 21:04 Dose: 80 mg Documented by: [id number] Doxazosin Mesylate (Cardura) 4 mg PO QPM [facility] Stop: 03/16/19 20:59 Last Admin: 02/14/19 21:03 Dose: 4 mg Documented by: [id number] Ezetimibe (Zetia) 10 mg PO QPM [facility] Stop: 03/16/19 20:59 Last Admin: 02/14/19 21:05 Dose: 10 mg Documented by: [id number] Enoxaparin Sodium (Lovenox) 40 mg SQ QPM [facility] Stop: 03/16/19 20:59 Last Admin: 02/14/19 21:04 Dose: 40 mg Documented by: [id number] Insulin Aspart (Novolog Flexpen) 0 units SC [facility]; Protocol Stop: 03/16/19 17:44 Last Admin: 02/14/19 21:04 Dose: Not Given Documented by: [id number] Cosigned by: [id number] Admin: 02/14/19 18:29 Dose: 4 units Documented by: [id number] Cosigned by: [id number] Ranitidine HCl (Zantac) 150 mg PO DAILY [facility] Stop: 03/16/19 17:29 Last Admin: 02/14/19 17:37 Dose: 150 mg Documented by: [id number] Vitamin D (Vitamin D3) 2,000 units PO QPM [facility] Stop: 03/16/19 20:59 Last Admin: 02/14/19 21:05 Dose: 2,000 units Documented by: [id number] Discontinued Medications Aspirin (Aspirin) 324 mg PO NOW STA Stop: 02/14/19 10:58 Last Admin: 02/14/19 11:31 Dose: 81 mg Documented by: [id number] Miscellaneous Information (Consult Glycemic Management Pharmacy) 1 ea N/A NOW STA; Protocol Stop: 02/14/19 16:59 Last Admin: 02/14/19 18:29 Dose: 1 ea Documented by: [id number] Nitroglycerin (Nitrostat) 0.4 mg SL UD PRN PRN Reason: Chest Pain Stop: 03/16/19 10:56 Last Admin: 02/14/19 11:32 Dose: 0.4 mg Documented by: [id number] Nitroglycerin (Nitro-Bid 2%) 0.5 inch EXT Q6H ONE Stop: 02/14/19 15:48 Last Admin: 02/14/19 16:18 Dose: 0.5 inch Documented by: [id number] Medical Decision Making Differential Diagnosis Differential: NSR, SVT, PACs, PVCs, Cardiac Dysrhythmia, Endocrine Dysfunction, Eletrolyte/Metabolic Abnormality, Pulmonary Embolism, Infectious, GI, amongst other pathologies entertained. Medical Records Attestation: I reviewed the patient's medical records. Home Medications Current Medication List: was personally reviewed by me Laboratory Data Attestation: I reviewed the patient's lab results. Result diagrams: 02/15/19 05:50 02/15/19 05:50 Lab Results 02/14/19 02/14/19 02/14/19 Range/Units 11:20 11:20 11:20 WBC 4.81 (4.8-10.8) K/uL RBC 4.08 L (4.7-6.1) M/uL Hgb 13.4 L (14.0-18.0) g/dL Hct 39.4 L (42-52) % MCV 96.6 (80-100) fL MCH 32.8 (25-34) pg MCHC 34.0 (32-36) g/dL RDW Std Deviation 45.0 (36.4-46.3) fL RDW Coeff of Abbie 12.8 (11.5-14.5) % Plt Count 144 (130-400) K/uL MPV 10.3 (7.4-10.4) fL Immature Gran % (Auto) 0.0 % Neut % (Auto) 66.1 % Lymph % (Auto) 20.4 % [place] % (Auto) 10.6 % Eos % (Auto) 2.3 % Baso % (Auto) 0.6 % Immature Gran # (Auto) 0.00 (0.00-0.02) K/uL Neut # (Auto) 3.18 (1.4-6.5) K/uL Lymph # (Auto) 0.98 L (1.2-3.4) K/uL [place] # (Auto) 0.51 (0.11-0.59) K/uL Eos # (Auto) 0.11 (0-0.5) K/uL Baso # (Auto) 0.03 (0-0.2) K/uL PT 10.9 (9.0-12.0) Seconds INR 1.1 (0.9-1.1) APTT 23.8 (21.0-31.0) Seconds PTT Ratio 0.9 Sodium 138 (136-145) mmol/L Potassium 4.1 (3.5-5.1) mmol/L Chloride 107 (98-107) mmol/L Carbon Dioxide 26 (21-32) mmol/L Anion Gap 5.0 (3-11) BUN 17 (7-18) mg/dl Creatinine 1.15 (0.6-1.4) mg/dl Est Cr Clr Drug Dosing 51.1 ml/min Est GFR ( Amer) 68.3 Est GFR (Non-Af Amer) 58.9 BUN/Creatinine Ratio 14.6 (10-20) Glucose 161 H (70-99) mg/dl Calcium 10.4 H (8.5-10.1) mg/dl Total Bilirubin 1.0 (0.2-1) mg/dl AST 16 (15-37) U/L ALT 23 (12-78) U/L Alkaline Phosphatase 42 L (45-117) U/L Troponin I < 0.015 (0-0.045) ng/ml Total Protein 6.6 (6.4-8.2) gm/dl Albumin 3.9 (3.4-5.0) gm/dl Globulin 2.7 (2.5-4.0) gm/dl Albumin/Globulin Ratio 1.4 (0.9-2) Lipase 220 (73-393) U/L Imaging Data Radiologist's Impression: Radiology results as stated below per my review and the radiologist's interpretation: XR chest 1V portable HISTORY: Atypical Chest Pain COMPARISON: Chest 01/07/2019. FINDINGS: Mild interstitial thickening at the lung bases which is likely chronic. This remains unchanged. No new focal lung consolidations to suggest pneumonia. No evidence for pulmonary edema. There are poststernotomy changes. The heart remains top normal in size. No pleural effusions. No pneumothorax. IMPRESSION: No significant change compared to the prior study. No acute process. Stable mild bibasilar interstitial thickening which is likely chronic. Electronically signed by: Matti Rincon M.D. 02/14/2019 11:16 AM ECG Data Attestation: I personally reviewed and interpreted this ECG as follows: Indication: palpitations Rate (beats per minute): 58 Rhythm: sinus bradycardia Findings: + PVC, + RBBB and + ST depression (Lateral) Comparison ECG Date: from (01/07/19) Change: no significant change Blood Pressure Blood Pressure Findings: Elevated blood pressure Blood Pressure Disposition: further management by hospitalist MDM Narrative The patient is an 83-year-old male who presented to the emergency department for an evaluation of chest pressure. The patient was experienced chest pressure and palpitations. He states that this was similar to episodes that he has had in the past with acute coronary syndrome. I discussed the patient's laboratory and radiographic studies with him. His chest pain was treated with good relief of symptoms. The patient's EKG did show some ischemic changes however it appeared similar to previous. His cardiac biomarker was negative. I discussed the limitations of the emergency department work-up for chest pain with him. Ultimately I was concerned with the patient's risk factors so I discussed his case with the on-call [facility] hospitalist group. They have agreed to evaluate patient in the emergency department for further management disposition. Impression & Plan Chest pain, Abnormal EKG Discharge Plan Visit Data *Final* Discharge Date/Time: 02/14/19 16:30 Chief Complaint: Cardiac Assessment Stated Complaint: CHEST PAIN, PALPATATION,SOB ED Provider: Eleuterio Selby Discharge Problem: Chest pain, Abnormal EKG Patient Disposition: Admitted As Inpatient Discharge Instructions Interventions: ED Discharge Assessment Last Done: 02/14/19 16:30 Discharge Problem: Chest pain Qualifiers: Chest pain type: unspecified Qualified Code(s): R07.9 - Chest pain, unspecified The scribe's documentation has been prepared under my direction and personally reviewed by me in its entirety. I confirm that the note above accurately reflects all work, treatment, procedures, and medical decision making performed by me.
[2019-02-14] MEDS ORDERED: NITROGLYCERIN 2% OINTMENT 30GM TUBE EXT ONE (15:47)
[2019-02-14] MEDS ORDERED: INFLUENZA ADMINISTRATION CHARGE ONE (16:15)
[2019-02-14] MEDS ORDERED: INFLUENZA VACCINE HIGH DOSE 65+ 0.5 ML SYR IM ONE (16:15)
--- NOTE | 2019-02-14 16:35 | History & Physical Report ---
Date of Service February 14, 2019 Assessment & Plan (1) Chest pain: Admit to PCU on telemetry for atypical chest pain Vital signs every 4 hours Troponin every 6 hours with EKG x2 to rule out acute coronary syndrome TTE pending Consider consulting cardiology and stress test DVT prophylaxis Lovenox 40 mg subcu 2 daily Follow-up CBC CMP, lipid panel A1c and replenish electrolytes as needed Continue home medicine amlodipine 10 mg p.o. every morning, aspirin 81 mg p.o. every morning, furosemide 20 mg p.o. daily as needed, isosorbide mononitrate 120 mg p.o. every morning, losartan 100 mg tablet p.o. every morning. Patient is full code Present on Admission?: Yes (2) Hyperlipidemia: Lipid panel pending, continue atorvastatin 80 mg p.o. every afternoon for now until result is available. Continue fish oil for hypertrophic triglyceridemia. Present on Admission?: Yes (3) Diabetes mellitus, type II: Continue home medicine as ezetimibe 10 mg tablet p.o. every afternoon. Glycemic control per pharmacy. Accu-Cheks before meals and at bedtime. Present on Admission?: Yes (4) Coronary artery disease: Continue home medicine as above Present on Admission?: Yes (5) GERD (gastroesophageal reflux disease): Stable, continue ranitidine 150 mg tablet daily, continue pantoprazole 40 mg p.o. every morning (6) Hypertension: Stable, continue home medicine as discussed. Continue monitoring blood pressure daily every 4 hours. Present on Admission?: Yes (7) BPH (benign prostatic hyperplasia): Stable, continue tamsulosin 0.4 mg p.o. daily, finasteride 5 mg p.o. every morning, doxazosin 4 mg p.o. every afternoon Present on Admission?: Yes History of Present Illness Chief Complaint: Chest pain Primary Care Provider: Ector Gill MD Patient is a 83 years old male with past medical history of CAD s/p CABG x4 vessels in 2004 (FIGUEROA to LAD, SVG to OM, SVG to diagonal, SVG to right PDA) with recurrent Angina Pectoris 2006 and all 3 vein grafts occluded on Cath, YOKASTA's deployed in Proximal LCx and OM), hypertension, hyperlipidemia, GERD, coronary artery disease, BPH, hyperparathyroidism, prior myocardial infarction, sclerosing mesenteritis,AAA repair, Right Iliac artery aneurysm, who presents to the emergency room with a complaint of intermittent palpitations that he has experienced the last 2 nights.Pt has recurrent Unstable Angina Pectoris 05/10/2007 - Cardiac Catheterization revealed patent stents in the LCx and OM, subtotal Mid RCA occlusion with R-to-R collaterals, Moderate to Severe Proximal and Mid LAD stenosis with a Patent FIGUEROA to LAD Graft. LVEF 50% . Patient states that palpitations are occurring during the day comes and goes and he reports having the chest pain on the left side and mid epigastrium not improving and continuing. Patient said that last night he had several cold drinks from the refrigerator and 8 very cold food. Since last dinner patient started to feel some chest tightness and became mildly short of breath. Patient has history of coronary stents and describes that he feels the same or similarly as when the stents were needed to be placed. Patient also said that he has intermittent tingling in his lower extremities. Currently patient is stable and noted that he feels pressure in his chest but tightness is gone. Patient was given aspirin 325 and nitroglycerin without any relief. Patient denies fever, chills, headache, nausea, vomiting, abdominal pain, frequency, urgency, hemo ptysis, hematemesis, melena, syncope, near syncope. Labs are reviewed: WBC 4.81, hemoglobin 13.4, hematocrit 39.4, platelets 144, PT 10.9, INR 1.1, APTT 23.8, sodium 138, potassium 4.1, BUN 17, creatinine 1.15 GFR, 58.9, troponin -0 0.0151, TSH pending, BNP pending. Chest x-ray and show no significant change compared with the prior study. No acute process. Is stable mild bibasilar interstitial thickening which is likely chronic. Decision was made to admit patient to PCU on telemetry for observation to rule out acute coronary syndrome. Allergies Allergy/AdvReac Type Severity Reaction Status Date / Time cinnamon Allergy Severe THROAT Verified 02/14/19 11:28 SWELLING chlorthalidone Allergy Verified 02/14/19 11:28 ciprofloxacin Allergy Verified 02/14/19 11:28 linaclotide AdvReac Unknown DIARRHEA Verified 02/14/19 11:28 lisinopril AdvReac Unknown DIZZINESS Verified 02/14/19 11:28 Home Medications Home Medications Medication Instructions Recorded Confirmed Type amlodipine 10 mg PO QAM 04/13/18 02/14/19 History aspirin 81 mg PO QAM 04/13/18 02/14/19 History doxazosin 4 mg PO QPM 04/13/18 02/14/19 History finasteride 5 mg PO QAM 04/13/18 02/14/19 History pantoprazole 40 mg PO QAM 04/13/18 02/14/19 History omega-3 fatty acids-fish oil 300 1 cap PO QAM 11/11/18 02/14/19 History mg-1,000 mg capsule ranitidine 150 mg tablet 150 mg PO DAILY tab 11/11/18 02/14/19 History cholecalciferol (vitamin D3) 2,000 2,000 unit PO QPM cap 12/01/18 02/14/19 History unit capsule furosemide 20 mg tablet 20 mg PO DAILY PRN #90 tab 12/01/18 02/14/19 History isosorbide mononitrate 120 mg PO QAM 01/07/19 02/14/19 History atorvastatin 80 mg tablet 80 mg PO QPM #90 tab 01/09/19 02/14/19 Rx ezetimibe 10 mg tablet 10 mg PO QPM #90 tab 01/09/19 02/14/19 Rx losartan 100 mg tablet 100 mg PO QAM #30 tab 01/09/19 02/14/19 Rx tamsulosin 0.4 mg capsule 0.4 mg PO DAILY #30 cap 01/23/19 02/14/19 Rx blood sugar diagnostic strips #100 ea 01/27/19 02/14/19 Rx lancets 33 gauge #100 ea 01/27/19 02/14/19 Rx Past Med/Surg History Medical History Myocardial infarction Sclerosing mesenteritis (Acute) Heart disease Heart palpitations Heartburn (01/11/14) Kidney stone PVCs (premature ventricular contractions) Pneumonia UTI (lower urinary tract infection) (04/27/14) Surgical History H/O knee surgery H/O shoulder surgery History of herniorrhaphy Hx of CABG S/P aneurysm repair Family History Unknown Coronary heart disease Brother Myocardial infarction Mother Colon cancer Social History Preferred Language: German Communication Ability: Effective Visual Impairment: No Limitations Hearing Ability: Normal Measuring Clerk Required: No Beliefs That Will Affect Care: None marital status: Current Living Situation: Spouse current occupational status: retired Other Information That Helps Us Care for You: No Feels Safe at Home: Yes Safety Concerns: Feels Safe At This Time Smoking Status: Former smoker Do You Dip or Chew Tobacco: No ; Smoking End Date: 1979 ; Second Hand Exposure: No ; Tobacco Cessation Education Requested by Patient: No Hx Alcohol Use: No Hx Substance Use: No Review of Systems Review of Systems: All systems reviewed & are unremarkable except as noted in HPI & below Physical Exam Constitutional: WD/WN, vitals as above well developed Eyes: PERRL, conjunctivae normal, anicteric sclerae ENMT: external ear and nose normal, oropharynx normal Neck: trachea midline, no thyromegaly Respiratory: normal respiratory effort, lungs clear to auscultation Cardiovascular: Rate/Rhythm: + bradycardic Heart Sounds: normal S1 and normal S2 Palpation: normal PMI Vessels: dorsalis pedis pulses present Gastrointestinal (Abdomen): normal bowel sounds, soft, nontender, no hepatosplenomegaly Musculoskeletal: no cyanosis or clubbing, extremities motor strength 5/5 Skin: no rashes, warm and dry Neurologic: patellar DTR's 2+ bilat, sensation intact Psychiatric: A+Ox3, euthymic affect Genitourinary: no testicular masses, no penis abnormality Lymphatic: no cervical or axillary lymphadenopathy Results & Data Vital Signs (Past 12 Hours) Vital Signs Temp Pulse Pulse Resp BP BP Pulse Ox 02/14/19 12:55 52 L 18 146/75 H 98 02/14/19 11:29 96 02/14/19 10:41 36.5 C 60 20 163/73 H 99 Code Status & VTE Plan Code Status Full code VTE Prophylaxis Plan VTE Prophylaxis will be ordered: Yes PG Care Time/CCT Total # of Minutes Spent Total Time Spent with Patient: Total time spent is greater than 50% in coordination of care (as documented) at patient's floor/unit and/or counseling patient: (1) Chest pain Chest pain type: unspecified Qualified Code(s): R07.9 - Chest pain, unspecified
[2019-02-14] MEDS ORDERED: ACETAMINOPHEN 325 MG TAB PO PRN (16:58)
[2019-02-14] MEDS ORDERED: GLUCOSE 10 TABS/TUBE PO PRN (16:58)
[2019-02-14] MEDS ORDERED: PHARMACY GLYCEMIC MGMT CONSULT STA (16:58)
[2019-02-14] MEDS ORDERED: GLUCOSE 40% GEL 15 GM TUBE PO PRN (16:58)
[2019-02-14] MEDS ORDERED: ONDANSETRON INJ 2 MG/ML 2 ML VIAL IV PRN (16:58)
[2019-02-14] MEDS ORDERED: ZOLPIDEM TARTRATE 5 MG TAB PO PRN (16:58)
[2019-02-14] MEDS ORDERED: FUROSEMIDE 20 MG TAB PO PRN (16:58)
[2019-02-14] MEDS ORDERED: ALUMINUM/MAGNESIUM SUSP 30 ML UDC PO PRN (16:58)
[2019-02-14] MEDS ORDERED: DEXTROSE 50% 50 ML SYRINGE IV PRN (16:58)
[2019-02-14] MEDS ORDERED: POLYETHYLENE (MIRALAX) 17 GM PACK PO PRN (16:58)
[2019-02-14] MEDS ORDERED: CARBOHYDRATES FOR HYPOGLYCEMIA PO PRN (16:58)
[2019-02-14] MEDS ORDERED: GLUCAGON FOR INJ 1 MG VIAL SQ PRN (16:58)
[2019-02-14] MEDS ORDERED: MAGNESIUM HYDROXIDE SUSP 30 ML UDC PO PRN (16:58)
[2019-02-14] MEDS ORDERED: INSULIN ASPART 100 UNITS/ML VIAL SC SCH (17:45)
[2019-02-14 17:54] LABS: NT Pro B Type Natriuretic Pept 1461 pg/ml (0-1800); Troponin I < 0.015 ng/ml (0-0.045)
[2019-02-14] MEDS: INSULIN ASPART 100 UNITS/ML 3 ML PEN SC SCH ×2 (18:29→21:04)
[2019-02-14] MEDS ORDERED: PHARMACY GLYCEMIC MGMT CONSULT PRN (18:39)
--- NOTE | 2019-02-14 18:58 | Pharmacy Report ---
Glycemic Control Consultation - Date of Service February 14, 2019 - Scope Scope: Glycemic Pharmacist consulted by Dr. Dash on 02/14/2019 for glycemic control and to write orders per [facility] inpatient glycemic control protocol - Objective Weight: 81.9 kg Accuchecks BSG (last 24hrs): 02/14/19 02/14/19 11:20 17:52 Glucose 161 H POC Glucose 101 H Laboratory Data (last 24hrs): 02/14/19 11:20 Potassium 4.1 Carbon Dioxide 26 Anion Gap 5.0 Creatinine 1.15 Est Cr Clr Drug Dosing 51.1 HbA1c: Ordered for AM 02/15/19 - Recent Pertinent Medications Outpatient Anti-diabetic Regimen: * Patient states he used to be on oral antihyperglycemic medications but has since been taken off * A1c = 7.1 % 04/2018 (New A1c ordered for 02/15 AM) The patient is currently receiving: * Basal insulin: None * Correctional Insulin: None * Prandial insulin: None * Oral Agents: None Risk Factors for Insulin Resistance: * No risk factors at this time - Assessment & Plan Assessment & Plan: ASSESSMENT: * Patient with h/o T2DM admitted on 02/14/19 for chest pain * Previously, patient states he was on oral antihyperglycemic medications at home. However, they have since been discontinued * Patient has no risk factors for insulin resistance PLAN FOR INPATIENT GLYCEMIC CONTROL: * Bolus insulin * NovoLog per scale ACHS * Goal Range: Low 120 mg/dL - High 160 mg/dL * Correction Factor: 30 mg/dL/unit * Please note that the plan above was derived based on current level of insulin resistance and hospital stress. These recommendations are appropriate for inpatient admission only. Plan of care upon discharge will need to be reassessed to avoid potential outpatient hypo/hyperglycemia. Thank you.
[2019-02-14] MEDS ORDERED: DOXAZosin MESYLATE 4 MG TAB PO SCH (21:00)
[2019-02-14] MEDS: ATORVASTATIN 40 MG TAB PO SCH (21:04)
[2019-02-14] MEDS: ENOXAPARIN INJ 40 MG/0.4 ML SYR SQ SCH (21:04)
[2019-02-14] MEDS: CHOLECALCIFEROL 1,000 UNITS TAB PO SCH (21:05)
[2019-02-14] MEDS: EZETIMIBE 10 MG TABLET PO SCH (21:05)
[2019-02-15 06:05] LABS: Basophils # (auto) 0.04 K/uL (0-0.2); Basophils % (auto) 0.7 %; Eosinophils # (auto) 0.17 K/uL (0-0.5); Eosinophils % (auto) 3.1 %; Hematocrit (blood only) 37.1 % (42-52); Hemoglobin 12.4 g/dL (14.0-18.0); Immature Granulocytes # (auto) 0.01 K/uL (0.00-0.02); Immature Granulocytes % (auto) 0.2 %; Lymphocytes # (auto) 1.65 K/uL (1.2-3.4); Mean Corpuscular Hemoglobin 32.1 pg (25-34); Mean Corpuscular Hgb Conc 33.4 g/dL (32-36); Mean Corpuscular Volume 96.1 fL (80-100); Mean Platelet Volume 10.2 fL (7.4-10.4); Monocytes # (auto) 0.54 K/uL (0.11-0.59); Monocytes % (auto) 9.8 %; Neutrophils # (auto) 3.09 K/uL (1.4-6.5); Neutrophils % (auto) 56.2 %; Platelet Count 139 K/uL (130-400); RDW Standard Deviation 45.7 fL (36.4-46.3); Red Blood Count 3.86 M/uL (4.7-6.1)
[2019-02-15 06:49] LABS: Albumin Level 3.5 gm/dl (3.4-5.0); BUN Creatinine Ratio 12.2 (10-20); Calcium 9.3 mg/dl (8.5-10.1); Creatinine Clr Calc Pharmacy 60.8 ml/min; Est GFR (African American) 72.1; Est GFR (Non-African American) 62.2; Potassium 3.9 mmol/L (3.5-5.1)
[2019-02-15 07:00] LABS: Albumin Globulin Ratio 1.4 (0.9-2); Bilirubin,Total 0.9 mg/dl (0.2-1); Globulin 2.5 gm/dl (2.5-4.0); Thyroid Stimulating Hormone 1.84 uIu/ml (0.300-4.500)
[2019-02-15 07:02] LABS: Estimated Average Glucose 154 mg/dl
[2019-02-15] MEDS: ISOSORBIDE MONO EXTENDED REL 60 MG TABCR PO SCH (08:55)
[2019-02-15] MEDS: LOSARTAN POTASSIUM 50 MG TAB PO SCH (08:55)
[2019-02-15] MEDS: TAMSULOSIN HCL 0.4 MG CAP PO SCH (08:55)
[2019-02-15] MEDS: PANTOprazole 40 MG TAB PO SCH (08:56)
[2019-02-15] MEDS: FINASTERIDE 5 MG TAB PO SCH (08:56)
[2019-02-15] MEDS: ASPIRIN 81 MG ECTAB PO SCH (08:56)
[2019-02-15] MEDS: OMEGA-3 (PURIFIED FISH OIL) 1 GM CAP PO SCH (08:56)
[2019-02-15] MEDS: AMLODIPINE BESYLATE 5 MG TAB PO SCH (08:56)
[2019-02-15] MEDS: INSULIN ASPART 100 UNITS/ML 3 ML PEN SC SCH ×4 (09:04→22:07)
--- NOTE | 2019-02-15 13:00 | Hospitalist Progress Note ---
Date of Service February 15, 2019 Assessment & Plan (1) Chest pain: Significant cardiac history with 4vCABG in 2004 and 2xDES to the LCx in 2006. - Continue home medicine: ASA, atorvastatin, Imdur, losartan, amlodipine, ezetimibe - Not on a beta-adrian - Likely due to bradycardia given he is running in the high 40s at present. amlodipine 10 mg p.o. every morning, aspirin 81 mg p.o. every morning, furosemide 20 mg p.o. daily as needed, isosorbide mononitrate 120 mg p.o. every morning, losartan 100 mg tablet p.o. every morning. - Discussed with cardiology - Plan for nuclear study tomorrow (2) Coronary artery disease: Known CAD s/p bypass ans stents. - Continue home medicine as above (3) Diabetes mellitus, type II: A1c is 7.0% this admission. - Sliding scale insulin - Glycemic pharmacist consulted (4) GERD (gastroesophageal reflux disease): Stable, continue ranitidine 150 mg tablet daily, continue pantoprazole 40 mg p.o. every morning (5) Hypertension: BP 115/65 today. Stable. - Continue home medicine as above (6) BPH (benign prostatic hyperplasia): Didn't report any LUTS to me today. - Continue tamsulosin, finasteride, doxazosin (7) DVT prophylaxis: Lovenox Subjective No further chest pain while inpatient. Review of Systems Review of Systems: All systems reviewed & are unremarkable except as noted in HPI & below Physical Exam Constitutional: WD/WN, vitals as above Eyes: EOM intact bilaterally; no conjunctival abnormality ENMT: external ear and nose normal, oropharynx normal Neck: trachea midline, no thyromegaly normal visual inspection Respiratory: normal respiratory effort, lungs clear to auscultation no respiratory distress Cardiovascular: RRR, no murmur, no edema Gastrointestinal (Abdomen): Inspection/Auscultation: abdomen normal to inspection; abdomen not distended Musculoskeletal: no cyanosis or clubbing, extremities motor strength 5/5 Skin: no rashes, warm and dry Neurologic: moves all extremities and awake Psychiatric: Orientation: alert, oriented to person and cooperative Results & Data Vital Signs (Past 12 Hours) Vital Signs Temp Pulse Resp BP BP Pulse Ox 02/15/19 10:55 36.8 C 47 L 17 117/64 97 02/15/19 07:22 36.4 C L 49 L 18 156/71 H 94 02/15/19 02:42 36.5 C 50 L 18 126/66 91 PG Care Time/CCT Total # of Minutes Spent Total Time Spent with Patient: Total time spent is greater than 50% in coordination of care (as documented) at patient's floor/unit and/or counseling patient: (1) Chest pain Chest pain type: unspecified Qualified Code(s): R07.9 - Chest pain, unspecified
--- NOTE | 2019-02-15 14:26 | Pharmacy Report ---
Pharmacy Glycemic Short Note 2 - Date of Service February 15, 2019 - Glycemic Short BSG Results (Last 24 hours): 02/14/19 02/14/19 02/15/19 17:52 20:24 05:50 Glucose 78 POC Glucose 101 H 119 H 02/15/19 02/15/19 07:13 11:14 Glucose POC Glucose 78 107 H OUTPATIENT ANTIDIABETIC REGIMEN: * None * A1c 7.0% 02/15/19 ASSESSMENT: * Mr. Parker's BSG ranged from 78-161 in past 24 hours * Currently only has correctional scale ordered and has utilized no insulin during this time. * Will continue to follow through today, if patient's BSGs remain stable will remove correctional scale and sign off at that time. PLAN FOR INPATIENT GLYCEMIC CONTROL: * Bolus insulin * NovoLog per scale ACHS or Q6hrs while NPO * Goal Range: Low 120 mg/dL - High 160 mg/dL * Correction Factor: 30 mg/dL/unit PLAN FOR DISCHARGE: * Patient's A1c 7.0% * Given patient's age and comorbidities I think acceptable goal range is <8.0% * Patient currently meeting this goal without medication and should continue to monitor/diet control. * Should patient/physician desire more stringent goal of <7.0%, could consider initiation of metformin XR 500 mg PO daily with evening meal
[2019-02-15] MEDS: ATORVASTATIN 40 MG TAB PO SCH (20:53)
[2019-02-15] MEDS: ENOXAPARIN INJ 40 MG/0.4 ML SYR SQ SCH (20:53)
[2019-02-15] MEDS: CHOLECALCIFEROL 1,000 UNITS TAB PO SCH (20:54)
[2019-02-15] MEDS: EZETIMIBE 10 MG TABLET PO SCH (20:54)
[2019-02-16 06:37] LABS: Basophils # (auto) 0.01 K/uL (0-0.2); Basophils % (auto) 0.2 %; Eosinophils # (auto) 0.17 K/uL (0-0.5); Hematocrit (blood only) 37.8 % (42-52); Hemoglobin 12.6 g/dL (14.0-18.0); Lymphocytes # (auto) 1.57 K/uL (1.2-3.4); Lymphocytes % (auto) 28.1 %; Mean Corpuscular Hgb Conc 33.3 g/dL (32-36); Mean Corpuscular Volume 95.9 fL (80-100); Mean Platelet Volume 10.8 fL (7.4-10.4); Monocytes # (auto) 0.62 K/uL (0.11-0.59); Monocytes % (auto) 11.1 %; Neutrophils # (auto) 3.22 K/uL (1.4-6.5); Neutrophils % (auto) 57.6 %; Platelet Count 146 K/uL (130-400); RDW Coefficient of Variation 12.9 % (11.5-14.5); RDW Standard Deviation 45.6 fL (36.4-46.3); Red Blood Count 3.94 M/uL (4.7-6.1); White Blood Count 5.59 K/uL (4.8-10.8)
[2019-02-16 07:19] LABS: Albumin Globulin Ratio 1.3 (0.9-2); Albumin Level 3.4 gm/dl (3.4-5.0); BUN Creatinine Ratio 17.1 (10-20); Bilirubin,Total 1.2 mg/dl (0.2-1); Calcium 9.7 mg/dl (8.5-10.1); Creatinine Clr Calc Pharmacy 60.8 ml/min; Est GFR (African American) 72.1; Est GFR (Non-African American) 62.2; Globulin 2.6 gm/dl (2.5-4.0); Potassium 4.1 mmol/L (3.5-5.1)
[2019-02-16] MEDS ORDERED: REGADENOSON 0.4 MG/5 ML SYR IV ONE (07:29)
--- NOTE | 2019-02-16 10:22 | Pharmacy Report ---
Pharmacy Glycemic Sign Off Nt - Date of Service February 16, 2019 - Assessment & Plan ASSESSMENT: * Pharmacy was consulted by Dr Dash on 02/14 for glycemic control and to write orders per [facility] inpatient glycemic control protocol. * Patient has been receiving/requiring 0 units of insulin per day for adequate glycemic control * BSGs ranging 78-143 mg/dl * Regimen has only required minor adjustments over the past 48hrs to achieve this level of control * Do not anticipate further changes in patient status that would quickly deteriorate glycemic control (i.e. patient to be NPO for upcoming procedure, steroids tapering, starting tube feedings, etc). PLAN FOR INPATIENT GLYCEMIC CONTROL: No changes needed to current regimen. * Continue NovoLog per scale ACHS/Q6hrs while NPO * Goal range = 120-160 mg/dl * CF = 30 mg/dl/unit * Pharmacy is signing off of glycemic consult and will no longer be making adjustments to inpatient regimen. Please feel free to re-consult if needed. Thank you.
[2019-02-16] MEDS: LOSARTAN POTASSIUM 50 MG TAB PO SCH (11:05)
[2019-02-16] MEDS: ASPIRIN 81 MG ECTAB PO SCH (11:05)
[2019-02-16] MEDS: TAMSULOSIN HCL 0.4 MG CAP PO SCH (11:05)
[2019-02-16] MEDS: ISOSORBIDE MONO EXTENDED REL 60 MG TABCR PO SCH (11:05)
[2019-02-16] MEDS: OMEGA-3 (PURIFIED FISH OIL) 1 GM CAP PO SCH (11:06)
[2019-02-16] MEDS: FINASTERIDE 5 MG TAB PO SCH (11:06)
[2019-02-16] MEDS: AMLODIPINE BESYLATE 5 MG TAB PO SCH (11:06)
[2019-02-16] MEDS: PANTOprazole 40 MG TAB PO SCH (11:07)
[2019-02-16] MEDS: INSULIN ASPART 100 UNITS/ML 3 ML PEN SC SCH ×2 (11:08→11:49)
--- NOTE | 2019-02-16 13:04 | Myocardial Perfusion Study ---
Date of Service February 16, 2019 Myocardial Perfusion Study [facility] Myocardial Perfusion Study Report Procedure: 1. Myocardial perfusion study performed in multiple views/images 2. Lexiscan pharmacologic stress ECG Indications: 1. Chest pain Dr. Rubin 2. CAD status post CABG x4 Ordering physician: Dr. Rubin Procedural details: For the stress portion of the study, Lexiscan 0.4 mg was intravenously administered followed by a saline flush. This was followed by 33.7 mCi of technetium 99m Cardiolite, injected at 9:05 a.m.on 02/16/2019. 90 minutes following the injection, imaging of the heart was performed in multiple projections. For the rest portion of the study, 10.95 mCi technetium 99m Cardiolite was injected intravenously at 7:30 a.m. on 02/16/2019. 1 hour following the injection, imaging of the heart was performed in the same projections. Lexiscan stress ECG: Resting ECG demonstrated: Sinus bradycardia 48 bpm. RBBB. Maximum heart rate: 75 bpm Maximal, age-predicted heart rate: 54 % Resting blood pressure: 162/69 mmHg Maximum blood pressure: 162/[address] changes: None Arrhythmia: None Symptoms: Epigastric pain Findings: Rotating raw imaging demonstrated no significant lung uptake. There is no significant motion artifact. Heart size appeared enlarged. Myocardial perfusion demonstrated a small area of mildly reduced uptake involving the base to mid inferior and base to mid inferolateral wall segments which appeared to be fixed in post stress and rest imaging. There were no significant reversible defects to suggest ischemia. There was some intestinal uptake noted in both stress and rest imaging. Ejection fraction: 47 % Wall motion: Hypokinesis of the base to mid inferior wall. Otherwise, normal wall motion. No significant transient ischemic dilation. Impression: 1. Negative myocardial perfusion study for significant ischemia. 2. Fixed inferior/inferolateral defect likely represents prior infarct given inferior wall motion abnormality. 3. Mildly reduced left ventricular systolic function. EF 47%. 4. Enlarged left ventricle. 5. Nondiagnostic Lexiscan ECG.
--- NOTE | 2019-02-16 16:44 | Discharge Summary ---
Date of Service February 16, 2019 Admission HPI Per Admitting Provider Patient is a 83 years old male with past medical history of CAD s/p CABG x4 vessels in 2004 (FIGUEROA to LAD, SVG to OM, SVG to diagonal, SVG to right PDA) with recurrent Angina Pectoris 2006 and all 3 vein grafts occluded on Cath, YOKASTA's deployed in Proximal LCx and OM), hypertension, hyperlipidemia, GERD, coronary artery disease, BPH, hyperparathyroidism, prior myocardial infarction, sclerosing mesenteritis,AAA repair, Right Iliac artery aneurysm, who presents to the emergency room with a complaint of intermittent palpitations that he has experienced the last 2 nights.Pt has recurrent Unstable Angina Pectoris - Cardiac Catheterization revealed patent stents in the LCx and OM, subtotal Mid RCA occlusion with R-to-R collaterals, Moderate to Severe Proximal and Mid LAD stenosis with a Patent FIGUEROA to LAD Graft. LVEF 50% . Patient states that palpitations are occurring during the day comes and goes and he reports having the chest pain on the left side and mid epigastrium not improving and continuing. Patient said that last night he had several cold drinks from the refrigerator and 8 very cold food. Since last dinner patient started to feel some chest tightness and became mildly short of breath. Patient has history of coronary stents and describes that he feels the same or similarly as when the stents were needed to be placed. Patient also said that he has intermittent tingling in his lower extremities. Currently patient is stable and noted that he feels pressure in his chest but tightness is gone. Patient was given aspirin 325 and nitroglycerin without any relief. Patient denies fever, chills, headache, nausea, vomiting, abdominal pain, frequency, urgency, hemoptysis, hematemesis, melena, syncope, near syncope. Labs are reviewed: WBC 4.81, hemoglobin 13.4, hematocrit 39.4, platelets 144, PT 10.9, INR 1.1, APTT 23.8, sodium 138, potassium 4.1, BUN 17, creatinine 1.15 GFR, 58.9, troponin -0 0.0151, TSH pending, BNP pending. Chest x-ray and show no significant change compared with the prior study. No acute process. Is stable mild bibasilar interstitial thickening which is likely chronic. Decision was made to admit patient to PCU on telemetry for observation to rule out acute coronary syndrome. Principal Diagnosis Chest pain; possible GI cause Discharge Exam Constitutional WD/WN, vitals as above Eyes EOM intact bilaterally; no conjunctival abnormality ENMT external ear and nose normal, oropharynx normal Neck trachea midline, no thyromegaly normal visual inspection Respiratory normal respiratory effort, lungs clear to auscultation no respiratory distress Cardiovascular RRR, no murmur, no edema Gastrointestinal (Abdomen) Inspection/Auscultation: abdomen normal to inspection; abdomen not distended Musculoskeletal no cyanosis or clubbing, extremities motor strength 5/5 Skin no rashes, warm and dry Neurologic moves all extremities and awake Psychiatric Orientation: alert, oriented to person and cooperative Discharge Data Allergies Allergy/AdvReac Type Severity Reaction Status Date / Time cinnamon Allergy Severe THROAT Verified 02/14/19 11:28 SWELLING chlorthalidone Allergy Verified 02/14/19 11:28 ciprofloxacin Allergy Verified 02/14/19 11:28 linaclotide AdvReac Unknown DIARRHEA Verified 02/14/19 11:28 lisinopril AdvReac Unknown DIZZINESS Verified 02/14/19 11:28 Consultations 02/14/19 12:30 ED Decision to Admit Stat Hospital Course (1) Chest pain: He reports palpitations when lying down. Significant cardiac history with 4vCABG in 2004 and 2xDES to the LCx in 2006. - Continued home medicine: ASA, atorvastatin, Imdur, losartan, amlodipine, ezetimibe - Not on a beta-adrian - Likely due to bradycardia given he is running in the high 40s at present. - All troponins were negative. Nuclear Lexiscan was negative. I thought that maybe his bradycardia was causing some symptoms. He would like to follow up with Dr. Sanchez and declined inpatient consult. I did see that a Holter monitor is being arranged as an outpatient already. I also recommended he try some Tums as it was worse when lying down. (2) Coronary artery disease: Known CAD s/p bypass and stents. - Continue home medicine as above (3) Diabetes mellitus, type II: A1c is 7.0% this admission. - Sliding scale insulin - Glycemic pharmacist consulted (4) GERD (gastroesophageal reflux disease): Stable, continue ranitidine 150 mg tablet daily, continue pantoprazole 40 mg p.o. every morning (5) Hypertension: BP 115/65 today. Stable. - Continue home medicine as above (6) BPH (benign prostatic hyperplasia): Didn't report any LUTS to me today. - Continue tamsulosin, finasteride, doxazosin (7) DVT prophylaxis: Lovenox Total Time Total Time Spent Total Time Spent (In Minutes): 35 Discharge Plan Discharge Items Patient Disposition: Home - Self-Care Reason For Visit: ATYPICAL CHEST PAIN Discharge Diagnosis: Chest pain Activity: Resume your previous activity Non-emergency contact: Primary Care Provider and Shake Sawyer Call non-emergency contact if: your symptoms worsen and your pain is worsening Follow-up/Referrals: Teodoro Sanchez Jr, MD, [facility] [Physician] - 03/06/19 3:15 pm (Please, follow up at [facility] Cardiology Office with Dr. Sanchez on WednesdayMarch 06 at 3:15 pm. *If you need to change this appointment, call the office at [phone].) Ector Gill MD [Primary Care Provider] - 02/20/19 1:30 pm (Please, follow up at Dr. Gill's office with his associate, Janett INGRAM, on WednesdayFebruary 20 at 1:30 pm. *If you need to change this appointment, call the office at [phone].) Diet: Carb Consistent or DM2 and Heart Healthy Addtl Attending Provider Instructions: Mr. Parker, You were in the hospital for chest pain. We checked lab tests called troponins which were normal, meaning you did not have a heart attack. We did a nuclear stress test which did not show areas of ischemia. Please follow up with your PCP and plastic design applier for further testing. We noticed your heart rate is quite low, but you reported this is pretty typical for you, and looking at your outpatient visits, this is true. You usually run 50-60 in the office setting. It looks like someone has ordered a Holter monitor for you, and this would be our recommendation for a next step. Finally, if the chest tightness returns when you lie down, try to take some Tums or Cris-[place] at least once to see if this improves your symptoms as heart burn can get worse when lying down. We stopped your doxasozin. You were not supposed to take this along with the Flomax. Pending Studies at Discharge: No Stand-Alone Forms: My [facility] Medications and DC Order Prescriptions: Continued ezetimibe 10 mg tablet 10 mg PO QPM Qty: 90 RF: 3 losartan 100 mg tablet 100 mg PO QAM Qty: 30 RF: 5 atorvastatin 80 mg tablet 80 mg PO QPM Qty: 90 RF: 3 OneTouch Verio strip .ROUTE .MEDSUPPLY Qty: 100 RF: 0 lancets [OneTouch Delica Lancets] 33 gauge misc .ROUTE .MEDSUPPLY Qty: 100 RF: 0 omega-3 fatty acids-fish oil [Fish Oil] 300-1,000 mg capsule 1 cap PO QAM RF: 0 ranitidine HCl 150 mg tablet 150 mg PO DAILY RF: 0 cholecalciferol (vitamin D3) 2,000 unit capsule 2,000 unit PO QPM RF: 0 furosemide 20 mg tablet 20 mg PO DAILY PRN (Reason: Fluid Retention) Qty: 90 RF: 0 tamsulosin 0.4 mg capsule 0.4 mg PO DAILY Qty: 30 RF: 11 aspirin 81 mg Tablet,Delayed Release (Dr/Ec) 81 mg PO QAM RF: 0 amlodipine 10 mg tablet 10 mg PO QAM RF: 0 pantoprazole 40 mg tablet,delayed release (DR/EC) 40 mg PO QAM RF: 0 finasteride 5 mg tablet 5 mg PO QAM RF: 0 isosorbide mononitrate 120 mg tablet extended release 24 hr 120 mg PO QAM RF: 0 Discontinued doxazosin 4 mg tablet 4 mg PO QPM RF: 0 Discharge Orders: Discharge Order (Routine); Ordered 02/16/19 Ordered By: Blaze Rubin Admission Data Admit Date/Time: 02/14/19 16:00 Attending Provider: Blaze Rubin Admit Provider: Alex Dash Primary Care Provider: Ector Gill Other Providers: Blaze Rubin Other Interventions: Discharge Summary Assessment (RN) Last Done: 02/16/19 14:37 DC Date/Time DO NOT enter until pt leaves facility: 02/16/19 15:28
== END 2019-02-16 15:28 | disposition home or self-care (01) ==
LOC: ED 10:37 → 2S 10:37 → SUATTDRO 16:00 → 2E 16:30

== ENCOUNTER 2019-05-30 05:05 | Observation (INO) ==
--- NOTE | 2019-05-07 22:37 | PAT Medication Instructions ---
Medication Instructions Date of Service May 07, 2019 Home Medications Medication Instructions Recorded atorvastatin 80 mg tablet 80 mg PO QPM #90 tab 01/09/19 ezetimibe 10 mg tablet 10 mg PO QPM #90 tab 01/09/19 losartan 100 mg tablet 100 mg PO QAM #30 tab 01/09/19 pantoprazole 40 mg tablet,delayed 40 mg PO QAM #90 tab 03/03/19 release lancets 33 gauge #300 ea 03/30/19 blood sugar diagnostic #100 ea 04/18/19 amlodipine 10 mg PO QAM aspirin 81 mg PO QAM finasteride 5 mg PO QPM cholecalciferol (vitamin D3) 50 mcg (2,000 unit) capsule 6,000 unit PO QPM furosemide 20 mg tablet 20 mg PO DAILY PRN atorvastatin 80 mg tablet 80 mg PO QPM ezetimibe 10 mg tablet 10 mg PO QPM losartan 100 mg tablet 100 mg PO QAM pantoprazole 40 mg tablet,delayed release 40 mg PO QAM nitroglycerin 0.4 mg sublingual tablet 0.4 mg SL Q5M PRN isosorbide mononitrate 120 mg PO QAM omega 1-ast-oiy-fish oil [Fish Oil] 1 cap PO QAM tamsulosin 0.4 mg PO QAM ASK your prescriber and surgeon aspirin 81 mg PO QAM STOP taking 2 weeks before surgery omega 5-orp-nga-fish oil [Fish Oil] 1 cap PO QAM Take morning of surgery With a small sip of water, OTHERWISE NOTHING TO EAT OR DRINK AFTER MIDNIGHT: amlodipine 10 mg PO QAM pantoprazole 40 mg tablet,delayed release 40 mg PO QAM nitroglycerin 0.4 mg sublingual tablet 0.4 mg SL Q5M PRN (if needed) isosorbide mononitrate 120 mg PO QAM tamsulosin 0.4 mg PO QAM Take evening before surgery finasteride 5 mg PO QPM cholecalciferol (vitamin D3) 50 mcg (2,000 unit) capsule 6,000 unit PO QPM furosemide 20 mg tablet 20 mg PO DAILY PRN (if needed) atorvastatin 80 mg tablet 80 mg PO QPM ezetimibe 10 mg tablet 10 mg PO QPM nitroglycerin 0.4 mg sublingual tablet 0.4 mg SL Q5M PRN (if needed) Other Notes If you have any questions please call us at [phone] or [phone] or [phone] or [phone]
--- NOTE | 2019-05-08 13:22 | Anesthesiology Consultation ---
Date of Service May 08, 2019 Assessment & Plan (1) Encounter for pre-operative examination: Cardiology ([place]) 03/06/19 = 1. Recent admission for chest and epigastric discomfort as well as palpitations/cardiac awareness. Myocardial infarction was excluded with negative cardiac enzymes. Subsequent Lexiscan pharmacologic stress test revealed no stress-induced ischemia. He denies any exertionally precipitated anginal or anginal equivalent symptoms. 2. Blood pressure under very good control. 3. Holter monitor in December with no significant arrhythmia. He did have frequent PACs and occasional PVC. 4. Sinus bradycardia. He is not on beta-adrian therapy. Beta-adrian therapy would be contraindicated because of his resting bradycardia. 5. No signs or symptoms of pulmonary vascular congestion. 6. Stable minimal peripheral edema. 7. Dyslipidemia and coronary disease. He is on a maximum atorvastatin dose consistent with current guidelines. Plan: 1. Continue current medications. 2. No further cardiac workup or evaluation at this time. Chart Review Chart Review: Acceptable Risk for Surgery (pending pre-op labs) and Patient seen in Pre Admission Testing Teaching & Discussion Instructed NPO after midnight before surgery, except medications with 15 cc of water. Medication instructions provided according to the PAT guidelines. History Surgery Operation Date: 05/30/19 11:30 Proposed Procedures p Transurethral Resection Prostate - Yehuda Hoang MD Height/Weight Height: 5 ft 10 in Weight: 85 kg Allergies Allergy/AdvReac Type Severity Reaction Status Date / Time cinnamon Allergy Severe THROAT Verified 05/02/19 15:03 SWELLING chlorthalidone Allergy Unknown Unknown Verified 05/02/19 15:03 ciprofloxacin Allergy Unknown Unknown Verified 05/02/19 15:03 linaclotide AdvReac Unknown DIARRHEA Verified 05/02/19 15:03 lisinopril AdvReac Unknown DIZZINESS Verified 05/02/19 15:03 Medications Home Medications Medication Instructions Recorded Confirmed Last Taken amlodipine 10 mg PO QAM 04/13/18 05/02/19 02/14/19 aspirin 81 mg PO QAM 04/13/18 05/02/19 02/14/19 finasteride 5 mg PO QPM 04/13/18 05/02/19 02/14/19 cholecalciferol (vitamin D3) 50 6,000 unit PO QPM cap 12/01/18 05/02/19 02/13/19 mcg (2,000 unit) capsule furosemide 20 mg tablet 20 mg PO DAILY PRN #90 tab 12/01/18 05/02/19 Unknown atorvastatin 80 mg tablet 80 mg PO QPM #90 tab 01/09/19 05/02/19 02/13/19 ezetimibe 10 mg tablet 10 mg PO QPM #90 tab 01/09/19 05/02/19 02/13/19 losartan 100 mg tablet 100 mg PO QAM #30 tab 01/09/19 05/02/19 02/14/19 pantoprazole 40 mg tablet,delayed 40 mg PO QAM #90 tab 03/03/19 05/02/19 Unknown release nitroglycerin 0.4 mg sublingual 0.4 mg SL Q5M PRN 03/29/19 05/02/19 Unknown tablet lancets 33 gauge #300 ea 03/30/19 04/26/19 Unknown blood sugar diagnostic #100 ea 04/18/19 04/26/19 Unknown isosorbide mononitrate 120 mg PO QAM 05/02/19 05/02/19 Unknown omega 3-ofl-czr-fish oil [Fish Oil] 1 cap PO QAM 05/02/19 05/02/19 Unknown tamsulosin 0.4 mg PO QAM 05/02/19 05/02/19 Unknown Past Medical History Medical History Arthritis Benign prostatic hyperplasia with urinary obstruction (Chronic) Managed with doxazosin + finasteride. Followed by urology. Continued suprapubic pain, scheduled for cystoscopy via urology Chronic abdominal pain Long history of this of unclear etiology. hx cdiff associated with antral colitis. Multiple abd/pelvic CT scans. Diverticular disease present and 2.2cm L common iliac aneurysm. Has had gastric emptying study and hepatobiliary scans that were unremarkable. EGD (09/30) small hiatal hernia and gastritis. Colonoscopy (01/01) with multiple tubular adenomas removed. Coronary artery disease (Chronic) S/p CABG x4 (2004). S/p DESx2 (2006) of circumflex, circumflex marginal. Followed by cardiology. Medically managed with ASA + statin + long acting nitrate + ARB Diabetes mellitus, type 2 ORAL MEDS STOPPED BY [facility] O/N STAY PAST YR GERD (gastroesophageal reflux disease) Heart disease Heart palpitations Hiatal hernia Hyperlipidemia (Chronic) Hypertension (Chronic) Long standing. Complicated with hypertensive crisis (07/04). 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 [employer] BILAT HAS NEVER LOCKED Exercise / Class Metabolic Activity III < 4 Walking/Shop/Light housework (Denies CP or SOB with ambulation on one level, does not do stairs 2/2 leg weakness/arthritis) Past Family History Family History Unknown Coronary heart disease Brother Myocardial infarction Mother Colon cancer Past Surgical History Surgical History H/O knee surgery H/O shoulder surgery History of cardiac cath 2 STENTS PLACED, ~2012, after CABG History of colonoscopy History of esophagogastroduodenoscopy (EGD) History of herniorrhaphy [place]x of CABG 4 [place] [facility] [place] AAA Past Anesthesia History No Hx of Anesthesia Complications and No Family Hx of Anesthesia Complications History of PONV No Hx of PONV and No Hx of Motion Sickness Social History Smoking Status: Former smoker Do You Dip or Chew Tobacco: No Smoking End Date: QUIT 25+ YRS AGO Hx Alcohol Use: No Hx Substance Use: No substance use type: does not use Review of Systems Pt denies any recent chest pain, shortness of breath, palpitations, cough, fever or URI. Physical Exam Vital Signs BP: 132/60 P: 53bpm SPO2: 98% RA T: 97.6 F R: 20 ENMT Mouth: + dentures (partial lower) and + small oral opening; no chipped teeth and no loose teeth Thyromental Distance: > or= 3.5 Finger Breadths (3.5) Mallampati Class: III Neck normal visual inspection and + limited neck extension (mildly) Respiratory normal respiratory effort Auscultation: lungs clear to auscultation bilaterally Cardiovascular Rate/Rhythm: regular rate and regular rhythm Heart Sounds: no murmur Vessels: no carotid bruit Extremities: no edema Testing Electrocardiogram Date: 02/14/19 Findings: + SB @ (52bpm with PVCs) RBBB. Chest X-Ray Date: 02/14/19 IMPRESSION: No significant change compared to the prior study. No acute process. Stable mild bibasilar interstitial thickening which is likely chronic. Echocardiogram Date: 02/15/19 EF: 50-55% Mildly dilated left ventricle with low normal systolic function. Akinesis of the basal to mid inferior wall. Septal motion consistent with prior cardiac surgery. Mild concentric LVH. Type I diastolic dysfunction. Right ventricle is mildly dilated with normal systolic function. Left atrium is severely dilated. The right atrium is moderately dilated. Moderate mitral regurgitation. Mild pulmonary hypertension, RVSP 44 mmHg. Similar findings compared to prior study on 05/30/2018. Stress Test Date: 02/16/19 Resting EF: 47% Impression: 1. Negative myocardial perfusion study for significant ischemia. 2. Fixed inferior/inferolateral defect likely represents prior infarct given inferior wall motion abnormality. 3. Mildly reduced left ventricular systolic function. EF 47%. 4. Enlarged left ventricle. 5. Nondiagnostic Lexiscan ECG.
[2019-05-08 15:34] LABS: Basophils # (auto) 0.02 K/uL (0-0.2); Basophils % (auto) 0.3 %; Eosinophils # (auto) 0.14 K/uL (0-0.5); Eosinophils % (auto) 2.2 %; Hematocrit (blood only) 39.5 % (42-52); Hemoglobin 12.9 g/dL (14.0-18.0); Immature Granulocytes # (auto) 0.01 K/uL (0.00-0.02); Immature Granulocytes % (auto) 0.2 %; Lymphocytes # (auto) 1.41 K/uL (1.2-3.4); Lymphocytes % (auto) 21.9 %; Mean Corpuscular Hemoglobin 31.2 pg (25-34); Mean Corpuscular Hgb Conc 32.7 g/dL (32-36); Mean Corpuscular Volume 95.4 fL (80-100); Mean Platelet Volume 11.1 fL (7.4-10.4); Monocytes # (auto) 0.55 K/uL (0.11-0.59); Monocytes % (auto) 8.5 %; Neutrophils # (auto) 4.31 K/uL (1.4-6.5); Neutrophils % (auto) 66.9 %; Platelet Count 154 K/uL (130-400); RDW Coefficient of Variation 12.6 % (11.5-14.5); RDW Standard Deviation 43.4 fL (36.4-46.3); Red Blood Count 4.14 M/uL (4.7-6.1); White Blood Count 6.44 K/uL (4.8-10.8)
[2019-05-08 15:41] LABS: BUN Creatinine Ratio 14.6 (10-20); Calcium 9.8 mg/dl (8.5-10.1); Creatinine Clr Calc Pharmacy 46.2 ml/min; Est GFR (African American) 61.3; Est GFR (Non-African American) 52.9; Potassium 4.6 mmol/L (3.5-5.1)
[2019-05-08 15:41] LABS: Appearance Urine Clear (Clear); Bilirubin Urine Negative (Negative); Blood Urine Negative (Negative); Color Urine Yellow; Glucose Urine UA Trace (Negative); Ketones Urine Negative (Negative); Leukocyte Esterase Urine Negative (Negative); Nitrite Urine Negative (Negative); Protein Urine Negative (Negative); Specific Gravity Urine 1.023 (1.000-1.030); Urobilinogen Urine Negative (Negative); pH Urine 6.5 (4.5-7.5)
[~2019-05-30 05:05] MED LIST changes: -AMLO10TA3 PO; -ASPI81TA28 PO; -ATOR-26 PO; -CALC500C3 PO; -CHOL100027 PO; -DOXA4TAB2 PO; -EZET10TA63 PO; -FINA5TAB PO; -FURO-85 PO; -IMDSR30 PO; -LOSA1TAB38 PO; -METF-384 PO; -NTRGSL/4 UT; -OMEG10007 PO; -PANT40TA PO; -POLY335019 PO; -PROB1TAB16 PO; -SENNTAB23 PO; +cefTRIAXone SODIUM 1,000 MG in DEXTROSE 5% 50 ML IV SCH
[2019-05-30] MEDS ORDERED: cefTRIAXone SODIUM 1,000 MG in DEXTROSE 5% 50 ML IV SCH (06:00)
[2019-05-30] MEDS ORDERED: LR 15ML/HR IV SCH (06:00)
[2019-05-30] MEDS ORDERED: fentaNYL citrate 100 MCG/2 ML VIAL ONE ×3 (07:02→07:49)
[2019-05-30] MEDS ORDERED: LIDOCAINE HCL 2% 2 ML VIAL/AMP(20MG/ML) INFIL ONE (07:02)
[2019-05-30] MEDS ORDERED: PROPOFOL IV EMULSION 10 MG/ML 20 ML VIAL IV ONE (07:02)
[2019-05-30] MEDS ORDERED: ATROPINE SULFATE 0.1 MG/ML 10ML SYR IV PRN (07:14)
[2019-05-30] MEDS ORDERED: ONDANSETRON INJ 2 MG/ML 2 ML VIAL IV PRN ×2 (07:14→08:38)
[2019-05-30] MEDS ORDERED: fentaNYL citrate 100 MCG/2 ML VIAL IV PRN (07:14)
[2019-05-30] MEDS ORDERED: ePHEDrine sulfate 50 MG/ML AMP IV PRN (07:14)
--- NOTE | 2019-05-30 07:22 | History & Physical Report ---
Date of Service May 30, 2019 Assessment & Plan (1) Benign prostatic hyperplasia with urinary obstruction: plan for cysto/TURP 23hr stay History of Present Illness Chief Complaint: voiding dysfunction Primary Care Provider: Noah Emmanuel DO long standing voiding dysfunction secondary to BPH presenting for definitive therapy Allergies Allergy/AdvReac Type Severity Reaction Status Date / Time cinnamon Allergy Severe THROAT Verified 05/30/19 05:32 SWELLING chlorthalidone Allergy Unknown Unknown Verified 05/30/19 05:32 ciprofloxacin Allergy Unknown Unknown Verified 05/30/19 05:32 linaclotide AdvReac Mild DIARRHEA Verified 05/30/19 05:32 lisinopril AdvReac Mild DIZZINESS Verified 05/30/19 05:32 Home Medications Home Medications Medication Instructions Recorded Confirmed Type amlodipine 10 mg PO QAM 04/13/18 05/30/19 History aspirin 81 mg PO QAM 04/13/18 05/30/19 History finasteride 5 mg PO QPM 04/13/18 05/30/19 History cholecalciferol (vitamin D3) 50 6,000 unit PO QPM cap 12/01/18 05/30/19 History mcg (2,000 unit) capsule furosemide 20 mg tablet 20 mg PO DAILY PRN #90 tab 12/01/18 05/30/19 History atorvastatin 80 mg tablet 80 mg PO QPM #90 tab 01/09/19 05/30/19 Rx ezetimibe 10 mg tablet 10 mg PO QPM #90 tab 01/09/19 05/30/19 Rx losartan 100 mg tablet 100 mg PO QAM #30 tab 01/09/19 05/30/19 Rx pantoprazole 40 mg tablet,delayed 40 mg PO QAM #90 tab 03/03/19 05/30/19 Rx release nitroglycerin 0.4 mg sublingual 0.4 mg SL Q5M PRN 03/29/19 05/30/19 History tablet lancets 33 gauge #300 ea 03/30/19 04/26/19 Rx blood sugar diagnostic #100 ea 04/18/19 04/26/19 Rx isosorbide mononitrate 120 mg PO QAM 05/02/19 05/30/19 History omega 9-mcs-nnn-fish oil [Fish Oil] 1 cap PO QAM 05/02/19 05/30/19 History tamsulosin 0.4 mg PO QAM 05/02/19 05/30/19 History Past Med/Surg History Medical History Arthritis Benign prostatic hyperplasia with urinary obstruction (Chronic) Managed with doxazosin + finasteride. Followed by urology. Continued suprapubic pain, scheduled for cystoscopy via urology Chronic abdominal pain Long history of this of unclear etiology. hx cdiff associated with antral colitis. Multiple abd/pelvic CT scans. Diverticular disease present and 2.2cm L common iliac aneurysm. Has had gastric emptying study and hepatobiliary scans that were unremarkable. EGD (09/30) small hiatal hernia and gastritis. Colonoscopy (01/01) with multiple tubular adenomas removed. Coronary artery disease (Chronic) S/p CABG x4 (2004). S/p DESx2 (2006) of circumflex, circumflex marginal. Followed by cardiology. Medically managed with ASA + statin + long acting nitrate + ARB Diabetes mellitus, type 2 ORAL MEDS STOPPED BY [facility] O/N STAY PAST YR GERD (gastroesophageal reflux disease) Heart disease Heart palpitations Hiatal hernia Hyperlipidemia (Chronic) Hypertension (Chronic) Long standing. Complicated with hypertensive crisis (07/04). 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 [employer] BILAT HAS NEVER LOCKED Surgical History H/O knee surgery H/O shoulder surgery History of cardiac cath 2 STENTS PLACED, ~2012, after CABG History of colonoscopy History of esophagogastroduodenoscopy (EGD) History of herniorrhaphy Hx of CABG 4 [place] [facility] [place] repair AAA Family History Unknown Coronary heart disease Brother Myocardial infarction Mother Colon cancer Social History Preferred Language: Sinhala Communication Ability: Effective Visual Impairment: No Limitations Hearing Ability: Normal 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 Required: No Beliefs That Will Affect Care: None marital status: Current Living Situation: Spouse current occupational status: retired Other Information That Helps Us Care for You: No Feels Safe at Home: Yes Safety Concerns: Feels Safe At This Time Smoking Status: Former smoker Do You Dip or Chew Tobacco: No ; Smoking End Date: QUIT 25+ YRS AGO ; Second Hand Exposure: No ; Hx Alcohol Use: No Hx Substance Use: No Physical Exam Constitutional: well developed and well nourished Neck: neck nontender Respiratory: normal respiratory effort; no respiratory distress and does not use accessory muscles Cardiovascular: Rate/Rhythm: regular rate Vessels: radial pulses present Extremities: no edema Gastrointestinal (Abdomen): Inspection/Auscultation: abdomen normal to inspection Percussion/Palpation: abdomen soft; abdomen nontender and no gua rding Musculoskeletal: Head/Neck/Chest: normocephalic and head atraumatic Extremities: extremities normal to inspection Skin: no rashes and no lesions Trauma: no evidence of skin trauma Neurologic: awake; not obtunded Speech / Cognition: normal speech Motor/Sensory: no tremor Psychiatric: Orientation: alert and oriented x 3 Genitourinary: no CVA tenderness Lymphatic: no lymphadenopathy Results & Data Vital Signs (Past 12 Hours) Vital Signs Temp Pulse Resp BP Pulse Ox 05/30/19 05:38 36.5 C 51 L 18 177/70 H 96
[2019-05-30] MEDS ORDERED: ONDANSETRON INJ 2 MG/ML 2 ML VIAL ONE (07:49)
[2019-05-30] MEDS ORDERED: GLYCOPYRROLATE 0.2 MG/ML VIAL ONE (07:52)
[2019-05-30] MEDS ORDERED: HYDROCODONE/ACETAMOPHEN 5/325MG TAB PO PRN (08:38)
[2019-05-30] MEDS ORDERED: ACETAMINOPHEN 325 MG TAB PO PRN (08:38)
--- NOTE | 2019-05-30 08:44 | Operative Report ---
PG Post Operative Report Pre & Post Diagnosis Operation Date: 05/30/19 07:30 Pre-Op Diagnosis: Benign Prostatic Hyperplasia; Urinary Obstruction Post-Op Diagnosis: Benign Prostatic Hyperplasia; Urinary Obstruction I identified the patient and participated in the time-out.: Yes Procedure Operation Date: 05/30/19 07:30 Actual Procedures p Transurethral Resection of Prostate(Not Applicable) - Yehuda Hoang MD Surgeon David Hoang MD Boat Master none Estimated Blood Loss 5 Findings Consistent with Post-Op Diagnosis Specimens none Description of Procedure The patient was identified in the preopertive holding area, appropriate informed consents were reviewed and completed and the patient was transferred to the operative suite. Upon arrival, appropriate antibiotics and anesthesia were administered and the patient was placed in dorsal lithotomy position and prepped and draped in sterile fashion. To begin the case a 27 Danish resectoscope was passed per urethra, inspection revealed no evidence of stricture disease. He has moderate lateral lobe hypertrophy as well as a high bladder neck. He does h ave an obstructed prostate. Inspection is bladder revealed healthy-appearing mucosa with ureteral orifices in orthotopic position. After reviewing his internal anatomy, I exchanged the visual obturator for a resecting element using a button electrode. I began by incising the bladder neck at 5 and 7:00 which dropped to the high bladder neck. I resected the intervening tissue between these 2 incisions before moving to the left lateral lobe and ultimately the right lateral lobe. I concluded my resection by trimming the apical tissues and obtaining meticulous hemostasis. He had a widely patent prostatic urethra at the conclusion of the case with good hemostasis. I left the bladder full and withdrew the scope. I placed a 22 Danish catheter without issue and concluded the case. There were no complications. I attest to the content of the Intraoperative Record and any orders documented therein. Any exceptions are noted below.
--- NOTE | 2019-05-30 09:23 | Anesthesiology Progress Note ---
Date of Service May 30, 2019 Anesthesia Post Procedure Vital Signs Vital Signs: Temp Pulse Pulse Resp BP Pulse Ox 05/30/19 09:00 97.7 F 55 L 18 136/65 96 05/30/19 08:50 97.7 F 60 18 133/66 97 05/30/19 08:40 74 14 144/68 H 95 05/30/19 08:30 91 H 16 163/75 H 97 05/30/19 08:20 96 H 16 152/72 H 97 05/30/19 08:14 97.7 F 100 H 16 166/78 H 95 05/30/19 05:38 97.7 F 51 L 18 177/70 H 96 Pain Intensity Lower Back: Pain Intensity: 5 Transfer of Care Handoff Completed per policy Notes Mental Status: alert / awake / arousable and participated in evaluation Patient Amnestic to Procedure: Yes Nausea / Vomiting: adequately controlled Pain: adequately controlled Airway Patency, RR, SpO2: stable & adequate BP & HR: stable & adequate Hydration State: stable & adequate Anesthetic Complications: no major complications apparent and Pt Satisfied with anesthetic care
[2019-05-30] MEDS ORDERED: NITROGLYCERIN SL 0.4 MG/TAB TAB SL PRN (09:36)
[2019-05-30] MEDS: SODIUM CHLORIDE 0.9% 1000ML 1,000 ML IV SCH ×2 (09:37→21:08)
[2019-05-30] MEDS ORDERED: PHARMACY GLYCEMIC MGMT CONSULT PRN (09:44)
[2019-05-30] MEDS ORDERED: GLUCOSE 40% GEL 15 GM TUBE PO PRN (10:30)
[2019-05-30] MEDS ORDERED: CARBOHYDRATES FOR HYPOGLYCEMIA PO PRN (10:30)
[2019-05-30] MEDS ORDERED: GLUCOSE 10 TABS/TUBE PO PRN (10:30)
[2019-05-30] MEDS ORDERED: DEXTROSE 50% 50 ML SYRINGE IV PRN (10:30)
[2019-05-30] MEDS ORDERED: GLUCAGON FOR INJ 1 MG VIAL SQ PRN (10:30)
[2019-05-30] MEDS: AMLODIPINE BESYLATE 5 MG TAB PO SCH (11:18)
[2019-05-30] MEDS: PANTOprazole 40 MG TAB PO SCH (11:20)
[2019-05-30] MEDS: ISOSORBIDE MONO EXTENDED REL 60 MG TABCR PO SCH (11:20)
--- NOTE | 2019-05-30 11:23 | Pharmacy Report ---
Glycemic Control Consultation - Date of Service May 30, 2019 - Scope Scope: Glycemic Pharmacist consulted by Dr Hoang on 05/30/19 for glycemic control and to write orders per [facility] inpatient glycemic control protocol - Objective Weight: 84.414 kg Accuchecks BSG (last 24hrs): 05/30/19 05/30/19 05:29 08:23 POC Glucose 89 107 H - Recent Pertinent Medications Outpatient Anti-diabetic Regimen: * n/a - oral meds were stopped awhile ago and patient has been diet controlled since then * A1c = 7 % 02/15/19 Risk Factors for Insulin Resistance: * Recent Surgery: POD 0 s/p TURP * Diet: T2DM - Assessment & Plan Assessment & Plan: ASSESSMENT: * 84 y/o M admitted s/p TURP for BPH with urinary obstruction. PMH pertinent for T2DM but he has been diet controlled for awhile. During his recent admission, he was placed on correctional insulin only but did not require any insulin. He reported to the nurse today that he "sometimes has problems keeping his blood sugar up". * Will plan to initiate correctional insulin only again, in case BSGs would rise from stress of surgery, but will be very conservative with parameters. PLAN FOR INPATIENT GLYCEMIC CONTROL: * Bolus insulin * NovoLog per scale ACHS or Q6hrs while NPO * Goal Range: Low 120 mg/dL - High 160 mg/dL * Correction Factor: 50 mg/dL/unit Discharge Recommendations: * A1c 7% on 02/15/19 * Goal A1c < 7 or even <8% for patient's age/comorbidities * Recommend to continue with diet control on discharge Thank you.
[2019-05-30] MEDS: LOSARTAN POTASSIUM 50 MG TAB PO SCH (11:39)
[2019-05-30] MEDS: INSULIN ASPART 100 UNITS/ML 3 ML PEN SC SCH ×3 (12:41→21:02)
[2019-05-30] MEDS ORDERED: ATORVASTATIN 40 MG TAB PO SCH (21:00)
[2019-05-30] MEDS ORDERED: EZETIMIBE 10 MG TABLET PO SCH (21:00)
[2019-05-31 06:07] LABS: Basophils # (auto) 0.02 K/uL (0-0.2); Basophils % (auto) 0.3 %; Eosinophils # (auto) 0.38 K/uL (0-0.5); Eosinophils % (auto) 5.9 %; Hematocrit (blood only) 39.8 % (42-52); Hemoglobin 13.1 g/dL (14.0-18.0); Immature Granulocytes # (auto) 0.01 K/uL (0.00-0.02); Immature Granulocytes % (auto) 0.2 %; Lymphocytes # (auto) 1.26 K/uL (1.2-3.4); Lymphocytes % (auto) 19.7 %; Mean Corpuscular Hemoglobin 31.1 pg (25-34); Mean Corpuscular Hgb Conc 32.9 g/dL (32-36); Mean Corpuscular Volume 94.5 fL (80-100); Mean Platelet Volume 10.7 fL (7.4-10.4); Monocytes # (auto) 0.68 K/uL (0.11-0.59); Monocytes % (auto) 10.6 %; Neutrophils # (auto) 4.06 K/uL (1.4-6.5); Neutrophils % (auto) 63.3 %; Platelet Count 149 K/uL (130-400); RDW Coefficient of Variation 12.9 % (11.5-14.5); RDW Standard Deviation 44.7 fL (36.4-46.3); Red Blood Count 4.21 M/uL (4.7-6.1); White Blood Count 6.41 K/uL (4.8-10.8)
[2019-05-31 06:33] LABS: BUN Creatinine Ratio 14.5 (10-20); Calcium 9.5 mg/dl (8.5-10.1); Creatinine Clr Calc Pharmacy 50.3 ml/min; Est GFR (African American) 67.8; Est GFR (Non-African American) 58.5; Potassium 4.1 mmol/L (3.5-5.1)
[2019-05-31] MEDS: LOSARTAN POTASSIUM 50 MG TAB PO SCH (07:39)
[2019-05-31] MEDS: AMLODIPINE BESYLATE 5 MG TAB PO SCH (07:40)
[2019-05-31] MEDS: ISOSORBIDE MONO EXTENDED REL 60 MG TABCR PO SCH (07:40)
[2019-05-31] MEDS: PANTOprazole 40 MG TAB PO SCH (07:41)
--- NOTE | 2019-05-31 07:52 | Urology Progress Note ---
Date of Service May 31, 2019 Assessment & Plan (1) Benign prostatic hyperplasia with urinary obstruction: BPH - s/p TURP - doing well from a standpoint - [place] out this AM - he has an extensive cardiac hx, and while his shoulder pain seems to be musculoskeletal - he is moderately hypertensive - so I will obtain an EKG as a precaution - if all is stable, plan for d/c home later this afternoon Subjective did very well overnight only subjective complaint is mild left shoulder pain urine appropriate (mild blood) no pain Review of Systems Review of Systems: All systems reviewed & are unremarkable except as noted in HPI & below Physical Exam Physical Exam: urine light pink Constitutional: well developed and well nourished Respiratory: no respiratory distress Cardiovascular: Extremities: no pedal edema Gastrointestinal (Abdomen): Inspection/Auscultation: abdomen normal to inspection Results & Data Vital Signs (Past 12 Hours) Vital Signs Temp Pulse Pulse Resp BP BP Pulse Ox 05/31/19 07:43 37.0 C 44 L 18 190/73 H 90 05/31/19 07:38 190/73 H 05/31/19 03:45 36.7 C 48 L 17 172/79 H 91 05/30/19 23:31 36.4 C L 49 L 17 179/80 H 91 05/30/19 20:06 36.4 C L 49 L 14 172/45 H 94 PG Care Time/CCT Total # of Minutes Spent Total Time Spent with Patient: Total time spent is greater than 50% in coordination of care (as documented) at patient's floor/unit and/or counseling patient:
--- NOTE | 2019-05-31 07:57 | Anesthesiology Progress Note ---
Date of Service May 31, 2019 Anesthesia Post Procedure Vital Signs Vital Signs: Temp Pulse Pulse Resp BP BP Pulse Ox 05/31/19 07:43 37.0 C 44 L 18 190/73 H 90 05/31/19 07:38 190/73 H 05/31/19 03:45 36.7 C 48 L 17 172/79 H 91 05/30/19 23:31 36.4 C L 49 L 17 179/80 H 91 05/30/19 20:06 36.4 C L 49 L 14 172/45 H 94 05/30/19 15:23 36.5 C 46 L 12 155/80 H 92 05/30/19 12:51 53 L 16 149/73 H 95 05/30/19 11:50 57 L 16 137/78 98 05/30/19 10:50 48 L 15 146/72 H 96 05/30/19 10:20 54 L 15 155/78 H 93 05/30/19 09:50 52 L 16 148/73 H 93 05/30/19 09:20 36.4 C L 59 L 16 144/65 H 98 05/30/19 09:00 36.5 C 55 L 18 136/65 96 05/30/19 08:50 36.5 C 60 18 133/66 97 05/30/19 08:40 74 14 144/68 H 95 05/30/19 08:30 91 H 16 163/75 H 97 05/30/19 08:20 96 H 16 152/72 H 97 05/30/19 08:14 36.5 C 100 H 16 166/78 H 95 Pain Intensity Lower Back: Pain Intensity: 0 Left Shoulder: Pain Intensity: 2 Notes Mental Status: alert / awake / arousable and participated in evaluation Patient Amnestic to Procedure: Yes Nausea / Vomiting: adequately controlled Pain: adequately controlled Airway Patency, RR, SpO2: stable & adequate BP & HR: stable & adequate Hydration State: stable & adequate Anesthetic Complications: no major complications apparent
[2019-05-31] MEDS: INSULIN ASPART 100 UNITS/ML 3 ML PEN SC SCH (09:27)
[2019-05-31] MEDS: SODIUM CHLORIDE 0.9% 1000ML 1,000 ML IV SCH (09:49)
--- NOTE | 2019-05-31 10:15 | Discharge Summary ---
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 presenting for definitive therapy Principal Diagnosis BPH Discharge Data Allergies Allergy/AdvReac Type Severity Reaction Status Date / Time cinnamon Allergy Severe THROAT Verified 05/30/19 05:32 SWELLING chlorthalidone Allergy Unknown Unknown Verified 05/30/19 05:32 ciprofloxacin Allergy Unknown Unknown Verified 05/30/19 05:32 linaclotide AdvReac Mild DIARRHEA Verified 05/30/19 05:32 lisinopril AdvReac Mild DIZZINESS Verified 05/30/19 05:32 Procedures Performed Operation Date: 05/30/19 07:30 Actual Procedures p Transurethral Resection of Prostate(Not Applicable) - Yehuda Hoang MD Hospital Course (1) Benign prostatic hyperplasia with urinary obstruction: Admitted for TURP - tolerated procedure very well - progressed appropriately overnight - passed a voiding trial on the morning of POD#1 - d/c home in stable condition Of note, he did complain of some mild left shoulder pain on the morning after surgery and given his extensive cardiac history I obtained an EKG. Fortunately the EKG showed no changes from his preop status implying that this is more musculoskeletal and, likely related to positioning during surgery. No further work-up at this time Total Time Total Time Spent Total Time Spent (In Minutes): 30 Total Time Includes: Examination of the Patient and Discharge Planning Discharge Plan Discharge Items Reason For Visit: Benign Prostatic Hyperplasia; Urinary Obstruction Medications and DC Order Prescriptions: No Action ezetimibe 10 mg tablet 10 mg PO QPM Qty: 90 RF: 3 losartan 100 mg tablet 100 mg PO QAM Qty: 30 RF: 5 atorvastatin 80 mg tablet 80 mg PO QPM Qty: 90 RF: 3 pantoprazole 40 mg tablet,delayed release (DR/EC) 40 mg PO QAM Qty: 90 RF: 3 (DME) lancets [OneTouch Delica Lancets] 33 gauge misc See Dose Instructions .ROUTE .MEDSUPPLY Qty: 300 RF: 3 (DME) OneTouch Verio strip See Dose Instructions .ROUTE .MEDSUPPLY Qty: 100 RF: 3 cholecalciferol (vitamin D3) 2,000 unit capsule 6,000 unit PO QPM RF: 0 furosemide 20 mg tablet 20 mg PO DAILY PRN (Reason: Fluid Retention) Qty: 90 RF: 0 nitroglycerin 0.4 mg tablet, sublingual 0.4 mg SL Q5M PRN (Reason: Chest Pain) RF: 0 aspirin 81 mg Tablet,Delayed Release (Dr/Ec) 81 mg PO QAM RF: 0 amlodipine 10 mg tablet 10 mg PO QAM RF: 0 finasteride 5 mg tablet 5 mg PO QPM RF: 0 omega 3-fba-mzo-fish oil [Fish Oil] 1,000 mg (120 mg-180 mg) Capsule 1 cap PO QAM RF: 0 isosorbide mononitrate 120 mg tablet extended release 24 hr 120 mg PO QAM RF: 0 tamsulosin 0.4 mg capsule 0.4 mg PO QAM RF: 0 Admission Data Admit Date/Time: 05/30/19 08:38 Attending Provider: Yehuda Hoang Admit Provider: Yehuda Hoang Primary Care Provider: Noah Emmanuel
--- NOTE | 2019-05-31 11:44 | Electrocardiogram Report ---
Test Reason : Blood Pressure : / mmHG Vent. Rate : 051 BPM Atrial Rate : 051 BPM P-R Int : 160 ms QRS Dur : 152 ms QT Int : 500 ms P-R-T Axes : 018 048 009 degrees QTc Int : 460 ms Sinus bradycardia Right bundle branch block Possible Old Inferior infarct Abnormal ECG When compared with ECG of 14-FEB-2019 23:06, Premature ventricular complexes are no longer Present Otherwise no significant change Confirmed by Timo Moise ([id number]) on 05/31/2019 11:44:10 AM Referred By: Yehuda Hoang Confirmed By:Timo Moise
== END 2019-05-31 12:43 | disposition home or self-care (01) ==
LOC: ASU 05:05 → 3W 05:05

== ENCOUNTER 2024-02-16 16:31 | Inpatient (IN) ==
--- NOTE | 2024-02-16 17:01 | Emergency Department Note ---
Impression & Plan Stroke-like symptoms ED Provider Note NAME: EFREN HARVEY AGE: 88 SEX: M : 1935 ARRIVES VIA: Walk-In INFORMANT: Patient ED PROVIDER(S): NATALY Alves, Eleuterio Selby DO CHIEF COMPLAINT: Hip pain HISTORY OF PRESENT ILLNESS: This 88-year-old male patient presents to the emergency department via private vehicle for evaluation of difficulty moving the right leg. He reports he had arrived home from an eye doctor's visit, and states he had a difficult time getting out of his vehicle. He reports he felt as if he could not control his right leg, and noticed that when he was attempting to lift it that he was unable to do so. The patient denied pain to me in the right hip, or right leg. He reports he does have a history of a bad hip, however he states there was no pain present at the time. He does also report weakness in the right arm that followed the right leg concern. He states he was attempting to hold a bottle of pills, and they slipped out of his hand. He denies any numbness or tingling in the extremities, he reports no visual disturbance, aphasia, or other weakness. He reports this happened at approximately 3:20 PM. REVIEW OF SYSTEMS: A review of systems was performed with positives and pertinent negatives listed in the history of present illness. All other systems were reviewed and are negative. ALLERGIES: See below MEDICATIONS: See below PMH: See below PHYSICAL EXAM: VITALS: Vitals are noted on the nurse's note and reviewed by myself. Vital signs stable. GENERAL: 88-year-old male, in no acute distress, nondiaphoretic, well-developed well-nourished. SKIN: The skin was without rashes, erythema, edema, or bruising. HEAD: Normocephalic atraumatic. EYES: Pupils equal round and reactive to light and accommodation. Conjunctivae without injection, sclerae without icterus. Extraocular movements intact. MOUTH: Mucous membranes moist. Pharynx without erythema or exudate. Uvula midline. Airway patent. Tongue does not deviate. NECK: Supple without nuchal rigidity. No lymphadenopathy. No thyromegaly. Cervical spine is nontender. No JVD. HEART: Regular rate and rhythm without murmurs gallops or rubs. LUNGS: Clear to auscultation bilaterally without wheezes, rales or rhonchi. No retractions or accessory muscle use. ABDOMEN: Positive bowel sounds x 4. Soft, nontender, without masses or organomegaly. Ayala sign negative. No guarding or rebound tenderness. MUSCULOSKELETAL: Full ROM right hip, knee, and ankle. Sensation intact BLE. DP pulse intact. Strength with dorsiflexion of right foot 4/5. RUE full sensation, full ROM, provisioning specialist strength 5/5. NEURO: Patient was alert and oriented to person place and time. No focal neurological deficits. MEDICAL DECISION MAKING: The patient is a pleasant 88-year-old male who arrives to the emergency department for evaluation of the above-stated complaint. The patient was triaged, and placed in D pod as a hip pain, therefore there was a delay in provider evaluation, and treatment due to inappropriate triaging of the patient. Upon my arrival to the patient's bedside, the patient began to discuss inability to lift the right leg, with weakness in the right arm. A full NIHSS was performed with a positive score of 1 at that time due to the right lower extremity drift. At that time I went to the charge nurse to facilitate a stroke alert, as the patient is within the window for TNKase administration, and has no exclusion criteria. Stroke protocol orders were placed. The patient was taken immediately to CT for evaluation. The patient was moved to room A1, after CT imaging of the head, and CTA imaging of the head and neck were obtained. Contact was made with Dr. Eduardo Ge from [facility] neurology. He was able to evaluate the patient via telestroke. CT/CTA imaging results of the head and neck were not available during consultation over the phone with Dr. Ge, however resulted during his telestroke intervention. Lab work is all reassuring, BUN and creatinine slightly elevated at 34/1.43. Patient's glucose was 152. Patient was placed on a school bus monitor, and pulse oximetry. EKG was obtained which shows sinus bradycardia with a right bundle branch block at a rate of 55 consistent with previous EKG from 10/07. CT imaging of the head was negative for ICH, fracture, or other abnormality. CTA imaging of the head and neck was negative. Dr. Ge did recommend TNKase administration due to the patient's painless weakness of the right leg, and weakness of the right arm. TNKase was administered by nursing staff at 1820. I spoke with the patient regarding informing the nurse of any bleeding, or increasing in weakness. Case management was contacted to facilitate hospital admission for the patient. The patient will require further workup, and evaluation due to TNKase administration, as well as MRI imaging. Dr. Mcknight from the [facility] agreed to accept the patient under his care for further workup and evaluation. Please refer to his documentation for further patient care. DIFFERENTIAL DIAGNOSIS: Infection, dehydration, metabolic abnormality, hypo/hyperglycemia, electrolyte disturbance, anemia, hypoxia, cardiac sources, intracerebral event, toxicologic, neurologic, as well as other pathologies. Continuous school bus monitor: Order was placed for continuous school bus monitor. Patient was placed on the school bus monitor. Patient was noted to be in sinus bradycardia at an initial rate of 58 bpm. The patient's case was discussed with Dr. Selby, who agreed with my evaluation and treatment plan. The chart was completed utilizing [employer] voice recognition software. Grammatical errors, random word insertions, pronoun errors, and incomplete sentences are an occasional consequence of this system due to software limitations, ambient noise, and hardware issues. Any formal questions or concerns about the content, text, or information contained within the body of this dictation should be directly addressed to the physician for clarification. Past Med/Surg History Problem List (Updated 02/16/24 @ 19:06 by NATALY Hutchins) Stroke-like symptoms (Acute) Sebaceous cyst GERD (gastroesophageal reflux disease) Back problem Diabetes Heart disease Basal cell carcinoma of back (~08/2023) Memory change Hyperparathyroidism Vitamin D deficiency Chronic hip pain Lumbar degenerative disc disease Antiplatelet or antithrombotic long-term use (Acute) Hyperlipidemia Osteoporosis DEXA (05/03) demonstrating minimum T score -2.6 of femur. Initiated on bisphosphonate therapy IV + Vit D supplementation Diabetes mellitus, type II oral meds Coronary artery disease Followed by Cardio; f/u Dr. Sanchez, [place] Hypertension (Acute) Benign prostatic hyperplasia with urinary obstruction had a "steam procedure" in the office Medical History Lumbar degenerative disc disease Vitamin D deficiency Coronary artery disease follows with / Daniel Memory change "just old age" testing for Alzheimers neg per pt. Hypertension Diabetes Hx of myocardial infarction hx prior to cabg in 2004 Hx of migraines History of basal cell carcinoma (BCC) neck- removed Basal cell carcinoma (BCC) of back Hx of Clostridium difficile infection (2021) tx w/antibiotics - no issues since Degenerative disc disease lumbar Hyperparathyroidism Post-nasal drip CHRONIC SINUS DRAINAGE, NO CHANGES FROM BASELINE History of anesthesia reaction slow to wake up History of kidney stones Premature atrial complex hx, follows with Dr. 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 Internal hemorrhoids Tubular adenoma of colon Diagnostic colonoscopy performed (01/01) w/ tubular adenoma x2. 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 Sanchez Surgical History History of surgery (10/19/23) Wide Local Excision of Basal Cell Carcinoma of Back(Left) - Mauri Barrett, DO Hx of transurethral resection of prostate (05/2019) Hx of basal cell carcinoma excision (2021) from neck area History of parathyroid surgery (~06/2022) Hx of knee surgery Lt. knee, partial replacement History of removal of cyst [place] teeth removed History of esophagogastroduodenoscopy (EGD) History of colonoscopy History of cardiac cath (2012) 2 STENTS PLACED, ~2012, after CABG, [facility] - Dr. Sanchez currently H/O shoulder surgery left S/P aneurysm repair (2009) AAA - [facility] [place] Hx of CABG (2004) 4 VESSELS [facility] [place] - follows with Dr. Sanchez History of herniorrhaphy X3 Family History Unknown Coronary heart disease Brother Myocardial infarction Hypertension Mother Colon cancer Family history of diabetes mellitus Father Tuberculosis Lung cancer Denies family history of Ovarian cancer Prostate cancer Breast cancer Social History Smoking Status: Former smoker Tobacco Type: Cigarettes Age Started Using Tobacco: 19; Age Quit Using Tobacco: 41; packs per day: 1.5; Second Hand Exposure: No; Do You Dip or Chew Tobacco: No; Hx Alcohol Use: No Hx Substance Use: No Preferred Language: Puerto Rican Communication Ability: Effective Visual Impairment: No Limitations Hearing Ability: Normal Preparer Making Department Required: No Beliefs That Will Affect Care: None marital status: / Current Living Situation: Alone current occupational status: retired How many Children do You have: 2 Feels Safe at Home: Yes Childhood Exposure to Second-Hand Smoke: No Diet: low carbohydrate and low salt caffeine: Yes (coffee daily ) Dental Care, Regularly: Yes Physical Activity Frequency: Does not Exercise Seatbelt Use: always Sunscreen Use: No Assistive Devices: Denture - Lower and Glasses Allergies Allergies Allergy/AdvReac Type Severity Reaction Status Date / Time cinnamon Allergy Severe THROAT Verified 01/25/24 11:08 SWELLING chlorthalidone AdvReac Unknown Gastrointestinal Verified 01/25/24 11:08 Upset ciprofloxacin AdvReac Unknown constipatio Verified 01/25/24 11:08 n linaclotide AdvReac Unknown DIARRHEA Verified 01/25/24 11:08 lisinopril AdvReac Unknown DIZZINESS Verified 01/25/24 11:08 Home Meds Home Medications Medication Instructions Recorded Confirmed nitroglycerin 0.4 mg sublingual 0.4 mg sublingual Q5M PRN Chest 03/29/19 01/25/24 tablet Pain lancets 33 gauge (OneTouch Delica 06/27/19 01/25/24 Lancets) cholecalciferol (vitamin D3) 50 4,000 unit PO HS 07/07/21 01/25/24 mcg (2,000 unit) capsule glucosamine HCl 1,500 mg tablet 1,500 mg PO QAM 08/14/21 01/25/24 oxymetazoline 0.05 % nasal spray 2 spray intranasal Q12H PRN 06/14/23 01/25/24 (Afrin (oxymetazoline)) allergies acetaminophen 325 mg tablet 1,300 mg PO BID PRN Pain 08/25/23 01/25/24 (Tylenol) aspirin 81 mg tablet,delayed 81 mg PO QAM 10/05/23 01/25/24 release (Adult Low Dose Aspirin) Previous Rx's Medication Instructions Recorded sodium chloride 0.65 % nasal spray 1 spray intranasal BID PRN nasal 06/04/21 aerosol (Saline Mist) congestion #45 mL furosemide 20 mg tablet 20 mg PO QAM #90 tabs 05/20/23 amlodipine 10 mg tablet 10 mg PO QAM #90 tabs 08/23/23 blood sugar diagnostic (OneTouch See Rx Instructions .Route 09/30/23 Verio test strips) .COMPLEX #100 strips valsartan 160 mg tablet See Rx Instructions .Route 09/30/23 .COMPLEX #135 tabs ezetimibe 10 mg tablet 10 mg PO HS #90 tabs 10/13/23 isosorbide mononitrate 120 mg 120 mg PO QAM #90 tabs 11/03/23 tablet,extended release 24 hr pantoprazole 40 mg tablet,delayed 40 mg PO QAM #90 tabs 11/03/23 release atorvastatin 80 mg tablet 80 mg PO HS #90 tabs 11/22/23 gabapentin 100 mg capsule 100 mg PO BID #180 caps 11/22/23 cinacalcet 30 mg tablet 30 mg PO BID #60 tabs 12/23/23 finasteride 5 mg tablet 5 mg PO DAILY #90 tabs 01/31/24 Results & Data (ED) Vital Signs Vital Signs - 24 hr 02/16/24 16:48 02/16/24 17:35 02/16/24 17:39 Temperature 36.8 C Temperature Source Temporal Artery Scan Pulse Rate 48 L 58 L Pulse Rate [Apical] Pulse Rate from SpO2 Sensor 53 L Respiratory Rate 20 16 Respiratory Effort / Characteristics Non-Labored Spontaneous Respiratory Depth Normal Respiratory Pattern Regular Blood Pressure 136/77 167/86 H Blood Pressure [Left Arm] Blood Pressure Mean 96 104 Blood Pressure Mean [Left Arm] Pulse Oximetry 97 95 Oxygen Delivery Method Room Air Sepsis Recent Fever Within 48 Hours No Sepsis New/Unexplained Change in Mental Status No Sepsis Action Taken by Nursing No Action Required 02/16/24 18:00 02/16/24 18:00 02/16/24 18:09 Temperature Temperature Source Pulse Rate 52 L 58 L Pulse Rate [Apical] Pulse Rate from SpO2 Sensor Respiratory Rate 14 Respiratory Effort / Characteristics Respiratory Depth Respiratory Pattern Blood Pressure 160/71 H Blood Pressure [Left Arm] Blood Pressure Mean 109 Blood Pressure Mean [Left Arm] Pulse Oximetry Oxygen Delivery Method Sepsis Recent Fever Within 48 Hours Sepsis New/Unexplained Change in Mental Status Sepsis Action Taken by Nursing 02/16/24 18:20 02/16/24 18:35 02/16/24 18:50 Temperature Temperature Source Pulse Rate Pulse Rate [Apical] 62 53 L 50 L Pulse Rate from SpO2 Sensor Respiratory Rate 18 20 20 Respiratory Effort / Characteristics Non-Labored Spontaneous Respiratory Depth Normal Respiratory Pattern Blood Pressure Blood Pressure [Left Arm] 177/98 H 176/75 H 158/70 H Blood Pressure Mean Blood Pressure Mean [Left Arm] 124 108 99 Pulse Oximetry 97 97 96 Oxygen Delivery Method Room Air Room Air Room Air Sepsis Recent Fever Within 48 Hours Sepsis New/Unexplained Change in Mental Status Sepsis Action Taken by Half-Way Medications Current Medication List: was personally reviewed by me Laboratory Data Attestation: I reviewed the patient's lab results. 02/16/24 17:35 02/16/24 17:35 Lab Results 02/16/24 02/16/24 Range/Units 17:29 17:35 WBC 6.73 (4.8-10.8) K/ul RBC 3.52 L (4.70-6.10) M/uL Hgb 11.3 L (14.0-18.0) g/dl Hct 34.1 L (42.0-52.0) % MCV 96.9 (80.0-100.0) fL MCH 32.1 (25.0-34.0) pg MCHC 33.1 (32.0-36.0) g/dL RDW Std Deviation 45.1 (36.4-46.3) fL RDW Coeff of Abbie 12.7 (11.5-14.5) % Plt Count 144 (130-400) K/uL MPV 10.2 (9.4-12.4) fL Immature Gran % (Auto) 0.1 % Neut % (Auto) 54.1 % Lymph % (Auto) 32.2 % Clarke % (Auto) 9.5 % Eos % (Auto) 3.4 % Baso % (Auto) 0.7 % Neut # (Auto) 3.63 (1.40-6.50) K/uL Lymph # (Auto) 2.17 (1.20-3.40) K/uL Clarke # (Auto) 0.64 H (0.11-0.59) K/uL Eos # (Auto) 0.23 (0.00-0.50) K/uL Baso # (Auto) 0.05 (0.00-0.20) K/uL Immature Gran # (Auto) 0.01 (0.01-0.20) K/uL PT 11.8 (9.0-12.0) Seconds INR 1.1 (0.9-1.1) APTT 26 (21-31) Seconds PTT Ratio 1.0 Sodium 136 (136-145) mmol/L Potassium 4.1 (3.5-5.1) mmol/L Chloride 106 (98-107) mmol/L Carbon Dioxide 24 (21-32) mmol/L Anion Gap 6 (3-11) BUN 34 H (6-23) mg/dl Creatinine 1.43 H (0.6-1.4) mg/dl POC Creatinine 1.5 H (0.6-1.3) mg/dl Est Cr Clr Drug Dosing 38.8 ml/min eGFR 47.42 BUN/Creatinine Ratio 23.8 H (10-20) Glucose 152 H (70-99(Fasting)) mg/dl POC Glucose 142 H (70-99) mg/dl Calcium 7.9 L (8.6-10.3) mg/dl Magnesium 1.8 (1.7-2.4) mg/dl Total Bilirubin 0.6 (0.2-1.0) mg/dl AST 18 (13-39) U/L ALT 18 (7-52) U/L Alkaline Phosphatase 28 L (34-104) U/L Troponin I High Sens 7.3 (0-20) pg/ml Total Protein 5.7 L (6.0-8.3) gm/dl Albumin 3.7 (3.4-5.0) gm/dl Globulin 2.0 L (2.5-4.0) gm/dl Albumin/Globulin Ratio 1.9 (0.9-2) Blood Type A Negative Antibody Screen NEGATIVE Administered Medications Discontinued Medications Tenecteplase 22 mg/ Syringe 4.4 mls @ 52.8 mls/min IV ONE ONE Stop: 02/16/24 19:01 Last Admin: 02/16/24 18:19 Dose: 52.8 mls/min Documented By: PETER Co-signed By: MONICO Ioversol (Optiray 320 125ml) 119 ml IV ONCE ONE Stop: 02/16/24 17:33 Last Admin: 02/16/24 17:32 Dose: 119 ml Documented By: LYNN Sodium Chloride (Sodium Chloride 0.9% 10ml Flush) 20 ml IV NOW STA Stop: 02/16/24 18:14 Last Admin: 02/16/24 18:21 Dose: 20 ml Documented By: PETER Imaging Data Radiologist's Impression: Head CT 02/16/24 17:20 CT angio head w con, CT angio neck with con, CT head/brain wo con CLINICAL HISTORY: 88 years-old Male with neuro deficit, acute stroke suspected. Acute stroke like symptoms COMPARISON STUDY: Head CT 11/12/2018 TECHNIQUE: Unenhanced axial CT scan of the brain is performed. Subsequently, following the IV administration of 119 cc of Optiray, CT angiogram of the brain head and neck was performed. Images are reviewed in the axial, sagittal, and coronal planes. 3-D MIPS images are created and assessed. IV contrast was administered without complication. All measurements were obtained according to NASCET criteria. A dose lowering technique was utilized adhering to the principles of ALARA. CT DOSE: 1221.15 mGy.cm FINDINGS: CT BRAIN: There is no acute intracranial hemorrhage, midline shift, hydrocephalus, intracranial mass, territorial ischemia or abnormal extra-axial collections. No abnormal intra-axial or extra-axial enhancement. Involutional changes with chronic microvascular ischemic disease. Mastoid air cells and middle ear cavities are clear. No calvarial fracture. Paranasal sinuses are clear. CT ANGIOGRAM OF THE HEAD AND NECK: Atherosclerosis of the aorta. Patency of the innominate and image subclavian arteries. The common carotid arteries are patent. The right internal carotid artery is patent. Severe atherosclerotic plaque in the left carotid bulb results in approximately 50% stenosis. Dominant left vertebral artery. Bilateral vertebral arteries are patent. Basilar and posterior cerebral arteries are patent. Cervical venous sinuses are patent. The anterior and middle cerebral arteries are patent. Pulmonary emphysema. Partially imaged 2.7 cm subpleural opacity in the superior segment right lower lobe. Subcentimeter thyroid nodules. No lymphadenopathy. Degenerative changes of the spine. IMPRESSION: 1. No acute intracranial abnormality. 2. CTA of the head and neck demonstrates no aneurysm, dissection, high-grade stenosis or arterial occlusion. 3. Pulmonary emphysema with partially imaged 2.7 cm subpleural opacity within the superior segment right lower lobe. A precautionary three-month follow-up chest CT recommended. ACT 112: Negative or not required by law. The above report was generated using voice recognition software. It may contain grammatical, syntax or spelling errors. Electronically signed by: Dionisio Beltran M.D. 02/16/2024 6:00 PM Head CTA 02/16/24 17:20 CT angio head w con, CT angio neck with con, CT head/brain wo con CLINICAL HISTORY: 88 years-old Male with neuro deficit, acute stroke suspected. Acute stroke like symptoms COMPARISON STUDY: Head CT 11/12/2018 TECHNIQUE: Unenhanced axial CT scan of the brain is performed. Subsequently, following the IV administration of 119 cc of Optiray, CT angiogram of the brain head and neck was performed. Images are reviewed in the axial, sagittal, and coronal planes. 3-D MIPS images are created and assessed. IV contrast was administered without complication. All measurements were obtained according to NASCET criteria. A dose lowering technique was utilized adhering to the principles of ALARA. CT DOSE: 1221.15 mGy.cm FINDINGS: CT BRAIN: There is no acute intracranial hemorrhage, midline shift, hydrocephalus, intracranial mass, territorial ischemia or abnormal extra-axial collections. No abnormal intra-axial or extra-axial enhancement. Involutional changes with chronic microvascular ischemic disease. Mastoid air cells and middle ear cavities are clear. No calvarial fracture. Paranasal sinuses are clear. CT ANGIOGRAM OF THE HEAD AND NECK: Atherosclerosis of the aorta. Patency of the innominate and image subclavian arteries. The common carotid arteries are patent. The right internal carotid artery is patent. Severe atherosclerotic plaque in the left carotid bulb results in approximately 50% stenosis. Dominant left vertebral artery. Bilateral vertebral arteries are patent. Basilar and posterior cerebral arteries are patent. Cervical venous sinuses are patent. The anterior and middle cerebral arteries are patent. Pulmonary emphysema. Partially imaged 2.7 cm subpleural opacity in the superior segment right lower lobe. Subcentimeter thyroid nodules. No lymphadenopathy. Degenerative changes of the spine. IMPRESSION: 1. No acute intracranial abnormality. 2. CTA of the head and neck demonstrates no aneurysm, dissection, high-grade stenosis or arterial occlusion. 3. Pulmonary emphysema with partially imaged 2.7 cm subpleural opacity within the superior segment right lower lobe. A precautionary three-month follow-up chest CT recommended. ACT 112: Negative or not required by law. The above report was generated using voice recognition software. It may contain grammatical, syntax or spelling errors. Electronically signed by: Dionisio Beltran M.D. 02/16/2024 6:00 PM Neck CTA 02/16/24 17:20 CT angio head w con, CT angio neck with con, CT head/brain wo con CLINICAL HISTORY: 88 years-old Male with neuro deficit, acute stroke suspected. Acute stroke like symptoms COMPARISON STUDY: Head CT 11/12/2018 TECHNIQUE: Unenhanced axial CT scan of the brain is performed. Subsequently, following the IV administration of 119 cc of Optiray, CT angiogram of the brain head and neck was performed. Images are reviewed in the axial, sagittal, and coronal planes. 3-D MIPS images are created and assessed. IV contrast was administered without complication. All measurements were obtained according to NASCET criteria. A dose lowering technique was utilized adhering to the principles of ALARA. CT DOSE: 1221.15 mGy.cm FINDINGS: CT BRAIN: There is no acute intracranial hemorrhage, midline shift, hydrocephalus, intracranial mass, territorial ischemia or abnormal extra-axial collections. No abnormal intra-axial or extra-axial enhancement. Involutional changes with chronic microvascular ischemic disease. Mastoid air cells and middle ear cavities are clear. No calvarial fracture. Paranasal sinuses are clear. CT ANGIOGRAM OF THE HEAD AND NECK: Atherosclerosis of the aorta. Patency of the innominate and image subclavian arteries. The common carotid arteries are patent. The right internal carotid artery is patent. Severe atherosclerotic plaque in the left carotid bulb results in approximately 50% stenosis. Dominant left vertebral artery. Bilateral vertebral arteries are patent. Basilar and posterior cerebral arteries are patent. Cervical venous sinuses are patent. The anterior and middle cerebral arteries are patent. Pulmonary emphysema. Partially imaged 2.7 cm subpleural opacity in the superior segment right lower lobe. Subcentimeter thyroid nodules. No lymphadenopathy. Degenerative changes of the spine. IMPRESSION: 1. No acute intracranial abnormality. 2. CTA of the head and neck demonstrates no aneurysm, dissection, high-grade stenosis or arterial occlusion. 3. Pulmonary emphysema with partially imaged 2.7 cm subpleural opacity within the superior segment right lower lobe. A precautionary three-month follow-up chest CT recommended. ACT 112: Negative or not required by law. The above report was generated using voice recognition software. It may contain grammatical, syntax or spelling errors. Electronically signed by: Dionisio Beltran M.D. 02/16/2024 6:00 PM Discharge Plan Visit Data Chief Complaint: Hip Pain Stated Complaint: cannot walk right side, hip pain, ED Provider: Eleuterio Selby ED Midlevel Provider: Ashleigh Jamison Discharge Problem: Stroke-like symptoms Forms Stand Alone Forms: My [facility] Prescriptions Prescriptions: No Action cholecalciferol (vitamin D3) 50 mcg (2,000 unit) capsule 4,000 unit PO HS furosemide 20 mg tablet 20 mg PO QAM Qty: 90 3RF amlodipine 10 mg tablet 10 mg PO QAM Qty: 90 3RF Rx Instructions: TAKE 1 TABLET BY MOUTH IN THE MORNING valsartan 160 mg tablet See Rx Instructions .ROUTE .COMPLEX Qty: 135 3RF Dose Instruction: TAKE 1 TABLETS BY MOUTH DAILY IN THE MORNING AND 1/2 A TABLET IN THE EVENING USE DIRECTED Rx Instructions: TAKE 1 TABLETS BY MOUTH DAILY IN THE MORNING AND 1/2 A TABLET IN THE EVENING USE DIRECTED OneTouch Verio test strips Strip See Rx Instructions .ROUTE .COMPLEX Qty: 100 3RF Dose Instruction: TEST ONCE DAILY. DX: E11.9 Rx Instructions: TEST ONCE DAILY. DX: E11.9 ezetimibe 10 mg tablet 10 mg PO HS Qty: 90 3RF pantoprazole 40 mg tablet,delayed release (DR/EC) 40 mg PO QAM Qty: 90 3RF isosorbide mononitrate 120 mg tablet extended release 24 hr 120 mg PO QAM Qty: 90 3RF gabapentin 100 mg capsule 100 mg PO BID Qty: 180 3RF atorvastatin 80 mg tablet 80 mg PO HS Qty: 90 3RF finasteride 5 mg tablet 5 mg PO DAILY Qty: 90 3RF glucosamine HCl 1,500 mg tablet 1,500 mg PO QAM Rx Instructions: administer with a meal (DME) lancets [OneTouch Delica Lancets] 33 gauge misc See Rx Instructions .ROUTE .MEDSUPPLY Rx Instructions: Test blood 1 time daily oxymetazoline [Afrin (oxymetazoline)] 0.05 % spray,non-aerosol 2 spray intranasal Q12H PRN (Reason: allergies) nitroglycerin 0.4 mg tablet, sublingual 0.4 mg SL Q5M PRN (Reason: Chest Pain) acetaminophen [Tylenol] 325 mg tablet 1,300 mg PO BID PRN (Reason: Pain) cinacalcet 30 mg tablet 30 mg PO BID Qty: 60 2RF Rx Instructions: take with food Saline Mist 0.65 % aerosol,spray 1 spray intranasal BID PRN (Reason: nasal congestion) Qty: 45 0RF aspirin [Adult Low Dose Aspirin] 81 mg tablet,delayed release (DR/EC) 81 mg PO QAM Referrals Referrals: Noah Emmanuel DO [Primary Care Provider] -
[2024-02-16] MEDS: OPTIRAY 320 125ml IV ONE (17:32)
[2024-02-16 17:42] LABS: Basophils # (auto) 0.05 K/uL (0.00-0.20); Basophils % (auto) 0.7 %; Eosinophils # (auto) 0.23 K/uL (0.00-0.50); Eosinophils % (auto) 3.4 %; Hematocrit (blood only) 34.1 % (42.0-52.0); Hemoglobin 11.3 g/dl (14.0-18.0); Immature Granulocytes # (auto) 0.01 K/uL (0.01-0.20); Immature Granulocytes % (auto) 0.1 %; Lymphocytes # (auto) 2.17 K/uL (1.20-3.40); Lymphocytes % (auto) 32.2 %; Mean Corpuscular Hemoglobin 32.1 pg (25.0-34.0); Mean Corpuscular Hgb Conc 33.1 g/dL (32.0-36.0); Mean Corpuscular Volume 96.9 fL (80.0-100.0); Mean Platelet Volume 10.2 fL (9.4-12.4); Monocytes # (auto) 0.64 K/uL (0.11-0.59); Monocytes % (auto) 9.5 %; Neutrophils # (auto) 3.63 K/uL (1.40-6.50); Neutrophils % (auto) 54.1 %; Platelet Count 144 K/uL (130-400); RDW Coefficient of Variation 12.7 % (11.5-14.5); RDW Standard Deviation 45.1 fL (36.4-46.3); Red Blood Count 3.52 M/uL (4.70-6.10); White Blood Count 6.73 K/ul (4.8-10.8)
[2024-02-16 17:54] LABS: INR 1.1 (0.9-1.1); Partial Thromboplastin Time 26 Seconds (21-31); Prothrombin Time 11.8 Seconds (9.0-12.0)
[2024-02-16 18:03] LABS: Albumin Globulin Ratio 1.9 (0.9-2); Albumin Level 3.7 gm/dl (3.4-5.0); BUN Creatinine Ratio 23.8 (10-20); Bilirubin,Total 0.6 mg/dl (0.2-1.0); Calcium 7.9 mg/dl (8.6-10.3); Creatinine Clr Calc Pharmacy 38.8 ml/min; Magnesium 1.8 mg/dl (1.7-2.4); Potassium 4.1 mmol/L (3.5-5.1); Total Protein 5.7 gm/dl (6.0-8.3)
--- NOTE | 2024-02-16 18:03 | CT Scan Report ---
CT angio head w con, CT angio neck with con, CT head/brain wo con CLINICAL HISTORY: 88 years-old Male with neuro deficit, acute stroke suspected. Acute stroke like symptoms COMPARISON STUDY: Head CT 11/12/2018 TECHNIQUE: Unenhanced axial CT scan of the brain is performed. Subsequently, following the IV adminis tration of 119 cc of Optiray, CT angiogram of the brain head and neck was performed. Images are revie wed in the axial, sagittal, and coronal planes. 3-D MIPS images are created and assessed. IV contrast was administered without complication. All measurements were obtained according to NASCET criteria. A dose lowering technique was utilized adhering to the principles of ALARA. CT DOSE: 1221.15 mGy.cm FINDINGS: CT BRAIN: There is no acute intracranial hemorrhage, midline shift, hydrocephalus, intracranial mass, territori al ischemia or abnormal extra-axial collections. No abnormal intra-axial or extra-axial enhancement. Involutional changes with chronic microvascular ischemic disease. Mastoid air cells and middle ear c avities are clear. No calvarial fracture. Paranasal sinuses are clear. CT ANGIOGRAM OF THE HEAD AND NECK: Atherosclerosis of the aorta. Patency of the innominate and image subclavian arteries. The common car otid arteries are patent. The right internal carotid artery is patent. Severe atherosclerotic plaque in the left carotid bulb results in approximately 50% stenosis. Dominant left vertebral artery. Bilat eral vertebral arteries are patent. Basilar and posterior cerebral arteries are patent. Cervical veno us sinuses are patent. The anterior and middle cerebral arteries are patent. Pulmonary emphysema. Partially imaged 2.7 cm subpleural opacity in the superior segment right lower l obe. Subcentimeter thyroid nodules. No lymphadenopathy. Degenerative changes of the spine. IMPRESSION: 1. No acute intracranial abnormality. 2. CTA of the head and neck demonstrates no aneurysm, dissection, high-grade stenosis or arterial occ lusion. 3. Pulmonary emphysema with partially imaged 2.7 cm subpleural opacity within the superior segment ri ght lower lobe. A precautionary three-month follow-up chest CT recommended. ACT 112: Negative or not required by law. The above report was generated using voice recognition software. It may contain grammatical, syntax o r spelling errors. Electronically signed by: Dionisio Beltran M.D. 02/16/2024 6:00 PM
[2024-02-16 18:08] LABS: Troponin I High Sensitivity 7.3 pg/ml (0-20)
[2024-02-16] MEDS ORDERED: STAT IV/IM STA (18:13)
[2024-02-16] MEDS ORDERED: No Aspirin within 24hrs of THROMBOLYTIC-Stroke PO SCH (18:15)
[2024-02-16] MEDS: TENECTEPLASE 22 MG in SYRINGE 0 ML IV ONE (18:19)
[2024-02-16] MEDS: SODIUM CHLORIDE 0.9% 10ML FLUSH IV STA (18:21)
[2024-02-16] MEDS ORDERED: TENECTEPLASE 22 MG in SYRINGE 0 ML IV ONE (18:23)
--- NOTE | 2024-02-16 18:29 | History & Physical Report ---
Date of Service February 16, 2024 Assessment & Plan (1) Stroke-like symptoms: Plan: Right lower extremity weakness Right upper extremity weakness resolved s/p TNK given in the ER Admit to ICU Brain MRI wo IV contrast TTE with bubble study Labetalol PRN for sbp > 180 or dBP > 105, holding his other anti-hypertensives at this time Consult neurology Plan VTE prophylaxis - SCDs Diet - heart healthy Disposition - admit to ICU Admission and Anticipated Discharge Date Admission Date: February 16, 2024 History of Present Illness Chief Complaint: Right sided weakness Primary Care Provider: Noah Emmanuel DO Jose Daniel Parker is an 88 year old right hand dominant male who presents to the ER with right lower extremity weakness. He was on his way home from his ophthalmology appointment and when he tried to get out of his car at 3:20pm he noticed he was unable to move his right leg very well and had difficulty walking without pain. Last known well was approximately 30-45 minutes prior to this. He also noted when he tried making a drink he was unable to hold the cup correctly and his arm felt weak although this appears to have now resolved. No facial droop, vision, hearing, speech or extremity sensation change. He has no prior history of stroke although notable has prior history of cardiac bypass and cardiac stents. Allergies Allergy/AdvReac Type Severity Reaction Status Date / Time cinnamon Allergy Severe THROAT Verified 01/25/24 11:08 SWELLING chlorthalidone AdvReac Unknown Gastrointestinal Verified 01/25/24 11:08 Upset ciprofloxacin AdvReac Unknown constipatio Verified 01/25/24 11:08 n linaclotide AdvReac Unknown DIARRHEA Verified 01/25/24 11:08 lisinopril AdvReac Unknown DIZZINESS Verified 01/25/24 11:08 Home Medications Medication Instructions Recorded Confirmed Type nitroglycerin 0.4 mg sublingual 0.4 mg sublingual Q5M PRN Chest 03/29/19 02/16/24 History tablet Pain lancets 33 gauge (OneTouch Delica 06/27/19 01/25/24 History Lancets) sodium chloride 0.65 % nasal spray 1 spray intranasal BID PRN nasal 06/04/21 02/16/24 Rx aerosol (Saline Mist) congestion #45 mL cholecalciferol (vitamin D3) 50 4,000 unit PO HS 07/07/21 02/16/24 History mcg (2,000 unit) capsule glucosamine HCl 1,500 mg tablet 1,500 mg PO QAM 08/14/21 02/16/24 History furosemide 20 mg tablet 20 mg PO QAM #90 tabs 05/20/23 02/16/24 Rx oxymetazoline 0.05 % nasal spray 2 spray intranasal Q12H PRN 06/14/23 02/16/24 History (Afrin (oxymetazoline)) allergies amlodipine 10 mg tablet 10 mg PO QAM #90 tabs 08/23/23 02/16/24 Rx acetaminophen 325 mg tablet 1,300 mg PO BID PRN Pain 08/25/23 02/16/24 History (Tylenol) blood sugar diagnostic (OneTouch See Rx Instructions .Route 09/30/23 02/16/24 Rx Verio test strips) .COMPLEX #100 strips valsartan 160 mg tablet See Rx Instructions .Route 09/30/23 02/16/24 Rx .COMPLEX #135 tabs aspirin 81 mg tablet,delayed 81 mg PO QAM 10/05/23 02/16/24 History release (Adult Low Dose Aspirin) ezetimibe 10 mg tablet 10 mg PO HS #90 tabs 10/13/23 02/16/24 Rx isosorbide mononitrate 120 mg 120 mg PO QAM #90 tabs 11/03/23 02/16/24 Rx tablet,extended release 24 hr pantoprazole 40 mg tablet,delayed 40 mg PO QAM #90 tabs 11/03/23 02/16/24 Rx release atorvastatin 80 mg tablet 80 mg PO HS #90 tabs 11/22/23 02/16/24 Rx gabapentin 100 mg capsule 100 mg PO BID #180 caps 11/22/23 02/16/24 Rx cinacalcet 30 mg tablet 30 mg PO BID #60 tabs 12/23/23 02/16/24 Rx finasteride 5 mg tablet 5 mg PO DAILY #90 tabs 01/31/24 02/16/24 Rx Past Med/Surg History Problem List (Updated 02/16/24 @ 22:07 by NATALY Rodarte) Abnormal CT scan, lung Stroke-like symptoms (Acute) Sebaceous cyst GERD (gastroesophageal reflux disease) Back problem Diabetes Heart disease Basal cell carcinoma of back (~08/2023) Memory change Hyperparathyroidism Vitamin D deficiency Chronic hip pain Lumbar degenerative disc disease Antiplatelet or antithrombotic long-term use (Acute) Hyperlipidemia Osteoporosis DEXA (05/03) demonstrating minimum T score -2.6 of femur. Initiated on bisphosphonate therapy IV + Vit D supplementation Diabetes mellitus, type II oral meds Coronary artery disease Followed by Cardio; f/u Dr. Sanchez, [place] Hypertension (Acute) Benign prostatic hyperplasia with urinary obstruction had a "steam procedure" in the office Medical History Lumbar degenerative disc disease Vitamin D deficiency Coronary artery disease follows with / Daniel Memory change "just old age" testing for Alzheimers neg per pt. Hypertension Diabetes Hx of myocardial infarction hx prior to cabg in 2004 Hx of migraines History of basal cell carcinoma (BCC) neck- removed Basal cell carcinoma (BCC) of back Hx of Clostridium difficile infection (2021) tx w/antibiotics - no issues since Degenerative disc disease lumbar Hyperparathyroidism Post-nasal drip CHRONIC SINUS DRAINAGE, NO CHANGES FROM BASELINE History of anesthesia reaction slow to wake up History of kidney stones Premature atrial complex hx, follows with Dr. 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 Internal hemorrhoids Tubular adenoma of colon Diagnostic colonoscopy performed (01/01) w/ tubular adenoma x2. 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 Sanchez Surgical History History of surgery (10/19/23) Wide Local Excision of Basal Cell Carcinoma of Back(Left) - Mauri Barrett, Hx of transurethral resection of prostate (05/2019) Hx of basal cell carcinoma excision (2021) from neck area History of parathyroid surgery (~06/2022) Hx of knee surgery Lt. knee, partial replacement History of removal of cyst [place] teeth removed History of esophagogastroduodenoscopy (EGD) History of colonoscopy History of cardiac cath (2012) 2 STENTS PLACED, ~2012, after CABG, [facility] - Dr. Sanchez currently H/O shoulder surgery left S/P aneurysm repair (2009) [facility] - [facility] [place] Hx of CABG (2004) 4 [facility]ESSE[facility] [place] follows with Dr. Sanchez History of herniorrhaphy X3 Family History Unknown Coronary heart disease Brother Myocardial infarction Hypertension Mother Colon cancer Family history of diabetes mellitus Father Tuberculosis Lung cancer Denies family history of Ovarian cancer Prostate cancer Breast cancer Social History Smoking Status: Former smoker Tobacco Type: Cigarettes Age Started Using Tobacco: 19; Age Quit Using Tobacco: 41; packs per day: 1.5; Second Hand Exposure: No; Do You Dip or Chew Tobacco: No; Hx Alcohol Use: No Hx Substance Use: No Preferred Language: Armenian Communication Ability: Effective Visual Impairment: No Limitations Hearing Ability: Normal [employer] Crane Operator Required: No Beliefs That Will Affect Care: None marital status: / Current Living Situation: Alone current occupational status: retired How many Children do You have: 2 Feels Safe at Home: Yes Childhood Exposure to Second-Hand Smoke: No Diet: low carbohydrate and low salt caffeine: Yes (coffee daily ) Dental Care, Regularly: Yes Physical Activity Frequency: Does not Exercise Seatbelt Use: always Sunscreen Use: No Assistive Devices: None Review of Systems Review of Systems: All systems reviewed & are unremarkable except as noted in HPI & below Physical Exam Constitutional: WD/WN, vitals as above Eyes: PERRL, conjunctivae normal, anicteric sclerae normal visual figueroa by confrontation and EOM intact bilaterally; no nystagmus ENMT: external ear and nose normal, oropharynx normal Neck: trachea midline, no thyromegaly Respiratory: normal respiratory effort, lungs clear to auscultation Cardiovascular: RRR, no murmur, no edema Gastrointestinal (Abdomen): normal bowel sounds, soft, nontender, no hepatosplenomegaly Skin: no rashes, warm and dry Neurologic: moves all extremities, + focal motor deficit (4/5 right hip flexion, otherwise power equal b/l) and awake; not confused Speech / Cognition: normal speech Motor/Sensory: + tremor (postural); no pronator drift and no sensory deficit Cranial Nerves: PERRL, EOM intact bilaterally, normal facial strength, tongue midline, able to rotate head bilaterally, able to elevate shoulders bilaterally, no nystagmus and symmetric palate elevation Coordination: + abnormal [id number] test (decreased co-ordination on right side); normal [id number] test Psychiatric: A+Ox3, euthymic affect Results & Data Results & Data Vital Signs (Past 12 Hours) Vital Signs Temp Pulse Resp BP Pulse Ox O2 Del Method 02/16/24 18:09 58 L 02/16/24 18:00 160/71 H 02/16/24 18:00 52 L 14 02/16/24 17:39 58 L 16 95 02/16/24 17:35 167/86 H 02/16/24 16:48 36.8 C 48 L 20 136/77 97 Room Air Laboratory Results Abnormal lab results 02/16/24 02/16/24 Range/Units 17:29 17:35 RBC 3.52 L (4.70-6.10) M/uL Hgb 11.3 L (14.0-18.0) g/dl Hct 34.1 L (42.0-52.0) % [place] # (Auto) 0.64 H (0.11-0.59) K/uL BUN 34 H (6-23) mg/dl Creatinine 1.43 H (0.6-1.4) mg/dl POC Creatinine 1.5 H (0.6-1.3) mg/dl BUN/Creatinine Ratio 23.8 H (10-20) Glucose 152 H (70-99(Fasting)) mg/dl POC Glucose 142 H (70-99) mg/dl Calcium 7.9 L (8.6-10.3) mg/dl Alkaline Phosphatase 28 L (34-104) U/L Total Protein 5.7 L (6.0-8.3) gm/dl Globulin 2.0 L (2.5-4.0) gm/dl Diagnostic Findings CT angio head w con, CT angio neck with con, CT head/brain wo con CLINICAL HISTORY: 88 years-old Male with neuro deficit, acute stroke suspected. Acute stroke like symptoms COMPARISON STUDY: Head CT 11/12/2018 TECHNIQUE: Unenhanced axial CT scan of the brain is performed. Subsequently, following the IV administration of 119 cc of Optiray, CT angiogram of the brain head and neck was performed. Images are reviewed in the axial, sagittal, and coronal planes. 3-D MIPS images are created and assessed. IV contrast was administered without complication. All measurements were obtained according to NASCET criteria. A dose lowering technique was utilized adhering to the principles of ALARA. CT DOSE: 1221.15 mGy.cm FINDINGS: CT BRAIN: There is no acute intracranial hemorrhage, midline shift, hydrocephalus, intracranial mass, territorial ischemia or abnormal extra-axial collections. No abnormal intra-axial or extra-axial enhancement. Involutional changes with chronic microvascular ischemic disease. Mastoid air cells and middle ear cavities are clear. No calvarial fracture. Paranasal sinuses are clear. CT ANGIOGRAM OF THE HEAD AND NECK: Atherosclerosis of the aorta. Patency of the innominate and image subclavian arteries. The common carotid arteries are patent. The right internal carotid artery is patent. Severe atherosclerotic plaque in the left carotid bulb results in approximately 50% stenosis. Dominant left vertebral artery. Bilateral vertebral arteries are patent. Basilar and posterior cerebral arteries are patent. Cervical venous sinuses are patent. The anterior and middle cerebral arteries are patent. Pulmonary emphysema. Partially imaged 2.7 cm subpleural opacity in the superior segment right lower lobe. Subcentimeter thyroid nodules. No lymphadenopathy. Degenerative changes of the spine. IMPRESSION: 1. No acute intracranial abnormality. 2. CTA of the head and neck demonstrates no aneurysm, dissection, high-grade stenosis or arterial occlusion. 3. Pulmonary emphysema with partially imaged 2.7 cm subpleural opacity within the superior segment right lower lobe. A precautionary three-month follow-up chest CT recommended. Medications Administered ER medications given: Tenecteplase 22 mg IV ECG Rate (beats per minute): 55 Rhythm: sinus with SA Findings: + RBBB Comparison ECG Date: from (October 05, 2023) Change: the following changes noted (QT has lengthened) Code Status & VTE Plan Code Status Full VTE Prophylaxis Plan VTE Prophylaxis will be ordered: Yes PG Care Time/CCT Total # of Minutes Spent Total Time Spent with Patient: Total time spent is greater than 50% in coordination of care (as documented) at patient's floor/unit and/or counseling patient: Coding Level of Care Code 20842 INT INP/OBS CARE 3/75MIN Diagnoses Stroke-like symptoms R29.90
--- NOTE | 2024-02-16 21:00 | Critical Care Consultation ---
Date of Consultation February 16, 2024 Assessment & Plan (1) Stroke-like symptoms: (2) GERD (gastroesophageal reflux disease): (3) Diabetes: (4) Heart disease: (5) Hyperparathyroidism: (6) Hyperlipidemia: (7) Diabetes mellitus, type II: (8) Coronary artery disease: (9) Hypertension: (10) Benign prostatic hyperplasia with urinary obstruction: (11) Abnormal CT scan, lung: - CT neck- incidental - Pulmonary emphysema with partially imaged 2.7 cm subpleural opacity within the superior segment right lower lobe. - A precautionary three-month follow-up chest CT recommended. Plan Reason Critically Ill: 88 YOM presents with stroke like symptoms that received thrombocytics. Neuro - Stroke like symptoms s/p thrombolytics, CAM ICU: NEGATIVE - Stroke like symptoms- NIHSS 1- right leg mild drift - 24 hour post thrombolytic protocol - MRI pending - CT, CTA head and neck without aneurysms or significant stenosis - Continue High intensity statin- 80mg Atorvastatin - Continue ASA 24 hours post CVA - telemetry for 24 hours- consider extended telemetry monitoring if warranted - ECHO with bubble study in am - Neurology consult pending Cardiac - No acute needs - Hold antihypertensives at this time for permissive HTN- Will need to clarify i f he is still on Isosorbide monitirate 120mg daily- if so will continue this - post thrombolytic goal of SBP<180 and DBP<105 Respiratory - No acute needs- abnormal lung CT follow up imaging recommended - CT neck- incidental - Pulmonary emphysema with partially imaged 2.7 cm subpleural opacity within the superior segment right lower lobe. - A precautionary three-month follow-up chest CT recommended. GI - No acute needs RENAL/LYTES - BETTIE - hydrate overnight x1 L LR - follow renal function in am - BPH - Hx of TURP- unfortunately he has had TNK already and is without Gonzalez catheter- hoping he is has no voiding difficulty ENDO - DMII - ICU hyperglycemia protocol HEME - No acute needs ID - No concern for infectious etiology LINES/IV ACCESS - PIV Continue use of these lines DVT PROPHYLAXIS - SCDs, chemoprophylaxis contraindicated in setting of administration of thrombolytics DISPO: ICU 24 hours post Thrombolytics I have personally spent 45 minutes of time in the direct management of this patient. This is a life/limb threatening event. This includes time spent evaluating patient, direct bedside care, chart review, placing orders, interpretation of diagnostic studies, discussion with consultants, patient, and family members, as well as other required patient management activities. This time is exclusive of all separately billable procedures, and teaching time and separate from and in addition to any other critical care service time. Thank you for allowing us to participate in the care of this patient. Please refer to my attending physician's documentation for any further recommendations. History of Present Illness Reason for Consultation: Stroke like symptoms s/p Thrombolytics Requesting Physician: Antonino Mcknight Attending Physician: Antonino Mcknight History of Present Illness 88 YOM with medical history of: CAD with 4V CABG in 2004, HTN, HLD, Palpitations, BPH with TURP in 2019, hyperparathyroidism, Osteopetrosis, Basal Cell Carcinoma, DMII. Patient came to the EMD today for concerns of right leg weakness, and right arm weakness. Patient states he went to the eye Dr. today and when he got home and got out of his car, he noted that he was having a difficult time ambulating secondary to his right leg weakness, and he also noted that he was having trouble holding the bottle of pills he had in his right arm. Patient called 911 and came to the EMD. Time last known well was reported as 1520. He was stroke alerted in the EMD, underwent CT of the head, CTA of the head and neck, received asa, following evaluation by teleneurology, he was deemed a thrombolytic candidate. He received TNK at 1830. Patient evaluated in his room in A1 following thrombolytics and he remains with slight weakness to his right arm and leg, but otherwise without symptoms. MRI is pending. He will be admitted to the ICU for continued monitoring of hemodynamics and neurological status post TNK. CODE: FULL Allergies Allergy/AdvReac Type Severity Reaction Status Date / Time cinnamon Allergy Severe THROAT Verified 01/25/24 11:08 SWELLING chlorthalidone AdvReac Unknown Gastrointestinal Verified 01/25/24 11:08 Upset ciprofloxacin AdvReac Unknown constipatio Verified 01/25/24 11:08 n linaclotide AdvReac Unknown DIARRHEA Verified 01/25/24 11:08 lisinopril AdvReac Unknown DIZZINESS Verified 01/25/24 11:08 Home Medications Medication Instructions Recorded Confirmed Type nitroglycerin 0.4 mg sublingual 0.4 mg sublingual Q5M PRN Chest 03/29/19 02/16/24 History tablet Pain lancets 33 gauge (OneTouch Delica 06/27/19 01/25/24 History Lancets) sodium chloride 0.65 % nasal spray 1 spray intranasal BID PRN nasal 06/04/21 02/16/24 Rx aerosol (Saline Mist) congestion #45 mL cholecalciferol (vitamin D3) 50 4,000 unit PO HS 07/07/21 02/16/24 History mcg (2,000 unit) capsule glucosamine HCl 1,500 mg tablet 1,500 mg PO QAM 08/14/21 02/16/24 History furosemide 20 mg tablet 20 mg PO QAM #90 tabs 05/20/23 02/16/24 Rx oxymetazoline 0.05 % nasal spray 2 spray intranasal Q12H PRN 06/14/23 02/16/24 History (Afrin (oxymetazoline)) allergies amlodipine 10 mg tablet 10 mg PO QAM #90 tabs 08/23/23 02/16/24 Rx acetaminophen 325 mg tablet 1,300 mg PO BID PRN Pain 08/25/23 02/16/24 History (Tylenol) blood sugar diagnostic (OneTouch See Rx Instructions .Route 09/30/23 02/16/24 Rx Verio test strips) .COMPLEX #100 strips valsartan 160 mg tablet See Rx Instructions .Route 09/30/23 02/16/24 Rx .COMPLEX #135 tabs aspirin 81 mg tablet,delayed 81 mg PO QAM 10/05/23 02/16/24 History release (Adult Low Dose Aspirin) ezetimibe 10 mg tablet 10 mg PO HS #90 tabs 10/13/23 02/16/24 Rx isosorbide mononitrate 120 mg 120 mg PO QAM #90 tabs 11/03/23 02/16/24 Rx tablet,extended release 24 hr pantoprazole 40 mg tablet,delayed 40 mg PO QAM #90 tabs 11/03/23 02/16/24 Rx release atorvastatin 80 mg tablet 80 mg PO HS #90 tabs 11/22/23 02/16/24 Rx gabapentin 100 mg capsule 100 mg PO BID #180 caps 11/22/23 02/16/24 Rx cinacalcet 30 mg tablet 30 mg PO BID #60 tabs 12/23/23 02/16/24 Rx finasteride 5 mg tablet 5 mg PO DAILY #90 tabs 01/31/24 02/16/24 Rx Patient History Medical History Lumbar degenerative disc disease Vitamin D deficiency Coronary artery disease follows with / Daniel Memory change "just old age" testing for Alzheimers neg per pt. Hypertension Diabetes Hx of myocardial infarction hx prior to cabg in 2004 Hx of migraines History of basal cell carcinoma (BCC) neck- removed Basal cell carcinoma (BCC) of back Hx of Clostridium difficile infection (2021) tx w/antibiotics - no issues since Degenerative disc disease lumbar Hyperparathyroidism Post-nasal drip CHRONIC SINUS DRAINAGE, NO CHANGES FROM BASELINE History of anesthesia reaction slow to wake up History of kidney stones Premature atrial complex hx, follows with Dr. 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 Internal hemorrhoids Tubular adenoma of colon Diagnostic colonoscopy performed (01/01) w/ tubular adenoma x2. 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 Sanchez Surgical History History of surgery (10/19/23) Wide Local Excision of Basal Cell Carcinoma of Back(Left) - Mauri Barrett, Hx of transurethral resection of prostate (05/2019) Hx of basal cell carcinoma excision (2021) from neck area History of parathyroid surgery (~06/2022) Hx of knee surgery Lt. knee, partial replacement History of removal of cyst [place] teeth removed History of esophagogastroduodenoscopy (EGD) History of colonoscopy History of cardiac cath (2012) 2 STENTS PLACED, ~2012, after CABG, [facility] - Dr. Sanchez currently H/O shoulder surgery left S/P aneurysm repair (2009) AAA - [facility] Hx of CABG (2004) [facility] [place] [place] Dr. Sanchez History of herniorrhaphy X3 Family History Unknown Coronary heart disease Brother Myocardial infarction Hypertension Mother Colon cancer Family history of diabetes mellitus Father Tuberculosis Lung cancer Denies family history of Ovarian cancer Prostate cancer Breast cancer Social History Smoking Status: Former smoker Tobacco Type: Cigarettes Age Started Using Tobacco: 19; Age Quit Using Tobacco: 41; packs per day: 1.5; Second Hand Exposure: No; Do You Dip or Chew Tobacco: No; Hx Alcohol Use: No Hx Substance Use: No Preferred Language: Sami Communication Ability: Effective Visual Impairment: No Limitations Hearing Ability: Normal Manual Arts Therapist Required: No Beliefs That Will Affect Care: None marital status: / Current Living Situation: Alone current occupational status: retired How many Children do You have: 2 Feels Safe at Home: Yes Childhood Exposure to Second-Hand Smoke: No Diet: low carbohydrate and low salt caffeine: Yes (coffee daily ) Dental Care, Regularly: Yes Physical Activity Frequency: Does not Exercise Seatbelt Use: always Sunscreen Use: No Assistive Devices: None Review of Systems Review of Systems: REVIEW OF SYSTEMS: Constitutional: No fever, sweats or chills Eyes: No diplopia, no worsening or blurred vision ENT: normal hearing, no trouble swallowing Respiratory: No cough, sputum, dyspnea at rest or on exertion Cardiovascular: No chest pain, tightness or palpitations Abdomen: No pain, nausea, vomiting, diarrhea or constipation Musculoskeletal: (+) chronic right hip pain, new weakness of right upper and right lower extremity, joint pain, calf pain, swelling Neurologic: (+) weakness, NO numbness/tingling, vision changes Psychiatric: No anxiety or depression Skin: No rash or itch Physical Exam Physical Exam: PHYSICAL EXAM: General: awake, alert, no apparent distress Head: Normocephalic, atraumatic ENT: PERRLA, EOMI, no pharyngeal exudate, mucous membranes moist, sinus congestion Neuro: AAO x 3, speech clear and appropriate, strength intact bilaterally 5/5 left upper and lower, 4/5 right upper right lower, sensation intact and equal all extremities and dermatomes, no pronator drift Chest: equal rise and fall of the chest, no accessory muscle use, no heaves or thrills, Clear to auscultation, on room air, Cardiac: Regular rate and rhythm, telemetry reviewed, skin warm dry, cap refill <3 seconds, peripheral pulses, +2 no JVD, no murmur, no edema GI: NABS x 4 quadrants, soft, nontender to palpation, no rebound, guarding or tenderness : Spontaneously voiding, no pain, no CVA tenderness, Psych: Normal mood and affect Skin: no rash or erythema Results & Data Results & Data Vital Signs (Past 12 Hours) Vital Signs Temp Pulse Pulse Resp BP BP Pulse Ox 02/16/24 20:20 51 L 18 173/73 H 97 02/16/24 20:05 49 L 20 167/73 H 96 02/16/24 19:57 50 L 18 190/87 H 96 02/16/24 19:35 45 L 18 171/78 H 95 02/16/24 19:20 49 L 18 169/78 H 96 02/16/24 19:05 50 L 18 158/71 H 96 02/16/24 18:50 50 L 20 158/70 H 96 02/16/24 18:35 53 L 20 176/75 H 97 02/16/24 18:20 62 18 177/98 H 97 02/16/24 18:09 58 L 02/16/24 18:00 160/71 H 02/16/24 18:00 52 L 14 02/16/24 17:39 58 L 16 95 02/16/24 17:35 167/86 H 02/16/24 16:48 36.8 C 48 L 20 136/77 97 O2 Del Method 02/16/24 20:20 Room Air 02/16/24 20:05 Room Air 02/16/24 19:57 Room Air 02/16/24 19:35 Room Air 02/16/24 19:20 Room Air 02/16/24 19:05 Room Air 02/16/24 18:50 Room Air 02/16/24 18:35 Room Air 02/16/24 18:20 Room Air 02/16/24 18:09 02/16/24 18:00 02/16/24 18:00 02/16/24 17:39 02/16/24 17:35 02/16/24 16:48 Room Air Laboratory Results Abnormal lab results 02/16/24 02/16/24 Range/Units 17:29 17:35 RBC 3.52 L (4.70-6.10) M/uL Hgb 11.3 L (14.0-18.0) g/dl Hct 34.1 L (42.0-52.0) % Garrard # (Auto) 0.64 H (0.11-0.59) K/uL BUN 34 H (6-23) mg/dl Creatinine 1.43 H (0.6-1.4) mg/dl POC Creatinine 1.5 H (0.6-1.3) mg/dl BUN/Creatinine Ratio 23.8 H (10-20) Glucose 152 H (70-99(Fasting)) mg/dl POC Glucose 142 H (70-99) mg/dl Calcium 7.9 L (8.6-10.3) mg/dl Alkaline Phosphatase 28 L (34-104) U/L Total Protein 5.7 L (6.0-8.3) gm/dl Globulin 2.0 L (2.5-4.0) gm/dl Diagnostic Findings Head CT 02/16/24 17:20 CT angio head w con, CT angio neck with con, CT head/brain wo con CLINICAL HISTORY: 88 years-old Male with neuro deficit, acute stroke suspected. Acute stroke like symptoms COMPARISON STUDY: Head CT 11/12/2018 TECHNIQUE: Unenhanced axial CT scan of the brain is performed. Subsequently, following the IV administration of 119 cc of Optiray, CT angiogram of the brain head and neck was performed. Images are reviewed in the axial, sagittal, and coronal planes. 3-D MIPS images are created and assessed. IV contrast was administered without complication. All measurements were obtained according to NASCET criteria. A dose lowering technique was utilized adhering to the principles of ALARA. CT DOSE: 1221.15 mGy.cm FINDINGS: CT BRAIN: There is no acute intracranial hemorrhage, midline shift, hydrocephalus, intracranial mass, territorial ischemia or abnormal extra-axial collections. No abnormal intra-axial or extra-axial enhancement. Involutional changes with chronic microvascular ischemic disease. Mastoid air cells and middle ear cavities are clear. No calvarial fracture. Paranasal sinuses are clear. CT ANGIOGRAM OF THE HEAD AND NECK: Atherosclerosis of the aorta. Patency of the innominate and image subclavian arteries. The common carotid arteries are patent. The right internal carotid artery is patent. Severe atherosclerotic plaque in the left carotid bulb results in approximately 50% stenosis. Dominant left vertebral artery. Bilateral vertebral arteries are patent. Basilar and posterior cerebral arteries are patent. Cervical venous sinuses are patent. The anterior and middle cerebral arteries are patent. Pulmonary emphysema. Partially imaged 2.7 cm subpleural opacity in the superior segment right lower lobe. Subcentimeter thyroid nodules. No lymphadenopathy. Degenerative changes of the spine. IMPRESSION: 1. No acute intracranial abnormality. 2. CTA of the head and neck demonstrates no aneurysm, dissection, high-grade stenosis or arterial occlusion. 3. Pulmonary emphysema with partially imaged 2.7 cm subpleural opacity within the superior segment right lower lobe. A precautionary three-month follow-up chest CT recommended. ACT 112: Negative or not required by law. The above report was generated using voice recognition software. It may contain grammatical, syntax or spelling errors. Electronically signed by: Dionisio Beltran M.D. 02/16/2024 6:00 PM Head CTA 02/16/24 17:20 CT angio head w con, CT angio neck with con, CT head/brain wo con CLINICAL HISTORY: 88 years-old Male with neuro deficit, acute stroke suspected. Acute stroke like symptoms COMPARISON STUDY: Head CT 11/12/2018 TECHNIQUE: Unenhanced axial CT scan of the brain is performed. Subsequently, following the IV administration of 119 cc of Optiray, CT angiogram of the brain head and neck was performed. Images are reviewed in the axial, sagittal, and coronal planes. 3-D MIPS images are created and assessed. IV contrast was administered without complication. All measurements were obtained according to NASCET criteria. A dose lowering technique was utilized adhering to the principles of ALARA. CT DOSE: 1221.15 mGy.cm FINDINGS: CT BRAIN: There is no acute intracranial hemorrhage, midline shift, hydrocephalus, intracranial mass, territorial ischemia or abnormal extra-axial collections. No abnormal intra-axial or extra-axial enhancement. Involutional changes with chronic microvascular ischemic disease. Mastoid air cells and middle ear cavities are clear. No calvarial fracture. Paranasal sinuses are clear. CT ANGIOGRAM OF THE HEAD AND NECK: Atherosclerosis of the aorta. Patency of the innominate and image subclavian arteries. The common carotid arteries are patent. The right internal carotid artery is patent. Severe atherosclerotic plaque in the left carotid bulb results in approximately 50% stenosis. Dominant left vertebral artery. Bilateral vertebral arteries are patent. Basilar and posterior cerebral arteries are patent. Cervical venous sinuses are patent. The anterior and middle cerebral arteries are patent. Pulmonary emphysema. Partially imaged 2.7 cm subpleural opacity in the superior segment right lower lobe. Subcentimeter thyroid nodules. No lymphadenopathy. Degenerative changes of the spine. IMPRESSION: 1. No acute intracranial abnormality. 2. CTA of the head and neck demonstrates no aneurysm, dissection, high-grade stenosis or arterial occlusion. 3. Pulmonary emphysema with partially imaged 2.7 cm subpleural opacity within the superior segment right lower lobe. A precautionary three-month follow-up chest CT recommended. ACT 112: Negative or not required by law. The above report was generated using voice recognition software. It may contain grammatical, syntax or spelling errors. Electronically signed by: Dionisio Beltran M.D. 02/16/2024 6:00 PM Neck CTA 02/16/24 17:20 CT angio head w con, CT angio neck with con, CT head/brain wo con CLINICAL HISTORY: 88 years-old Male with neuro deficit, acute stroke suspected. Acute stroke like symptoms COMPARISON STUDY: Head CT 11/12/2018 TECHNIQUE: Unenhanced axial CT scan of the brain is performed. Subsequently, following the IV administration of 119 cc of Optiray, CT angiogram of the brain head and neck was performed. Images are reviewed in the axial, sagittal, and coronal planes. 3-D MIPS images are created and assessed. IV contrast was administered without complication. All measurements were obtained according to N ASCET criteria. A dose lowering technique was utilized adhering to the principles of ALARA. CT DOSE: 1221.15 mGy.cm FINDINGS: CT BRAIN: There is no acute intracranial hemorrhage, midline shift, hydrocephalus, intracranial mass, territorial ischemia or abnormal extra-axial collections. No abnormal intra-axial or extra-axial enhancement. Involutional changes with chronic microvascular ischemic disease. Mastoid air cells and middle ear cavities are clear. No calvarial fracture. Paranasal sinuses are clear. CT ANGIOGRAM OF THE HEAD AND NECK: Atherosclerosis of the aorta. Patency of the innominate and image subclavian arteries. The common carotid arteries are patent. The right internal carotid artery is patent. Severe atherosclerotic plaque in the left carotid bulb results in approximately 50% stenosis. Dominant left vertebral artery. Bilateral vertebral arteries are patent. Basilar and posterior cerebral arteries are patent. Cervical venous sinuses are patent. The anterior and middle cerebral arteries are patent. Pulmonary emphysema. Partially imaged 2.7 cm subpleural opacity in the superior segment right lower lobe. Subcentimeter thyroid nodules. No lymphadenopathy. De generative changes of the spine. IMPRESSION: 1. No acute intracranial abnormality. 2. CTA of the head and neck demonstrates no aneurysm, dissection, high-grade stenosis or arterial occlusion. 3. Pulmonary emphysema with partially imaged 2.7 cm subpleural opacity within the superior segment right lower lobe. A precautionary three-month follow-up chest CT recommended. ACT 112: Negative or not required by law. The above report was generated using voice recognition software. It may contain grammatical, syntax or spelling errors. Electronically signed by: Dionisio Beltran M.D. 02/16/2024 6:00 PM Medications Administered Home Medications nitroglycerin 0.4 mg sublingual tablet 0.4 mg sublingual Q5M PRN Chest Pain 03/29/19 [History Confirmed 02/16/24] lancets 33 gauge (OneTouch Delica Lancets) 06/27/19 [History Confirmed 01/25/24] sodium chloride 0.65 % nasal spray aerosol (Saline Mist) 1 spray intranasal BID PRN nasal congestion #45 mL 06/04/21 [Rx Confirmed 02/16/24] cholecalciferol (vitamin D3) 50 mcg (2,000 unit) capsule 4,000 unit PO HS 07/07/21 [History Confirmed 02/16/24] glucosamine HCl 1,500 mg tablet 1,500 mg PO QAM 08/14/21 [History Confirmed 02/16/24] furosemide 20 mg tablet 20 mg PO QAM #90 tabs 05/20/23 [Rx Confirmed 02/16/24] oxymetazoline 0.05 % nasal spray (Afrin (oxymetazoline)) 2 spray intranasal Q12H PRN allergies 06/14/23 [History Confirmed 02/16/24] amlodipine 10 mg tablet 10 mg PO QAM #90 tabs 08/23/23 [Rx Confirmed 02/16/24] acetaminophen 325 mg tablet (Tylenol) 1,300 mg PO BID PRN Pain 08/25/23 [History Confirmed 02/16/24] blood sugar diagnostic (OneTouch Verio test strips) See Rx Instructions .Route .COMPLEX #100 strips 09/30/23 [Rx Confirmed 02/16/24] valsartan 160 mg tablet See Rx Instructions .Route .COMPLEX #135 tabs 09/30/23 [Rx Confirmed 02/16/24] aspirin 81 mg tablet,delayed release (Adult Low Dose Aspirin) 81 mg PO QAM 10/05/23 [History Confirmed 02/16/24] ezetimibe 10 mg tablet 10 mg PO HS #90 tabs 10/13/23 [Rx Confirmed 02/16/24] isosorbide mononitrate 120 mg tablet,extended release 24 hr 120 mg PO QAM #90 tabs 11/03/23 [Rx Confirmed 02/16/24] pantoprazole 40 mg tablet,delayed release 40 mg PO QAM #90 tabs 11/03/23 [Rx Confirmed 02/16/24] atorvastatin 80 mg tablet 80 mg PO HS #90 tabs 11/22/23 [Rx Confirmed 02/16/24] gabapentin 100 mg capsule 100 mg PO BID #180 caps 11/22/23 [Rx Confirmed 02/16/24] cinacalcet 30 mg tablet 30 mg PO BID #60 tabs 12/23/23 [Rx Confirmed 02/16/24] finasteride 5 mg tablet 5 mg PO DAILY #90 tabs 01/31/24 [Rx Confirmed 02/16/24] Active Medications Aspirin (No Aspirin Within 24hrs Of Thrombolytic-Stroke) 1 each PO UD ARACELI Stop: 02/17/24 18:14 Discontinued Medications Tenecteplase 22 mg/ Syringe 4.4 mls @ 52.8 mls/min IV ONE ONE Stop: 02/16/24 19:01 Last Admin: 02/16/24 18:19 Dose: 52.8 mls/min Documented By: PETER Co-signed By: MONICO Ioversol (Optiray 320 125ml) 119 ml IV ONCE ONE Stop: 02/16/24 17:33 Last Admin: 02/16/24 17:32 Dose: 119 ml Documented By: LYNN Sodium Chloride (Sodium Chloride 0.9% 10ml Flush) 20 ml IV NOW STA Stop: 02/16/24 18:14 Last Admin: 10/02/24 18:21 Dose: 20 ml Documented By: DS ECG Additional Comments: Sinus bradycardiawith sinus arrhythmia Right bundle branch block Abnormal ECG When compared with ECG [id number] 11:54, QT has lengthened Coding Level of Care Code 86799 IN/OBS CONSULT LVL 3,45M Diagnoses Stroke-like symptoms R29.90 GERD (gastroesophageal reflux disease) K21.9 Diabetes E11.9 Heart disease I51.9 Hyperparathyroidism E21.3 Hyperlipidemia E78.5 Diabetes mellitus, type II E11.9 Coronary artery disease I25.10 Hypertension I10 Hypertension type: unspecified Benign prostatic hyperplasia with urinary obstruction N40.1; N13.[address] scan, lung R91.8 (9) Hypertension Hypertension type: unspecified Qualified Code(s): I10 - Essential (primary) hypertension
[2024-02-16] MEDS ORDERED: PHARMACIST DISCHARGE MED REC CONSULT PRN (21:32)
[2024-02-16] MEDS ORDERED: LABETALOL HCL IV 5 MG/ML 20ML IV PRN (21:32)
--- NOTE | 2024-02-16 23:18 | Magnetic Resonance Report ---
Exam(s): MRI HEAD Without Contrast EXAM: MR Head Without Intravenous Contrast CLINICAL HISTORY: Reason for exam: right leg and arm weakness ?CVA. TECHNIQUE: Magnetic resonance images of the head/brain without intravenous contrast in multiple planes. COMPARISON: No relevant prior studies available. FINDINGS: Brain: Global parenchymal atrophy.. No mass. No hemorrhage. No acute infarct. Ventricles: Unremarkable. No ventriculomegaly. Bones/joints: Unremarkable. No acute fracture. Sinuses: Unremarkable as visualized. No acute sinusitis. Mastoid air cells: Unremarkable as visualized. No mastoid effusion. Orbits: Unremarkable as visualized. IMPRESSION: No acute abnormality. Electronically signed by: Abraham Rainey MD 02/16/24 23:17 PM
[2024-02-16] MEDS: ICU Protocol for HYPERglycemia SCH (23:33)
[2024-02-16] MEDS: LACTATED RINGER'S 1,000 ML IV SCH (23:36)
[2024-02-17 05:21] LABS: Basophils # (auto) 0.06 K/uL (0.00-0.20); Basophils % (auto) 0.8 %; Eosinophils # (auto) 0.36 K/uL (0.00-0.50); Eosinophils % (auto) 4.8 %; Hematocrit (blood only) 36.6 % (42.0-52.0); Hemoglobin 12.3 g/dl (14.0-18.0); Immature Granulocytes # (auto) 0.03 K/uL (0.01-0.20); Immature Granulocytes % (auto) 0.4 %; Lymphocytes # (auto) 2.19 K/uL (1.20-3.40); Mean Corpuscular Hemoglobin 31.9 pg (25.0-34.0); Mean Corpuscular Hgb Conc 33.6 g/dL (32.0-36.0); Mean Corpuscular Volume 94.8 fL (80.0-100.0); Monocytes # (auto) 0.73 K/uL (0.11-0.59); Monocytes % (auto) 9.7 %; Neutrophils # (auto) 4.17 K/uL (1.40-6.50); Neutrophils % (auto) 55.3 %; Platelet Count 142 K/uL (130-400); RDW Coefficient of Variation 12.6 % (11.5-14.5); RDW Standard Deviation 43.8 fL (36.4-46.3); Red Blood Count 3.86 M/uL (4.70-6.10); White Blood Count 7.54 K/ul (4.8-10.8)
[2024-02-17 05:25] LABS: Albumin Level 3.9 gm/dl (3.4-5.0); BUN Creatinine Ratio 21.9 (10-20); Calcium 8.4 mg/dl (8.6-10.3); Chol HDL Ratio 3.3 (0-5); Potassium 3.8 mmol/L (3.5-5.1); Total Protein 5.9 gm/dl (6.0-8.3)
[2024-02-17] MEDS ORDERED: SODIUM CHLORIDE 0.65% NA SOLN 45 ML (OCEAN) NAE PRN (06:40)
[2024-02-17] MEDS ORDERED: NITROGLYCERIN SL 0.4 MG/TAB TAB SL PRN (06:40)
--- NOTE | 2024-02-17 07:09 | Critical Care Progress Note ---
Date of Service February 17, 2024 Assessment & Plan (1) Stroke-like symptoms: (2) Heart disease: (3) Hypertension: (4) Benign prostatic hyperplasia with urinary obstruction: (5) Coronary artery disease: Plan Reason Critically Ill: Pt is a 88 yo male with a past medical hx of CAD(4 vessel bypass surgery 2004), HTN, BPH, GERD, hx BCC, chronic low back pain who presented to the hospital on 02/15 for R sided weakness, now s/p TNK given 02/15 at 6:20 pm. Neuro - Stroke like symptoms s/p thrombolytics, CAM ICU: NEGATIVE - Stroke like symptoms- NIHSS 1- right leg mild drift/weakness - 24 hour post thrombolytic protocol - CT, CTA head and neck without aneurysms or significant stenosis - brain MRI; negative for acute pathology - Continue High intensity statin- 80mg Atorvastatin - will transition aspirin to plavix, plavix to start tomorrow - ECHO with bubble study in am; pending - Neurology consulted; pending - CT head to be done tonight around 7pm; pending - PT/OT pending - speech eval pending Cardiac - - Hold antihypertensives at this time for permissive HTN for 24 hours - post thrombolytic goal of SBP<180 and DBP<105 Asymptomatic bradycardia 40-50s, EKG 02/15 not showing heart block Respiratory - No acute needs- abnormal lung CT follow up imaging recommended - CT neck- incidental - Pulmonary emphysema with partially imaged 2.7 cm subpleural opacity within the superior segment right lower lobe. - A precautionary three-month follow-up chest CT recommended. GI - No acute needs RENAL/LYTES - BETTIE, resolved - Cr 1.43 yesterday to 1.14 today s/p 1L LR overnight - BPH - Hx of TURP ENDO - DMII - ICU hyperglycemia protocol - lipids; TChol 131, LDL 61, Triglc 148 - HA1c 8.7%; DMT2 diet HEME - No acute needs ID - No concern for infectious etiology LINES/IV ACCESS - PIV DVT PROPHYLAXIS - SCDs, chemoprophylaxis contraindicated in setting of administration of thrombolytics administered in the last 24 hours DISPO: ICU for 24 hours post thrombolytics, stable for downgrade out of ICU today Admission and Anticipated Discharge Date Admission Date: February 16, 2024 Supervising Physician Co-Signing Physician Notes Dr. Nunez was resident physician during care of patient. I separately evaluated patient for armstrong portions of the history and the exam. I was present during the critical portion of medical decision making, and I discussed the case with the resident. I generally agree with the findings and plan. Convert from aspirin to Plavix per the recommendations of neurology. Asymptomatic bradycardia noted, stable for downgrade, critical care will sign off Subjective Pt is a 88 yo male with a past medical hx of CAD(4 vessel bypass surgery 2004), HTN, BPH, GERD, hx BCC, chronic low back pain who presented to the hospital on 02/15 for R sided weakness, now s/p TNK given 02/15 at 6:20 pm. Today, pt states he is feeling okay. He states he slept rather poorly last night because his back was hurting and the blood pressure cuff inflating kept bothering him. He denies chest pain or SOB. No nausea or vomiting. No difficulties with swallowing breakfast this morning. No vision changes, does have a hx of eye issues and states he has had eye surgeries before but his vision is baseline for him today. He states he is unsure what exactly the surgeries were. He does note that he still feels R sided weakness, more in his R leg than hand. He is right hand dominant and was able to feed himself without i ssue this morning. Review of Systems Review of Systems: All systems reviewed & are unremarkable except as noted in HPI & below Physical Exam Physical Exam: General: Alert and oriented, no acute distress HEENT: Normocephalic, atraumatic, Resp: Lungs clear to auscultation bilaterally, no increased work of breathing Cardio: Regular rate and rhythm, no murmurs GI: Soft and nontender, nondistended, bowel sounds active Skin: Warm, dry, no rashes on visible skin Neuro: Pupils minimally constrict to light but EOMI, primary products inspectors strength is 5/5 bilaterally with very slight decreased strength on the R compared to L, hip and knee flexion on R side is 4/5, 5/5 on L side, limited somewhat by back pain Results & Data Results & Data Vital Signs (Past 12 Hours) Vital Signs Temp Pulse Pulse Resp BP Pulse Ox O2 Del Method 02/17/24 06:20 36.7 C 44 L 14 177/67 H 97 Nasal Cannula 02/17/24 06:00 36.7 C 48 L 13 161/68 H 94 Nasal Cannula 02/17/24 05:20 36.7 C 46 L 14 172/77 H 95 Nasal Cannula 02/17/24 05:00 46 L 13 168/63 H 97 Nasal Cannula 02/17/24 04:20 36.7 C 45 L 14 169/69 H 96 Nasal Cannula 02/17/24 04:00 36.7 C 48 L 18 169/69 H 96 Nasal Cannula 02/17/24 03:20 46 L 18 163/66 H 94 Room Air 02/17/24 03:00 56 L 14 163/66 H 95 Room Air 02/17/24 02:20 36.6 C 46 L 14 160/67 H 93 Room Air 02/17/24 02:00 47 L 14 161/54 H 95 Room Air 02/17/24 01:50 52 L 20 171/66 H 95 Room Air 02/17/24 01:20 36.7 C 48 L 15 155/62 H 93 Room Air 02/17/24 01:00 51 L 18 97 Room Air 02/17/24 00:50 48 L 14 168/70 H 92 Room Air 02/17/24 00:20 47 L 15 168/70 H 91 Room Air 02/17/24 00:00 46 L 14 163/68 H 93 Room Air 02/17/24 00:00 47 L 02/16/24 23:50 36.6 C 48 L 19 140/81 90 Room Air 02/16/24 23:20 51 L 20 153/68 H 93 Room Air 02/16/24 23:00 47 L 18 94 Room Air 02/16/24 22:50 52 L 14 146/82 H 95 Room Air 02/16/24 22:20 36.7 C 48 L 14 169/74 H 93 Room Air 02/16/24 22:00 58 L 14 94 Room Air 02/16/24 21:50 62 15 166/73 H 92 Room Air 02/16/24 21:35 36.5 C 52 L 19 175/76 H 93 Room Air 02/16/24 21:32 47 L 96 Room Air 02/16/24 21:27 58 L 17 162/69 H 92 Room Air 02/16/24 21:20 Room Air 02/16/24 21:20 52 L 17 95 Room Air 02/16/24 21:20 46 L 02/16/24 21:20 57 L 14 93 Room Air 02/16/24 21:20 36.5 C 51 L 16 175/76 H 98 Room Air 02/16/24 20:20 51 L 18 173/73 H 97 Room Air 02/16/24 20:05 49 L 20 167/73 H 96 Room Air 02/16/24 19:57 50 L 18 190/87 H 96 Room Air 02/16/24 19:35 45 L 18 171/78 H 95 Room Air 02/16/24 19:20 49 L 18 169/78 H 96 Room Air O2 Flow Rate 02/17/24 06:20 2 02/17/24 06:00 2 02/17/24 05:20 2 02/17/24 05:00 2 02/17/24 04:20 2 02/17/24 04:00 2 02/17/24 03:20 02/17/24 03:00 02/17/24 02:20 02/17/24 02:00 02/17/24 01:50 02/17/24 01:20 02/17/24 01:00 02/17/24 00:50 02/17/24 00:20 2 02/17/24 00:00 02/17/24 00:00 02/16/24 23:50 02/16/24 23:20 02/16/24 23:00 02/16/24 22:50 02/16/24 22:20 02/16/24 22:00 02/16/24 21:50 02/16/24 21:35 02/16/24 21:32 02/16/24 21:27 02/16/24 21:20 02/16/24 21:20 02/16/24 21:20 02/16/24 21:20 02/16/24 21:20 02/16/24 20:20 02/16/24 20:05 02/16/24 19:57 02/16/24 19:35 02/16/24 19:20 Resident Activity Tracking Resident Involvement: Resident Care Provided Care Provided: Adult Hospital Medicine (3) Hypertension Hypertension type: unspecified Qualified Code(s): I10 - Essential (primary) hypertension
--- NOTE | 2024-02-17 07:19 | Electrocardiogram Report ---
Test Reason : Blood Pressure : */* mmHG Vent. Rate : 55 BPM Atrial Rate : 55 BPM P-R Int : 188 ms QRS Dur : 158 ms QT Int : 546 ms P-R-T Axes : 31 65 -1 degrees QTcB Int : 522 ms Sinus bradycardia with sinus arrhythmia Right bundle branch block Abnormal ECG When compared with ECG of 05-Oct-2023 11:54, QT has lengthened Confirmed by David Pena ([id number]) on 02/17/2024 7:18:29 AM Referred By: REFERRED SELF Confirmed By: David Pena
[2024-02-17] MEDS: CINACALCET HCL 30 MG TAB PO SCH (07:44)
[2024-02-17] MEDS: PANTOprazole 40 MG TAB PO SCH (07:45)
[2024-02-17] MEDS: FINASTERIDE 5 MG TAB PO SCH (07:45)
[2024-02-17 07:56] LABS: Estimated Average Glucose 203 mg/dl; Hemoglobin A1C 8.7 % (4.5-5.6)
[2024-02-17] MEDS: ISOSORBIDE MONO EXTENDED REL 60 MG TABCR PO SCH (08:56)
--- OUTSIDE RECORDS SUMMARY | 2024-02-17 09:09 | External Medical Summary | Summary of Care ---
Author Name Unknown Organization [facility] Address [address] [place] [address] Phone [phone] Care Team Providers Care Gettering Operator Name Role Phone Bessieasher Noah Wallace ESCOBAR Primary Care Provider [phone] Reason for Visit * Reason Comments Follow Up Encounter Details Date Type Department Care Team (Late st Contact Info) Description 02/04/2024 11:30 AM EDT Office Visit Otolaryngology [facility] [address] [place] [address] Eduardo Mccloud DO [address] [place] [phone] Carcinoma ex pleomorphic adenoma (HCC)* Allergies Active Allergy Reactions Criticality Noted Date Comments Chlorthalidone 03/27/2020 Cinnamon Anaphylaxis,Edema airway High 03/27/2020 Ciprofloxacin 03/27/2020 Linaclotide 03/27/2020 Lisinopril 03/27/2020 documented as of this encounter (statuses as of 02/04/2024) Medications Medication Sig Dispensed Refills Start Date End Date Status ZETIA 10 MG Tablet Take 1 Tablet by mouth in the morning. 1 tab daily. 3 09/03/2014 Active atorvaSTATin (LIPITOR) 80 MG Tablet Take 1 Tablet by mouth in the morning. 1 tab daily . 3 09/03/2014 Active NITROSTAT 0.4 MG SUBL As needed for chest pain 5 07/25/2014 Active pantoprazole (PROTONIX) 40 MG TBEC Take 1 Tablet by mouth in the morning. 1 tab daily in am . 3 09/03/2014 Active furosemide (LASIX) 20 MG Tablet Take 1 Tablet by mouth daily as needed. 1 tab daily in am 1 07/19/2014 Active Cholecalciferol (VITAMIN D) 1000 UNITS Tablet 2 Tablets in the morning and 2 Tablets before bedtime. 1 tab daily . Active Troy-3 Fatty Acids (FISH OIL) 300 MG CAPS 1 cap daily Active Aspirin 81 MG Tablet 1 tab daily in am Active Valsartan 160 MG Oral Tablet (DIOVAN) Active Finasteride 5 MG Oral Tablet (PROSCAR) 03/25/2020 Active OneTouch Verio In Vitro Strip TEST BLOOD SUGAR ONCE DAILY AND NEEDED 02/26/2020 Active Lancets 28G Use as directed. Active Risedronate Sodium 150 MG Oral Tablet (Actonel) Take 1 Tablet by mouth Every Month. Active Fluticasone Propionate 50 MCG/ACT Nasal Suspension (Flonase) Administer 1 [place] into nostril in the morning. Active amLODIPine Besylate 10 MG Oral Tablet (Norvasc) Take 1 Tablet by mouth. In the morning. 12/14/2021 Active Glucosamine HCl 1500 MG Oral Tablet 1,500 mg . 07/22/2021 Active Loratadine 10 MG Oral Capsule Start: 07/22/21 11:01:00 EST 07/22/2021 Active Isosorbide Mononitrate ER 120 MG Oral Tablet Extended Release 24 Hour (Imdur) TAKE 1 TABLET BY MOUTH EVERY DAY IN THE MORNING 05/07/2022 Active Mupirocin 2 % External Ointment (Bactroban) Apply to the right side of the nose twice daily for 7 days 15 g 1 07/26/2023 Active Gabapentin 100 MG Oral Capsule (Neurontin) Take 1 Capsule by mouth in the morning and 1 Capsule before bedtime. 12/01/2023 Active Cinacalcet HCl 30 MG Oral Tablet (Sensipar) Take 1 Tablet by mouth in the morning and 1 Tablet before bedtime. With food.. 01/20/2024 Active metFORMIN HCl ER 500 MG Oral Tablet Extended Release 24 Hour (Glucophage XR) Take 1 Tablet by mouth in the morning. 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 Cancer Staging:Clinical:Stage 0(cTis, cN0, cM0) - Unsigned CAD (coronary artery disease) Cardiomyopathy Type II or unspecified type diabetes mellitus without mention of complication, not stated as uncontrolled Hypertension Hyperlipidemia Hyperparathyroidism Reflux Knee osteoarthritis Overview: s/p parial replacement left documented as of this encounter (statuses as of 02/04/2024) Social History Tobacco Use Types Packs/Day Years Used Date Smoking Tobacco: Former Cigarettes Q uit: 06/18/1984 Smokeless Tobacco: Never Alcohol Use Standard Drinks/Week Comments No 0 (1 standard drink = 0.6 oz pur e alcohol) Utilities Answer Date Recorded Do you have trouble paying y our heating, water, or electric bill? (Adult - for ages 18 years and over) Not on file 11/02/2023 Is your family able to pay t he heat, water, or electric bill? (Household - for ages 0-17 years) Not on file 11/02/2023 Does your family have access to good internet? (Household - for ages 0-17 years) Not on file 11/02/2023 Social Connections Answer Date Recorded How often do you feel lonely or isolated from those around you? (Adult - for ages 18 years and over) Not on file 11/02/2023 Sex and Gender Information Value Date Recorded Sex Assigned at Not on file Gender Identity Not on file Sexual Orientation Not on file Job Start Date Occupation Industry Not on file Not on file Not on file documented as of this encounter Last Filed Vital Signs Vital Sign Reading Time Taken Comments Blood Pressure - - Pulse - - Temperature - - Respiratory Rate - - Oxygen Saturation - - Inhaled Oxygen Concentration - - Weight 87.5 kg (193 lb) 02/04/2024 11:07 AM EDT Height 172.7 cm (5' 7.99") 02/04/2024 11:07 AM E DT Body Mass Index 29.35 02/04/2024 11:07 AM EDT documented in this encounter Functional Status Functional Status Response Date of Assess ment Are you deaf or do you have serious difficulty h earing? No 07/07/2022 Are you blind or do you have serious difficulty seeing, even when wearing glasses? No 07/07/2022 Do you have serious difficul ty walking or climbing stairs? (5 years old or older) No 07/08/2022 Do you have difficulty dress ing or bathing? (5 years old or older) No 07/07/2022 Because of a physical, menta l, or emotional condition, do you have difficulty doing errands alone such as visiting a doctor s office or shopping? (15 years old or older) No 07/07/19 Cognitive Status Response Date of Assessm ent Because of a physical, menta l, or emotional condition, do you have serious difficulty concentrating, remembering, or making decisions? (5 years old or older) No 07/07/2022 documented as of this encounter Progress Notes * Eduardo Mccloud DO - 02/04/2024 11:30 AM EDT Otolaryngology Head and Neck Surgery 02/04/2024 Patient returns today for routine cancer surveillance he is status post left superficial parotidectomy. 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 This was in January of 2022. Patient having no issues. Denies any new neck masses or lesions. Problem List Patient Active Problem List Diagnosis CAD (coronary artery disease) Cardiomyopathy (HCC) Type II or unspecified type diabetes mellitus without mention of complication, not stated as uncontrolled Hypertension Hyperlipidemia Hyperparathyroidism (HCC) Reflux Knee osteoarthritis Carcinoma ex pleomorphic adenoma (HCC) Epiretinal membrane (ERM) of left eye Past Medical History: Diagnosis Date CAD (coronary artery disease) Cardiomyopathy (HCC) Hyperlipidemia Hyperparathyroidism (HCC) Hypertension Knee osteoarthritis s/p parial replacement left Reflux Type II or unspecified type diabetes mellitus without mention of complication, not stated as uncontrolled Past Surgical History: Procedure Laterality Date AAA/AORTIC DISSEC REPAIR,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 Valencia (9-16) OTHER (INFORMATION) Consent OS Triamcinolone 40mg/1ml; Annie OTHER (INFORMATION) Bilateral Triesence OU consent Dr. Rebolledo/Annie exp. 12/12/23 REMOVAL OF PAROTID GLAND/TUMOR Right 02/03/2022 EXCISION PAROTID TOTAL WITH DISSECTION FACIAL NERVE performed by Eduardo Mccloud DO at OR [facility] [place] REMOVE CATARACT, INSERT LENS PROSTH Left 03/13/2015 group REMOVE CATARACT, INSERT LENS PROSTH Right 03/27/2015 Group REPAIR ARM TENDON/MUSCLE 05/17/1999 VITRECTOMY FOR MACULAR HOLE W/ ILM PEEL Left 12/30/2022 LEFT VITRECTOMY MECHANICAL PARS PLANA APPROACH REMOVAL OF INTERNAL LIMITING MEMBRANE performed by Adrian Valencia MD at OR [facility] Medications Current Outpatient Medications Medication Sig Dispense Refill ZETIA 10 MG Tablet Take 1 Tablet by mouth in the morning. 1 tab daily. 3 atorvaSTATin (LIPITOR) 80 MG Tablet Take 1 Tablet by mouth in the morning. 1 tab daily . 3 NITROSTAT 0.4 MG SUBL As needed for chest pain 5 pantoprazole (PROTONIX) 40 MG TBEC Take 1 Tablet by mouth in the morning. 1 tab daily in am . 3 furosemide (LASIX) 20 MG Tablet Take 1 Tablet by mouth daily as needed. 1 tab daily in am 1 Cholecalciferol (VITAMIN D) 1000 UNITS Tablet 2 Tablets in the morning and 2 Tablets before bedtime. 1 tab daily . Troy-3 Fatty Acids (FISH OIL) 300 MG CAPS 1 cap daily Aspirin 81 MG Tablet 1 tab daily in am Valsartan 160 MG Oral Tablet (DIOVAN) Finasteride 5 MG Oral Tablet (PROSCAR) OneTouch Verio In Vitro Strip TEST BLOOD SUGAR ONCE DAILY AND NEEDED Lancets 28G Use as directed. metFORMIN HCl ER 500 MG Oral Tablet Extended Release 24 Hour (Glucophage XR) Take 1 Tablet by mouthin the morning. Risedronate Sodium 150 MG Oral Tablet (Actonel) Take 1 Tablet by mouth Every Month. Fluticasone Propionate 50 MCG/ACT Nasal Suspension (Flonase) Administer 1 [place] into nostril in themorning. amLODIPine Besylate 10 MG Oral Tablet (Norvasc) Take 1 Tablet by mouth. In the morning. Glucosamine HCl 1500 MG Oral Tablet 1,500 mg . Loratadine 10 MG Oral Capsule Start: 07/22/21 11:01:00 EST Isosorbide Mononitrate ER 120 MG Oral Tablet Extended Release 24 Hour (Imdur) TAKE 1 TABLET BY MOUTH EVERY DAY IN THE MORNING Mupirocin 2 % External Ointment (Bactroban) Apply to the right side of the nose twice daily for 7 days 15 g 1 No current facility-administered medications for this visit. Allergies Review of patient's allergies indicates: Allergen Reactions Cinnamon Anaphylaxis and Edema airway Chlorthalidone Ciprofloxacin Linaclotide Lisinopril Family History Family History Problem Relation Name Age of Onset Cancer Mother colon Arthritis Father Cancer Father lung Thyroid Disorder Daughter Stroke Son Social History Social History Tobacco Use Smoking status: Former Current packs/day: 0.00 Types: Cigarettes Quit date: 06/18/1984 Years since quittin.6 Smokeless tobacco: Never Substance Use Topics Alcohol use: No Vaping/E-Cigarette Use Vaping/E-Cigarette Use Never User Vaping/E-Cigarette Substances Vaping/E-Cigarette Devices Review of Systems Negative for constitutional, eyes, cardiac, pulmonary, hepatic, renal, digestive, hematologic, epileptic, syncopal, musculo-skeletal, mental health, integumentary, hypertensive, lipid, arthritic, diabetic, thyroid, or neurologic disorders (except as listed in the PMH and Problem List). Physical Examination: There were no vitals taken for this visit. General: This is a healthy appearing male who appears his stated age. The patient is alert and appropriately verbally conversant without hoarseness. Face: The face was inspected and no cutaneous masses or lesions were visualized. There was no erythema or edema noted. Facial movement was symmetric without weakness. No skin lesions were detected. There was no sinus tenderness elicited. Left parotidectomy bed normal to palpation. No masses Eyes: Extra-ocular muscle function was intact. No nystagmus was observed. Pupils were equal. Cranial Nerves: Cranial nerves II, III, IV, and were noted to be intact via extra-ocular muscle movement testing. Cranial nerve VII noted to be intact and symmetric by facial movement. Neck: Visualization and palpation of the neck revealed no mass lesions, no thyromegaly or thyroid masses. No skin lesions or inflammatory processes were detected. The cervical musculature was normal to palpation. Lymphatics (cervical): There were no palpable lymph nodes in the posterior triangle, submandibular triangle, jugulodigastric region, or central neck. Nose: Cautery site healing well. Assessment: 88-year-old male with a history of carcinoma ex pleomorphic adenoma who is status post left parotidectomy in 2021 Plan: No evidence of disease on exam today He will follow-up in 6 months I spent a total of 20 minutes on the date of service in preparation, delivery, and documentation ofthe care provided to the above patient, excluding any time spent on the performance of any procedures or separately billable services. Eduardo Mccloud DO, [facility] Management And Budget Analyst, Department of Otolaryngology-Head and Neck Surgery [facility], [place] 02/04/2024 9:49 AM documented in this encounter Plan of Treatment Upcoming Encounters Date Type Department Care Team (Late st Contact Info) Description 02/16/2024 2:30 PM EDT Office Visit Ophthalmology, [facility] [address] [place] [id number] David Rebolledo DO [address] [place] [address] 08/07/2024 11:45 AM EDT Office Visit Otolaryngology [facility] [address] [place] [address] Eduardo Mccloud DO [address] [place] [id number] Health Maintenance Due Date Last Done Comments HbA1c 1941 Pneumococcal Vaccine: 65+ Years (1 of 2 - PCV) 1942 Depression Screening 1948 Albumin/Creatinine Ratio 1954 Diabetic Foot Exam 1954 DTap/Tdap Vaccines (1 - Tdap) 1955 Zoster Vaccines (1 of 2) 1986 COVID-19 Vaccine (4 - 2023-25 season) 2024 04/29/2021, 07/10/2020, 06/19/2020 Influenza Vaccine (FLU shot) (#1) 2024 01/12/2020, 02/20/2019, 02/27/2014 Diabetic Eye Exam 02/06/2024 02/05/2023, , 02/05/2023, Additional history exists HPV (Gardasil) Vaccine Aged Out No lo nger eligible based on patient's age to complete this topic Hepatitis B Vaccine Aged Out No longe r eligible based on patient's age to complete this topic MENINGOCOCCAL (MENACTRA/MENVEO) Aged Out No longer eligible based on patient's age to complete this topic documented as of this encounter Medical Devices Not on filedocumented as of this encounter Visit Diagnoses Diagnosis Carcinoma ex pleomorphic adenoma (HCC)- Primary documented in this encounter Advance Directives * Full Code (Latest Code Status on File) Date Activated Date Inactivated Comments 12/30/2022 11:42 AM 12/30/2022 6:07 PM This order reflects the patients wishes and were consensually agreed upon. Question Answer Comments Discussion of Advance Direct blanca occurred with: Not Discussed due to patient's condition * Full Code Date Activated Date Inactivated Comments 07/07/2022 11:31 AM 07/08/2022 5:07 PM This order reflects the patients wishes and were consensually agreed upon. Question Answer Comments Discussion of Advance Direct blanca occurred with: Not Discussed due to patient's condition * Full Code Date Activated Date Inactivated Comments 02/03/2022 3:09 PM 02/04/2022 10:09 PM This order reflects the patients wishes and were consensually agreed upon. Question Answer Comments Discussion of Advance Direct blanca occurred with: Not Discussed due to patient's condition Healthcare Agents on File Name Relationship Healthcare Agent Relationshi p Communication Natalia Sheth Adult Child Health Care Repr esentative (appointed verbally by patient or by statute hierarchy) Care Teams Gettering Operator Relationship Specialty Start Date End Date Noah Emmanuel DO [address] [place] [address] PCP - General Family Medicine 11/26/21 documented as of this encounter
[2024-02-17 09:59] LABS: Appearance Urine Clear (Clear); Bilirubin Urine Negative (Negative); Blood Urine Negative (Negative); Color Urine Yellow; Glucose Urine UA Trace (Negative); Ketones Urine Negative (Negative); Leukocyte Esterase Urine Negative (Negative); Nitrite Urine Negative (Negative); Protein Urine Negative (Negative); Specific Gravity Urine 1.014 (1.000-1.030); Urobilinogen Urine Negative (Negative); pH Urine 5.5 (4.5-7.5)
--- NOTE | 2024-02-17 10:13 | Neurology Consultation ---
Date of Consultation February 17, 2024 Assessment & Plan (1) Right hemiparesis: (2) TIA (transient ischemic attack): Plan Patient had the acute onset of right arm and leg weakness distally without other neurologic deficits. Today his symptoms are resolved and MRI of the brain showed no acute stroke. I suspect a TIA the patient did get TNKase but I do not think that had any bearing on his symptoms. The patient has some risk factors for stroke including diabetes, hypertension, dyslipidemia. Recommendations: 1. Patient gets a CT scan of the head per protocol 24 hours after TNKase 2. Echocardiogram results are pending. 3. With a total cholesterol less than 150 and normal triglycerides, keep current statin dose the same. 4. Control blood pressure as you are doing aiming for a mean arterial pressure of approximately 100. 5. After 24 hours increase activity and gait. In the meantime physical, occupational and speech therapy consults can be obtained 6. Consider discontinuing aspirin and initiating clopidogrel 75 mg daily for stroke/TIA prevention Overall, I spent a total of 90 minutes with this case including review of records, review of CT and MRI films, direct evaluation patient at bedside, report generation, and discussion of the case with the patient and RN at bedside as well as Dr. Yang and Dr. Cooper. including differential diagnosis and treatment options. History of Present Illness Reason for Consultation: Patient is an 88-year-old, who I was asked to see at the request of Dr. Mcknight, for neurologic consultation regarding strokelike symptoms. Requesting Physician: Dr. Mcknight Attending Physician: John Cooper History of Present Illness Patient has a history of type 2 diabetes, coronary artery disease, hypertension, and dyslipidemia. He was on 81 mg aspirin tablet daily as well as atorvastatin 80 mg a day prior to admission. Patient has chronic cervical spine, lumbar spine, and hip pain On February 15 the patient got up and was feeling quite well. Around 2:30 in the afternoon he had an appointment with his fireproof door maker who felt everything was okay. He drove home (about a 30-minute drive) and got out of his car. When he got out of his car (somewhere between 3 and 330) he noted new weakness in his right leg. There was maybe some achy pain but no numbness. He did have a little discomfort in his right hip but not as low back. He felt that his right arm was a little bit weak and had some decreased watershed program manager strength. He did not have any pain or headache, speech issues, numbness in his arms or legs, gait problems, or mentation. He arrived to the emergency room at [id number] 15. Temperature was 36.8, blood pressure 136/70 with a pulse of 48 and a respiratory rate of 20. O2 saturation was 97%. On examination he had some weakness of the right foot but his arm seemed baseline. He was given an NIH stroke scale score of 1. CBC was unremarkable. CHEM profile showed a BUN of 34, creatinine 1.4, glucose of 152. CT scan of the head was unremarkable for acute changes. CT angiography of the head and neck was unremarkable with no evidence of vessel anomaly or stenoses. After discussion with [facility] he was given TNKase with a double needle time of 108 minutes. He felt that he was the same before during and after the TNKase. MRI of the brain showed no acute stroke. There was mild generalized atrophy and minimal old small vessel ischemic disease. This morning his NIH stroke scale is 0 and he has no weakness or numbness of the arms or legs. He has no other new issues and feels back to baseline. Today CHEM profile and CBC were unremarkable with improved BUN and creatinine. Hemoglobin A1c is 8.7. Triglycerides were 148 and total cholesterol 131. Allergies Allergy/AdvReac Type Severity Reaction Status Date / Time cinnamon Allergy Severe THROAT Verified 01/25/24 11:08 SWELLING chlorthalidone AdvReac Unknown Gastrointestinal Verified 01/25/24 11:08 Upset ciprofloxacin AdvReac Unknown constipatio Verified 01/25/24 11:08 n linaclotide AdvReac Unknown DIARRHEA Verified 01/25/24 11:08 lisinopril AdvReac Unknown DIZZINESS Verified 01/25/24 11:08 Home Medications Medication Instructions Recorded Confirmed Type nitroglycerin 0.4 mg sublingual 0.4 mg sublingual Q5M PRN Chest 03/29/1902/15 History tablet Pain lancets 33 gauge (OneTouch Delica 06/27/19 01/25/24 History Lancets) sodium chloride 0.65 % nasal spray 1 spray intranasal BID PRN nasal 06/04/21 02/16/24 Rx aerosol (Saline Mist) congestion #45 mL cholecalciferol (vitamin D3) 50 4,000 unit PO HS 07/07/21 02/16/24 History mcg (2,000 unit) capsule glucosamine HCl 1,500 mg tablet 1,500 mg PO QAM 08/14/21 02/16/24 History furosemide 20 mg tablet 20 mg PO QAM #90 tabs 05/20/23 02/16/24 Rx oxymetazoline 0.05 % nasal spray 2 spray intranasal Q12H PRN 06/14/23 02/16/24 History (Afrin (oxymetazoline)) allergies amlodipine 10 mg tablet 10 mg PO QAM #90 tabs 08/23/23 02/16/24 Rx acetaminophen 325 mg tablet 1,300 mg PO BID PRN Pain 08/25/23 02/16/24 History (Tylenol) blood sugar diagnostic (OneTouch See Rx Instructions .Route 09/30/23 02/16/24 Rx Verio test strips) .COMPLEX #100 strips valsartan 160 mg tablet See Rx Instructions .Route 09/30/23 02/16/24 Rx .COMPLEX #135 tabs aspirin 81 mg tablet,delayed 81 mg PO QAM 10/05/23 02/16/24 History release (Adult Low Dose Aspirin) ezetimibe 10 mg tablet 10 mg PO HS #90 tabs 10/13/23 02/16/24 Rx isosorbide mononitrate 120 mg 120 mg PO QAM #90 tabs 11/03/23 02/16/24 Rx tablet,extended release 24 hr pantoprazole 40 mg tablet,delayed 40 mg PO QAM #90 tabs 11/03/23 02/16/24 Rx release atorvastatin 80 mg tablet 80 mg PO HS #90 tabs 11/22/23 02/16/24 Rx gabapentin 100 mg capsule 100 mg PO BID #180 caps 11/22/23 02/16/24 Rx cinacalcet 30 mg tablet 30 mg PO BID #60 tabs 12/23/23 02/16/24 Rx finasteride 5 mg tablet 5 mg PO DAILY #90 tabs 01/31/24 02/16/24 Rx Patient History Medical History Lumbar degenerative disc disease Vitamin D deficiency Coronary artery disease follows with / Daniel Memory change "just old age" testing for Alzheimers neg per pt. Hypertension Diabetes Hx of myocardial infarction hx prior to cabg in 2005 Hx of migraines History of basal cell carcinoma (BCC) neck- removed Basal cell carcinoma (BCC) of back Hx of Clostridium difficile infection (2021) tx w/antibiotics - no issues since Degenerative disc disease lumbar Hyperparathyroidism Post-nasal drip CHRONIC SINUS DRAINAGE, NO CHANGES FROM BASELINE History of anesthesia reaction slow to wake up History of kidney stones Premature atrial complex hx, follows with Dr. 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 Internal hemorrhoids Tubular adenoma of colon Diagnostic colonoscopy performed (01/01) w/ tubular adenoma x2. 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 Sanchez Surgical History History of surgery (10/19/23) Wide Local Excision of Basal Cell Carcinoma of Back(Left) - Mauri Barrett, DO Hx of transurethral resection of prostate (05/2019) Hx of basal cell carcinoma excision (2021) from neck area History of parathyroid surgery (~06/2022) Hx of knee surgery Lt. knee, partial replacement History of removal of cyst Maxie teeth removed History of esophagogastroduodenoscopy (EGD) History of colonoscopy History of cardiac cath (2012) 2 STENTS PLACED, ~2012, after CABG, [facility] - Dr. Sanchez currently H/O shoulder surgery left S/P aneurysm repair (2009) [place] [facility] [place] of [place] [facility] [place]. Sanchez History of herniorrhaphy X3 Family History Unknown Coronary heart disease Brother Myocardial infarction Hypertension Mother Colon cancer Family history of diabetes mellitus Father Tuberculosis Lung cancer Denies family history of Ovarian cancer Prostate cancer Breast cancer Social History (Updated 02/17/24 @ 10:04 by Chinedu Arora MD) Smoking Status: Former smoker Tobacco Type: Cigarettes Age Started Using Tobacco: 19; Age Quit Using Tobacco: 41; packs per day: 1.5; Second Hand Exposure: No; Do You Dip or Chew Tobacco: No; Hx Alcohol Use: No Hx Substance Use: No Preferred Language: Iraqi Communication Ability: Effective Visual Impairment: No Limitations Hearing Ability: Normal Global Implementation Manager Required: No Beliefs That Will Affect Care: None marital status: / Current Living Situation: Alone current occupational status: retired 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 How many Children do You have: 2 Feels Safe at Home: Yes Childhood Exposure to Second-Hand Smoke: No Diet: low carbohydrate and low salt caffeine: Yes (coffee daily ) Dental Care, Regularly: Yes Physical Activity Frequency: Does not Exercise Seatbelt Use: always Sunscreen Use: No Assistive Devices: None Review of Systems Constitutional: no fever, no fatigue and no weakness Eyes: no diplopia, no eye pain and no worsening vision Ear, Nose, Mouth, Throat: no ear pain, no tinnitus, no hearing loss, no dizziness, no snoring, no hoarseness and no dysphagia Respiratory: no cough and no dyspnea Cardiovascular: no chest pain, no palpitations and no lightheadedness Gastrointestinal: + abdominal pain; no nausea and no vomit ing Musculoskeletal: + back pain, + neck pain and + joint tricia n; no radicular pain and no myalgia Integumentary: no rash and no lesions Neurologic: no gait abnormality, no localized weakness, no generalized weakness, no tingling, no numbness, no tremor(s), no abnormal movements, no he adache(s), no abnormal speech, no confusion and no memory loss Psychiatric: no depression, no irritability, no anxiety, no difficulty concentrating, no confusion and no hallucinations Endocrine: no fatigue and no flushing Hematologic / Lymphatic: no easy bleeding and no easy bruising Allergy / Immunological: no urticaria and no problem reported Exam (Neuro) Physical Exam: The patient is right-handed. The patient is awake, alert, and attentive. Speech is normal without any aphasia or dysarthria. Mentation and thought processes are intact, with full orientation and normal fund of knowledge. Mood and affect are normal and appropriate. Appearance and grooming are normal. Short and long-term memory are intact. Pupils are 4 mm bilaterally and reactive to light. Extraocular eye muscles are intact without nystagmus. Visual acuity and visual figueroa seem normal grossly to confrontation. There are no deficits to sensation in the face in all 3 distributions of the fifth cranial nerve bilaterally. Corneal reflexes are positive bilaterally. Facial strength and symmetry was normal bilaterally. Hearing seems intact grossly to voice and finger rub bilaterally. Palate moves well without asym metry. There is normal sternocleidomastoid and trapezius strength bilaterally. Tongue is midline with good strength bilaterally. Neck has a full range of motion without discomfort. There are no cervical bruits bilaterally. There are no cranial or ocular bruits. Heart is without murmur. There is a regular rhythm and rate. Cervical, thoracic, and lumbar spine are nontender to palpation. Gait was not tested but stance sitting up in bed is reasonable. With outstretched arms there is no drift. There are no resting tremors. Mild postural and action tremor there is no ataxia with finger to nose testing. There is good facility in the hands. No other abnormal involuntary movements are noted. Motor strength is 5/5 diffusely in the arms bilaterally including deltoids, biceps, triceps, brachioradialis, wrist flexors and extensors, watershed program manager, and intrinsic hand muscles. Motor strength is 5/5 diffusely in the legs bilaterally including hip flexors, quadriceps, hamstrings, gastrocnemius, tibialis anterior, tibialis posterior, and Peroneii muscles bilaterally. Toe extensors are normal and there is good bulk in the extensor digitorum brevis muscles bilaterally. The limbs have good tone without rigidity or spasticity. There is no atrophy noted in the muscles. Muscle bulk is normal, there is no tenderness to palpation, no myotonia to percussion, and no fasciculations seen. Sensory examination is intact to touch and pin throughout all 4 limbs diffusely. Reflexes are 1/4 in the biceps, triceps, brachioradialis, and quadriceps tendons bilaterally. Achilles tendon reflexes were absent bilaterally Toes are downgoing with plantar stimulation bilaterally. Peripheral pulses are present and of normal quality distally in all 4 limbs. There is no peripheral edema noted in the limbs. Results & Data Vital Signs (Past 12 Hours) Vital Signs Temp Pulse Pulse Resp BP Pulse Ox O2 Del Method 02/17/24 08:20 36.6 C 52 L 16 181/78 H 96 Room Air 02/17/24 07:20 53 L 19 168/78 H 98 Nasal Cannula 02/17/24 07:08 44 L 02/17/24 06:20 36.7 C 44 L 14 177/67 H 97 Nasal Cannula 02/17/24 06:00 36.7 C 48 L 13 161/68 H 94 Nasal Cannula 02/17/24 05:20 36.7 C 46 L 14 172/77 H 95 Nasal Cannula 02/17/24 05:00 46 L 13 168/63 H 97 Nasal Cannula 02/17/24 04:20 36.7 C 45 L 14 169/69 H 96 Nasal Cannula 02/17/24 04:00 36.7 C 48 L 18 169/69 H 96 Nasal Cannula 02/17/24 03:20 46 L 18 163/66 H 94 Room Air 02/17/24 03:00 56 L 14 163/66 H 95 Room Air 02/17/24 02:20 36.6 C 46 L 14 160/67 H 93 Room Air 02/17/24 02:00 47 L 14 161/54 H 95 Room Air 02/17/24 01:50 52 L 20 171/66 H 95 Room Air 02/17/24 01:20 36.7 C 48 L 15 155/62 H 93 Room Air 02/17/24 01:00 51 L 18 97 Room Air 02/17/24 00:50 48 L 14 168/70 H 92 Room Air 02/17/24 00:20 47 L 15 168/70 H 91 Room Air 02/17/24 00:00 46 L 14 163/68 H 93 Room Air 02/17/24 00:00 47 L 02/16/24 23:50 36.6 C 48 L 19 140/81 90 Room Air 02/16/24 23:20 51 L 20 153/68 H 93 Room Air 02/16/24 23:00 47 L 18 94 Room Air 02/16/24 22:50 52 L 14 146/82 H 95 Room Air 02/16/24 22:20 36.7 C 48 L 14 169/74 H 93 Room Air 02/16/24 22:00 58 L 14 94 Room Air O2 Flow Rate 02/17/24 08:20 02/17/24 07:20 2 02/17/24 07:08 02/17/24 06:20 2 02/17/24 06:00 2 02/17/24 05:20 2 02/17/24 05:00 2 02/17/24 04:20 2 02/17/24 04:00 2 02/17/24 03:20 02/17/24 03:00 02/17/24 02:20 02/17/24 02:00 02/17/24 01:50 02/17/24 01:20 02/17/24 01:00 02/17/24 00:50 02/17/24 00:20 2 02/17/24 00:00 02/17/24 00:00 02/16/24 23:50 02/16/24 23:20 02/16/24 23:00 02/16/24 22:50 02/16/24 22:20 02/16/24 22:00 PG Care Time/CCT Total # of Minutes Spent Total Time Spent with Patient: Total time spent is greater than 50% in coordination of care (as documented) at patient's floor/unit and/or counseling patient: Coding Level of Care Code 90977 INT INP/OBS CARE 3/75MIN Diagnoses Right hemiparesis G81.91 TIA (transient ischemic attack) G45.9 Time Spent (min) 90
--- OUTSIDE RECORDS SUMMARY | 2024-02-17 10:34 | External Medical Summary | Summary of Care ---
Author Name Unknown Organization [facility] Address [address] [place] [address] Phone [phone] Care Team Providers Care Speeder Hand Name Role Phone Noah Emmanuel DO Primary Care Provider [phone] Reason for Visit * Reason Comments Follow Up Eye Problem Pt having blurry vis ion Encounter Details Date Type Department Care Team (Late st Contact Info) Description 02/16/2024 2:30 PM EDT Office Visit Ophthalmology, [facility] [address] [place] [address] David Rebolledo DO [address] [place] [address] Epiretinal membrane (ERM) of left eye* Allergies Active Allergy Reactions Criticality Noted Date Comments Chlorthalidone 03/27/2020 Cinnamon Anaphylaxis,Edema airway High 03/27/2020 Ciprofloxacin 03/27/2020 Linaclotide 03/27/2020 Lisinopril 03/27/2020 documented as of this encounter (statuses as of 02/16/2024) Medications Medication Sig Dispensed Refills Start Date [...] before bedtime. 1 tab daily . Active [place]-3 Fatty Acids (FISH OIL) 300 MG CAPS [...] 50 MCG/ACT Nasal Suspension (Flonase) Administer 1 [place] into nostril in the morning. Active amLODIPine [...] Tablet before bedtime. With food.. 01/20/2024 Active documented as of this encounter (statuses as of 02/16/2024) Active Problems Problem Noted Date Diagnosed Date [...] as of this encounter (statuses as of 02/16/2024) Social History Tobacco Use Types Packs/Day Years [...] on file documented as of this encounter Functional Status Functional Status Response [...] as of this encounter Progress Notes * David Rebolledo, - 02/16/2024 2:30 PM EDT 02/16/2024 Nursing Notes: Akua Reina TECH 02/16/24 1423 Signed Jose Daniel Parker is a 88 year old year old male who presents for h/o ERM OS. Last Office Visit: 02/05/2023 (in office), Visit date not found (telemedicine) Patient currently states "vision is bad" Are you diabetic? Yes. Do you check your blood sugars daily? YES. Did not measure this morning. Last Hemoglobin A1C: unsure No results found for: "HGBA1C" Do you drive? yes OCT image(s) of both eyes acquired and filed/scanned into chart. Nursing notes reviewed. Base Eye Exam Visual Acuity (Snellen - Linear) Right Left Dist cc 20/60 -2 20/70 -1 Dist ph cc 20/40 -1 NI Correction: Glasses Tonometry (Tonopen, 2:22 PM) Right Left Pressure 15 11 Pupils Shape React APD Right Round Brisk None Left Irregular Minimal None Visual Gil (Counting fingers) Right Left Restrictions Partial outer superior nasal deficiency Partial outer superior temporal deficiency Extraocular Movement Right Left Full, Ortho Full, Ortho Neuro/Psych Oriented x3: Yes Mood/Affect: Normal Dilation Both eyes: 0.5% Proparacaine @ 2:20 PM Dilation #2 Both eyes: 1.0% Mydriacyl, 2.5% Phenylephrine @ 2:21 PM Dilation #3 Both eyes: 1.0% Mydriacyl, 2.5% Phenylephrine @ 2:23 PM Slit Lamp and Fundus Exam External Exam Right Left External Normal Normal Slit Lamp Exam Right Left Lids/Lashes Normal Normal Conjunctiva/Sclera White and quiet White and quiet Cornea Clear Clear Anterior Chamber Deep and quiet Deep and quiet Iris Round and reactive temporal iris slightly encarcerated in cataract wound Lens Posterior chamber intraocular lens Posterior chamber intraocular lens Anterior Vitreous Normal s/p PPV Fundus Exam Right Left Disc Normal Normal C/D Ratio 0.2 0.2 Macula Normal s/p MP Vessels Normal Normal Periphery Normal Normal OCT Interpretation: OD: mild erm, no irf/srf OS: resolved VMT, no irf/srf Diagnosis h/o VMT/ERM OS - Surgery date: Right eye 25 G PPV/MP/SF6--Dr. Keen - Surgery: 12/30/22 -OCT significantly improved 2. DCL May be interested in bleph FOLLOW UP: w/ retina prn David Rebolledo DO 02/16/2024 documented in this encounter Nursing Notes * Akua Reina TECH - 02/16/2024 2:13 PM EDT Jose Daniel Parker is a 88 year old year old male who presents for h/o ERM OS. Last Office Visit: 02/05/2023 (in office), Visit date not found (telemedicine) Patient currently states "vision is bad" Are you diabetic? Yes. Do you check your blood sugars daily? YES. Did not measure this morning. Last Hemoglobin A1C: unsure No results found for: "HGBA1C" Do you drive? yes OCT image(s) of both eyes acquired and filed/scanned into chart. documented in this encounter Plan of Treatment Upcoming Encounters Date Type Department Care Team (Late st Contact Info) Description 08/07/2024 11:45 AM EDT Office Visit Otolaryngology [facility] [address] [place] [address] Eduardo Mccloud DO [address] [place] [address] Scheduled Orders Name Type Priority Associated Diagnoses Orde r Schedule RETINA SCAN DIAGNOSTIC IMAGE, POSTERIOR Procedures Routine Epiretinal membrane (ERM) of left eye Ordered: 02/16/2024 Health Maintenance Due Date Last Done Comments HbA1c 1942 Pneumococcal Vaccine: 65+ Years (1 of 2 - PCV) 1942 Depression Screening 1948 Albumin/Creatinine Ratio 1954 Diabetic Foot Exam 1954 DTap/Tdap Vaccines (1 - Tdap) 1955 Zoster Vaccines (1 of 2) 1986 COVID-19 Vaccine (4 - season) 2024 04/29/2021, 07/10/2020, 06/19/2020 Influenza Vaccine (FLU shot) (#1) 2024 01/12/2020, 02/20/2019, 02/27/2014 Diabetic Eye Exam 02/06/2024 02/16/2024, , 02/16/2024, Additional history exists HPV (Gardasil) Vaccine Aged [...] as of this encounter Visit Diagnoses Diagnosis Epiretinal membrane (ERM) of left eye- Primary documented in this encounter Advance Directives [...] patient or by statute hierarchy) Care Teams Speeder Hand Relationship Specialty Start Date End Date Noah Emmanuel DO [address], [place] [address] PCP - General Family Medicine 11/26/21 documented as of this encounter
--- NOTE | 2024-02-17 11:03 | XCELERA ---
[id number] [id number]
--- NOTE | 2024-02-17 13:21 | Pharmacy Report ---
- Date of Service February 17, 2024 - Pharmacy CVA/TIA Medication Review Medications to Prevent Stroke handout has been added to the patients discharge packet. Antiplatelet(s) * Plavix 75 mg PO daily Cholesterol * High intensity statin: atorvastatin 80 mg daily DVT Prophylaxis * SCD knee Therapeutic Anticoagulation * No history of Afib/Aflutter noted Type 2 Diabetes * Patient has T2DM, but per Dr. Yang, a diabetes medication with proven CVD benefit will be deferred to their outpatient provider due to familiarity with risks/benefits of such therapies. "Medications to prevent stroke" handout has already been added to the patient's discharge packet, which instructs the patient to follow up with their outpatient provider to evaluate which diabetes medication with proven CVD benefit is best for them
--- NOTE | 2024-02-17 13:33 | Billing Data ---
Date of Service February 17, 2024 Coding Level of Care Code 05468 SUB INP/OBS CARE
--- NOTE | 2024-02-17 14:35 | Hospitalist Progress Note ---
Date of Service February 17, 2024 Assessment & Plan (1) Stroke-like symptoms: Plan: Right lower extremity weakness Right upper extremity weakness resolved s/p TNK given in the ER Admit to ICU Brain MRI wo IV contrast TTE with bubble study Labetalol PRN for sbp > 180 or dBP > 105, holding his other anti-hypertensives at this time Consult neurology: Recommendations: 1. Patient gets a CT scan of the head per protocol 24 hours after TNKase 2. Echocardiogram results are pending. 3. With a total cholesterol less than 150 and normal triglycerides, keep current statin dose the same. 4. Control blood pressure as you are doing aiming for a mean arterial pressure of approximately 100. 5. After 24 hours increase activity and gait. In the meantime physical, occupational and speech therapy consults can be obtained 6. Consider discontinuing aspirin and initiating clopidogrel 75 mg daily for stroke/TIA prevention Bradycardia: Patient is asympomatic, however moments of HR in the 30s. will consult cardio. Plan VTE prophylaxis - SCDs Diet - heart healthy Disposition - admit to ICU Admission and Anticipated Discharge Date Admission Date: February 16, 2024 Subjective Patient reports feeling well. He has no new complaints. Review of Systems Review of Systems: All systems reviewed & are unremarkable except as noted in HPI & below Physical Exam Constitutional: WD/WN, vitals as above Eyes: PERRL, conjunctivae normal, anicteric sclerae normal visual figueroa by confrontation and EOM intact bilaterally; no nystagmus ENMT: external ear and nose normal, oropharynx normal Neck: trachea midline, no thyromegaly Respiratory: normal respiratory effort, lungs clear to auscultation Cardiovascular: RRR, no murmur, no edema Gastrointestinal (Abdomen): normal bowel sounds, soft, nontender, no hepatosplenomegaly Skin: no rashes, warm and dry Neurologic: moves all extremities, + focal motor deficit (4/5 right hip flexion, otherwise power equal b/l) and awake; not confused Speech / Cognition: normal speech Motor/Sensory: + tremor (postural); no pronator drift and no sensory deficit Cranial Nerves: PERRL, EOM intact bilaterally, normal facial strength, tongue midline, able to rotate head bilaterally, able to elevate shoulders bilaterally, no nystagmus and symmetric palate elevation Coordination: + abnormal [id number] test (decreased co-ordination on right side); normal wtibfe-yb-xbdt test Psychiatric: A+Ox3, euthymic affect Results & Data Results & Data Vital Signs (Past 12 Hours) Vital Signs Temp Pulse Pulse Resp BP Pulse Ox O2 Del Method 02/17/24 14:20 36.7 C 54 L 18 185/75 H 94 Room Air 02/17/24 13:20 51 L 16 156/58 H 92 Room Air 02/17/24 12:20 50 L 15 160/71 H 92 Room Air 02/17/24 12:20 51 L 18 183/74 H 92 Room Air 02/17/24 12:08 178/74 H 02/17/24 11:20 66 20 197/80 H 93 Room Air 02/17/24 10:20 63 16 164/78 H 96 Room Air 02/17/24 09:20 55 L 19 195/76 H 94 Room Air 02/17/24 08:20 36.6 C 52 L 16 181/78 H 96 Room Air 02/17/24 07:20 53 L 19 168/78 H 98 Nasal Cannula 02/17/24 07:08 44 L 02/17/24 06:20 36.7 C 44 L 14 177/67 H 97 Nasal Cannula 02/17/24 06:00 36.7 C 48 L 13 161/68 H 94 Nasal Cannula 02/17/24 05:20 36.7 C 46 L 14 172/77 H 95 Nasal Cannula 02/17/24 05:00 46 L 13 168/63 H 97 Nasal Cannula 02/17/24 04:20 36.7 C 45 L 14 169/69 H 96 Nasal Cannula 02/17/24 04:00 36.7 C 48 L 18 169/69 H 96 Nasal Cannula 02/17/24 03:20 46 L 18 163/66 H 94 Room Air 02/17/24 03:00 56 L 14 163/66 H 95 Room Air O2 Flow Rate 02/17/24 14:20 02/17/24 13:20 02/17/24 12:20 02/17/24 12:20 02/17/24 12:08 02/17/24 11:20 02/17/24 10:20 02/17/24 09:20 02/17/24 08:20 02/17/24 07:20 2 02/17/24 07:08 02/17/24 06:20 2 02/17/24 06:00 2 02/17/24 05:20 2 02/17/24 05:00 2 02/17/24 04:20 2 02/17/24 04:00 2 02/17/24 03:20 02/17/24 03:00 PG Care Time/CCT Total # of Minutes Spent Total Time Spent with Patient: Total time spent is greater than 50% in coordination of care (as documented) at patient's floor/unit and/or counseling patient: Coding Level of Care Code 37921 SUB INP/OBS CARE 2/35MIN Diagnoses Stroke-like symptoms R29.90
--- NOTE | 2024-02-17 15:57 | Cardiology Consultation ---
Date of Consultation February 17, 2024 Assessment & Plan (1) Sinus bradycardia: (2) Coronary artery disease: (3) Mitral regurgitation: Plan 1. Sinus bradycardia: Likely age-related. Not on medications which would slow the sinus rate. Not symptomatic. Not associated with AV block. This appears to be longstanding as he has well-documented low heart rates over some time. I do not believe this requires further investigation in the absence of new symptoms. 2. Coronary artery disease: Status post remote surgical revascularization. No current symptoms suggestive of angina or coronary insufficiency. He can continue aggressive secondary prevention with a daily aspirin and high-dose atorvastatin with ezetimibe 3. Mitral regurgitation: Mild to moderate. This can be followed over time. History of Present Illness Reason for Consultation: Bradycardia Requesting Physician: Kenneth Attending Physician: John Cooper History of Present Illness The patient is an 88-year-old gentleman with a history of coronary artery disease status post surgical revascularization quite remotely, sinus bradycardia and both ventricular and atrial ectopy. He was admitted to the hospital after suffering a neurologic event. Patient states that he was leaving a doctor's visit when he drove home. Trying to get out of the car became difficult because he had some trouble moving his legs the right leg worse than the left. He also later discovered some weakness in the right arm. He had some symptoms of pain at the right hip and back which appear to be fairly chronic in nature. Based on the symptoms he presented to the emergency room and was felt to be criteria for thrombolytics. TNKase was administered. His neurologic deficits resolved. MRI of the brain did not reveal any acute infarct and the patient was classified as having had a TIA. While he was monitored as an inpatient he was noted to have some sinus bradycardia. Patient states that before his event he was ambulatory without assistance. His primary limitation involves hip and back discomfort. He is able to push a shopping cart around a large department store without symptoms. He can ascend stairs if necessary. He did not report any exertional dyspnea, exertional chest pain or dizziness. No significant dizziness or lightheadedness. No sense of palpitation. No syncope. Currently the patient has no leg or arm pain. No motor dysfunction. Currently having some abdominal distention and watery diarrhea by report Allergies Allergy/AdvReac Type Severity Reaction Status Date / Time cinnamon Allergy Severe THROAT Verified 01/25/24 11:08 SWELLING chlorthalidone AdvReac Unknown Gastrointestinal Verified 01/25/24 11:08 Upset ciprofloxacin AdvReac Unknown constipatio Verified 01/25/24 11:08 n linaclotide AdvReac Unknown DIARRHEA Verified 01/25/24 11:08 lisinopril AdvReac Unknown DIZZINESS Verified 01/25/24 11:08 Home Medications Medication Instructions Recorded Confirmed Type nitroglycerin 0.4 mg sublingual 0.4 mg sublingual Q5M PRN Chest 03/29/19 02/16/24 History tablet Pain lancets 33 gauge (OneTouch Delica 06/27/19 01/25/24 History Lancets) sodium chloride 0.65 % nasal spray 1 spray intranasal BID PRN nasal 06/04/21 02/16/24 Rx aerosol (Saline Mist) congestion #45 mL cholecalciferol (vitamin D3) 50 4,000 unit PO HS 07/07/21 02/16/24 History mcg (2,000 unit) capsule glucosamine HCl 1,500 mg tablet 1,500 mg PO QAM 08/14/21 02/16/24 History furosemide 20 mg tablet 20 mg PO QAM #90 tabs 05/20/23 02/16/24 Rx oxymetazoline 0.05 % nasal spray 2 spray intranasal Q12H PRN 06/14/23 02/16/24 History (Afrin (oxymetazoline)) allergies amlodipine 10 mg tablet 10 mg PO QAM #90 tabs 08/23/23 02/16/24 Rx acetaminophen 325 mg tablet 1,300 mg PO BID PRN Pain 08/25/23 02/16/24 History (Tylenol) blood sugar diagnostic (OneTouch See Rx Instructions .Route 09/30/23 02/16/24 Rx Verio test strips) .COMPLEX #100 strips valsartan 160 mg tablet See Rx Instructions .Route 09/30/23 02/16/24 Rx .COMPLEX #135 tabs aspirin 81 mg tablet,delayed 81 mg PO QAM 10/05/23 02/16/24 History release (Adult Low Dose Aspirin) ezetimibe 10 mg tablet 10 mg PO HS #90 tabs 10/13/23 02/16/24 Rx isosorbide mononitrate 120 mg 120 mg PO QAM #90 tabs 11/03/23 02/16/24 Rx tablet,extended release 24 hr pantoprazole 40 mg tablet,delayed 40 mg PO QAM #90 tabs 11/03/23 02/16/24 Rx release atorvastatin 80 mg tablet 80 mg PO HS #90 tabs 11/22/23 02/16/24 Rx gabapentin 100 mg capsule 100 mg PO BID #180 caps 11/22/23 02/16/24 Rx cinacalcet 30 mg tablet 30 mg PO BID #60 tabs 12/23/23 02/16/24 Rx finasteride 5 mg tablet 5 mg PO DAILY #90 tabs 01/31/24 02/16/24 Rx Patient History Medical History Lumbar degenerative disc disease Vitamin D deficiency Coronary artery disease follows with / Daniel Memory change "just old age" testing for Alzheimers neg per pt. Hypertension Diabetes Hx of myocardial infarction hx prior to cabg in 2004 Hx of migraines History of basal cell carcinoma (BCC) neck- removed Basal cell carcinoma (BCC) of back Hx of Clostridium difficile infection (2021) tx w/antibiotics - no issues since Degenerative disc disease lumbar Hyperparathyroidism Post-nasal drip CHRONIC SINUS DRAINAGE, NO CHANGES FROM BASELINE History of anesthesia reaction slow to wake up History of kidney stones Premature atrial complex hx, follows with Dr. 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 Internal hemorrhoids Tubular adenoma of colon Diagnostic colonoscopy performed (01/01) w/ tubular adenoma x2. 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 Sanchez Surgical History History of surgery (10/19/23) Wide Local Excision of Basal Cell Carcinoma of Back(Left) - Mauri Barrett DO Hx of transurethral resection of prostate (05/2019) Hx of basal cell carcinoma excision (2021) from neck area History of parathyroid surgery (~06/2022) Hx of knee surgery Lt. knee, partial replacement History of removal of cyst [place] teeth removed History of esophagogastroduodenoscopy (EGD) History of colonoscopy History of cardiac cath (2012) 2 STENTS PLACED, ~2013, after CABG, [facility] - Dr. Sanchez currently H/O shoulder surgery left S/P aneurysm repair (2009) [place] [facility] [place] of [place] [facility] [place] Dr. Sanchez History of herniorrhaphy X3 Family History Unknown Coronary heart disease Brother Myocardial infarction Hypertension Mother Colon cancer Family history of diabetes mellitus Father Tuberculosis Lung cancer Denies family history of Ovarian cancer Prostate cancer Breast cancer Social History (Updated 02/17/24 @ 10:04 by Chinedu Arora MD) Smoking Status: Former smoker Tobacco Type: Cigarettes Age Started Using Tobacco: 19; Age Quit Using Tobacco: 41; packs per day: 1.5; Second Hand Exposure: No; Do You Dip or Chew Tobacco: No; Hx Alcohol Use: No Hx Substance Use: No Preferred Language: Mosotho Communication Ability: Effective Visual Impairment: No Limitations Hearing Ability: Normal [employer] Required: No Beliefs That Will Affect Care: None marital status: / Current Living Situation: Alone current occupational status: retired 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 Mood and affect appeared normal. He answered all questions appropriately. HEENT: Pupils are equal and reactive to light and accommodation. Extraocular movements are intact. The sclerae are anicteric. Neuro: Cranial nerves intact Lungs: Clear to auscultation bilaterally. He has good air movement without use of accessory muscles. No rales wheezes or rhonchi. Cardiac: Heart demonstrates a regular rate and rhythm. Normal S1 and S2. No murmurs on examination. Pulses: The patient has palpable radial pulses bilaterally that are equal in intensity Extremities: There was no evidence of hypoperfusion. There is no cyanosis or clubbing. There is no edema. Skin: I did not appreciate any rashes on examination today. Results & Data Vital Signs (Past 12 Hours) Vital Signs Temp Pulse Pulse Resp BP Pulse Ox O2 Del Method 02/17/24 14:20 36.7 C 54 L 18 185/75 H 94 Room Air 02/17/24 13:20 51 L 16 156/58 H 92 Room Air 02/17/24 12:20 50 L 15 160/71 H 92 Room Air 02/17/24 12:20 51 L 18 183/74 H 92 Room Air 02/17/24 12:08 178/74 H 02/17/24 11:20 66 20 197/80 H 93 Room Air 02/17/24 10:20 63 16 164/78 H 96 Room Air 02/17/24 09:20 55 L 19 195/76 H 94 Room Air 02/17/24 08:20 36.6 C 52 L 16 181/78 H 96 Room Air 02/17/24 07:20 53 L 19 168/78 H 98 Nasal Cannula 02/17/24 07:08 44 L 02/17/24 06:20 36.7 C 44 L 14 177/67 H 97 Nasal Cannula 02/17/24 06:00 36.7 C 48 L 13 161/68 H 94 Nasal Cannula 02/17/24 05:20 36.7 C 46 L 14 172/77 H 95 Nasal Cannula 02/17/24 05:00 46 L 13 168/63 H 97 Nasal Cannula 02/17/24 04:20 36.7 C 45 L 14 169/69 H 96 Nasal Cannula 02/17/24 04:00 36.7 C 48 L 18 169/69 H 96 Nasal Cannula O2 Flow Rate 02/17/24 14:20 02/17/24 13:20 02/17/24 12:20 02/17/24 12:20 02/17/24 12:08 02/17/24 11:20 02/17/24 10:20 02/17/24 09:20 02/17/24 08:20 02/17/24 07:20 2 02/17/24 07:08 02/17/24 06:20 2 02/17/24 06:00 2 02/17/24 05:20 2 02/17/24 05:00 2 02/17/24 04:20 2 02/17/24 04:00 2 Laboratory Results Abnormal Lab Results 02/16/24 02/16/24 02/16/24 17:29 17:35 22:26 WBC 6.73 RBC 3.52 L Hgb 11.3 L Hct 34.1 L MCV 96.9 MCH 32.1 MCHC 33.1 RDW Std Deviation 45.1 RDW Coeff of Abbie 12.7 Plt Count 144 MPV 10.2 Immature Gran % (Auto) 0.1 Neut % (Auto) 54.1 Lymph % (Auto) 32.2 Smyth % (Auto) 9.5 Eos % (Auto) 3.4 Baso % (Auto) 0.7 Neut # (Auto) 3.63 Lymph # (Auto) 2.17 Smyth # (Auto) 0.64 H Eos # (Auto) 0.23 Baso # (Auto) 0.05 Immature Gran # (Auto) 0.01 PT 11.8 INR 1.1 APTT 26 PTT Ratio 1.0 Sodium 136 Potassium 4.1 Chloride 106 Carbon Dioxide 24 Anion Gap 6 BUN 34 H Creatinine 1.43 H POC Creatinine 1.5 H Est Cr Clr Drug Dosing 38.8 eGFR 47.42 BUN/Creatinine Ratio 23.8 H Glucose 152 H POC Glucose 142 H 113 H Estimat Average Glucose Hemoglobin A1c Calcium 7.9 L Magnesium 1.8 Total Bilirubin 0.6 AST 18 ALT 18 Alkaline Phosphatase 28 L Troponin I High Sens 7.3 Total Protein 5.7 L Albumin 3.7 Globulin 2.0 L Albumin/Globulin Ratio 1.9 Triglycerides Cholesterol LDL Cholesterol, Calc VLDL Cholesterol, Calc HDL Cholesterol Cholesterol/HDL Ratio Urine Color Urine Appearance Urine pH Ur Specific [place] Urine Protein Urine Glucose (UA) Urine Ketones Urine Blood Urine Nitrite Urine Bilirubin Urine Urobilinogen Ur Leukocyte Esterase Nasal Screen MRSA (PCR) Blood Type A Negative Antibody Screen NEGATIVE 02/16/24 02/17/24 02/17/24 Unknown 04:14 07:27 WBC 7.54 RBC 3.86 L Hgb 12.3 L Hct 36.6 L MCV 94.8 MCH 31.9 MCHC 33.6 RDW Std Deviation 43.8 RDW Coeff of Abbie 12.6 Plt Count 142 MPV 11.0 Immature Gran % (Auto) 0.4 Neut % (Auto) 55.3 Lymph % (Auto) 29.0 Smyth % (Auto) 9.7 Eos % (Auto) 4.8 Baso % (Auto) 0.8 Neut # (Auto) 4.17 Lymph # (Auto) 2.19 Smyth # (Auto) 0.73 H Eos # (Auto) 0.36 Baso # (Auto) 0.06 Immature Gran # (Auto) 0.03 PT INR APTT PTT Ratio Sodium 141 Potassium 3.8 Chloride 109 H Carbon Dioxide 25 Anion Gap 7 BUN 25 H Creatinine 1.14 POC Creatinine Est Cr Clr Drug Dosing 49.0 eGFR 62.25 BUN/Creatinine Ratio 21.9 H Glucose 87 POC Glucose 89 Estimat Average Glucose 203 Hemoglobin A1c 8.7 H Calcium 8.4 L Magnesium Total Bilirubin 1.0 AST 19 ALT 18 Alkaline Phosphatase 32 L Troponin I High Sens Total Protein 5.9 L Albumin 3.9 Globulin 2.0 L Albumin/Globulin Ratio 2.0 Triglycerides 148 Cholesterol 131 LDL Cholesterol, Calc 61 VLDL Cholesterol, Calc 30 HDL Cholesterol 40 Cholesterol/HDL Ratio 3.3 Urine Color Urine Appearance Urine pH Ur Specific [place] Urine Protein Urine Glucose (UA) Urine Ketones Urine Blood Urine Nitrite Urine Bilirubin Urine Urobilinogen Ur Leukocyte Esterase Nasal Screen MRSA (PCR) Negative Blood Type Antibody Screen 02/17/24 02/17/24 11:28 Unknown WBC RBC Hgb Hct MCV MCH MCHC RDW Std Deviation RDW Coeff of Abbie Plt Count MPV Immature Gran % (Auto) Neut % (Auto) Lymph % (Auto) Smyth % (Auto) Eos % (Auto) Baso % (Auto) Neut # (Auto) Lymph # (Auto) Smyth # (Auto) Eos # (Auto) Baso # (Auto) Immature Gran # (Auto) PT INR APTT PTT Ratio Sodium Potassium Chloride Carbon Dioxide Anion Gap BUN Creatinine POC Creatinine Est Cr Clr Drug Dosing eGFR BUN/Creatinine Ratio Glucose POC Glucose 114 H Estimat Average Glucose Hemoglobin A1c Calcium Magnesium Total Bilirubin AST ALT Alkaline Phosphatase Troponin I High Sens Total Protein Albumin Globulin Albumin/Globulin Ratio Triglycerides Cholesterol LDL Cholesterol, Calc VLDL Cholesterol, Calc HDL Cholesterol Cholesterol/HDL Ratio Urine Color Yellow Urine Appearance Clear Urine pH 5.5 Ur Specific [place] 1.014 Urine Protein Negative Urine Glucose (UA) Trace H Urine Ketones Negative Urine Blood Negative Urine Nitrite Negative Urine Bilirubin Negative Urine Urobilinogen Negative Ur Leukocyte Esterase Negative Nasal Screen MRSA (PCR) Blood Type Antibody Screen Diagnostic Findings Echocardiogram 02/17/2024: Low normal LV systolic function with ejection fraction around 50%. Mild LVH. Mild left atrial dilation. Mild to moderate mitral regurgitation. Brain MRI did not reveal any acute abnormality. ECG Additional Comments: EKG demonstrated sinus bradycardia with right bundle branch block PG Care Time/CCT Total # of Minutes Spent Total Time Spent with Patient: Total time spent is greater than 50% in coordination of care (as documented) at patient's floor/unit and/or counseling patient: Coding Level of Care Code 33229 INT INP/OBS CARE 3/75MIN Diagnoses Sinus bradycardia R00.1 Coronary artery disease I25.10 Mitral regurgitation I34.0
[2024-02-17] MEDS: ATORVASTATIN 40 MG TAB PO SCH (20:21)
[2024-02-17] MEDS: CHOLECALCIFEROL 25 MCG (1000 UNITS) TAB PO SCH (20:21)
--- NOTE | 2024-02-17 21:11 | CT Scan Report ---
Exam(s): CT HEAD Without Contrast EXAM: CT Head Without Intravenous Contrast CLINICAL HISTORY: Reason for exam: Post TPA/TNK 24 hour- Please shweta STAT for read. TECHNIQUE: Axial computed tomography images of the head/brain without intravenous contrast. CTDI is 35.65 mGy and DLP is 547.75 mGy-cm. Automated exposure control was utilized for the study. A dose lowering technique was utilized adhering to the principles of ALARA. COMPARISON: Reference made to prior MRI dated 02/16/2024 FINDINGS: Brain: Stable mild ischemic microangiopathy. No hemorrhage. Ventricles: Unremarkable. No ventriculomegaly. Bones/joints: Unremarkable. No acute fracture. Soft tissues: Unremarkable. Sinuses: Unremarkable as visualized. No acute sinusitis. Mastoid air cells: Unremarkable as visualized. No mastoid effusion. Other findings: Age appropriate volume loss. IMPRESSION: No acute findings in the head/brain. Electronically signed by: Julio Bernstein MD 02/17/24 21:10 PM
[2024-02-18] MEDS: hydrALAZINE HCL 20 MG/ML VIAL IV PRN (03:18)
--- NOTE | 2024-02-18 08:08 | Neurology Progress Note ---
Date of Service February 18, 2024 Assessment & Plan (1) Right hemiparesis: (2) TIA (transient ischemic attack): Plan Patient had the acute onset of right arm and leg weakness distally without other neurologic deficits. His symptoms are resolved (since yesterday) and MRI of the brain showed no acute stroke. I suspect a TIA. The patient did get TNKase, but I do not think that had any bearing on his symptoms. The patient has some risk factors for stroke including diabetes, hypertension, dyslipidemia. Echocardiogram showed no source of emboli or other significant abnormalities. Patient has some diarrhea/fecal incontinence. I do not believe this is a acute neurologic originating issue and is likely GI in nature. Recommendations: 1. Continue high-dose atorvastatin 80 mg daily, as this is what he was on when he came in. His total cholesterol is excellent at 131. It is not too low or I would recommend lowering the dose. Given his advanced age she does have some risk of [employer] hemorrhage on the high-dose statin. 2. Control blood pressure as you are doing aiming for a mean arterial pressure of approximately 100. 3. Continue to increase activity as able 4. Continue clopidogrel 75 mg daily for stroke/TIA prevention and remain off aspirin. 5. Medicine team to address the diarrhea/fecal incontinence. Overall, I spent a total of 35 minutes with this case including review of records, review of CT films, direct evaluation patient at bedside, report genera tion, and discussion of the case with the patient at bedside as well as Dr. Cooper. including differential diagnosis and treatment options. Admission and Anticipated Discharge Date Admission Date: February 16, 2024 Subjective Today, the patient feels better and has no issues with weakness of the limbs, numbness or tingling in the face, arms, or legs, headaches, speech issues, confusion, or balance problems. He has had some incontinence of stool yesterday and today with some decreased appetite. He feels a little bit weak in general because he has been in bed for a couple of days. Cardiology consultation resulted in no additional testing or treatment. Echocardiogram revealed mild LVH and mild to moderate mitral regurgitation and no source of emboli. Blood pressure this morning was 180s over 70s. He is afebrile. He is in normal sinus rhythm in the 50s and 60s. Repeat CT scan of the head at 24 hours after thrombolytic was unremarkable with no hemorrhage or other abnormalities Results & Data Vital Signs (Past 12 Hours) Vital Signs Temp Pulse Pulse Resp BP BP Pulse Ox 02/18/24 03:11 36.5 C 104 H 20 181/71 H 96 02/18/24 00:00 51 L 02/17/24 23:12 54 L 19 95 02/17/24 23:00 178/75 H 02/17/24 23:00 178/75 H 02/17/24 22:54 55 L 16 92 02/17/24 22:00 166/72 H 02/17/24 22:00 51 L 16 95 02/17/24 21:30 54 L 13 90 02/17/24 21:30 182/71 H 02/17/24 21:03 55 L 15 92 02/17/24 21:00 187/90 H 02/17/24 20:22 36.4 C L 02/17/24 20:17 170/75 H 02/17/24 20:12 57 L 19 91 O2 Del Method 02/18/24 03:11 Room Air 02/18/24 00:00 02/17/24 23:12 02/17/24 23:00 02/17/24 23:00 02/17/24 22:54 02/17/24 22:00 02/17/24 22:00 02/17/24 21:30 02/17/24 21:30 02/17/24 21:03 02/17/24 21:00 02/17/24 20:22 02/17/24 20:17 02/17/24 20:12 Exam (Neuro) Physical Exam: He is awake and alert. Speech is without aphasia or dysarthria. Mood and affect are normal and appropriate. Thought processes are intact to conversation. Extraocular eye muscles are intact without nystagmus. There is no facial droop. Tongue is midline. Coordination is normal in the arms without tremor or ataxia. Strength seems 5/5 diffusely in all major muscle groups in the arms both proximally and distally. Stance sitting in bed with feet dangling is normal. PG Care Time/CCT Total # of Minutes Spent Total Time Spent with Patient: Total time spent is greater than 50% in coordination of care (as documented) at patient's floor/unit and/or counseling patient: Coding Level of Care Code 89478 SUB INP/OBS CARE 2/35MIN Diagnoses Right hemiparesis G81.91 TIA (transient ischemic attack) G45.9 Time Spent (min) 35
[2024-02-18] MEDS: CLOPIDOGREL BISULFATE 75 MG TAB PO SCH (08:50)
[2024-02-18 11:37] VITALS: BP 123/65; PULSE 57; RESP 18; TEMP 97.9; O2SAT 96
[2024-02-18] MEDS: STROKE PATIENT DISCHARGE STA (12:23)
--- NOTE | 2024-02-18 12:37 | Discharge Summary ---
Discharge Summary Date of Service February 18, 2024 Principal Dx & Hospital Course #1 = Principal Diagnosis (1) Stroke-like symptoms: Right lower extremity weakness Right upper extremity weakness resolved s/p TNK given in the ER Admit to ICU Brain MRI wo IV contrast TTE with bubble study Labetalol PRN for sbp > 180 or dBP > 105, holding his other anti-hypertensives at this time Consult neurology: Recommendations: 1. Patient gets a CT scan of the head per protocol 24 hours after TNKase 2. Echocardiogram results are pending. 3. With a total cholesterol less than 150 and normal triglycerides, keep current statin dose the same. 4. Control blood pressure as you are doing aiming for a mean arterial pressure of approximately 100. 5. After 24 hours increase activity and gait. In the meantime physical, occupational and speech therapy consults can be obtained 6. Consider discontinuing aspirin and initiating clopidogrel 75 mg daily for stroke/TIA prevention Bradycardia: Patient is asympomatic, COnsulted cardiology. No intervention needed. Admission HPI Per Admitting Provider Jose Daniel Parker is an 88 year old right hand dominant male who presents to the ER with right lower extremity weakness. He was on his way home from his ophthalmology appointment and when he tried to get out of his car at 3:20pm he noticed he was unable to move his right leg very well and had difficulty walking without pain. Last known well was approximately 30-45 minutes prior to this. He also noted when he tried making a drink he was unable to hold the cup correctly and his arm felt weak although this appears to have now resolved. No facial droop, vision, hearing, speech or extremity sensation change. He has no prior history of stroke although notable has prior history of cardiac bypass and cardiac stents. Discharge Exam Constitutional WD/WN, vitals as above Eyes PERRL, conjunctivae normal, anicteric sclerae normal visual figueroa by confrontation and EOM intact bilaterally; no nystagmus ENMT external ear and nose normal, oropharynx normal Neck trachea midline, no thyromegaly Respiratory normal respiratory effort, lungs clear to auscultation Cardiovascular RRR, no murmur, no edema Gastrointestinal (Abdomen) normal bowel sounds, soft, nontender, no hepatosplenomegaly Skin no rashes, warm and dry Neurologic moves all extremities, + focal motor deficit (4/5 right hip flexion, otherwise power equal b/l) and awake; not confused Speech / Cognition: normal speech Motor/Sensory: + tremor (postural); no pronator drift and no sensory deficit Cranial Nerves: PERRL, EOM intact bilaterally, normal facial strength, tongue midline, able to rotate head bilaterally, able to elevate shoulders bilaterally, no nystagmus and symmetric palate elevation Coordination: + abnormal [id number]-gu-[id number] test (decreased co-ordination on right side); normal [id number]-[id number] test Psychiatric A+Ox3, euthymic affect Discharge Plan Discharge Items Patient Disposition: Home - Self-Care Reason For Visit: RIGHT ARM AND LEG WEAKNESS Discharge Diagnosis: right arm weakness Activity: Resume your previous activity Non-emergency contact: Primary Care Provider Call non-emergency contact if: you have any medication questions Follow-up/Referrals: Noah Emmanuel DO [Primary Care Provider] - 02/29/24 11:30 am (Hospital follow up scheduled February 28 at 11:[address] Emmanuel) Addtl Attending Provider Instructions: Stop aspirin. Please followup with PCP in 1-2 days. Risk Factors for Stroke: You can reduce your chances of stroke by working with your medical provider to adopt a healthy lifestyle. Some specific ways to lower your chance of stroke are: * If you are a smoker, now is the time to stop smoking cigarettes * If you are diabetic, improve the control of your blood sugars * Avoid excessive amounts of alcohol * Control high blood pressure * Lose weight if you are overweight * Be sure to lead an active lifestyle * Eat a healthy diet low in salt, cholesterol and fat You should know about other risk factors for stroke that you are unable to control. These include: * Age 55 years or older * Male gender * Certain racial groups: , or / * Family History of Stroke, Mini stroke or Heart Attack * Sickle Cell Disease Follow Up: It is important for you to keep your follow up appointments with your medical provider. Who to Call and When: Medical Emergencies: Call 911 immediately if you experience any of the following warning signs and symptoms of Stroke: * Sudden numbness or weakness of the face, arm or leg, especially on one side of the body * Sudden confusion, trouble speaking or understanding * Sudden trouble seeing in one or both eyes * Sudden trouble walking, dizziness, loss of balance or coordination * Sudden severe headache with no cause Do not delay calling 911 if you experience any warning signs or symptoms of a stroke. Delay in seeking medical attention may affect what treatments can be given to you. . Pending Studies at Discharge: No Stand-Alone Forms: [facility], Smoking Cessation, Medications to Prevent Stroke Medications and DC Order Prescriptions: New clopidogrel 75 mg Tablet 75 mg PO QAM Qty: 30 0RF Continued cholecalciferol (vitamin D3) 50 mcg (2,000 unit) capsule 4,000 unit PO HS furosemide 20 mg tablet 20 mg PO QAM Qty: 90 3RF amlodipine 10 mg tablet 10 mg PO QAM Qty: 90 3RF Rx Instructions: TAKE 1 TABLET BY MOUTH IN THE MORNING valsartan 160 mg tablet See Rx Instructions .ROUTE .COMPLEX Qty: 135 3RF Dose Instruction: TAKE 1 TABLETS BY MOUTH DAILY IN THE MORNING AND 1/2 A TABLET IN THE EVENING USE DIRECTED Rx Instructions: TAKE 1 TABLETS BY MOUTH DAILY IN THE MORNING AND 1/2 A TABLET IN THE EVENING USE DIRECTED OneTouch Verio test strips Strip See Rx Instructions .ROUTE .COMPLEX Qty: 100 3RF Dose Instruction: TEST ONCE DAILY. DX: E11.9 Rx Instructions: TEST ONCE DAILY. DX: E11.9 ezetimibe 10 mg tablet 10 mg PO HS Qty: 90 3RF pantoprazole 40 mg tablet,delayed release (DR/EC) 40 mg PO QAM Qty: 90 3RF isosorbide mononitrate 120 mg tablet extended release 24 hr 120 mg PO QAM Qty: 90 3RF gabapentin 100 mg capsule 100 mg PO BID Qty: 180 3RF atorvastatin 80 mg tablet 80 mg PO HS Qty: 90 3RF finasteride 5 mg tablet 5 mg PO DAILY Qty: 90 3RF glucosamine HCl 1,500 mg tablet 1,500 mg PO QAM Rx Instructions: administer with a meal (DME) lancets [OneTouch Delica Lancets] 33 gauge misc See Rx Instructions .ROUTE .MEDSUPPLY Rx Instructions: Test blood 1 time daily oxymetazoline [Afrin (oxymetazoline)] 0.05 % spray,non-aerosol 2 spray intranasal Q12H PRN (Reason: allergies) nitroglycerin 0.4 mg tablet, sublingual 0.4 mg SL Q5M PRN (Reason: Chest Pain) acetaminophen [Tylenol] 325 mg tablet 1,300 mg PO BID PRN (Reason: Pain) cinacalcet 30 mg tablet 30 mg PO BID Qty: 60 2RF Rx Instructions: take with food Saline Mist 0.65 % aerosol,spray 1 spray intranasal BID PRN (Reason: nasal congestion) Qty: 45 0RF Discontinued aspirin [Adult Low Dose Aspirin] 81 mg tablet,delayed release (DR/EC) 81 mg PO QAM Discharge Orders: Discharge Order (Routine); Ordered 02/18/24 Ordered By: John Heredia/Other Patient Handouts: Managing Type 2 Diabetes Admission Data Admit Date/Time: 02/16/24 18:26 Attending Provider: John Cooper Admit Provider: Antonino Mcknight Primary Care Provider: Noah Emmanuel Other Providers: Antonino Mcknight; Noah Yang; Chinedu Arora; Bubba Robert; Timo Moise; Eleuterio Torres; Adrian Castillo; Ronald Pizano; Teodoro Sanchez Jr; Kameron Ward; Sherlyn Torres; Daya Hart; David Elias; David Pena; Dale Ortega; Anitha Flores; Ector Mon; Maggy Gamboa; Yung Lauren; Zoltan Dudley; Leno Horan Other Interventions: Discharge Summary Assessment (RN) Last Done: 02/18/24 12:31 Hospital Stay Data Consultations 02/16/24 18:26 ED Decision to Admit Stat 02/16/24 21:32 Consult Roll Capper Routine Consult Neurology Routine 02/17/24 11:21 Consult Cardiology Routine Diagnostic Imagining Performed 02/16/24 17:20 CT angio head w con Stat CT angio neck with con Stat CT head/brain wo con Stat 02/16/24 19:39 MRI Brain [MR brain wo con] Stat 02/17/24 18:24 CT head/brain wo con Routine Pending Results Patient Have Any Pending Studies at Discharge: No Discharge Instructions Given to Patient (Per Discharging Provider) Stop aspirin. Please followup with PCP in 1-2 days. Risk Factors for Stroke: You can reduce your chances of stroke by working with your medical provider to adopt a healthy lifestyle. Some specific ways to lower your chance of stroke are: * If you are a smoker, now is the time to stop smoking cigarettes * If you are diabetic, improve the control of your blood sugars * Avoid excessive amounts of alcohol * Control high blood pressure * Lose weight if you are overweight * Be sure to lead an active lifestyle * Eat a healthy diet low in salt, cholesterol and fat You should know about other risk factors for stroke that you are unable to control. These include: * Age 55 years or older * Male gender * Certain racial groups: , or / * Family History of Stroke, Mini stroke or Heart Attack * Sickle Cell Disease Follow Up: It is important for you to keep your follow up appointments with your medical provider. Who to Call and When: Medical Emergencies: Call 911 immediately if you experience any of the following warning signs and symptoms of Stroke: * Sudden numbness or weakness of the face, arm or leg, especially on one side of the body * Sudden confusion, trouble speaking or understanding * Sudden trouble seeing in one or both eyes * Sudden trouble walking, dizziness, loss of balance or coordination * Sudden severe headache with no cause Do not delay calling 911 if you experience any warning signs or symptoms of a stroke. Delay in seeking medical attention may affect what treatments can be given to you. . Total Time Total Time Spent Total Time Spent (In Minutes): 32 Coding Level of Care Code 70631 INP/OBS DISCH >30 MIN Diagnoses Stroke-like symptoms R29.90
--- NOTE | 2024-02-21 05:50 | Coding Query ---
CODING QUERY To promote full compliance with coding requirements relating to patient care, provider participation is requested in all cases of dramatic reader uncertainty. Please assist us with the question(s) below: Coding Question(s): Pt admitted with left sided weakness. Neuro Consulted/followed - TIA suspected, NIHSS score 2 . Please check below the phrase that describes the etiology of the left sided weakness. Thanks for your help. Bradly Sidhu [facility] Physician's Response(s): x___Patient was treated for TIA., POA Patient had left sided weakness, unknown etiology Principal Diagnosis: "that condition established after study, to be chiefly responsible for occasioning the admission of the patient to the hospital for care." Co-Existing Principal Diagnosis: "when two or more diagnoses equally meet the criteria for principal diagnosis as determined by the circumstances of admission, diagnostic work up, and/or therapy provided, and the Alphabetic Index, Tabular List, or another coding guideline does not provide sequencing direction, any one of the diagnoses may be sequenced first." "When the physician has documented what appears to be a current diagnosis in the body of the record, but has not included the diagnosis in the final diagnostic statement, the physician should be asked whether the diagnosis should be added." (Source Coding Clinic 2 QTR90. p3-4) AARON
--- NOTE | 2024-02-22 08:26 | Pharmacy Report ---
Pharmacist Stroke Counseling - Date of Service February 22, 2024 - Scope: Pharmacy has been consulted to provide medication discharge counseling for this patient admitted with transient ischemic attack as per the Pharmacist Discharge Counseling for Stroke Patients Protocol. - Medications on Discharge: Home Medications Medication Instructions Recorded Confirmed nitroglycerin 0.4 mg sublingual 0.4 mg sublingual Q5M PRN Chest 03/29/19 02/16/24 tablet Pain lancets 33 gauge (OneTouch Delica 06/27/19 01/25/24 Lancets) cholecalciferol (vitamin D3) 50 4,000 unit PO HS 07/07/21 02/16/24 mcg (2,000 unit) capsule glucosamine HCl 1,500 mg tablet 1,500 mg PO QAM 08/14/21 02/16/24 oxymetazoline 0.05 % nasal spray 2 spray intranasal Q12H PRN 06/14/23 02/16/24 (Afrin (oxymetazoline)) allergies acetaminophen 325 mg tablet 1,300 mg PO BID PRN Pain 08/25/23 02/16/24 (Tylenol) New Rx's Medication Instructions Recorded sodium chloride 0.65 % nasal spray 1 spray intranasal BID PRN nasal 06/04/21 aerosol (Saline Mist) congestion #45 mL furosemide 20 mg tablet 20 mg PO QAM #90 tabs 05/20/23 amlodipine 10 mg tablet 10 mg PO QAM #90 tabs 08/23/23 blood sugar diagnostic (OneTouch See Rx Instructions .Route 09/30/23 Verio test strips) .COMPLEX #100 strips valsartan 160 mg tablet See Rx Instructions .Route 09/30/23 .COMPLEX #135 tabs ezetimibe 10 mg tablet 10 mg PO HS #90 tabs 10/13/23 isosorbide mononitrate 120 mg 120 mg PO QAM #90 tabs 11/03/23 tablet,extended release 24 hr pantoprazole 40 mg tablet,delayed 40 mg PO QAM #90 tabs 11/03/23 release atorvastatin 80 mg tablet 80 mg PO HS #90 tabs 11/22/23 gabapentin 100 mg capsule 100 mg PO BID #180 caps 11/22/23 finasteride 5 mg tablet 5 mg PO DAILY #90 tabs 01/31/24 clopidogrel 75 mg tablet 75 mg PO QAM #30 tabs 02/18/24 cinacalcet 30 mg tablet 30 mg PO DAILY #90 tabs 02/21/24 - Action: The above medications, specifically ones for stroke treatment/prophylaxis, have been reviewed in detail with the patient and/or patient representative government relations(s) prior to discharge. This includes indication, common adverse reactions, drug interactions, and medication administration. Medication counseling has been employed using the teach-back method to ensure understanding. - Outcome: The patient and/or patient representative government relations(s) have demonstrated understanding of the medications. Additional comments: - Medications changes reviewed with patient. Patient did confirm that new medication (clopidogrel) was picked up from pharmacy. Patient aware that aspirin will be stopped and replaced with clopidogrel. No concerns noted by patient. Thank you for allowing pharmacy to be involved in the care of this patient. Please call [phone] with any additional questions
== END 2024-02-18 13:03 | disposition home or self-care (01) | DRG 62 ==
LOC: ED 16:31 → SUATTDRO 18:26 → 1E 18:26 → 2S 02-18 02:39